=== PATIENT | female | born 1940 | race Caucasian/White ===

== ENCOUNTER → 2017-08-11 | Outpatient (REF) | payer MEDICARE ==
[2017-08-11 12:41] LABS: HEMATOCRIT 27.1 % (36.0-47.0); HEMOGLOBIN 9.1 g/dl (12.0-15.5); MEAN CORPUSCULAR HEMOGLOBIN 29.6 pg (27.0-33.0); MEAN CORPUSCULAR HGB CONC 33.6 g/dl (32.0-36.5); MEAN CORPUSCULAR VOLUME 88.3 fl (80.0-96.0); PLATELET COUNT, AUTOMATED 108 10^3/uL (150-450); RED BLOOD COUNT 3.07 10^6/uL (4.00-5.40); RED CELL DISTRIBUTION WIDTH 13.1 % (11.5-14.5); WHITE BLOOD COUNT 3.9 10^3/uL (4.0-10.0)
[2017-08-11 13:36] LABS: ANION GAP 9 MEQ/L (8-16); BLOOD UREA NITROGEN 22 MG/DL (7-18); CALCIUM LEVEL 8.8 MG/DL (8.8-10.2); CARBON DIOXIDE LEVEL 24 MEQ/L (21-32); CHLORIDE LEVEL 107 MEQ/L (98-107); CREATININE FOR GFR 1.87 MG/DL (0.55-1.30); FERRITIN 48 NG/ML (8-252); GLOMERULAR FILTRATION RATE 27.9 (>39); GLUCOSE, FASTING 232 MG/DL (70-100); IRON (FE) 45 UG/DL (50-170); SODIUM LEVEL 140 MEQ/L (136-145); TOTAL IRON BINDING CAPACITY 322 UG/DL (250-450)
[2017-08-11 13:41] LABS: ESTIMATED AVERAGE GLUCOSE 200 MG/DL (60-110); HEMOGLOBIN A1c 8.6 %
== END ==
LOC: M SFHCPLAZ 09:56
DX: D64.9 Anemia, unspecified (principal); R79.89 Other specified abnormal findings of blood chemistry; E11.9 Type 2 diabetes mellitus without complications
CPT/HCPCS: 83550

== ENCOUNTER → 2017-09-01 | Outpatient (REF) | payer MEDICARE ==
[2017-09-01 17:50] LABS: INR 1.22; PROTHROMBIN TIME 15.7 SECONDS (12.4-14.5)
[2017-09-01 18:57] LABS: EOS # 0.1 10^3/uL (0.0-0.50); EOS % 2.1 % (0.0-3.0); HEMATOCRIT 26.4 % (36.0-47.0); HEMOGLOBIN 8.8 g/dl (12.0-15.5); IMMATURE GRANULOCYTE % 0.3 % (0-3.0); LYMPH # 0.7 10^3/uL (1.5-4.5); LYMPH % 21.4 % (24.0-44.0); MEAN CORPUSCULAR HEMOGLOBIN 28.9 pg (27.0-33.0); MEAN CORPUSCULAR HGB CONC 33.3 g/dl (32.0-36.5); MEAN CORPUSCULAR VOLUME 86.8 fl (80.0-96.0); MONO # 0.3 10^3/uL (0.0-0.8); MONO % 8.4 % (0.0-5.0); NEUTROPHILS # 2.3 10^3/uL (1.8-7.7); NEUTROPHILS % 67.8 % (36.0-66.0); PLATELET COUNT, AUTOMATED 106 10^3/uL (150-450); RED BLOOD COUNT 3.04 10^6/uL (4.00-5.40); RED CELL DISTRIBUTION WIDTH 13.2 % (11.5-14.5); WHITE BLOOD COUNT 3.3 10^3/uL (4.0-10.0)
[2017-09-01 19:27] LABS: SLIDE REVIEW Report; SOURCE PERIPHERAL SMEAR
[2017-09-01 19:28] LABS: REASON FOR REVIEW ANEMIA / RBC MORPH
== END ==
LOC: M SFHCPLAZ 11:58
DX: D61.818 Other pancytopenia (principal); Z85.850 Personal history of malignant neoplasm of thyroid
CPT/HCPCS: 84443

== ENCOUNTER → 2017-09-15 | Outpatient (CLI) | payer MEDICARE | LOC: M RAD 06:40 | DX: R63.4 Abnormal weight loss (principal); Z85.850 Personal history of malignant neoplasm of thyroid | CPT/HCPCS: 76536 ==

== ENCOUNTER → 2017-09-18 | Outpatient (CLI) | payer MEDICARE | LOC: M RAD 10:15 | DX: R59.0 Localized enlarged lymph nodes (principal) | CPT/HCPCS: 70490 ==

== ENCOUNTER → 2017-09-22 | Outpatient (REF) | payer MEDICARE ==
[2017-09-22 17:57] LABS: ALBUMIN 3.9 GM/DL (3.2-5.2); ANION GAP 8 MEQ/L (8-16); BLOOD UREA NITROGEN 23 MG/DL (7-18); CARBON DIOXIDE LEVEL 25 MEQ/L (21-32); CHLORIDE LEVEL 105 MEQ/L (98-107); CREATININE FOR GFR 1.83 MG/DL (0.55-1.30); GLOMERULAR FILTRATION RATE 28.6 (>39); GLUCOSE, FASTING 186 MG/DL (70-100); PHOSPHORUS LEVEL 3.8 MG/DL (2.5-4.9); SODIUM LEVEL 138 MEQ/L (136-145)
[2017-09-22 19:00] LABS: EOS # 0.1 10^3/uL (0.0-0.50); EOS % 2.1 % (0.0-3.0); HEMATOCRIT 26.9 % (36.0-47.0); HEMOGLOBIN 8.9 g/dl (12.0-15.5); IMMATURE GRANULOCYTE % 0.3 % (0-3.0); LYMPH # 0.7 10^3/uL (1.5-4.5); LYMPH % 19.5 % (24.0-44.0); MEAN CORPUSCULAR HEMOGLOBIN 28.9 pg (27.0-33.0); MEAN CORPUSCULAR HGB CONC 33.1 g/dl (32.0-36.5); MEAN CORPUSCULAR VOLUME 87.3 fl (80.0-96.0); MONO # 0.3 10^3/uL (0.0-0.8); MONO % 7.8 % (0.0-5.0); NEUTROPHILS # 2.3 10^3/uL (1.8-7.7); NEUTROPHILS % 70.3 % (36.0-66.0); PLATELET COUNT, AUTOMATED 107 10^3/uL (150-450); RED BLOOD COUNT 3.08 10^6/uL (4.00-5.40); RED CELL DISTRIBUTION WIDTH 13.3 % (11.5-14.5); RETIC HEMOGLOBIN EQUIVALENT 34.2 pg (24-36); RETICULOCYTE # 44.4 10^9/L (17-77); RETICULOCYTE % 1.4 % (0.5-1.5); WHITE BLOOD COUNT 3.3 10^3/uL (4.0-10.0)
[2017-09-22 19:08] LABS: HEMATOCRIT 26.9 % (36.0-47.0)
[2017-09-22 22:08] LABS: FOLATE > 24.0 NG/ML (>5.4)
[2017-09-22 23:34] LABS: VITAMIN B12 LEVEL 585 PG/ML (247-911)
[2017-09-24 08:18] LABS: ERYTHROPOIETIN 15.4 mIU/mL (2.6-18.5); THRYOGLOBULIN ANTIBODIES (ATA) < 1.0 IU/mL (0.0-0.9); THYROGLOBULIN QUANTITATIVE 4.7 ng/mL (1.5-38.5)
[2017-09-25 12:46] LABS: PRETREATED FOLATE FOR RBCFOL 21.3 NG/ML; RBC FOLATE 1662.8 NG/ML (280-791)
[2017-10-08 11:54] LABS: FLOW CYTOMETRY FOR SEND OUT See Pathology Report
== END ==
LOC: M SFHCPLAZ 12:29
DX: D61.818 Other pancytopenia (principal); N18.3 Chronic kidney disease, stage 3 (moderate)
CPT/HCPCS: 82746

== ENCOUNTER → 2017-09-28 | Outpatient (REF) | payer MEDICARE ==
[2017-09-28 13:18] LABS: TOTAL PROTEIN,RANDOM URINE 13.6 MG/DL (0.0-12.0)
== END ==
LOC: M SFHCPLAZ 12:23
DX: D61.818 Other pancytopenia (principal); N18.3 Chronic kidney disease, stage 3 (moderate)
CPT/HCPCS: 86335

== ENCOUNTER → 2017-10-06 | Outpatient (CLI) | payer MEDICARE ==
[~2017-10-06] MED LIST: LIDOCAINE 1% MDV 20ML VIAL As Ordered
== END ==
LOC: M RADPRO 12:48
DX: R59.0 Localized enlarged lymph nodes (principal); I10 Essential (primary) hypertension; E78.00 Pure hypercholesterolemia, unspecified; E83.51 Hypocalcemia; I25.10 Atherosclerotic heart disease of native coronary artery without angina pectoris; D64.9 Anemia, unspecified; I25.2 Old myocardial infarction; I34.9 Nonrheumatic mitral valve disorder, unspecified; Z79.84 Long term (current) use of oral hypoglycemic drugs; Z79.899 Other long term (current) drug therapy; Z79.891 Long term (current) use of opiate analgesic; Z88.8 Allergy status to other drugs, medicaments and biological substances; Z91.030 Bee allergy status; Z95.1 Presence of aortocoronary bypass graft; Z85.850 Personal history of malignant neoplasm of thyroid; Z90.89 Acquired absence of other organs; Z85.41 Personal history of malignant neoplasm of cervix uteri
CPT/HCPCS: 10022

== ENCOUNTER → 2018-01-28 | Outpatient (REF) | payer MEDICARE ==
[2018-01-28 12:04] LABS: EOS % 0.8 % (0.0-3.0); HEMATOCRIT 27.9 % (36.0-47.0); HEMOGLOBIN 9.8 g/dl (12.0-15.5); LYMPH # 0.9 10^3/uL (1.5-4.5); LYMPH % 24.2 % (24.0-44.0); MEAN CORPUSCULAR HEMOGLOBIN 30.2 pg (27.0-33.0); MEAN CORPUSCULAR HGB CONC 35.1 g/dl (32.0-36.5); MEAN CORPUSCULAR VOLUME 86.1 fl (80.0-96.0); MONO # 0.3 10^3/uL (0.0-0.8); NEUTROPHILS # 2.4 10^3/uL (1.8-7.7); PLATELET COUNT, AUTOMATED 109 10^3/uL (150-450); RED BLOOD COUNT 3.24 10^6/uL (4.00-5.40); RED CELL DISTRIBUTION WIDTH 13.2 % (11.5-14.5); WHITE BLOOD COUNT 3.6 10^3/uL (4.0-10.0)
[2018-01-28 12:43] LABS: ANION GAP 8 MEQ/L (8-16); BLOOD UREA NITROGEN 26 MG/DL (7-18); CALCIUM LEVEL 8.3 MG/DL (8.8-10.2); CARBON DIOXIDE LEVEL 29 MEQ/L (21-32); CHLORIDE LEVEL 105 MEQ/L (98-107); CHOLESTEROL LEVEL 146 MG/DL (<200); CHOLESTEROL RISK RATIO 2.654 (<5); CREATININE FOR GFR 1.78 MG/DL (0.55-1.30); GLOMERULAR FILTRATION RATE 29.6 (>39); GLUCOSE, FASTING 188 MG/DL (70-100); HDL CHOLESTEROL 55 MG/DL (>40); LDL CHOLESTEROL 62 MG/DL (<100); NON-HDL-C 91 MG/DL; POTASSIUM SERUM 3.7 MEQ/L (3.5-5.1); SODIUM LEVEL 142 MEQ/L (136-145); TRIGLYCERIDES LEVEL 144 MG/DL (<150)
[2018-01-28 13:23] LABS: ESTIMATED AVERAGE GLUCOSE 212 MG/DL (60-110)
[2018-01-28 13:55] LABS: MAU/CREAT RATIO 350.8 MCG/MG (0.0-30.0)
== END ==
LOC: M SFHCPLAZ 09:43
DX: N18.3 Chronic kidney disease, stage 3 (moderate) (principal); E11.22 Type 2 diabetes mellitus with diabetic chronic kidney disease; D61.818 Other pancytopenia; E78.5 Hyperlipidemia, unspecified; E03.9 Hypothyroidism, unspecified
CPT/HCPCS: 84443

== ENCOUNTER 2018-05-24 11:43 | Emergency (ER) | payer MEDICARE ==
[~2018-05-24] VITALS: Ht 175.3 cm; Wt 79.5 kg
[~2018-05-24 11:43] MED LIST changes: +AMLO10TA5 PO; +ASCO25TA PO; +ASPI1TAB PO; +CALC1CAP31 PO; +CHEW500C2 PO; +CLOP75TA2 PO; +COLA100C5 PO; +CRAN500C2 PO; +FOLI1TAB11 PO; +FURO20TA2 PO; +IRON18TA PO; +LEVO125T4 PO; -LIDOCAINE 1% MDV 20ML VIAL As Ordered; +MAGN400T5 PO; +METO25TA4 PO; +MULT1TAB18 PO; +PANT40TA3 PO; +PRAV10TA4 PO; +TERA10CA3 PO; +TRAD5TAB PO; +TRAM50TA2 PO; +VITA400C7 PO
[2018-05-24 13:09] LABS: BASO % 0.2 % (0.0-1.0); EOS % 0.8 % (0.0-3.0); HEMOGLOBIN 10.4 g/dl (12.0-15.5); MEAN CORPUSCULAR HEMOGLOBIN 30.9 pg (27.0-33.0); MEAN CORPUSCULAR HGB CONC 35.9 g/dl (32.0-36.5); MEAN CORPUSCULAR VOLUME 86.1 fl (80.0-96.0); MONO # 0.4 10^3/uL (0.0-0.8); MONO % 7.8 % (0.0-5.0); NEUTROPHILS # 3.6 10^3/uL (1.8-7.7); NEUTROPHILS % 70.8 % (36.0-66.0); PLATELET COUNT, AUTOMATED 129 10^3/uL (150-450); RED BLOOD COUNT 3.37 10^6/uL (4.00-5.40); WHITE BLOOD COUNT 5.1 10^3/uL (4.0-10.0)
[2018-05-24 13:20] LABS: INR 1.1; PROTHROMBIN TIME 14.3 SECONDS (12.1-14.4)
[2018-05-24 13:21] LABS: PARTIAL THROMBOPLASTIN TIME 27.8 SECONDS (25.4-37.6)
[2018-05-24] MEDS ORDERED: LORazepam 2 MG/ML VIAL (J2060) IV STA (13:29)
[2018-05-24] MEDS ORDERED: ONDANSETRON 4MG/2ML VIAL (J2405) IV ONE (13:30)
[2018-05-24 13:35] LABS: CALCIUM LEVEL 9.5 MG/DL (8.8-10.2); CREATININE FOR GFR 1.43 MG/DL (0.55-1.30); GLOMERULAR FILTRATION RATE 38.1 (>39)
[2018-05-24] MEDS ORDERED: VITMTA PO (13:41)
[2018-05-24] MEDS ORDERED: ISOSORBIDE MON. (IMDUR) 60 MG XR TAB PO ONE (13:45)
[2018-05-24] MEDS ORDERED: TORSEMIDE 20 MG TAB PO ONE (13:45)
[2018-05-24] MEDS ORDERED: CARVedilol 12.5 MG TAB PO ONE (13:45)
[2018-05-24] MEDS ORDERED: amLODIPine 10 MG TAB PO ONE (13:45)
[2018-05-24] MEDS ORDERED: TORS20TA2 PO (13:46)
[2018-05-24] MEDS ORDERED: POLY1POW38 PO (13:46)
[2018-05-24] MEDS ORDERED: ACET-683 PO (13:46)
[2018-05-24] MEDS ORDERED: META0.52 PO (13:46)
[2018-05-24] MEDS ORDERED: SENO8.6T10 PO (13:46)
[2018-05-24] MEDS ORDERED: ISOS120T4 PO (13:46)
[2018-05-24] MEDS ORDERED: OCUVTAB4 PO (13:46)
[2018-05-24] MEDS ORDERED: HYDR25TA PO (13:47)
[2018-05-24] MEDS ORDERED: IRON65TA PO (13:48)
[2018-05-24] MEDS ORDERED: CALC500T36 PO (13:52)
[2018-05-24] MEDS ORDERED: PRAV40TA PO (13:55)
[2018-05-24 15:01] VITALS: BP 196/82
[2018-05-24] MEDS ORDERED: NORCOTAB PO (15:17)
[2018-05-24] MEDS ORDERED: ONDA4TAB6 PO (15:17)
== END 2018-05-24 15:27 | disposition home or self-care (01) ==
LOC: M ED 11:43
DX: I16.0 Hypertensive urgency (principal); Z88.8 Allergy status to other drugs, medicaments and biological substances; Z79.01 Long term (current) use of anticoagulants; Z79.82 Long term (current) use of aspirin; Z79.899 Other long term (current) drug therapy; Z87.09 Personal history of other diseases of the respiratory system
CPT/HCPCS: 80048; 85025; 85610; 85730; 93041; 94760; 96374; 96375; 99284; J2060; J2405

== ENCOUNTER → 2018-08-17 | Outpatient (REF) | payer MEDICARE ==
[~2018-08-17] MED LIST changes: +ACET-683 PO; -ASCO25TA PO; -ASPI1TAB PO; +ASPI81TA26 PO; +CALC12504 PO; +HYDR-3715 PO; +HYDR25TA PO; +IRON65TA PO; +ISOS120T7 PO; +META0.52 PO; +OCUVTAB4 PO; +ONDA4TAB6 PO; +POLY1POW38 PO; +PRAV40TA PO; +SENO8.6T10 PO; +TORS20TA2 PO; +VITA1TAB23 PO; +VITMTA PO
== END ==
LOC: M LAB REF 15:39
PROVIDERS: ATTEND Otolaryngology
DX: R04.0 Epistaxis (principal)

== ENCOUNTER → 2018-09-20 | Outpatient (CLI) | payer MEDICARE ==
--- NOTE | 2018-09-20 17:40 | REPVR ---
EXAM: US Duplex Right Lower Extremity Veins, Limited EXAM DATE/TIME: 09/20/2018 5:29 PM CLINICAL HISTORY: 78 years old, female; Edema, localized; Lower extremity, right; Additional info: Right leg swelling stat US 1, xr2 TECHNIQUE: Imaging protocol: Real-time Duplex ultrasound of the Right Lower Extremity with 2-D lomas scale, color Doppler flow and spectral waveform analysis. Limited exam was focused on the right lower extremity veins. COMPARISON: No relevant prior studies available. FINDINGS: Right deep veins: Unremarkable. The common femoral, femoral, proximal profunda femoral and popliteal veins are patent without thrombus. Normal Doppler waveforms. Normal compressibility and/or augmentation response. Right superficial veins: Unremarkable. Saphenofemoral junction is patent without thrombus. Soft tissues: Edema IMPRESSION: No acute findings. No evidence of deep vein thrombosis. Electronically signed by: Sandeep Sanchez On 09/20/2018 17:40:16 PM
--- NOTE | 2018-09-21 07:18 | REP ---
RIGHT ANKLE, FOUR VIEWS: Four views of the right ankle are performed. There is no acute fracture or dislocation. Ankle mortise is anatomic. There is a large inferior calcaneal spur and there is mild posterior calcaneal spurring. There are adjacent vascular calcifications of the soft tissues. There is moderate diffuse soft tissue swelling. Unreviewed
--- NOTE | 2018-09-21 07:18 | REP ---
RIGHT FOOT, FOUR VIEWS: Four views right foot performed. There appears to be an old healed fracture of the first proximal phalanx. I do not see evidence of an acute fracture or dislocation. There is a large inferior calcaneal spur. There are diffuse vascular calcifications. There is diffuse narrowing of the interphalangeal joints. Unreviewed
== END ==
LOC: M RAD 16:24
PROVIDERS: ATTEND Family Medicine
DX: M77.31 Calcaneal spur, right foot (principal); M25.471 Effusion, right ankle; M19.071 Primary osteoarthritis, right ankle and foot; M79.89 Other specified soft tissue disorders

== ENCOUNTER → 2018-10-04 | Outpatient (CLI) | payer MEDICARE ==
[~2018-10-04] MED LIST changes: -CALC12504 PO; +CALC500T61 PO
--- NOTE | 2018-10-04 19:49 | REP ---
REASON: Left sided pain. PRIORS: None. FINDINGS: Five views of the ribs show no acute fracture or destructive osseous lesion. IMPRESSION: Negative rib series. Electronically Signed by Rosalio Jimenez DO 10/04/2018 07:52 P
--- NOTE | 2018-10-05 07:53 | REP ---
REASON: Left-sided pain. COMPARISON: Multiple, the latest 03/01/2012. FINDINGS: The superior mediastinal structures are midline. The cardiac silhouette is unremarkable in size, shape, and position. The diaphragmatic surfaces of the lungs are regular, and the costophrenic angles are clear. The pulmonary torrez are clear. The imaged osseous structures are intact. Since the latest prior examination, the patient has undergone median sternotomy. IMPRESSION: There is no acute cardiopulmonary disease. Electronically Signed by Rosalio Jimenez DO 10/05/2018 10:02 A
== END ==
LOC: M RAD 15:58
PROVIDERS: ATTEND Family Medicine
DX: R07.81 Pleurodynia (principal)

== ENCOUNTER → 2018-11-22 | Outpatient (REF) | payer MEDICARE ==
[~2018-11-22] MED LIST changes: +CARV6.25; +FERR325T3 PO; +MAGN240P PO
[2018-11-22 16:07] LABS: ALBUMIN 3.3 GM/DL (3.2-5.2); CALCIUM LEVEL 9.3 MG/DL (8.8-10.2); CREATININE FOR GFR 1.98 MG/DL (0.55-1.30); GLOMERULAR FILTRATION RATE 26.1 (>39); MAGNESIUM LEVEL 1.5 MG/DL (1.8-2.4); PHOSPHORUS LEVEL 2.8 MG/DL (2.5-4.9); POTASSIUM SERUM 2.8 MEQ/L (3.5-5.1)
== END ==
LOC: M LABDRAW1 11:37
PROVIDERS: ATTEND Internal Medicine Cardiovascular Disease
DX: I50.32 Chronic diastolic (congestive) heart failure (principal)

== ENCOUNTER → 2018-11-22 | Outpatient (REF) | payer MEDICARE ==
[~2018-11-22] MED LIST changes: -CARV6.25; -FERR325T3 PO; -MAGN240P PO
[2018-11-22 13:05] LABS: HEMATOCRIT 27.4 % (36.0-47.0); HEMOGLOBIN 9.6 g/dl (12.0-15.5)
[2018-11-22 13:59] LABS: CHOLESTEROL RISK RATIO 2.755 (<5); CREATININE FOR GFR 2.06 MG/DL (0.55-1.30); GLOMERULAR FILTRATION RATE 24.9 (>39); POTASSIUM SERUM 2.7 MEQ/L (3.5-5.1); THYROID STIMULATING HORMONE 0.653 uIU/ML (0.358-3.740)
[2018-11-22 14:00] LABS: HEMOGLOBIN A1c 8.2 %
[2018-11-22 14:05] LABS: MAU/CREAT RATIO 281.9 MCG/MG (0.0-30.0)
== END ==
LOC: M LABDRAW1 11:39
PROVIDERS: ATTEND Family Medicine
DX: E11.9 Type 2 diabetes mellitus without complications (principal); E83.42 Hypomagnesemia; E03.9 Hypothyroidism, unspecified; I50.32 Chronic diastolic (congestive) heart failure

== ENCOUNTER → 2018-11-24 | Outpatient (REF) | payer MEDICARE ==
[2018-11-24 12:11] LABS: CALCIUM LEVEL 9.2 MG/DL (8.8-10.2); CREATININE FOR GFR 1.88 MG/DL (0.55-1.30); GLOMERULAR FILTRATION RATE 27.7 (>39); POTASSIUM SERUM 4.3 MEQ/L (3.5-5.1)
== END ==
LOC: M SFHCPLAZ 10:37
PROVIDERS: ATTEND Family Medicine
DX: E87.6 Hypokalemia (principal)

== ENCOUNTER → 2018-11-29 | Outpatient (REF) | payer MEDICARE | LOC: M SFHCPLAZ 11:23 | PROVIDERS: ATTEND Family Medicine | DX: E11.9 Type 2 diabetes mellitus without complications (principal); E83.42 Hypomagnesemia; E03.9 Hypothyroidism, unspecified ==

== ENCOUNTER → 2018-11-29 | Outpatient (REF) | payer MEDICARE | LOC: M LABDRAWP 11:46 | PROVIDERS: ATTEND Physician Assistant | DX: E87.6 Hypokalemia (principal) ==

== ENCOUNTER → 2018-12-03 | Outpatient (REF) | payer MEDICARE ==
[2018-12-03 11:32] LABS: HEMOGLOBIN 9.4 g/dl (12.0-15.5)
[2018-12-03 11:45] LABS: HEMOGLOBIN A1c 8.1 %
[2018-12-03 12:13] LABS: CALCIUM LEVEL 9.6 MG/DL (8.8-10.2); CHOLESTEROL RISK RATIO 2.34 (<5); CREATININE FOR GFR 2.09 MG/DL (0.55-1.30); GLOMERULAR FILTRATION RATE 24.5 (>39); MAGNESIUM LEVEL 1.5 MG/DL (1.8-2.4); POTASSIUM SERUM 3.5 MEQ/L (3.5-5.1); THYROID STIMULATING HORMONE 1.52 uIU/ML (0.358-3.740)
[2018-12-03 14:11] LABS: MAU/CREAT RATIO 614.1 MCG/MG (0.0-30.0)
== END ==
LOC: M SFHCPLAZ 09:47
PROVIDERS: ATTEND Family Medicine
DX: E11.9 Type 2 diabetes mellitus without complications (principal); E83.42 Hypomagnesemia; E03.9 Hypothyroidism, unspecified

== ENCOUNTER → 2019-01-17 | Outpatient (CLI) | payer MEDICARE ==
--- NOTE | 2019-01-17 14:07 | REP ---
BILATERAL SCREENING DIGITAL MAMMOGRAM WITH 3D TOMOSYNTHESIS: There are no palpable abnormalities or other breast complaints. The the patient states she has not had a clinical breast examination in over a year. The the patient states she performs self-breast examinations zero times per year. The Tyrer-Cuzick Score is: NA, history of beast cancer. Comparisons are 01/09/2011 03/01/2012, 03/11/2013 and 06/26/2014 . The patient has a history of breast cancer at age 31 and ovarian cancer at age 21 and has a history of other cancer. The there are three biopsy marking clips laterally in the right breast and a single biopsy marking clip slightly medial to midline in the right breast. On 06/01/2013 the the patient had a stereotactic needle biopsy of one of the lesions laterally in the right breast. The results of this biopsy were reportedly benign. I have no information concerning the results of the other biopsies. There is no dominant mass, micro calcific cluster or architectural distortion that would indicate malignancy. There are numerous benign calcifications bilaterally, unchanged. There are no additional findings on 3D tomosynthesiss. Other than the biopsy marking clips, there is no change from the prior studies. Impression: BIRADS/ACR category 2 mammogram. Benign findings. Recommendation: Routine annual screening mammography. This mammogram was interpreted with the aid of a FDA approved computer-aided detection system. A. Negative mammogram reports should not delay biopsy if a dominant or clinically suspicious mass is present. B. Not all breast cancers are identified by mammography or tomosynthesis. C. Adenosis and dense breasts may obscure an underlying neoplasm. Patient letter M1. Electronically Signed by Rey Alfonso MD 01/17/2019 01:58 P
== END ==
LOC: M WHC 11:54
PROVIDERS: ATTEND Family Medicine
DX: Z12.31 Encounter for screening mammogram for malignant neoplasm of breast (principal); Z85.3 Personal history of malignant neoplasm of breast; Z85.43 Personal history of malignant neoplasm of ovary; Z85.89 Personal history of malignant neoplasm of other organs and systems; R92.1 Mammographic calcification found on diagnostic imaging of breast

== ENCOUNTER → 2019-02-21 | Outpatient (CLI) | payer MEDICARE ==
[~2019-02-21] MED LIST changes: +FERR325T3 PO; +MAGN240P PO
--- NOTE | 2019-02-21 22:48 | ECHO ---
DATE OF PROCEDURE: 02/21/2019 REFERRING PHYSICIAN: Dr. Shorty Swanson INDICATION: Cardiac murmur, unspecified. HEIGHT: 177 cm WEIGHT: 74 kg 2D MEASUREMENTS: Ventricular septum: 1.10 cm Posterior wall: 1.16 cm Left ventricle diastole: 4.5 cm Aortic root: 2.7 cm Left atrium: 4.3 cm Left atrial volume index: 34.7 Inferior vena cava: 1.3 cm DOPPLER MEASUREMENTS: No aortic regurgitation. No aortic stenosis. Aortic valve velocity: 227 cm/s LVOT velocity: 96.0 cm/s LVOT VTI: 24.2 cm No aortic regurgitation. No mitral regurgitation. Mitral E velocity: 112 cm/s Mitral A velocity: 65.5 cm/s Very mild tricuspid regurgitation. No pulmonic regurgitation. MITRAL ANNULAR TISSUE DOPPLER: E prime lateral: 9.8 cm/s DESCRIPTION: Rhythm was sinus rhythm and sinus bradycardia observed. Image quality was good. No pericardial effusion. This was a 2D, M-mode, color flow Doppler and pulse wave Doppler examination and included mitral annular tissue Doppler. CONCLUSIONS: 1. Mild aortic valve sclerosis of a 3-cusp aortic valve. No aortic stenosis or regurgitation. 2. Mild mitral annular calcification. Mild mitral regurgitation. 3. Normal left ventricle internal dimensions and wall thickness. Normal regional left ventricular (LV) wall motion and wall thickening. Normal LV systolic function. Left ventricular ejection fraction (LVEF) 65% by visual estimate. Normal LV diastolic function for age. 4. Mild left atrial dilatation by left atrial volume index.
== END ==
LOC: M CARPUL 12:32
PROVIDERS: ATTEND Family Medicine
DX: R01.1 Cardiac murmur, unspecified (principal)

== ENCOUNTER → 2019-02-24 | Outpatient (REF) | payer MEDICARE ==
[2019-02-24 18:51] LABS: APPEARANCE, URINE CLOUDY (CLEAR); BACTERIA, URINE AUTO 1+ (NEGATIVE); BILIRUBIN, URINE AUTO NEGATIVE (NEGATIVE); BLOOD, URINE BLOOD 1+ (NEGATIVE); CALCIUM OXALATE CRYSTALS LARGE; COLOR, URINE YELLOW (YELLOW); GLUCOSE, URINE (UA) AUTO 3+ mg/dL (NEGATIVE); KETONE, URINE AUTO NEGATIVE (NEGATIVE); LEUKOCYTE ESTERASE, URINE AUTO 3+ (NEGATIVE); MUCUS, URINE SMALL (NEGATIVE); NITRITE, URINE AUTO NEGATIVE (NEGATIVE); PROTEIN, URINE AUTO 2+ mg/dL (NEGATIVE); RBC, URINE AUTO 25 /HPF (0-3); SPECIFIC GRAVITY URINE AUTO 1.012 (1.002-1.035); SQUAMOUS EPITHELIAL CELL UR AU 0 /HPF (0-6); UROBILINOGEN, URINE AUTO 0.2 mg/dL (0.0-2.0); WBC, URINE AUTO TNTC /HPF (0-3)
== END ==
LOC: M SFHCLERA 11:58
PROVIDERS: ATTEND Family Medicine
DX: R35.0 Frequency of micturition (principal)

== ENCOUNTER → 2019-03-04 | Outpatient (REF) | payer MEDICARE ==
[~2019-03-04] MED LIST changes: +CARV6.25
[2019-03-04 20:20] LABS: BASO % 0.2 % (0.0-1.0); EOS # 0.1 10^3/uL (0.0-0.5); HEMATOCRIT 29.4 % (36.0-47.0); LYMPH # 1.4 10^3/uL (1.5-5.0); MEAN CORPUSCULAR HEMOGLOBIN 30.5 pg (27.0-33.0); MEAN CORPUSCULAR VOLUME 89.6 fl (80.0-96.0); MONO # 0.4 10^3/uL (0.0-0.8); MONO % 8.4 % (0.0-5.0); NEUTROPHILS # 3.3 10^3/uL (1.5-8.5); PLATELET COUNT, AUTOMATED 150 10^3/uL (150-450); RED BLOOD COUNT 3.28 10^6/uL (4.00-5.40); WHITE BLOOD COUNT 5.3 10^3/uL (4.0-10.0)
[2019-03-04 20:25] LABS: CALCIUM LEVEL 10.6 MG/DL (8.8-10.2); CREATININE FOR GFR 2.35 MG/DL (0.55-1.30); GLOMERULAR FILTRATION RATE 21.4 (>39); POTASSIUM SERUM 3.9 MEQ/L (3.5-5.1)
[2019-03-04 21:09] LABS: APPEARANCE, URINE CLEAR (CLEAR); BACTERIA, URINE AUTO NEGATIVE (NEGATIVE); BILIRUBIN, URINE AUTO NEGATIVE (NEGATIVE); BLOOD, URINE BLOOD NEGATIVE (NEGATIVE); COLOR, URINE YELLOW (YELLOW); GLUCOSE, URINE (UA) AUTO 3+ mg/dL (NEGATIVE); KETONE, URINE AUTO NEGATIVE (NEGATIVE); LEUKOCYTE ESTERASE, URINE AUTO NEGATIVE (NEGATIVE); MUCUS, URINE SMALL (NEGATIVE); NITRITE, URINE AUTO NEGATIVE (NEGATIVE); PROTEIN, URINE AUTO 2+ mg/dL (NEGATIVE); RBC, URINE AUTO 1 /HPF (0-3); SPECIFIC GRAVITY URINE AUTO 1.011 (1.002-1.035); SQUAMOUS EPITHELIAL CELL UR AU 0 /HPF (0-6); UROBILINOGEN, URINE AUTO 0.2 mg/dL (0.0-2.0); WBC, URINE AUTO 2 /HPF (0-3)
== END ==
LOC: M SFHCLERA 15:47
PROVIDERS: ATTEND Family Medicine
DX: R35.0 Frequency of micturition (principal); D64.9 Anemia, unspecified; N18.3 Chronic kidney disease, stage 3 (moderate)
CPT/HCPCS: 80048; 81001; 81002; 85025; 87086; G0463

== ENCOUNTER 2019-03-28 10:34 | Emergency (ER) | payer MEDICARE ==
[~2019-03-28] VITALS: Ht 177.8 cm; Wt 71.8 kg
[~2019-03-28 10:34] MED LIST changes: -CARV6.25
[2019-03-28] MEDS ORDERED: ACETAMINOPHEN 325 MG TAB PO ONE (12:30)
--- NOTE | 2019-03-28 13:06 | REP ---
Duplex extremity venous ultrasound: Right lower extremity. History: Right upper leg pain. Question injury. Question DVT. Findings: The deep veins are anechoic and fully compressible from the groin to the popliteal fossa in the right lower extremity. Color flow imaging is homogeneous. Spectral Doppler interrogation demonstrates intact respiratory variation in flow and normal manual augmentation of flow. There is no evidence of deep vein thrombosis. Impression: Negative right lower extremity duplex venous ultrasound. No evidence of deep vein thrombosis. Electronically Signed by Shankar Zhong MD 03/28/2019 12:57 P
[2019-03-28] MEDS ORDERED: CARV6.25 (14:20)
[2019-03-28] MEDS ORDERED: amLODIPine 10 MG TAB PO ONE (14:45)
[2019-03-28] MEDS ORDERED: ISOSORBIDE MON. (IMDUR) 60 MG XR TAB PO ONE (14:45)
[2019-03-28] MEDS ORDERED: CARVedilol 6.25 MG TAB PO ONE (14:45)
--- NOTE | 2019-03-28 14:53 | REP ---
RIGHT HIP, TWO VIEWS: Two views of the right hip are performed. There is no acute fracture or dislocation. There is mild joint space narrowing, subchondral sclerosis, and spurring. Vascular calcifications are present. IMPRESSION: Mild degenerative changes without fracture or dislocation. Electronically Signed by Rey Mack MD 03/28/2019 06:07 P
--- NOTE | 2019-03-28 14:54 | REP ---
RIGHT KNEE, FOUR VIEWS: Four views right knee are performed. No acute fracture or dislocation is seen. Vascular calcifications are seen posteriorly. I do not see a significant joint effusion. IMPRESSION: No acute fracture or dislocation. Electronically Signed by Rey Mack MD 03/28/2019 06:07 P
[2019-03-28 15:05] VITALS: BP 218/90
[2019-03-28 16:27] VITALS: BP 203/77
== END 2019-03-28 16:38 | disposition home or self-care (01) ==
LOC: EDBD 10:34 → M ED 10:34
DX: M79.661 Pain in right lower leg (principal); I10 Essential (primary) hypertension; E11.9 Type 2 diabetes mellitus without complications; E03.9 Hypothyroidism, unspecified; Z88.8 Allergy status to other drugs, medicaments and biological substances; Z79.899 Other long term (current) drug therapy; F41.9 Anxiety disorder, unspecified

== ENCOUNTER 2019-04-07 15:35 | Inpatient (IN) | payer MEDICARE ==
[~2019-04-07] VITALS: Ht 177.8 cm; Wt 68.8 kg
[~2019-04-07 15:35] MED LIST changes: +CARV6.25 PO
[2019-04-07] MEDS ORDERED: MAGN400T2 PO (17:13)
[2019-04-07] MEDS ORDERED: POTA20TA6 PO (17:14)
[2019-04-07] MEDS ORDERED: PERI12LIQ SSP (17:14)
--- NOTE | 2019-04-07 18:07 | REPVR ---
PROCEDURE INFORMATION: Exam: CT Abdomen And Pelvis Without Contrast Exam date and time: 04/07/2019 5:16 PM Age: 78 years old Clinical indication: Other: Hypercalcemia; Additional info: Hypercalcemia, ? malignancy, request of Dr. Husain TECHNIQUE: Imaging protocol: Computed tomography of the abdomen and pelvis without contrast. Radiation optimization: All CT scans at this facility use at least one of these dose optimization techniques: automated exposure control; mA and/or kV adjustment per patient size (includes targeted exams where dose is matched to clinical indication); or iterative reconstruction. COMPARISON: CT ABD PELVIS W/O CONTRAST 09/15/2017 7:16 AM FINDINGS: Lungs: Atelectasis right lung base. Liver: Normal. No mass. Gallbladder and bile ducts: There has been a cholecystectomy. Pancreas: Normal. No ductal dilation. Spleen: There is mild splenomegaly with a maximum span of 13 centimeters. No focal abnormalities demonstrated. Adrenals: Normal. No mass. Kidneys and ureters: Subcentimeter nonobstructive calculus lower pole left kidney. Stomach and bowel: Mild diverticulosis is present in the left colon. No diverticulitis. Appendix: No evidence of appendicitis. Intraperitoneal space: Unremarkable. No free air. No significant fluid collection. Vasculature: Extensive calcifications in the abdominal arteries demonstrated. Lymph nodes: Unremarkable. No enlarged lymph nodes. Bladder: Unremarkable as visualized. Reproductive: There has been a hysterectomy. Bones/joints: Moderate central spinal stenosis L3-L4 and moderate to severe central spinal stenosis L4-L5. Soft tissues: There is a moderate fatty umbilical hernia. There is no evidence of incarceration. There is mild soft tissue edema demonstrated in the abdominal wall, flanks and buttock regions consistent with anasarca. IMPRESSION: 1. There has been a cholecystectomy. 2. There is mild splenomegaly with a maximum span of 13 centimeters. No focal abnormalities demonstrated. 3. Extensive calcifications in the abdominal arteries demonstrated. 4. Mild diverticulosis is present in the left colon. No diverticulitis. 5. There has been a hysterectomy. 6. Mild anasarca. Electronically signed by: Sandeep Sanchez On 04/07/2019 18:06:56 PM
[2019-04-07] MEDS: NS 1,000 ML IV SCH (19:30)
[2019-04-07] MEDS ORDERED: DEXTROSE 50% 50 ML SYRINGE IV PRN (20:00)
[2019-04-07] MEDS ORDERED: GLUCOSE 4 GM CHEW TABLET PO PRN (20:00)
[2019-04-07] MEDS ORDERED: GLUCAGON FOR INJ 1 MG VIAL (J1610) SC PRN (20:00)
--- NOTE | 2019-04-07 20:00 | HPEPDOC ---
General Date of Admission 04/07/19 Date of Service: Apr 07, 2019 Chief Complaint The patient is a 78-year-old female admitted with a reason for visit of Kidney Prob. Source: Patient, RN/, Old records History of Present Illness 78 year old female with PMH of CKD stage 4 with baseline creatinine of around 2 to 2.3 with multiple other medical problems went to see the public utilities sales representative for the first time today and lab work in the office showed creatinine worse than baseline wne hypercalcemia with low PTH, hypokalemia, hypomagnesemia so was sent to the ED for evaluation. Patient and patient's son in law Jose reports that there has been some confusion with her meds which he found out last week end when he started doing her meds. Before that her niece used to do her meds. Patient is legally blind and cannot read the bottles. As per Jose she also gets easily confused. Blood work with the public utilities sales representative noted that her creatinine is up to 3.6 from a 2.2 . Calcium was 11.73, k 3.14, PTH was 2.0, uric acid 7.06, magnesium 1.36 Hb 8.7 plat 163. The public utilities sales representative was concerned for a maliganancy causing the hypercalcemia so an CT scan of the abdomen and pelvis was done with out contrast. Hospitalist was consulted for admission for CARLTON on CKD and multiple elctrolyte abnormalities. Home Medications Scheduled Amlodipine Besylate (Amlodipine Besylate) 10 Mg Tab, 10 MG PO DAILY, (Reported) Aspirin (Aspirin EC) 81 Mg Tab, 81 MG PO DAILY, (Reported) Calcitriol (Calcitriol) 0.25 Mcg Cap, 0.25 MCG PO BID, (Reported) Calcium Carbonate (Calcium Carbonate) 500 Mg Tab, 500 MG PO BID, (Reported) Carvedilol (Carvedilol) 6.25 Mg Tablet, 6.25 MG PO BID, (Reported) Chlorhexidine Gluconate (Chlorhexidine Gluconate) 473 Ml Mouthwash, 15 ML SSP TID, (Reported) Ferrous Sulfate (Ferrous Sulfate) 325 Mg Tablet.dr, 325 MG PO DAILY, (Reported) Folic Acid (Folic Acid) 1 Mg Tab, 1 MG PO DAILY, (Reported) Hydralazine HCl (Hydralazine HCl) 25 Mg Tab, 25 MG PO BID, (Reported) Isosorbide Mononitrate (Isosorbide Mononitrate ER) 120 Mg Tab, 120 MG PO DAILY, (Reported) Levothyroxine Sodium (Levothyroxine Sodium) 125 Mcg Tab, 125 MCG PO DAILY, (Reported) Linagliptin (Tradjenta) 5 Mg Tab, 5 MG PO DAILY, (Reported) Magnesium Oxide (Magnesium Oxide) 400 Mg Tablet, 400 MG PO DAILY, (Reported) Pantoprazole Sodium (Pantoprazole Sodium) 40 Mg Tab, 40 MG PO DAILY, (Reported) Potassium Chloride (Potassium Chloride) 20 Meq Tab.er.prt, 40 MEQ PO DAILY, (Reported) Pravastatin Sodium (Pravachol) 40 Mg Tab, 40 MG PO DAILY, (Reported) Psyllium Husk (Metamucil) 0.52 Gm Cap, 1.04 GM PO TID, (Reported) TAKE WITH 8 OZ. OF LIQUID. Sennosides/Docusate Sodium (Senokot-S Tablet) 1 Tab Tab, 1 TAB PO QHS, (Reported) Torsemide (Torsemide) 20 Mg Tab, 20 MG PO DAILY, (Reported) Vit A/Vit C/Vit E/Zinc/Copper (Preservision Areds Tablet) 1 Tab Tab, 1 TAB PO DAILY, (Reported) Scheduled PRN Acetaminophen (Acetaminophen) 500 Mg Tab, 500 MG PO Q6H PRN for PAIN, (Reported) Docusate Sodium (Colace) 100 Mg Cap, 100 MG PO DAILY PRN for CONSTIPATION, (Reported) Polyethylene Glycol 3350 (Polyethylene Glycol 3350) 1 Pow Pow, 17 GM PO DAILY PRN for CONSTIPATION, (Reported) Allergies Coded Allergies: Estrogens (Verified Allergy, Unknown, 06/17/18) Past Medical History Medical History 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 GALL BLADDER Removal HERNIA REPAIR TRIPLE BYPASS BRITNEY FOOT SURGERIES BACK SURGERY HEAD SURGERY C SECTION RIGHT NEPHRECTOMY HYSTERECTOMY,TOTAL FINGER SURGERY () 10/07/18 Family History FATHER: 45 YRS, LEUKEMIA MOTHER: , HEART DISEASE, HEART FAILURE SIBLINGS: ALIVE, COLON CANCER Social History * Smoker: Denies Alcohol: rarely Drugs: denies A-FIB/CHADSVASC A-FIB History Current/History of A-Fib/PAF?: No Review of Systems Constitutional: Denies: Chills, Fever, Night Sweats Eyes: Denies: Pain, Vision change ENT: Denies: Head Aches, Ear Pain, Dysphagia Skin: Denies: Rash, Lesions, Breakdown Pulmonary: Denies: Dyspnea, Cough Cardiovascular: Denies: Chest Pain, Palpitations, Orthopnea, Paroxysmal Noc. Dyspnea, Lt Headedness Gastrointestinal: Denies: Nausea, Vomiting, Abdominal Pain, Diarrhea Genitourinary: Denies: Dysuria, Frequency, Incontinence, Retention Musculoskeletal: Denies: Neck Pain, Back Pain, Joint Pain, Muscle Pain, Spasms Neurological: Denies: Weakness, Numbness, Change in speech, Confusion Physical Examination General Exam: Positive: Alert, Cooperative, No Acute Distress Eye Exam: Positive: PERRLA, Conjunctiva & lids normal, EOMI; Negative: Sclera icteric ENT Exam: Positive: Atraumatic, Mucous membr. moist/pink, Pharynx Normal Neck Exam: Positive: Supple; Negative: JVD, thyromegaly Chest Exam: Positive: Clear to auscultation, Normal air movement Heart Exam: Positive: Rate Normal, Regular Rhythm, Normal S1, Normal S2; Negative: Murmurs, Rubs Telemetry: Positive: No significant arrhythmia Abdomen Exam: Positive: Normal bowel sounds, Soft; Negative: Tenderness, Hepatospenomegaly Extremity Exam: Positive: Normal pulses; Negative: Clubbing, Cyanosis, Edema Skin Exam: Positive: Nl turgor and temperature; Negative: Breakdown, Lesion Neuro Exam: Positive: Normal Speech, Strength at 5/5 X4 ext, Normal Tone Psych Exam: Positive: Memory Intact, Oriented x 3 Vital Signs Vital Signs Date Time Temp Pulse Resp B/P (MAP) Pulse Ox O2 Delivery O2 Flow Rate FiO2 04/07/19 17:00 177/75 (109) 04/07/19 16:50 68 100 Room Air 04/07/19 15:35 96.5 19 Assessment/Plan 78 year old female with PMH of CKD stage 4 with baseline creatinine of around 2 to 2.3 , legally blind with multiple other medical problems went to see the public utilities sales representative for the first time today and lab work in the office showed creatinine worse than baseline with hypercalcemia with low PTH, hypokalemia, hypomagnesemia so was sent to the ED for evaluation. Patient and patient's son in law Jose reports that there has been some confusion with her meds which he found out last week end when he started doing her meds. Before that her niece used to do her meds. Patient is legally blind and cannot read the bottles. As per Jose she also gets easily confused. Blood work with the public utilities sales representative noted that her creatinine is up to 3.6 from a 2.2 . Calcium was 11.73, k 3.14, PTH was 2.0, uric acid 7.06, magnesium 1.36 Hb 8.7 plat 163. The public utilities sales representative was concerned for a malignancy causing the hypercalcemia so an CT scan of the abdomen and pelvis was done with out contrast. Hospitalist was consulted for admission for CARLTON on CKD and multiple electrolyte abnormalities. CARLTON on CKD dehydration CT abd and pelvis no obstruction Hold diuretics will give IVF. Hypercalcemia will give IVF hold calcium, vit d and calcitriol send hypercalcemia workup CT abdomen and pelvis negative for any masses, lymph nodes. Hypokalemia will replace Magnesium will replace. CAD with CABG continue asa, betablocker, isosorbide mononitrate Hypertension continue coreg, amlodipine, hydralazine, statin Diabetes will hold trazenda place on lispro sliding scale. Hypothryroid cont synthroid. Iron def contiue supplements. Anemia of chronic disease. Plan / VTE VTE Prophylaxis Ordered?: Yes LONG ANDRE MD Apr 07, 2019 17:31
[2019-04-07 20:59] LABS: MAGNESIUM LEVEL 1.5 MG/DL (1.8-2.4); PHOSPHORUS LEVEL 2.4 MG/DL (2.5-4.9)
[2019-04-07] MEDS: HumaLOG INSULIN (NovoLOG) PER UNIT SC SCH (21:00)
[2019-04-07] MEDS ORDERED: **hydrALAZINE HCL** 25 MG TAB PO SCH (21:00)
[2019-04-07] MEDS: PRAVASTATIN 20 MG TAB PO SCH (21:03)
[2019-04-07] MEDS: CARVedilol 6.25 MG TAB PO SCH (21:04)
[2019-04-07] MEDS: **hydrALAZINE HCL** 25 MG TAB PO SCH (21:04)
[2019-04-07 21:09] LABS: ALBUMIN 3.5 GM/DL (3.2-5.2); ALT/SGPT 17 U/L (12-78); BILIRUBIN,TOTAL 0.5 MG/DL (0.2-1.0); BLOOD UREA NITROGEN 32 MG/DL (7-18); CARBON DIOXIDE LEVEL 25 MEQ/L (21-32); CHLORIDE LEVEL 111 MEQ/L (98-107); CREATININE FOR GFR 3.48 MG/DL (0.55-1.30); GLOMERULAR FILTRATION RATE 13.6 (>39); GLUCOSE, FASTING 127 MG/DL (70-100); POTASSIUM SERUM 3.1 MEQ/L (3.5-5.1); SODIUM LEVEL 142 MEQ/L (136-145); THYROID STIMULATING HORMONE 0.079 uIU/ML (0.358-3.740); TOTAL PROTEIN 6.6 GM/DL (6.4-8.2)
[2019-04-07 21:10] LABS: TOTAL 25(OH) VITAMIN D 51.2 NG/ML (30.0-100.0)
[2019-04-07 21:11] LABS: PTH INTACT < 6.3 PG/ML (18.5-88.0)
[2019-04-07] MEDS ORDERED: MAG SULF 1GM/100ML (MAG RUN) 1 GM in IV 1 EA IV ONE (21:30)
[2019-04-07] MEDS ORDERED: POTASSIUM CHLORIDE 10 MEQ SR TABLET PO ONE (21:30)
[2019-04-07 22:00] VITALS: BP 171/69
[2019-04-07 23:30] VITALS: BP 151/54
[2019-04-08] MEDS: LEVOTHYROXINE 100MCG TABLET (0.1MG) PO SCH (05:46)
[2019-04-08 06:00] VITALS: BP 146/70
[2019-04-08] MEDS ORDERED: LEVOTHYROXINE 125MCG TABLET (0.125MG) PO SCH (06:00)
[2019-04-08 06:06] LABS: BASO % 0.3 % (0.0-1.0); EOS # 0.1 10^3/uL (0.0-0.5); EOS % 1.9 % (0.0-3.0); HEMATOCRIT 23.2 % (36.0-47.0); LYMPH # 1.2 10^3/uL (1.5-5.0); LYMPH % 32.6 % (24.0-44.0); MEAN CORPUSCULAR HEMOGLOBIN 30.8 pg (27.0-33.0); MEAN CORPUSCULAR HGB CONC 34.5 g/dl (32.0-36.5); MEAN CORPUSCULAR VOLUME 89.2 fl (80.0-96.0); MONO # 0.4 10^3/uL (0.0-0.8); MONO % 10.5 % (0.0-5.0); NEUTROPHILS % 54.4 % (36.0-66.0); WHITE BLOOD COUNT 3.6 10^3/uL (4.0-10.0)
[2019-04-08 06:32] LABS: PLATELET COUNT, AUTOMATED 88 10^3/uL (150-450)
[2019-04-08 06:38] LABS: ALBUMIN 2.7 GM/DL (3.2-5.2); CALCIUM LEVEL 10.1 MG/DL (8.8-10.2); CREATININE FOR GFR 3.18 MG/DL (0.55-1.30); GLOMERULAR FILTRATION RATE 15.1 (>39); PERCENT SATURATION 14.3 % (13.2-45.0); PHOSPHORUS LEVEL 2.3 MG/DL (2.5-4.9); POTASSIUM SERUM 3.6 MEQ/L (3.5-5.1)
[2019-04-08] MEDS: NS 1,000 ML IV SCH ×3 (07:50→22:41)
[2019-04-08] MEDS: POTASSIUM CHLORIDE 10 MEQ SR TABLET PO SCH (08:49)
[2019-04-08] MEDS: HumaLOG INSULIN (NovoLOG) PER UNIT SC SCH ×4 (08:49→20:24)
[2019-04-08] MEDS: ASPIRIN 81 MG ENTERIC TAB PO SCH (08:50)
[2019-04-08] MEDS: FOLIC ACID 1 MG TAB PO SCH (08:50)
[2019-04-08] MEDS: CARVedilol 6.25 MG TAB PO SCH ×2 (08:50→20:26)
[2019-04-08] MEDS: ISOSORBIDE MON. (IMDUR) 60 MG XR TAB PO SCH (08:50)
[2019-04-08] MEDS: **hydrALAZINE HCL** 25 MG TAB PO SCH ×3 (08:51→20:26)
[2019-04-08] MEDS: FERROUS SULFATE 325MG TAB PO SCH (08:51)
[2019-04-08] MEDS: MAGNESIUM OXIDE 400 MG TAB (MAG-OX) PO SCH (08:51)
[2019-04-08] MEDS: amLODIPine 10 MG TAB PO SCH (08:51)
[2019-04-08] MEDS: HEPARIN SOD (PORCINE) 5000 UNITS/ML VIAL SC SCH ×2 (08:52→20:30)
[2019-04-08] MEDS: PANTOPRAZOLE 40MG TAB (PROTONIX) PO SCH (08:52)
[2019-04-08] MEDS: NYSTATIN 100,000 UNITS/GM TOPICAL PWD 15 GM TOP SCH ×2 (11:55→20:26)
--- NOTE | 2019-04-08 13:48 | IPNPDOC ---
Subjective Date Seen The patient was seen on 04/08/19. Subjective Chief Complaint/HPI Patient says she feels much better today. no issues overnight. No fever or chills, no chest pain or sob , no abdominal pain nausea or vomiting. Wants to go home but seems calm when i explained that she has to stay one more day to get all the tests done. Objective Physical Examination General Exam: Positive: Alert, Cooperative, No Acute Distress Eye Exam: Positive: PERRLA, Conjunctiva & lids normal, EOMI; Negative: Sclera icteric ENT Exam: Positive: Atraumatic, Mucous membr. moist/pink, Pharynx Normal Neck Exam: Positive: Supple; Negative: JVD, thyromegaly Chest Exam: Positive: Clear to auscultation, Normal air movement Heart Exam: Positive: Rate Normal, Regular Rhythm, Normal S1, Normal S2; Negative: Murmurs, Rubs Telemetry: Positive: No significant arrhythmia Abdomen Exam: Positive: Normal bowel sounds, Soft; Negative: Tenderness, Hepatospenomegaly Extremity Exam: Positive: Normal pulses; Negative: Clubbing, Cyanosis, Edema Skin Exam: Positive: Nl turgor and temperature; Negative: Breakdown, Lesion Neuro Exam: Positive: Normal Speech, Strength at 5/5 X4 ext, Normal Tone Psych Exam: Positive: Memory Intact, Oriented x 3 Assessment /Plan Assessment 78 year old female with PMH of CKD stage 4 with baseline creatinine of around 2 to 2.3 , legally blind with multiple other medical problems went to see the crimper assembler for the first time today and lab work in the office showed creatinine worse than baseline with hypercalcemia with low PTH, hypokalemia, hypomagnesemia so was sent to the ED for evaluation. Patient and patient's son in law Jose reports that there has been some confusion with her meds which he found out last week end when he started doing her meds. Before that her niece u sed to do her meds. Patient is legally blind and cannot read the bottles. As per Jose she also gets easily confused. Blood work with the crimper assembler noted that her creatinine is up to 3.6 from a 2.2 . Calcium was 11.73, k 3.14, PTH was 2.0, uric acid 7.06, magnesium 1.36 Hb 8.7 plat 163. The crimper assembler was concerned for a malignancy causing the hypercalcemia so an CT scan of the abdomen and pelvis was done with out contrast. Hospitalist was consulted for admission for CARLTON on CKD and multiple electrolyte abnormalities. CARLTON on CKD dehydration CT abd and pelvis no obstruction Hold diuretics continue IVF. Hypercalcemia improving. continue IVF hold calcium, vit d and calcitriol sent hypercalcemia workup CT abdomen and pelvis negative for any masses, lymph nodes. Hypokalemia will replaced Magnesium will replaced. CAD with CABG continue asa, betablocker, isosorbide mononitrate Hypertension continue coreg, amlodipine, hydralazine, statin Diabetes will hold trazenda place on lispro sliding scale. Hypothryroid cont synthroid. Iron def contiue supplements. Anemia of chronic disease. Plan/VTE VTE Prophylaxis Ordered?: Yes VS, I&O, 24H, Fishbone Vital Signs/I&O Vital Signs Date Time Temp Pulse Resp B/P (MAP) Pulse Ox O2 Delivery O2 Flow Rate FiO2 04/08/19 08:51 146/70 04/08/19 08:51 70 04/08/19 06:00 97.9 17 97 04/07/19 22:00 Room Air I&O- Last 24 Hours up to 6 AM 04/08/19 06:00 Intake Total 587.5 ml Balance 587.5 ml Laboratory Data 24H LABS Laboratory Tests 2 04/07/19 20:28: Anion Gap 6L, Glomerular Filtration Rate 13.6L, Calcium Level 11.0H, Phosphorus Level 2.4L, Magnesium Level 1.5L, Total Bilirubin 0.5, Aspartate Amino Transf (AST/SGOT) 16, Alanine Aminotransferase (ALT/SGPT) 17, Alkaline Phosphatase 41L, Total Protein 6.6, Albumin 3.5, Albumin/Globulin Ratio 1.13, 25-Hydroxy Vitamin D Total 51.2, Thyroid Stimulating Hormone (TSH) 0.079L, Parathyroid Hormone (Intact) < 6.3L 04/07/19 22:11: Bedside Glucose (Misc Panel) 230H 04/08/19 05:26: Anion Gap 5L, Glomerular Filtration Rate 15.1L, Calcium Level 10.1, Phosphorus Level 2.3L, Magnesium Level 2.0, Albumin 2.7#L, Immature Granulocyte % (Auto) 0.3, Neutrophils (%) (Auto) 54.4, Lymphocytes (%) (Auto) 32.6, Monocytes (%) (Auto) 10.5H, Eosinophils (%) (Auto) 1.9, Basophils (%) (Auto) 0.3, Neutrophils # (Auto) 2.0, Lymphocytes # (Auto) 1.2L, Monocytes # (Auto) 0.4, Eosinophils # (Auto) 0.1, Basophils # (Auto) 0.0, Nucleated Red Blood Cells % (auto) 0.0, Immature Platelet Fraction 2.0, Iron Level 29L, Total Iron Binding Capacity 20 3L, Transferrin % Saturation 14.3, Ferritin 155 04/08/19 11:43: Bedside Glucose (Misc Panel) 175H CBC/BMP Laboratory Tests 04/07/19 20:28 04/08/19 05:26 LONG ANDRE MD Apr 08, 2019 13:48
[2019-04-08 14:00] VITALS: BP 137/55
--- NOTE | 2019-04-08 14:18 | CR ---
DATE OF CONSULTATION: 04/08/2019 REQUESTING PHYSICIAN: Dr. Ana Upton CONSULTING PHYSICIAN: Dr. Husain REASON FOR CONSULTATION: Management of acute renal failure, multiple electrolyte abnormalities. CHIEF COMPLAINT: The patient was sent to the emergency room yesterday because of abnormal laboratories. HISTORY OF PRESENT ILLNESS: Belen Oh is a 78-year-old female with past medical history of chronic kidney disease stage IV with a baseline creatinine of around 2 to 2.3, history of hypertension, chronic diastolic congestive heart failure, iatrogenic hypothyroidism status post thyroidectomy, I am not sure if she had parathyroidectomy done as well. She has diabetes mellitus type 2. She presented to the nephrology office yesterday for the first time ever to the [facility] with the office for worsening renal function. She was unable to provide much history. She is legally blind, and she is not sure which medications she takes at home. She brought a big box of medications with her yesterday. She was found to have acute renal failure with a creatinine of 3.4 yesterday with hypokalemia, hypomagnesemia and anemia. She was sent from the nephrology office to emergency room for admission and further optimization of her acute renal failure. She was admitted under the hospitalist service. She was started on IV fluid hydration. She was given IV electrolytes along with some oral electrolytes and nephrology service was called for further help in the management of this patient. I saw and evaluated the patient today morning at the bedside. She reports that she is feeling better today as compared with yesterday. She denies any nausea, vomiting, dysuria or hematuria. PAST MEDICAL HISTORY: Past medical history, as per documentation, chronic kidney disease stage IV, history of coronary artery disease status post coronary artery bypass graft (CABG), myocardial infarction in the past, chronic diastolic congestive heart failure, diabetes mellitus type 2, history of right breast mass about 19 years ago, history of thyroidectomy and iatrogenic hypothyroidism, peptic ulcer disease, hypertension. PAST SURGICAL HISTORY: Status post surgery for perforated ulcer, status post thyroidectomy, history of hysterectomy, dilatation and curettage in the past, breast surgery in the right about 19 years ago, status post cholecystectomy, hernia repair, coronary artery bypass grafting, bilateral foot surgeries, back surgery, section. The patient reports that she had a right nephrectomy done in the past. ALLERGIES: She is allergic to ESTROGEN. FAMILY HISTORY: There is no significant family history of end-stage renal disease requiring hemodialysis. Her father had leukemia. Mother had heart disease. SOCIAL HISTORY: The patient lives at home. She is legally blind. She denies any illicit drug abuse. She rarely consumes alcohol. REVIEW OF SYSTEMS: Constitutional: The patient denies any fevers or chills. Eyes: Patient reports legal blindness. ENT: She denies any dysphagia, odynophagia, ear discharge. Cardiovascular: She denies any chest pain or palpitations. She does report history of coronary artery disease. Respiratory: She denies any shortness of breath. Gastrointestinal: She denies any nausea, vomiting. Genitourinary: She reports decreased urine output. Musculoskeletal: She denies any muscle aches and pains. Skin: She denies any rashes or ulcers. Hematology/Oncology: She denies any easy bleeding or bruising. She does report history of multiple cancers in the past. Endocrine: She reports history of diabetes mellitus type 2 and history of thyroidectomy and she takes medications for parathyroid as well. All other review of systems negative. PHYSICAL EXAMINATION: General: The patient is awake, alert, oriented times two laying in bed. No apparent distress. Vital signs: Temperature is 97.9 degrees Fahrenheit, blood pressure 146/70, pulse is 70, respiratory rate of 17, saturating 97% on room air. Head and neck: Extraocular muscles intact. She has myotic pupils, very poor vision. Mucous membranes are moist. Neck is supple. There is no jugular venous distention (JVD). Cardiovascular: S1, S2. Regular rate. No edema of the bilateral lower extremities. Respiratory: Chest is clear to auscultation bilaterally. Bilateral equal air entry. No rales or rhonchi. Abdomen: Soft, multiple old surgical scars are noted. No organomegaly is noted. Musculoskeletal: No clubbing or cyanosis. Pulses are 2+. Central nervous system (STOREPERSON): No focal deficit. Power is 5/5 in all extremities. Skin: The patient has a fungal rash in the suprapubic region and in the groin. LAB REVIEW: CBC showed WBC 3.6, hemoglobin is 8, platelets of 88. BMP on arrival showed sodium 142, potassium 3.1, chloride 111, bicarbonate 25, BUN 32, creatinine 3.4, glucose 127, calcium 11, AST 60, ALT 70, albumin 3.5, TSH 0.79, PTH less than 6.3. BMP done this morning showed sodium 143, potassium 3.6, chloride 114, bicarbonate 24, BUN 30, creatinine is 3.1, it was 3.4 yesterday, phosphorus 2.3, magnesium is 2, iron level is 29, TIBC is 203, transferrin saturation is 14.3, ferritin is 155. IMAGING STUDIES CT scan of the abdomen and pelvis was done yesterday, which showed status post cholecystectomy, mild splenomegaly, extensive calcification in the abdominal arteries, mild diverticulosis, status post hysterectomy and mild anasarca. CURRENT INPATIENT MEDICATIONS: - normal saline at 75 mL an hour - amlodipine 10 mg daily - aspirin 81 mg daily - Coreg 6.25 mg p.o. twice a day - iron tablet 325 mg p.o. daily - folic acid 1 mg p.o. daily - heparin 5000 units subcutaneous every 12 - hydralazine 25 mg p.o. three times a day - insulin lispro - isosorbide 120 mg p.o. daily - Levothyroxine 100 mcg p.o. daily - magnesium 400 mg p.o. daily - Protonix 40 mg p.o. daily' - potassium chloride 40 mEq p.o. times one dose followed by 40 mEq p.o. daily - pravastatin is 40 mg p.o. at night ASSESSMENT/PLAN: 1. Acute kidney injury superimposed on chronic kidney disease stage IV. The patient's diuretics were held yesterday. She was started on gentle IV fluid hydration. Renal function is gradually improving, creatinine is down to 3.1 today. No urgent need of hemodialysis. Acid base status is within the acceptable range. 2. Hypokalemia. It was most likely secondary to use of her diuretics. The patient was given oral potassium. Potassium level is improved in the acceptable range. 3. Hypercalcemia. The patient most likely had iatrogenic hypoparathyroidism because she has history of thyroidectomy in the past and that is why she was taking calcium, calcitriol and vitamin D. However, because of high calcium levels, all of these medications were held. She was given IV fluid hydration. Calcium is nicely improved to 10.1. CAT scan of the abdomen, pelvis was done to rule out malignancy and no malignancy was found. PTH level is low, which might be secondary to hypercalcemia or maybe because of history of parathyroidectomy in the past. 4. Hypomagnesemia. The patient was given oral and IV magnesium. Magnesium level is improved nicely to normal range. 5. Anemia secondary to iron deficiency and chronic kidney disease. I would give the patient IV Venofer to replete her stores. If hemoglobin level stays low then she will be given Aranesp. 6. Hypertension with hypertensive heart disease and chronic kidney disease. Continue current dose of Coreg, amlodipine, hydralazine and isosorbide. 7. Diabetes mellitus type 2. Tradjenta was held on admission. She is currently on insulin sliding scale. Thank you for involving me in the care of this patient. I shall be happy to follow the patient along with you tomorrow morning.
[2019-04-08] MEDS ORDERED: IRON SUCROSE 200 MG in NS 100 ML IV SCH (15:00)
[2019-04-08] MEDS: PRAVASTATIN 20 MG TAB PO SCH (20:25)
[2019-04-08 22:00] VITALS: BP 163/55
[2019-04-08] MEDS ORDERED: ACETAMINOPHEN TAB 650MG DOSE (2X325MG) PO PRN (22:30)
[2019-04-09 06:00] VITALS: BP 146/56
[2019-04-09 06:00] LABS: BASO % 0.3 % (0.0-1.0); EOS # 0.1 10^3/uL (0.0-0.5); EOS % 2.5 % (0.0-3.0); HEMATOCRIT 22.5 % (36.0-47.0); HEMOGLOBIN 7.7 g/dl (12.0-15.5); LYMPH # 1.1 10^3/uL (1.5-5.0); LYMPH % 30.9 % (24.0-44.0); MEAN CORPUSCULAR HEMOGLOBIN 30.8 pg (27.0-33.0); MEAN CORPUSCULAR HGB CONC 34.2 g/dl (32.0-36.5); MONO # 0.4 10^3/uL (0.0-0.8); MONO % 9.9 % (0.0-5.0); NEUTROPHILS % 56.1 % (36.0-66.0); WHITE BLOOD COUNT 3.6 10^3/uL (4.0-10.0)
[2019-04-09] MEDS: LEVOTHYROXINE 100MCG TABLET (0.1MG) PO SCH (06:02)
[2019-04-09 06:07] LABS: PLATELET COUNT, AUTOMATED 86 10^3/uL (150-450)
[2019-04-09 06:22] LABS: ALBUMIN 2.6 GM/DL (3.2-5.2); CALCIUM LEVEL 9.4 MG/DL (8.8-10.2); CREATININE FOR GFR 2.95 MG/DL (0.55-1.30); GLOMERULAR FILTRATION RATE 16.5 (>39); PHOSPHORUS LEVEL 1.8 MG/DL (2.5-4.9); POTASSIUM SERUM 3.9 MEQ/L (3.5-5.1)
[2019-04-09] MEDS: HumaLOG INSULIN (NovoLOG) PER UNIT SC SCH (08:21)
[2019-04-09] MEDS: HEPARIN SOD (PORCINE) 5000 UNITS/ML VIAL SC SCH (09:00)
[2019-04-09] MEDS: **hydrALAZINE HCL** 25 MG TAB PO SCH (09:19)
[2019-04-09] MEDS: FERROUS SULFATE 325MG TAB PO SCH (09:20)
[2019-04-09] MEDS: CARVedilol 6.25 MG TAB PO SCH (09:20)
[2019-04-09] MEDS: POTASSIUM CHLORIDE 10 MEQ SR TABLET PO SCH (09:20)
[2019-04-09 09:21] VITALS: BP 144/60
[2019-04-09] MEDS: FOLIC ACID 1 MG TAB PO SCH (09:21)
[2019-04-09] MEDS: MAGNESIUM OXIDE 400 MG TAB (MAG-OX) PO SCH (09:21)
[2019-04-09] MEDS: ISOSORBIDE MON. (IMDUR) 60 MG XR TAB PO SCH (09:21)
[2019-04-09] MEDS: amLODIPine 10 MG TAB PO SCH (09:21)
[2019-04-09] MEDS: ASPIRIN 81 MG ENTERIC TAB PO SCH (09:21)
[2019-04-09] MEDS: PANTOPRAZOLE 40MG TAB (PROTONIX) PO SCH (09:21)
[2019-04-09] MEDS: NYSTATIN 100,000 UNITS/GM TOPICAL PWD 15 GM TOP SCH (09:22)
[2019-04-09] MEDS ORDERED: DARBEPOETIN 100 MCG/0.5 ML *NON-DIALYSIS* SYRINGE (J0881) SQ SCH (12:00)
[2019-04-09] MEDS ORDERED: HYDR25TA PO (13:12)
== END 2019-04-09 11:35 | disposition left against medical advice (07) | DRG 683 ==
LOC: M ED 15:35 → M ED INP 18:11 → ENRESERVTM 20:43 → ENRESERVDT 20:43 → M MSPAV 21:56
PROVIDERS: ADMIT Internal Medicine Nephrology; ATTEND Internal Medicine Nephrology
DX: N17.9 Acute kidney failure, unspecified (principal); I50.32 Chronic diastolic (congestive) heart failure; I13.0 Hypertensive heart and chronic kidney disease with heart failure and stage 1 through stage 4 chronic kidney disease, or unspecified chronic kidney disease; N18.4 Chronic kidney disease, stage 4 (severe); E83.52 Hypercalcemia; E87.6 Hypokalemia; E83.42 Hypomagnesemia; H54.8 Legal blindness, as defined in USA; E89.0 Postprocedural hypothyroidism; I25.2 Old myocardial infarction; D63.1 Anemia in chronic kidney disease; I25.10 Atherosclerotic heart disease of native coronary artery without angina pectoris; T50.2X5A Adverse effect of carbonic-anhydrase inhibitors, benzothiadiazides and other diuretics, initial encounter; E86.0 Dehydration; E11.22 Type 2 diabetes mellitus with diabetic chronic kidney disease; D50.9 Iron deficiency anemia, unspecified; Z95.1 Presence of aortocoronary bypass graft; Z79.82 Long term (current) use of aspirin; Z79.899 Other long term (current) drug therapy; Z88.8 Allergy status to other drugs, medicaments and biological substances; Z90.5 Acquired absence of kidney; Z90.49 Acquired absence of other specified parts of digestive tract

== ENCOUNTER → 2019-04-14 | Outpatient (REF) | payer MEDICARE ==
[~2019-04-14] MED LIST changes: +LEVO100T5 PO; +MAGN400T2 PO; +PERI12LIQ SSP; +POTA20TA6 PO
[2019-04-14 20:20] LABS: BASO % 0.2 % (0.0-1.0); HEMATOCRIT 26.9 % (36.0-47.0); HEMOGLOBIN 8.7 g/dl (12.0-15.5); LYMPH # 1.2 10^3/uL (1.5-5.0); LYMPH % 28.6 % (24.0-44.0); MEAN CORPUSCULAR HEMOGLOBIN 30.1 pg (27.0-33.0); MEAN CORPUSCULAR HGB CONC 32.3 g/dl (32.0-36.5); MEAN CORPUSCULAR VOLUME 93.1 fl (80.0-96.0); MONO # 0.4 10^3/uL (0.0-0.8); MONO % 9.7 % (0.0-5.0); NEUTROPHILS # 2.5 10^3/uL (1.5-8.5); PLATELET COUNT, AUTOMATED 119 10^3/uL (150-450); RED BLOOD COUNT 2.89 10^6/uL (4.00-5.40); WHITE BLOOD COUNT 4.1 10^3/uL (4.0-10.0)
[2019-04-14 20:27] LABS: CALCIUM LEVEL 8.7 MG/DL (8.8-10.2); CREATININE FOR GFR 2.75 MG/DL (0.55-1.30); GLOMERULAR FILTRATION RATE 17.9 (>39); POTASSIUM SERUM 4.3 MEQ/L (3.5-5.1)
== END ==
LOC: M SFHCLERA 15:35
PROVIDERS: ATTEND Family Medicine
DX: N28.9 Disorder of kidney and ureter, unspecified (principal); D64.9 Anemia, unspecified
CPT/HCPCS: 80048; 85025; G0463

== ENCOUNTER → 2019-05-10 | Outpatient (CLI) | payer MEDICARE ==
[~2019-05-10] MED LIST changes: +LASI20TA3 PO
[2019-05-10 13:24] LABS: CALCIUM LEVEL 8.2 MG/DL (8.8-10.2); CREATININE FOR GFR 1.87 MG/DL (0.55-1.30); GLOMERULAR FILTRATION RATE 27.9 (>39); POTASSIUM SERUM 4.3 MEQ/L (3.5-5.1)
--- NOTE | 2019-05-10 13:58 | REP ---
DUPLEX EXTREMITY VENOUS ULTRASOUND: Right lower extremity. HISTORY: Right-sided leg swelling. FINDINGS: The deep veins are anechoic and fully compressible from the groin to the popliteal fossa in the right lower extremity. Color flow imaging is homogeneous. Spectral Doppler interrogation demonstrates intact respiratory variation in flow and normal manual augmentation of flow. There is no evidence of deep vein thrombosis. There are two hyperechoic areas in the right groin soft tissues which could be a lymph nodes. These have the typical hyperechoic texture. They measure 2.9 x 1.2 x 2.2 cm and 2.8 x 1.5 x 2.2 cm. Clinical and possibly sonographic followup is advised. IMPRESSION: Negative right lower extremity duplex venous ultrasound. No evidence of deep vein thrombosis. There are two hypertrophied appearing presumed lymph nodes in the right groin soft tissues as above. Recommend clinical and possibly sonographic followup. Electronically Signed by Shankar Zhong MD 05/10/2019 05:47 P
--- NOTE | 2019-05-10 14:38 | REP ---
CHEST X-RAY: TWO VIEWS. HISTORY: Orthopnea. Swelling of the right knee. Comparison chest x-ray: October 04, 2018 FINDINGS: Median sternotomy wires are noted. The heart is mildly enlarged. Cardiothoracic ratio today measures 53.3%. The thoracic aorta is slightly tortuous. There is blunting of the left lateral and both posterior pleural angles indicating a small bilateral pleural effusion. Pulmonary vasculature and interstitial markings are slightly prominent. There are increased markings in the left base behind the heart, and I cannot exclude superimposed left base infiltrate. IMPRESSION: Cardiomegaly with vascular interstitial prominence and small bilateral effusions consistent with CHF. Increased markings in the left base behind the heart, question superimposed infiltrate. Electronically Signed by Shankar Zhong MD 05/10/2019 05:48 P
--- NOTE | 2019-05-10 14:40 | REP ---
RIGHT KNEE SERIES: FIVE VIEWS. HISTORY: Orthopnea. Swelling of the right knee. Comparison right knee radiographs are from March 28, 2019. FINDINGS: There is some diffuse osteopenia. Diffuse vascular calcifications noted, and there are surgical clips in the medial soft tissues of the proximal calf. Joint spaces are preserved. There is mild articular spurring of the patella. Subtle fullness in the suprapatellar bursa region, question small effusion. IMPRESSION: Patellofemoral osteoarthritic spurring. Question small effusion. Extensive vascular calcification. Mild diffuse osteopenia. No radiographic change in the bones from March 28, 2019. Electronically Signed by Shankar Zhong MD 05/10/2019 05:48 P
== END ==
LOC: M RAD 11:56
PROVIDERS: ATTEND Family Medicine
DX: I51.7 Cardiomegaly (principal); M79.89 Other specified soft tissue disorders; N18.3 Chronic kidney disease, stage 3 (moderate); R06.01 Orthopnea; M25.461 Effusion, right knee
CPT/HCPCS: 36415; 71046; 73564; 80048; 93971; G0463

== ENCOUNTER 2019-05-31 14:45 | Emergency (ER) | payer MEDICARE ==
[~2019-05-31] VITALS: Ht 177.8 cm; Wt 74.5 kg
[~2019-05-31 14:45] MED LIST changes: -LASI20TA3 PO
[2019-05-31 15:27] LABS: BASO % 0.2 % (0.0-1.0); EOS # 0.1 10^3/uL (0.0-0.5); EOS % 1.8 % (0.0-3.0); HEMATOCRIT 28.8 % (36.0-47.0); HEMOGLOBIN 9.4 g/dl (12.0-15.5); LYMPH # 1.1 10^3/uL (1.5-5.0); LYMPH % 24.8 % (24.0-44.0); MEAN CORPUSCULAR HEMOGLOBIN 30.5 pg (27.0-33.0); MEAN CORPUSCULAR HGB CONC 32.6 g/dl (32.0-36.5); MEAN CORPUSCULAR VOLUME 93.5 fl (80.0-96.0); MONO # 0.5 10^3/uL (0.0-0.8); MONO % 11.8 % (0.0-5.0); NEUTROPHILS # 2.8 10^3/uL (1.5-8.5); NEUTROPHILS % 61.2 % (36.0-66.0); PLATELET COUNT, AUTOMATED 108 10^3/uL (150-450); RED BLOOD COUNT 3.08 10^6/uL (4.00-5.40); WHITE BLOOD COUNT 4.5 10^3/uL (4.0-10.0)
[2019-05-31 16:00] LABS: ALBUMIN 3.3 GM/DL (3.2-5.2); ALT/SGPT 15 U/L (12-78); BILIRUBIN,TOTAL 0.3 MG/DL (0.2-1.0); BLOOD UREA NITROGEN 28 MG/DL (7-18); CALCIUM LEVEL 7.6 MG/DL (8.8-10.2); CARBON DIOXIDE LEVEL 19 MEQ/L (21-32); CHLORIDE LEVEL 115 MEQ/L (98-107); CK-MB VALUE MASS 1.4 NG/ML (<3.6); CPK CREATINE PHOSPHOKINASE 49 U/L (26-192); CREATININE FOR GFR 1.88 MG/DL (0.55-1.30); GLOMERULAR FILTRATION RATE 27.7 (>39); GLUCOSE, FASTING 217 MG/DL (70-100); MAGNESIUM LEVEL 1.9 MG/DL (1.8-2.4); MB/CK RELATIVE INDEX 2.86 (< OR =4); NT-PRO BNP 8057 PG/ML (<450); POTASSIUM SERUM 3.8 MEQ/L (3.5-5.1); SODIUM LEVEL 140 MEQ/L (136-145); TOTAL PROTEIN 6.2 GM/DL (6.4-8.2); TROPONIN I < 0.02 NG/ML (< 0.10)
[2019-05-31] MEDS ORDERED: FUROSEMIDE 40 MG/4 ML VIAL (J1940) IV ONE (16:15)
--- NOTE | 2019-05-31 17:27 | REP ---
HISTORY: Bilateral thigh pain and swelling. TECHNIQUE: Multiple ultrasonographic images of the deep venous structures of the bilateral thighs were obtained from the common femoral vein to the popliteal vein along with Doppler interrogation and color flow Doppler images. FINDINGS: There is no abnormal echogenic material seen within any of the visualized deep venous structures that would suggest acute thrombosis. Coaptation is unremarkable throughout. Doppler interrogation shows an expected response to respiratory variability and augmentation. The color flow images show what appears to be a normal vascular pattern throughout. IMPRESSION: There is no ultrasonographic evidence of deep venous thrombosis involving any of the visualized deep venous structures of the bilateral thighs, as described above. Electronically Signed by Rosalio Jimenez DO 05/31/2019 05:53 P
--- NOTE | 2019-05-31 17:53 | REP ---
HISTORY: Dyspnea. COMPARISON: Multiple, the latest 05/10/2019. The technique utilized in obtaining the radiograph has magnified the cardiac silhouette and accentuated the interstitial markings. The opacity seen in the left lung base has cleared. There is baseline interstitial fibrosis with basilar predominance. There is cardiomegaly accentuated by technique. Note is again made of previous median sternotomy. The osseous structures are stable. IMPRESSION: Chronic changes. Correlate clinically to rule out the possibility of acute disease superimposed on chronic change. Electronically Signed by Rosalio Jimenez DO 05/31/2019 05:58 P
[2019-05-31] MEDS ORDERED: LASI20TA3 PO (18:24)
[2019-05-31 20:15] VITALS: BP 146/72
--- NOTE | 2019-05-31 20:17 | ECGEPIP ---
[facility] - ED Test Date: 2019-05-31 Pat Name: JAREN MARTINEZ Department: Room: - Gender: Female Business Systems Lead: : 1940 Requested By: BURKE CASTELLON Order Number: [id number] Reading MD: Kassidy Simons Measurements Intervals [place] Rate: 62 P: 21 SD: 196 QRS: 53 QRSD: 91 T: -5 QT: 442 QTc: 452 Interpretive Statements SINUS RHYTHM WITH OCCASIONAL SUPRAVENTRICULAR PREMATURE COMPLEXES ST DEVIATION AND MODERATE T-WAVE ABNORMALITY, CONSIDER ANTERIOR ISCHEMIA NO PRIOR Electronically Signed on 05-31-2019 20:17:27 EDT by Kassidy Simons
== END 2019-05-31 20:20 | disposition home or self-care (01) ==
LOC: M ED 14:45
DX: R60.0 Localized edema (principal); I12.9 Hypertensive chronic kidney disease with stage 1 through stage 4 chronic kidney disease, or unspecified chronic kidney disease; N18.4 Chronic kidney disease, stage 4 (severe); E03.9 Hypothyroidism, unspecified; I25.2 Old myocardial infarction; K21.9 Gastro-esophageal reflux disease without esophagitis; G43.909 Migraine, unspecified, not intractable, without status migrainosus; Z79.899 Other long term (current) drug therapy; Z79.890 Hormone replacement therapy; Z79.82 Long term (current) use of aspirin; Z88.8 Allergy status to other drugs, medicaments and biological substances

== ENCOUNTER → 2019-06-10 | Outpatient (REF) | payer MEDICARE ==
[~2019-06-10] MED LIST changes: +LASI20TA3 PO
[2019-06-10 17:55] LABS: FERRITIN 67 NG/ML (8-252); IRON (FE) 29 UG/DL (50-170); PERCENT SATURATION 10.9 % (13.2-45.0); TOTAL IRON BINDING CAPACITY 267 UG/DL (250-450)
[2019-06-10 18:03] LABS: FOLATE > 24.0 NG/ML; VITAMIN B12 LEVEL 448 PG/ML
== END ==
LOC: M LAB REF 16:38
PROVIDERS: ATTEND Internal Medicine Nephrology
DX: D64.9 Anemia, unspecified (principal)

== ENCOUNTER → 2019-07-12 | Outpatient (CLI) | payer MEDICARE ==
[2019-07-12 09:40] LABS: BASO % 0.2 % (0.0-1.0); EOS # 0.1 10^3/uL (0.0-0.5); EOS % 2.5 % (0.0-3.0); HEMATOCRIT 36.8 % (36.0-47.0); HEMOGLOBIN 11.5 g/dl (12.0-15.5); MEAN CORPUSCULAR HEMOGLOBIN 29.3 pg (27.0-33.0); MEAN CORPUSCULAR HGB CONC 31.3 g/dl (32.0-36.5); MEAN CORPUSCULAR VOLUME 93.6 fl (80.0-96.0); MONO # 0.5 10^3/uL (0.0-0.8); MONO % 9.6 % (0.0-5.0); NEUTROPHILS # 3.3 10^3/uL (1.5-8.5); NEUTROPHILS % 67.5 % (36.0-66.0); PLATELET COUNT, AUTOMATED 118 10^3/uL (150-450); RED BLOOD COUNT 3.93 10^6/uL (4.00-5.40); WHITE BLOOD COUNT 4.8 10^3/uL (4.0-10.0)
[2019-07-12 10:02] LABS: ALBUMIN 3.1 GM/DL (3.2-5.2); BILIRUBIN,TOTAL 0.4 MG/DL (0.2-1.0); CREATININE FOR GFR 1.92 MG/DL (0.55-1.30); POTASSIUM SERUM 5.3 MEQ/L (3.5-5.1); TOTAL PROTEIN 6.3 GM/DL (6.4-8.2)
== END ==
LOC: M LAB 08:57
PROVIDERS: ATTEND Internal Medicine Hematology
DX: D61.818 Other pancytopenia (principal)

== ENCOUNTER → 2019-07-26 | Outpatient (CLI) | payer MEDICARE ==
[2019-07-26 12:31] LABS: BASO % 0.2 % (0.0-1.0); EOS # 0.2 10^3/uL (0.0-0.5); EOS % 4.8 % (0.0-3.0); HEMATOCRIT 40.3 % (36.0-47.0); HEMOGLOBIN 12.8 g/dl (12.0-15.5); LYMPH % 24.2 % (24.0-44.0); MEAN CORPUSCULAR HEMOGLOBIN 29.7 pg (27.0-33.0); MEAN CORPUSCULAR HGB CONC 31.8 g/dl (32.0-36.5); MEAN CORPUSCULAR VOLUME 93.5 fl (80.0-96.0); MONO # 0.5 10^3/uL (0.0-0.8); MONO % 10.7 % (0.0-5.0); NEUTROPHILS # 2.5 10^3/uL (1.5-8.5); NEUTROPHILS % 59.9 % (36.0-66.0); RED BLOOD COUNT 4.31 10^6/uL (4.00-5.40); WHITE BLOOD COUNT 4.2 10^3/uL (4.0-10.0)
[2019-07-26 12:59] LABS: PLATELET COUNT, AUTOMATED 94 10^3/uL (150-450)
== END ==
LOC: M LAB 11:50
PROVIDERS: ATTEND Internal Medicine Hematology
DX: D46.9 Myelodysplastic syndrome, unspecified (principal); E11.9 Type 2 diabetes mellitus without complications

== ENCOUNTER → 2019-07-26 | Outpatient (CLI) | payer MEDICARE | LOC: M LAB 11:46 | PROVIDERS: ATTEND Family Medicine | DX: E11.9 Type 2 diabetes mellitus without complications (principal) ==

== ENCOUNTER → 2019-09-06 | Outpatient (CLI) | payer MEDICARE ==
[~2019-09-06] MED LIST changes: +CARV12.5 PO; +METO1TAB7 PO
[2019-09-06 13:43] LABS: BASO % 0.2 % (0.0-1.0); EOS # 0.1 10^3/uL (0.0-0.5); HEMATOCRIT 31.8 % (36.0-47.0); HEMOGLOBIN 10.4 g/dl (12.0-15.5); LYMPH # 0.9 10^3/uL (1.5-5.0); LYMPH % 15.3 % (24.0-44.0); MEAN CORPUSCULAR HEMOGLOBIN 29.1 pg (27.0-33.0); MEAN CORPUSCULAR HGB CONC 32.7 g/dl (32.0-36.5); MEAN CORPUSCULAR VOLUME 89.1 fl (80.0-96.0); MONO # 0.4 10^3/uL (0.0-0.8); MONO % 6.3 % (0.0-5.0); NEUTROPHILS # 4.2 10^3/uL (1.5-8.5); NEUTROPHILS % 75.8 % (36.0-66.0); RED BLOOD COUNT 3.57 10^6/uL (4.00-5.40); WHITE BLOOD COUNT 5.6 10^3/uL (4.0-10.0)
[2019-09-06 13:46] LABS: PLATELET COUNT, AUTOMATED 98 10^3/uL (150-450)
[2019-09-06 14:08] LABS: ALBUMIN 3.1 GM/DL (3.2-5.2); BILIRUBIN,TOTAL 0.5 MG/DL (0.2-1.0); CALCIUM LEVEL 7.9 MG/DL (8.8-10.2); CREATININE FOR GFR 2.26 MG/DL (0.55-1.30); GLOMERULAR FILTRATION RATE 22.3 (>39); POTASSIUM SERUM 5.4 MEQ/L (3.5-5.1); TOTAL PROTEIN 6.6 GM/DL (6.4-8.2)
== END ==
LOC: M LAB 13:06
PROVIDERS: ATTEND Internal Medicine Hematology
DX: D61.818 Other pancytopenia (principal)

== ENCOUNTER → 2019-09-13 | Outpatient (POV) | payer MEDICARE ==
--- NOTE | 2019-09-15 12:32 | IRCOV ---
[facility] IR Consult Office Visit IR Consult Office Visit DATE: Sep 13, 2019 Patient agreed to this telephone consultation. Duration of call 30 minutes. REASON FOR CONSULTATION/CHIEF COMPLAINT: Bilateral lower extremity swelling and pain. Nonhealing wounds. HISTORY OF PRESENT ILLNESS: 79-year-old female with history of coronary artery disease and triple bypass, diabetes, hypertension, hyperlipidemia and CKD presents with chronic bilateral lower extremity swelling, pain and legs "weeping". She describes pain in the legs at rest at night for which she has to get up and move around. She describes prior ulcer on the bottom of the left foot. No prior amputations. No prior cold leg. Nonsmoker. She denies chest pain, shortness of breath or paroxysmal nocturnal dyspnea. She sleeps on 3 pillows. No prior vein or arterial intervention in the lower extremities. ALLERGIES: Please see below. HOME MEDICATIONS: Please see below. PAST MEDICAL HISTORY: Perforated ulcer Thyroidectomy Thyroid cancer Triple bypass HI 2017 CKD Diabetes Hypertension Ovarian cancer Uterine tumor PAST SURGICAL HISTORY: Cardiac triple bypass Abdominal surgeries Thyroidectomy Breast surgery Hernia repair Surgeries Back surgery Head surgery Right nephrectomy Partial hysterectomy FAMILY HISTORY: Noncontributory SOCIAL HISTORY: Nonsmoker. Denies alcohol or drugs. REVIEW OF SYSTEMS: Otherwise negative No video on patient site. LABORATORY DATA: 09/06/2019 hemoglobin 10.4 hematocrit 31.8 WBC 5.6 platelets 98 sodium 134 potassium 5.4 BUN 52 creatinine 2.26 GFR 22.3 hemoglobin A1c 7 in 07/26/2019 LDL 40 08/22/2018 Imaging: I personally reviewed the deep venous ultrasound bilateral lower extremities from 05/31/2019. No DVT. I reviewed the CT abdomen and pelvis without contrast from March 2019. Heavily calcified arterial vasculature. ASSESSMENT/PLAN: 79-year-old female with history of coronary artery disease presents with bilateral lower extremity pain and swelling. I agree patient would benefit from arterial evaluation. We will schedule the patient for a CTA pelvis with bilateral lower extremity runoff. She should also have a bilateral lower extremity superficial venous reflux study to assess for any venous incompetency which may contribute to her symptoms and is easily treated with EVLT. We have ordered the studies and we will touch base with the patient after they are done. I spent 30 minutes in consultation with the patient. Thank you for this referral. CC Dr. Smith Allergies Coded Allergies: Estrogens (Verified Allergy, Unknown, 06/17/18) Home Medications Scheduled Amlodipine Besylate (Amlodipine Besylate), 10 MG PO DAILY, (Reported) Aspirin (Aspirin EC), 81 MG PO DAILY, (Reported) Calcium Carbonate (Calcium Carbonate), 500 MG PO BID, (Reported) Carvedilol (Carvedilol), 12.5 MG PO BID, (Reported) Chlorhexidine Gluconate (Chlorhexidine Gluconate), 15 ML SSP TID, (Reported) Ferrous Sulfate (Ferrous Sulfate), 325 MG PO Q2D, (Reported) Folic Acid (Folic Acid), 1 MG PO DAILY, (Reported) Hydralazine HCl (Hydralazine HCl), 25 MG PO TID Isosorbide Mononitrate (Isosorbide Mononitrate ER), 120 MG PO DAILY, (Reported) Levothyroxine Sodium (Levothyroxine Sodium), 125 MCG PO QAM, (Reported) Linagliptin (Tradjenta), 5 MG PO DAILY, (Reported) Magnesium Oxide (Magnesium Oxide), 400 MG PO DAILY, (Reported) Metoprolol Succinate (Metoprolol Succinate), 50 MG PO DAILY, (Reported) Pantoprazole Sodium (Pantoprazole Sodium), 40 MG PO DAILY, (Reported) Potassium Chloride (Potassium Chloride), 40 MEQ PO DAILY, (Reported) Pravastatin Sodium (Pravachol), 40 MG PO DAILY, (Reported) Sennosides/Docusate Sodium (Senokot-S Tablet), 1 TAB PO QHS, (Reported) Vit A/Vit C/Vit E/Zinc/Copper (Preservision Areds Tablet), 1 TAB PO DAILY, (Reported) Scheduled PRN Acetaminophen (Acetaminophen), 500 MG PO Q6H PRN for PAIN, (Reported) Docusate Sodium (Colace), 100 MG PO DAILY PRN for CONSTIPATION, (Reported) Polyethylene Glycol 3350 (Polyethylene Glycol 3350), 17 GM PO DAILY PRN for CONSTIPATION, (Reported) HARJEET BILLS MD Sep 15, 2019 12:32
== END ==
LOC: M TMIRPOV 09:19
PROVIDERS: ATTEND Radiology Diagnostic Radiology
DX: R60.0 Localized edema (principal); I25.10 Atherosclerotic heart disease of native coronary artery without angina pectoris; E11.22 Type 2 diabetes mellitus with diabetic chronic kidney disease; E78.5 Hyperlipidemia, unspecified; N18.9 Chronic kidney disease, unspecified; M79.605 Pain in left leg; M79.604 Pain in right leg; Z79.82 Long term (current) use of aspirin; Z79.899 Other long term (current) drug therapy; Z85.43 Personal history of malignant neoplasm of ovary; Z85.850 Personal history of malignant neoplasm of thyroid; Z88.8 Allergy status to other drugs, medicaments and biological substances; Z90.5 Acquired absence of kidney; Z90.710 Acquired absence of both cervix and uterus

== ENCOUNTER → 2019-09-28 | Outpatient (REF) | payer MEDICARE ==
[~2019-09-28] MED LIST changes: -AMLO10TA5 PO; +AMLO1TAB25 PO; +ASCO250T20 PO; +PANT40TA29 PO; -PANT40TA3 PO; -VITA1TAB23 PO
[2019-09-28 17:52] LABS: PERCENT SATURATION 20.4 % (13.2-45.0)
== END ==
LOC: M LAB REF 16:31
PROVIDERS: ATTEND Internal Medicine Nephrology
DX: D50.9 Iron deficiency anemia, unspecified (principal)

== ENCOUNTER → 2019-12-06 | Outpatient (REF) | payer MEDICARE ==
[2019-12-06 16:51] LABS: APPEARANCE, URINE CLEAR (CLEAR); BACTERIA, URINE AUTO NEGATIVE (NEGATIVE); BILIRUBIN, URINE AUTO NEGATIVE (NEGATIVE); BLOOD, URINE BLOOD NEGATIVE (NEGATIVE); COLOR, URINE STRAW (YELLOW); GLUCOSE, URINE (UA) AUTO NEGATIVE (NEGATIVE); KETONE, URINE AUTO NEGATIVE (NEGATIVE); LEUKOCYTE ESTERASE, URINE AUTO NEGATIVE (NEGATIVE); NITRITE, URINE AUTO NEGATIVE (NEGATIVE); PROTEIN, URINE AUTO 2+ mg/dL (NEGATIVE); RBC, URINE AUTO 3 /HPF (0-3); SPECIFIC GRAVITY URINE AUTO 1.009 (1.002-1.035); SQUAMOUS EPITHELIAL CELL UR AU 0 /HPF (0-6); UROBILINOGEN, URINE AUTO 0.2 mg/dL (0.0-2.0); WBC, URINE AUTO 0 /HPF (0-3)
== END ==
LOC: M SFHCLERA 16:22
PROVIDERS: ATTEND Family Medicine
DX: R35.0 Frequency of micturition (principal)

== ENCOUNTER → 2020-01-20 | Outpatient (CLI) | payer MEDICARE ==
--- NOTE | 2020-01-20 11:31 | REP ---
INDICATION: EVAL SUBDURAL HEMATOMA FILE ROOM. COMPARISON: CT 11/29/2019, 11/09/2019 from outside hospital. TECHNIQUE: Soft tissue bone no axial CT with coronal soft tissue reconstructions FINDINGS: Subdural hematoma seen on 11/09/2019 with surgically evacuated with the most of the fluid/blood are removed by the 11/29/2019 study and a single intracranial air bubble on that examination noted that air bubble is resorptive and there is less subdural fluid. I see no new superimposed acute subdural hematoma. Lateral ventricles are symmetric and not abnormally dilated there are no midline. There is evidence of an old lacunar infarct in the head of the caudate nucleus on the right. There are some heterogeneous low-attenuation white matter changes bilaterally. I see no intra parenchymal or ventricular hemorrhage. There is no acute extra-axial hemorrhage. Minimal residual subdural fluid on the right side is now symmetric with the normal left side allowing for resorption and reduction of edema. The brainstem was intact. Cerebellum shows atrophy without posterior fossa hemorrhage. Basal cisterns are intact. Heavy vascular calcification of the vertebrobasilar and carotid arteries at the skull base. Mastoids and visualized sinuses were clear. The skull base and calvarium show only right frontal parietal drainage site from the surgery between the 11/09/2019 examination and follow-up on 11/28. IMPRESSION: Resolution of the subdural hematoma, acute on chronic component, since the 11/09/2019 acute finding with postsurgical changes now resolved in that right frontoparietal region. Small amount of the fluid in this region is fairly symmetric to the normal left side with some cortical atrophy. The lateral ventricles are now midline with no shift. 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 Some chronic small vessel white matter ischemic changes noted. Diffuse mild to moderate atrophy in the cerebrum and cerebellum. Heavy vascular calcifications in the vertebrobasilar arteries and carotid siphons. Skull base and calvarium show only postsurgical changes in the right frontal parietal region from surgical drainage procedure. <Electronically signed by Natalio Haley > 01/20/20 [id number]
== END ==
LOC: M RAD 09:25
PROVIDERS: ATTEND Neurological Surgery
DX: R90.82 White matter disease, unspecified (principal); Z86.73 Personal history of transient ischemic attack (TIA), and cerebral infarction without residual deficits; G31.9 Degenerative disease of nervous system, unspecified; Z98.890 Other specified postprocedural states

== ENCOUNTER → 2020-03-30 | Outpatient (CLI) | payer MEDICARE ==
[~2020-03-30] MED LIST changes: +CALC-362 PO; -CHEW500C2 PO
[2020-03-30 13:53] LABS: CALCIUM LEVEL 7.5 MG/DL (8.8-10.2); CREATININE FOR GFR 3.34 MG/DL (0.55-1.30); GLOMERULAR FILTRATION RATE 14.2 (>39)
--- NOTE | 2020-03-30 15:37 | REP ---
INDICATION: VENEUS HTN. COMPARISON: N\A. TECHNIQUE: Multiple ultrasonographic images of the deep venous structures of the bilateral thigh were obtained from the common femoral vein to the popliteal vein along with Doppler interrogation and color flow Doppler images. In addition, bilateral deep vein reflux study was performed. FINDINGS: There is no abnormal echogenic material seen within any of the visualized deep venous structures that would suggest acute thrombosis. Coaptation is unremarkable throughout. Doppler interrogation shows an expected response to respiratory variability and augmentation. The color flow images show what appears to be a normal vascular pattern throughout. On the right: There is a trace of reflux seen in the common femoral vein. An anterior accessory greater saphenous vein is present, however, no reflux was seen in that vessel. No reflux was seen in the greater saphenous vein at the saphenofemoral junction. The AP dimension is 3 mm. No reflux was seen in the greater saphenous vein at the mid thigh. The AP dimension of which is 3 mm. No reflux was seen in the greater saphenous vein at the knee the AP dimension of which is 2.1 mm. Reflux was seen in all 3 components of the super Fischel femoral vein proximal, mid, and distal. No reflux was seen in the popliteal vein. No reflux was seen in the lesser saphenous vein the AP dimension of which measured 3.1 mm. Only minimal collateral vessels were identified. On the left foot: A trace amount of reflux was seen in the common femoral vein. An anterior accessory greater saphenous vein is present, however, no reflux was noted. Reflux was seen in the greater saphenous vein at the saphenofemoral junction of 2 seconds duration and the AP dimension of which measured 4.7 mm. No reflux was seen in the greater saphenous vein at the mid thigh the AP dimension of which measured 3.6 mm. No free FLOX was seen in the greater saphenous vein at the knee the AP dimension of which measured 4.4 mm. No reflux was seen in any portion of the superficial femoral vein, however, to and fro waveform was seen in the proximal, mid, and distal portions. No reflux was seen in the popliteal vein. No reflux was seen in the lesser saphenous vein the AP dimension of which measured 2.7 mm. Only minimal collaterals were identifiable. IMPRESSION: There is no ultrasonographic evidence of deep venous thrombosis involving any of the visualized deep venous structures of the bilateral thigh, as described above. 2. bilateral reflux study as described above <Electronically signed by Rosalio Jimenez > 03/30/20 [id number]
== END ==
LOC: M LAB 12:36
PROVIDERS: ATTEND Radiology Diagnostic Radiology
DX: I87.303 Chronic venous hypertension (idiopathic) without complications of bilateral lower extremity (principal); I73.9 Peripheral vascular disease, unspecified

== ENCOUNTER → 2020-04-03 | Outpatient (POV) | payer MEDICARE ==
--- NOTE | 2020-04-05 12:31 | IRPN ---
[facility] IR Progress Note IR Progress Note DATE: Apr 03, 2020 Patient agreed to this telephone consultation. I spent 20 minutes reviewing patient's records, imaging and talking to the patient. FOLLOW-UP: 79-year-old female initially referred to me for bilateral lower extremity swelling and weeping of the skin. She wears compression stockings but does not elevate the legs. The pain is relieved with elevation. She is very active and walks 1.5 miles from time to time. She denies intermittent claudication and rest pain with leg elevation. She does have a history of triple bypass and sleeps on 2 pillows. She denies chest pain, shortness of breath, orthopnea or paroxysmal nocturnal dyspnea. Imaging: I personally reviewed the lower extremity venous reflux study performed in March 2020. There is no saphenous vein reflux in either lower extremity. Patient could not undergo CT angiogram with runoff due to severe renal failure. IMPRESSION: 79-year-old female with bilateral lower extremity edema and skin weeping. Previously she described rest pain for which she was referred for CT angiogram with lower extremity runoff. However, she could not get this due to poor GFR. Her venous reflux study is negative for venous hypertension. She will be referred for ultrasound of arteries to complete workup. Thank you for this referral Cc Dr. Shorty Antoine Allergies Coded Allergies: Estrogens (Verified Allergy, Unknown, 06/17/18) HARJEET BILLS MD Apr 05, 2020 12:31
== END ==
LOC: M TMIRPOV 08:27
PROVIDERS: ATTEND Radiology Diagnostic Radiology
DX: M79.604 Pain in right leg (principal); M79.605 Pain in left leg; R60.0 Localized edema; Z88.8 Allergy status to other drugs, medicaments and biological substances; Z95.1 Presence of aortocoronary bypass graft

== ENCOUNTER → 2020-04-16 | Outpatient (REF) | payer MEDICARE ==
[~2020-04-16] MED LIST changes: +CALC600T86 PO; +TOPR25TA PO
[2020-04-16 14:28] LABS: CALCIUM LEVEL 7.7 MG/DL (8.8-10.2); CREATININE FOR GFR 3.22 MG/DL (0.55-1.30); GLOMERULAR FILTRATION RATE 14.8 (>39); POTASSIUM SERUM 4.5 MEQ/L (3.5-5.1)
== END ==
LOC: M SFHCLERA 11:17
PROVIDERS: ATTEND Family Medicine
DX: N18.4 Chronic kidney disease, stage 4 (severe) (principal)
CPT/HCPCS: 36415; 80048; 99487; G0463

== ENCOUNTER → 2020-04-17 | Outpatient (CLI) | payer MEDICARE ==
[~2020-04-17] MED LIST changes: -CALC600T86 PO; -TOPR25TA PO
--- NOTE | 2020-04-17 13:32 | REPMRS ---
Patient History The patient states she had a clinical breast exam in February 2020.Family history of breast cancer at age 50 or over in maternal aunt, breast cancer at age 50 or over in paternal aunt. Benign radio exam breast specimen of the right breast, June 01, 2013. Benign stereotatic loc for ea lesion of the right breast, June 01, 2013. No Hormone Replacement Therapy Digital Woman Screen Mammo: April 17, 2020 - Exam #: [id number] Bilateral CC and MLO view(s) were taken. Technologist: Gina Younger, Technologist Prior study comparison: January 17, 2019, bilateral digital woman screen mammo performed at [facility]. December 11, 2017, bilateral digital mammo screening bilat, performed at [facility]. June 26, 2014, bilateral digital mammo screening bilat, performed at [facility]. March 29, 2013, right breast digital mammo diagnostic unilateral, performed at [facility]. FINDINGS: The breast tissue is heterogeneously dense. This may lower the sensitivity of mammography. The Volpara volumetric breast density category is: C. There are 5 needle biopsy marker clips again noted in the right breast. There is stable subareolar fibrosis in the right breast unchanged from multiple prior studies and consistent with post treatment change. There is a moderate amount of heterogeneously dense fibroglandular tissue which is fairly symmetric. There is no interval development of dominant mass, architectural distortion, or grouped microcalcification typical of malignancy. There has been no change in the appearance of the mammogram from the prior studies. 3-D tomosynthesis shows no additional findings. Assessment: BI-RADS/ACR category 2 mammogram. Benign Findings. Recommendation Routine screening mammogram of both breasts in 1 year (for women over age 40). This mammogram was interpreted with the aid of an FDA-approved computer-aided dectection system. Electronically Signed By: Wilmer Zhong MD 04/17/20 [id number]
== END ==
LOC: M WHC 12:27
PROVIDERS: ATTEND Family Medicine
DX: Z12.31 Encounter for screening mammogram for malignant neoplasm of breast (principal)

== ENCOUNTER → 2020-04-24 | Outpatient (CLI) | payer MEDICARE ==
--- NOTE | 2020-04-24 16:34 | REP ---
INDICATION: PAD COMPARISON: None. TECHNIQUE: Real time mack scale and Duplex Doppler evaluation of the bilateral lower extremity arterial vasculature using linear high frequency transducer. FINDINGS: Mack scale and duplex doppler images demonstrate bilateral severe atherosclerotic calcification particularly below the knee. Moderate scattered plaquing is seen. The extensive wall calcification limits evaluation for underlying stenosis. There is reversal of flow in the right proximal anterior tibial artery. The distal posterior tibial artery cannot be visualized on the right. Biphasic waveforms are seen in the bilateral common femoral and proximal and mid superficial femoral arteries. Monophasic waveforms are seen in the bilateral distal superficial femoral arteries extending distally. Peak systolic velocities (cm/sec) Common femoral artery: Right 109; Left 105 Profunda femoris: Right 77; Left 123 SFA (proximal): Right 108; Left 79 SFA (mid): Right 108; Left 65 SFA (distal): Right 69; Left 73 Popliteal artery: Right 82; Left 92 PADDY (prox.): Right 14; Left 81 Tibioperoneal trunk: Right 72; Left 148 OBGYN HOSPITALIST PHYSICIAN (prox.): Right 98; Left 64 OBGYN HOSPITALIST PHYSICIAN (distal): Right not seen; Left 43 PADDY (distal): Right 150; Left 120 IMPRESSION: Moderate diffuse plaquing with severe calcification in the arterial rashid. This limits evaluation for underlying stenosis. No obvious stenosis or occlusion is visualized. There is reversal of flow in the proximal right anterior tibial artery. The distal posterior tibial artery on the right cannot be visualized. Consider angiogram. <Electronically signed by Rey Mack > 04/24/20 [id number]
== END ==
LOC: M RAD 11:45
PROVIDERS: ATTEND Radiology Diagnostic Radiology
DX: I70.203 Unspecified atherosclerosis of native arteries of extremities, bilateral legs (principal)

== ENCOUNTER → 2020-05-01 | Outpatient (POV) | payer MEDICARE ==
[~2020-05-01] MED LIST changes: +CALC600T86 PO; +TOPR25TA PO
--- NOTE | 2020-05-03 11:42 | IRPN ---
[facility] IR Progress Note IR Progress Note DATE: May 01, 2020 Patient agreed to this telephone follow-up. I spent 15 minutes reviewing patient's records, imaging and talking to the patient. FOLLOW-UP: 79-year-old, active female with bilateral lower extremity swelling and weeping of the skin. She underwent ultrasound bilateral lower extremity venous reflux study which showed left GSV reflux. She also underwent ultrasound bilateral lower extremity arterial evaluation. Imaging: I personally reviewed the bilateral lower extremity venous reflux study performed March 2020. There is left greater saphenous vein reflux. I personally reviewed the bilateral lower extremity arterial ultrasound performed April 2020. Patent SFA bilaterally. Biphasic above knee and monophasic below knee flow. IMPRESSION: 79-year-old female with bilateral lower extremity swelling and weeping. She does have left greater saphenous vein reflux, we can treat this with EVLT to see if this improves her pain and swelling. She will also need angiography to evaluate the inflow to her lower extremities and intervention for suspected rest pain. If patient is agreeable, we will go ahead and schedule that. Thank you for this referral Cc Dr. Antoine Allergies Coded Allergies: Estrogens (Verified Allergy, Unknown, 06/17/18) HARJEET BILLS MD May 03, 2020 11:42
== END ==
LOC: M TMIRPOV 09:46
PROVIDERS: ATTEND Radiology Diagnostic Radiology
DX: I87.2 Venous insufficiency (chronic) (peripheral) (principal); Z88.8 Allergy status to other drugs, medicaments and biological substances

== ENCOUNTER → 2020-05-24 | Outpatient (CLI) | payer MEDICARE ==
[~2020-05-24] MED LIST changes: +CVS500CA5 PO; +FAMO20TA PO; +LIDOCAINE 1% MDV 20ML VIAL As Ordered ONE; +LIDOCAINE 2% MDV 20ML VIAL As Ordered ONE; +LOSA50TA88 PO; +MELA5TAB7 PO; +MIDAZOLAM INJ 2MG/2ML VIAL (J2250 PER 1MG) As Ordered ONE; +OCEA0.654 NARES; +OYST500T8 PO; +PROMETHAZINE INJ 25 MG/ML VIAL (J2550) As Ordered ONE; +diphenhydrAMINE 50MG/ML VIAL (J1200) As Ordered ONE; +fentaNYL 100 MCG/2 ML INJECTION (J3010) As Ordered ONE
--- NOTE | 2020-05-24 12:57 | IRHP ---
[facility] IR Pre-Procedure H & P General Date of Service: May 24, 2020 Procedure: Same Day Surgery Interval History and Physical I have seen the patient and reviewed last H & P performed within 30 days. There is no significant interval change. History of Present Illness Chief Complaint The patient is a 79-year-old female admitted with a reason for visit of Varicose Veins, Pain, Swelling. PRE-PROCEDURE DIAGNOSIS: Left-sided varicose veins HEART: Normal rate. LUNGS: Normal breathing at rest. ASA Classification ASA Classification: III-Severe systemic dis. Mallampati Score: II NPO: Yes Problems with prior sedation: No Obstructive Sleep Apnea: No Plan moderate sedation Allergies Coded Allergies: Estrogens (Verified Allergy, Unknown, 06/17/18) Home Medications Scheduled Amlodipine Besylate (Amlodipine Besylate), 10 MG PO DAILY, (Reported) Aspirin (Aspirin EC), 81 MG PO DAILY, (Reported) Calcium Carbonate (Oyster Shell Calcium), 500 MG PO BID, (Reported) Cranberry Fruit Extract (Cranberry), 500 MG PO DAILY, (Reported) Folic Acid (Folic Acid), 1 MG PO DAILY, (Reported) Hydralazine HCl (Hydralazine HCl), 25 MG PO TID Isosorbide Mononitrate (Isosorbide Mononitrate ER), 120 MG PO DAILY, (Reported) Levothyroxine Sodium (Levothyroxine Sodium), 125 MCG PO QAM, (Reported) Losartan Potassium (Losartan Potassium), 50 MG PO DAILY, (Reported) Magnesium Oxide (Magnesium Oxide), 400 MG PO DAILY, (Reported) Melatonin (Melatonin), 5 MG PO QHS, (Reported) Metoprolol Succinate (Toprol Xl), 25 MG PO DAILY, (Reported) Pantoprazole Sodium (Pantoprazole Sodium), 40 MG PO DAILY, (Reported) Pravastatin Sodium (Pravachol), 40 MG PO DAILY, (Reported) Torsemide (Torsemide), 20 MG PO DAILY, (Reported) Scheduled PRN Acetaminophen (Acetaminophen), 500 MG PO Q6H PRN for PAIN, (Reported) Famotidine (Famotidine), 20 MG PO DAILYPRN PRN for INDIGESTION, (Reported) Sodium Chloride ([place]), 1 SPRAY NARES QIDP PRN for NASAL DRYNESS, (Reported) Discontinued Medications Calcium Carbonate (Calcium Carbonate), 600 MG PO, (Reported) Discontinued Reason: Pt states not taking Carvedilol (Carvedilol), 12.5 MG PO BID, (Reported) Discontinued Reason: Pt states not taking Chlorhexidine Gluconate (Chlorhexidine Gluconate), 15 ML SSP TID, (Reported) Discontinued Reason: Pt states not taking Docusate Sodium (Colace), 100 MG PO DAILY PRN for CONSTIPATION, (Reported) Discontinued Reason: Pt states not taking Ferrous Sulfate (Ferrous Sulfate), 325 MG PO Q2D, (Reported) Discontinued Reason: Pt states not taking Linagliptin (Tradjenta), 5 MG PO DAILY, (Reported) Discontinued Reason: Pt states not taking Polyethylene Glycol 3350 (Polyethylene Glycol 3350), 17 GM PO DAILY PRN for CONSTIPATION, (Reported) Discontinued Reason: Pt states not taking Potassium Chloride (Potassium Chloride), 40 MEQ PO DAILY, (Reported) Discontinued Reason: Pt states not taking Sennosides/Docusate Sodium (Senokot-S Tablet), 1 TAB PO QHS, (Reported) Discontinued Reason: Pt states not taking Vit A/Vit C/Vit E/Zinc/Copper (Preservision Areds Tablet), 1 TAB PO DAILY, (Reported) Discontinued Reason: Pt states not taking HARJEET BILLS MD May 24, 2020 12:57
[2020-05-24 17:53] VITALS: BP 181/76
--- NOTE | 2020-05-30 12:13 | IRPON ---
IR Postoperative Note Date Of Procedure: May 24, 2020 Time Of Procedure: 16:00 IR Postoperative Note IR Endovenous laser treatment for left leg varicose vein. IR Ultrasound of the left leg. IR Tumescent anesthesia under ultrasound guidance. IR Moderate sedation. Clinical information: Left leg pain and swelling. Varicose veins with greater saphenous vein competency and greater than 0.5 seconds of reflux. Physician: Dr. Sheikh. Procedure: The patient was advised of the benefits, risks and alternatives of the procedure and informed consent was obtained. The time-out was performed with verification of the patient's name, MRN, site of procedure and type of procedure to be performed. The patient was positioned in the supine position on the table. The site was prepped and draped in the usual sterile fashion. Moderate sedation was performed by the physician including the presence of an independent trained RN who assisted in monitoring the patient's level of consciousness and physiologic status. Following the administration of fentanyl and Versed , the physician spent 60 minutes of continuous face to face time with the patient. Ultrasound of the left lower extremity demonstrates dilated greater saphenous vein with greater than 0.5 seconds reflux. The access site was identified with ultrasound and anesthetized with lidocaine. The left greater saphenous vein was accessed under ultrasound guidance at the distal thigh, using a micro introducer needle. An 018 cope wire was advanced into the vein. Incision at the access site was made using a scalpel. The needle was removed and an access catheter was advanced over the wire under ultrasound guidance to > 2.5 centimeters from the saphenofemoral junction. The wire was removed and the laser fiber was advanced through the catheter under ultrasound guidance and positioned with the tip located 2.5 cm from the saphenous femoral junction. Tumescent anesthesia was then injected under ultrasound guidance along the entire length of the vein to be treated. Repeat ultrasound of the saphenofemoral junction was used to confirm positioning of the tip of the laser back 2.5 cm from junction. The patient was positioned in Trendelenburg. The laser was then activated and under ultrasound guidance used to laser the Left greater saphenous vein back to the access point. Simultaneous manual compression was applied to the treated vein. Treatment: Wattage: 7. Time: 124 seconds. Pullback rate 1 cm every 7 seconds. Total Energy deposited 867 joules. Treatment 50 joules per centimeter of vein. The fiber, catheter and sheath were removed, pressure held and hemostasis achieved. A sterile dressing was applied to the site. Compression dressing was then applied to the leg, from ankle to groin. The patient tolerated the procedure well and was returned to the PRU in stable condition. EBL: < 5 ml. Complications: None. Impression: 1. Ultrasound demonstrates dilated left greater saphenous vein with greater than 0.5 seconds reflux. 2. Successful left greater saphenous vein ablation with laser. 3. Compression dressing applied from ankle to groin. Patient to return in 1 week for follow up ultrasound at which time the compression dressing will be switched to stockings. Thank you this referral. HARJEET SHEIKH MD May 30, 2020 12:13
== END ==
LOC: M IRPRO 11:05
PROVIDERS: ATTEND Radiology Diagnostic Radiology
DX: I83.812 Varicose veins of left lower extremity with pain (principal); I83.892 Varicose veins of left lower extremity with other complications; Z79.82 Long term (current) use of aspirin; Z79.899 Other long term (current) drug therapy
CPT/HCPCS: 36478; 76940; 99152; 99153; J1200; J2250; J3010

== ENCOUNTER → 2020-05-31 | Outpatient (CLI) | payer MEDICARE ==
[~2020-05-31] MED LIST changes: -LIDOCAINE 1% MDV 20ML VIAL As Ordered ONE; -LIDOCAINE 2% MDV 20ML VIAL As Ordered ONE; -MIDAZOLAM INJ 2MG/2ML VIAL (J2250 PER 1MG) As Ordered ONE; -PROMETHAZINE INJ 25 MG/ML VIAL (J2550) As Ordered ONE; -diphenhydrAMINE 50MG/ML VIAL (J1200) As Ordered ONE; -fentaNYL 100 MCG/2 ML INJECTION (J3010) As Ordered ONE
--- NOTE | 2020-05-31 12:31 | REP ---
INDICATION: S/P EVLT, R/O DVT. COMPARISON: 05/10/2019. TECHNIQUE: Multiple ultrasound and Doppler images of the left lower extremity. FINDINGS: The patient underwent left lower extremity EVLT 1 week ago. The deep veins demonstrate normal compression, normal Doppler color flow and normal Doppler waveforms at multiple levels from the popliteal vein to the common femoral vein. There is thrombus within the greater saphenous vein at approximately 3.9 8 cm from its origin as a consequence of the EVLT. IMPRESSION: There is no left lower extremity deep vein thrombus. There is thrombus within the greater saphenous vein as a consequence of EVLT. <Electronically signed by Rey Alfonso > 05/31/20 [id number]
== END ==
LOC: M RAD 10:48
PROVIDERS: ATTEND Radiology Diagnostic Radiology
DX: I82.812 Embolism and thrombosis of superficial veins of left lower extremity (principal); Z98.890 Other specified postprocedural states

== ENCOUNTER → 2020-06-12 | Outpatient (POV) | payer MEDICARE ==
--- NOTE | 2020-06-15 11:06 | IRPN ---
[facility] IR Progress Note IR Progress Note DATE: Jun 12, 2020 Patient agreed to this telephone follow up. I spent 10 minutes talking to the patient. FOLLOW-UP: Status post EVLT, patient states the pain she was feeling along the treated vein is improving. She cannot take ibuprofen. She recently split off her toe nail and therefore cannot get the compression stockings on. No fevers or chills. ON EXAMINATION: No video. IMAGING: postprocedure follow up US negative for DVT. IMPRESSION: Status post EVLT, her discomfort from the procedure is improving. Ideally ibuprofen would work but she cannot take this. I advised ice pack to the thigh might help and compression. Follow up in 2 weeks. Allergies Coded Allergies: bee venom protein (honey bee) (Verified Allergy, Mild, 05/24/20) Estrogens (Verified Allergy, Unknown, 06/17/18) HARJEET BILLS MD Jun 15, 2020 11:06
== END ==
LOC: M TMIRPOV 09:01
PROVIDERS: ATTEND Radiology Diagnostic Radiology
DX: Z48.812 Encounter for surgical aftercare following surgery on the circulatory system (principal); Z88.8 Allergy status to other drugs, medicaments and biological substances; Z91.030 Bee allergy status

== ENCOUNTER 2020-06-28 14:43 | Emergency (ER) | payer MEDICARE ==
[~2020-06-28] VITALS: Ht 177.8 cm; Wt 83.6 kg
[2020-06-28] MEDS ORDERED: ALLO100T PO (15:13)
[2020-06-28] MEDS ORDERED: MORPHINE 10 MG/ML 1ML VIAL (J2270) IM ONE (16:00)
--- NOTE | 2020-06-28 16:17 | REP ---
INDICATION: pain, swelling. COMPARISON: None. TECHNIQUE: Multiple ultrasonographic images of the deep venous structures of the left thigh were obtained from the common femoral vein to the popliteal vein along with Doppler interrogation and color flow Doppler images. FINDINGS: There is no abnormal echogenic material seen within any of the visualized deep venous structures that would suggest acute thrombosis. Coaptation is unremarkable throughout. Doppler interrogation shows an expected response to respiratory variability and augmentation. The color flow images show what appears to be a normal vascular pattern throughout. Echogenic material is again seen in the greater saphenous vein which appears essentially unchanged. IMPRESSION: There is no ultrasonographic evidence of deep venous thrombosis involving any of the visualized deep venous structures of the left thigh, as described above. No significant change in appearance of the greater saphenous vein thrombus. <Electronically signed by Rosalio Jimenez > 06/28/20 [id number]
[2020-06-28] MEDS ORDERED: LIDO5DIS41 TOP (17:53)
[2020-06-28] MEDS ORDERED: LIDOCAINE 5% (LIDODERM) PATCH TD ONE (17:55)
[2020-06-28 19:10] VITALS: BP 136/62
[2020-06-28] MEDS ORDERED: **NOTE PATIENT COMMENT** MISC XX SCH (21:00)
== END 2020-06-28 19:13 | disposition home or self-care (01) ==
LOC: EDBD 14:43 → M ED 14:43
DX: R22.43 Localized swelling, mass and lump, lower limb, bilateral (principal); G89.29 Other chronic pain; M54.5 Low back pain; I25.2 Old myocardial infarction; I10 Essential (primary) hypertension; K21.9 Gastro-esophageal reflux disease without esophagitis; E03.9 Hypothyroidism, unspecified; Z79.82 Long term (current) use of aspirin; Z79.899 Other long term (current) drug therapy; Z88.8 Allergy status to other drugs, medicaments and biological substances; Z91.040 Latex allergy status; Z91.030 Bee allergy status
CPT/HCPCS: 93971; 96372; 99284; J2270

== ENCOUNTER 2020-07-12 10:20 | Inpatient (IN) | payer MEDICARE ==
[~2020-07-12] VITALS: Ht 177.8 cm; Wt 82.0 kg
[~2020-07-12 10:20] MED LIST changes: +ALLO100T PO; +LIDO5DIS41 TOP
--- NOTE | 2020-07-12 11:14 | REP ---
INDICATION: DYSPNEA/COUGH. COMPARISON: Comparison chest x-ray May 31, 2019. TECHNIQUE: Portable upright AP chest radiograph. FINDINGS: Patient is status post median sternotomy. Moderate cardiomegaly is observed unchanged. There is linear fibrosis or discoid atelectasis in the left perihilar region. Interstitial markings are prominent diffusely similar to prior studies. There is no evidence of pleural effusion. No focal infiltrate is seen.. IMPRESSION: Moderate cardiac enlargement. Diffusely prominent interstitial markings unchanged. Platelike atelectasis left perihilar region.. <Electronically signed by Wilmer Zhong > 07/12/20 1111
[2020-07-12 11:55] LABS: RSV AMPLIFICATION NEGATIVE (NEGATIVE)
[2020-07-12 11:57] LABS: BASO % 0.2 % (0.0-1.0); EOS # 0.1 10^3/uL (0.0-0.5); EOS % 1.8 % (0.0-3.0); HEMOGLOBIN 10.8 g/dl (12.0-15.5); LYMPH % 18.3 % (24.0-44.0); MEAN CORPUSCULAR HEMOGLOBIN 32.4 pg (27.0-33.0); MEAN CORPUSCULAR HGB CONC 31.8 g/dl (32.0-36.5); MEAN CORPUSCULAR VOLUME 102.1 fl (80.0-96.0); MONO # 0.3 10^3/uL (0.0-0.8); NEUTROPHILS # 4.2 10^3/uL (1.5-8.5); NEUTROPHILS % 73.3 % (36.0-66.0); PLATELET COUNT, AUTOMATED 135 10^3/uL (150-450); RED BLOOD COUNT 3.33 10^6/uL (4.00-5.40); WHITE BLOOD COUNT 5.7 10^3/uL (4.0-10.0)
[2020-07-12 12:10] LABS: INR 1.28; PROTHROMBIN TIME 16.3 SECONDS (12.5-14.3)
[2020-07-12 12:32] LABS: ALBUMIN 3.5 GM/DL (3.2-5.2); ALT/SGPT 29 U/L (12-78); BILIRUBIN,DIRECT 0.2 MG/DL (0.0-0.2); BILIRUBIN,TOTAL 0.4 MG/DL (0.2-1.0); BLOOD UREA NITROGEN 98 MG/DL (7-18); CALCIUM LEVEL 7.5 MG/DL (8.8-10.2); CARBON DIOXIDE LEVEL 17 MEQ/L (21-32); CHLORIDE LEVEL 111 MEQ/L (98-107); CK-MB VALUE MASS 2.3 NG/ML (<3.6); CPK CREATINE PHOSPHOKINASE 52 U/L (26-192); CREATININE FOR GFR 4.46 MG/DL (0.55-1.30); GLOMERULAR FILTRATION RATE 10.2 (>39); GLUCOSE, FASTING 206 MG/DL (70-100); MB/CK RELATIVE INDEX 4.42 (< OR =4); NT-PRO BNP 31201 PG/ML (<450); POTASSIUM SERUM 4.4 MEQ/L (3.5-5.1); SODIUM LEVEL 140 MEQ/L (136-145); THYROXINE (T4) 9.2 UG/DL (4.5-12.0); TOTAL PROTEIN 6.7 GM/DL (6.4-8.2); TROPONIN I < 0.02 NG/ML (< 0.10)
[2020-07-12] MEDS ORDERED: FUROSEMIDE 100MG/10ML VIAL (J1940) IV ONE (13:00)
[2020-07-12] MEDS ORDERED: DEXTROSE 50% 50 ML SYRINGE IV PRN (13:10)
[2020-07-12] MEDS ORDERED: GLUCOSE 4GM CHEW TABLET PO PRN (13:10)
[2020-07-12] MEDS ORDERED: GLUCAGON INJ 1MG VIAL SC PRN (13:10)
[2020-07-12] MEDS ORDERED: METO1TAB7 PO (15:04)
[2020-07-12] MEDS ORDERED: D31000TA2 PO (15:04)
[2020-07-12] MEDS ORDERED: CENT1TAB9 PO (15:04)
[2020-07-12] MEDS ORDERED: HYDR-3910 PO (15:04)
[2020-07-12] MEDS ORDERED: EUTH137T PO (15:04)
[2020-07-12] MEDS ORDERED: POLYOPD OU (15:04)
[2020-07-12] MEDS ORDERED: IRON65TA2 PO (15:04)
[2020-07-12] MEDS ORDERED: PRAV40TA2 PO (15:04)
[2020-07-12] MEDS ORDERED: AMMO12CR7 TOP (15:04)
[2020-07-12] MEDS ORDERED: META28.32 PO (15:04)
[2020-07-12] MEDS ORDERED: CALCCAP4 PO (15:04)
[2020-07-12] MEDS ORDERED: PRES10CA2 PO (15:04)
[2020-07-12 15:05] VITALS: BP 152/61
[2020-07-12] MEDS ORDERED: METAMUCIL (PSYLLIUM) PACKET PO PRN (15:20)
--- NOTE | 2020-07-12 15:25 | HPEPDOC ---
[facility] Medical History & Physical Date of Admission Jul 12, 2020 Date of Service: Jul 12, 2020 History and Physical CHIEF COMPLAINT: 20lb weight gain in past month , shortness of breath, dyspnea and exertion HISTORY OF PRESENT ILLNESS: 80y/o F w ckd4 mds anemia of chronic dz c/o increasing shortness of breath on walking about 15-20 feet, 20 pound weight gain in the past month, shortness of breath at rest, increased fatigue, lower extremity edema, paroxysmal nocturnal dyspnea, and 3-4 pillow orthopnea. She denied any chest pain, pressure, tightness, fever, chills, cough, nausea, vomiting, epigastric pain, dysuria, urgency, frequency, flank pain, polyuria, polyphagia. She does not adhere to a salt restricted and fluid restricted diet, and was seen by her jockey's agent yesterday encouraged to come to the ER for diuresis but could not leave because she didn't want to leave her 10 cats unsupervised at Home without Anyone to Take Care Of them. Today her daughter volunteered to take care of her cats, allowing her to come to the hospital for admission to diuresis for fluid overload. Patient has chronic anemia, hemoglobin of 10 is stable without any hematemesis, bright red blood per rectum, melena, black tarry stools or coffee-ground emesis at home. In the emergency room patient was found to have high blood pressure 194/77, EKG showed sinus rhythm, chest x-ray showed prominently diffuse interstitial otis ings, unchanged from prior. bnp was 31,000. Patient was clinically fluid overloaded with fluid wave abdominal distention. 2+ pitting edema on the lower extremities. Hospitalist will was asked to admit the patient for fluid overload secondary to GFR of 10 with stage V Renal failure/end-stage renal disease. PAST MEDICAL HISTORY: CAD, [place], CABG, chronic kidney disease stage IV, baseline creatinine of 2.3. Right wrist fracture, left wrist fracture secondary to fall, diabetes, right breast mass at the age of 21. 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 Newberry 2019 interventional radiology endovenous laser treatment of left leg varicose vein complicated by bleeding SOCIAL HISTORY: Denies smoking, recreational drug use. Rarely uses alcohol FAMILY HISTORY: Father age 45. Leukemia. Mother , heart disease, heart failure. Siblings alive colon cancer ALLERGIES: Please see below. REVIEW OF SYSTEMS: 10 point review of systems negative aside from positive findings on history and physical HOME MEDICATIONS: Please see below. PHYSICAL EXAMINATION: VITAL SIGNS: See below GENERAL APPEARANCE: No pallor, icterus., Awake, alert, oriented 3, answering questions appropriately Positive use of respiratory accessory muscles, but able to complete sentences. Sitting at 90 head of bed elevation HEENT: Positive JVD. Moist mucous membranes. Extraocular muscles intact. No cervical lymphadenopathy or thyromegaly CARDIOVASCULAR: S1, S2, regular rate and rhythm LUNGS: Diminished. Crackles bilaterally ABDOMEN: Distended, obese, positive fluid wave, positive bowel sounds 4 quadrants. No rebound, guarding EXTREMITIES: 2+ edema bilateral lower extremities. No cyanosis or clubbing LABORATORY DATA: See below. IMAGING: See below Portable upright AP chest radiograph. FINDINGS: Patient is status post median sternotomy. Moderate cardiomegaly is observed unchanged. There is linear fibrosis or discoid atelectasis in the left perihilar region. Interstitial markings are prominent diffusely similar to prior studies. There is no evidence of pleural effusion. No focal infiltrate is seen.. IMPRESSION: Moderate cardiac enlargement. Diffusely prominent interstitial markings unchanged. Platelike atelectasis left perihilar region. MICROBIOLOGY: Please see below. ASSESSMENT: 80y/o F w ckd4 mds anemia of chronic dz c/o increasing shortness of breath on walking about 15-20 feet, 20 pound weight gain in the past month, shortness of breath at rest, increased fatigue, lower extremity edema, paroxysmal nocturnal dyspnea, and 3-4 pillow orthopnea. She denied any chest pain, pressure, tightness, fever, chills, cough, nausea, vomiting, epigastric pain, dysuria, u rgency, frequency, flank pain, polyuria, polyphagia. She does not adhere to a salt restricted and fluid restricted diet, and was seen by her jockey's agent yesterday encouraged to come to the ER for diuresis but could not leave because she didn't want to leave her 10 cats unsupervised at Home without Anyone to Take Care Of them. Today her daughter volunteered to take care of her cats, allowing her to come to the hospital for admission to diuresis for fluid overload. Patient has chronic anemia, hemoglobin of 10 is stable without any hematemesis, bright red blood per rectum, melena, black tarry stools or coffee-ground emesis at home. In the emergency room patient was found to have high blood pressure 194/77, EKG showed sinus rhythm, chest x-ray showed prominently diffuse interstitial dominguez ngs, unchanged from prior. bnp was 31,000. Patient was clinically fluid overloaded with fluid wave abdominal distention. 2+ pitting edema on the lower extremities. Hospitalist will was asked to admit the patient for fluid overload secondary to GFR of 10 with stage V Renal failure/end-stage renal disease. 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 [employer] has been consulted for diuresis versus dialysis if no response to diuresis with IV Lasix. Strict I's and O's, daily weights, 2 L fluid restriction. Renal diet. Resumed on all home medications. Titrate blood pressure medications for better blood pressure control. Compression stockings and renally dosed Lovenox for DVT prophylaxis. Echocardiogram from 2019 has been reviewed. Supplemental oxygen to keep saturations above 90% if needed. Patient will most likely need 2-3 days inpatient diuresis depending on clinical response. Physical therapy, occupational therapy have been consulted. Patient is a full code. Vital Signs Vital Signs Date Time Temp Pulse Resp B/P (MAP) Pulse Ox O2 Delivery O2 Flow Rate FiO2 07/12/20 12:22 07/12/20 12:20 57 100 07/12/20 10:21 97.1 20 Room Air Laboratory Data Labs 24H Laboratory Tests 2 07/12/20 11:04: Immature Granulocyte % (Auto) 0.4, Neutrophils (%) (Auto) 73.3H, Lymphocytes (%) (Auto) 18.3L, Monocytes (%) (Auto) 6.0, Eosinophils (%) (Auto) 1.8, Basophils (%) (Auto) 0.2, Neutrophils # (Auto) 4.2, Lymphocytes # (Auto) 1.0L, Monocytes # (Auto) 0.3, Eosinophils # (Auto) 0.1, Basophils # (Auto) 0.0, Nucleated Red Blood Cells % (auto) 0.0, Prothrombin Time 16.3H, Prothromb Time International Ratio 1.28, Anion Gap 12, Glomerular Filtration Rate 10.2L, Calcium Level 7.5L, Total Bilirubin 0.4, Direct Bilirubin 0.2, Aspartate Amino Transf (AST/SGOT) 22, Alanine Aminotransferase (ALT/SGPT) 29, Alkaline Phosphatase 106, Total Creatine Kinase 52, Creatine Kinase MB 2.3, Creatine Kinase MB Relative Index 4.42H, Troponin I < 0.02, RF-[id number]-[id number]-Type Natriuretic Peptide 79996A, Total Protein 6.7, Albumin 3.5, Albumin/Globulin Ratio 1.1L, Thyroid Stimulating Hormone (TSH) 5.010H, Thyroxine (T4) 9.2, Coronavirus (COVID-19)(PCR) NEGATIVE, Influenza Type A (RT-PCR) NEGATIVE, Influenza Type B (RT-PCR) NEGATIVE, Respiratory Syncytial Virus (PCR) NEGATIVE CBC/BMP Laboratory Tests 07/12/20 11:04 Home Medications Scheduled Acetaminophen (Acetaminophen) 500 Mg Tab, 500 MG PO QHS Allopurinol (Allopurinol) 100 Mg Tablet, 100 MG PO DAILY Ammonium Lactate (Ammonium Lactate) 12% Cream..g., 1 DOSE TOP DAILY APPLY TO FEET Aspirin (Aspirin EC) 81 Mg Tab, 81 MG PO DAILY Calcium Carbonate/Vitamin D3 (Calcium 600 + Vit D 400 Softgl) 1 Each Capsule, 1 CAP PO QPM Cholecalciferol (Vitamin D3) (Vitamin D3) 1,000 Unit Tablet, 2,000 UNITS PO QPM Cranberry Fruit Extract (Cranberry) 500 Mg Capsule, 500 MG PO DAILY TAKES AT NOON Famotidine (Famotidine) 20 Mg Tablet, 20 MG PO QHS Ferrous Sulfate (Iron) 325 Mg Tablet, 325 MG PO Q2D AT BEDTIME Folic Acid (Folic Acid) 1 Mg Tab, 1 MG PO DAILY TAKES AT NOON Hydralazine HCl (Hydralazine HCl) 25 Mg Tablet, 25 MG PO TID BREAKFAST, LUNCH, DINNER Isosorbide Mononitrate (Isosorbide Mononitrate ER) 120 Mg Tab, 120 MG PO DAILY Levothyroxine Sodium (Euthyrox) 137 Mcg Tablet, 137 MCG PO QAM Magnesium Oxide (Magnesium Oxide) 400 Mg Tablet, 400 MG PO DAILY TAKES AT NOON Melatonin (Melatonin) 5 Mg Tablet, 10 MG PO QHS Metoprolol Succinate (Metoprolol Succinate) 50 Mg Tab.er.24h, 50 MG PO DAILY Multivit-Min/Iron/Folic/Lutein (Centrum Silver Women Tablet) 1 Each Tablet, 1 TAB PO QPM Pantoprazole Sodium (Pantoprazole Sodium) 40 Mg Tab, 40 MG PO QAM Polyvinyl Alcohol (Artificial Tears) 15 Ml Drops, 1 DROP OU Q1H Pravastatin Sodium (Pravastatin Sodium) 40 Mg Tablet, 40 MG PO DAILY Torsemide (Torsemide) 20 Mg Tablet, 40 MG PO BID Vit C/E/Zn/Coppr/Lutein/Zeaxan (Preservision Areds 2 Softgel) 1 Each Capsule, 1 CAP PO DAILY Scheduled PRN Psyllium Husk (with Sugar) (Metamucil Powder) 575 Gm Powder, 1 PKT PO QHS PRN for CONSTIPATION Allergies Coded Allergies: bee venom protein (honey bee) (Verified Allergy, Mild, 05/24/20) Estrogens (Verified Allergy, Unknown, 06/17/18) latex (Verified Allergy, Unknown, hives, 06/28/20) A-FIB/CHADSVASC A-FIB History Current/History of A-Fib/PAF?: No Current PO Anticoag Therapy: No Age/Risk Factor Scoring CHADSVASC: CHADSVASC Response (Comments) Value Age Risk Factor Age >/= 75 years old 2 Gender Risk Factor Female 1 Hx of CHF Yes 1 Hx of HTN Yes 1 Hx of Stroke/TIA/or VTE No 0 Hx of Diabetes No 0 Hx of Vascular Disease No 0 Total 5 Treatment Treatment ordered: NONE MICHAELLE CUMMINGS MD Jul 12, 2020 13:48
[2020-07-12] MEDS ORDERED: **hydrALAZINE HCL** 25 MG TAB PO ONE (15:30)
[2020-07-12] MEDS: POLYVINYL ALCOHOL OPHTH SOLN 15 ML(LIQUITEARS) OU SCH ×4 (16:00→20:00)
[2020-07-12] MEDS: HumaLOG INSULIN (NovoLOG) PER UNIT SC SCH ×2 (17:48→20:49)
[2020-07-12] MEDS: LIDOCAINE 5% (LIDODERM) PATCH TD SCH (17:49)
[2020-07-12] MEDS: **hydrALAZINE HCL** 25 MG TAB PO SCH (18:51)
[2020-07-12] MEDS: CEPHALEXIN 500 MG CAP PO SCH (18:52)
--- NOTE | 2020-07-12 19:25 | CR ---
NEPHROLOGY CONSULTATION DATE: 07/12/2020 REQUESTING PHYSICIAN: Cammie Pham M.D. REASON FOR CONSULTATION: Management of fluid overload in this patient who has progressed to chronic kidney disease (CKD) stage V. CHIEF COMPLAINT: Patient presented to the hospital with progressive lower extremity edema, weight gain and shortness of breath. HISTORY OF PRESENT ILLNESS: Belen Oh is a 80-year-old female with past medical history of chronic kidney disease stage IV, well-known to myself. She follows up at nephrology clinic. She was seen in the clinic yesterday and despite the oral diuretic regimen, she has gained significant amount of weight. Her renal function has deteriorated with a creatinine of 3.7 and a GFR of 12 as of yesterday. She has worsening edema starting from her legs all the way to her abdomen and she also complained of ulcer in her edema and tenderness in the left leg. Because of worsening renal failure and fluid overload, patient was advised to go to the emergency room, so patient presented to the hospital today. She reports she has gained at least 20 pounds of weight in the last month. Outpatient diuretic regimen was not working. She has about 3-4 pillow orthopnea now. She has been admitted under the hospitalist service now and nephrology service was called for further help in the management of this patient. Patient was found to be hypertensive in the emergency room with a blood pressure of 194/77. Patient was discussed with myself by the admitting emergency room (ER) physician, Dr. Marie, and nephrology service was called on consultation by Dr. Pham. I saw and evaluated the patient at the bedside today. She was getting her first dose of Lasix 60 mg intravenous (IV) when I saw her. PAST MEDICAL HISTORY: 1. Chronic kidney disease stage IV, which has deteriorated to stage V now. Her latest creatinine was 3.7 yesterday. 2. Coronary artery disease. 3. History of myocardial infarction ([place]). 4. History of coronary artery bypass graft (CABG) in the past. 5. Diabetes mellitus type 2. 6. Hypertension. 7. Pancytopenia due to myelodysplastic syndrome. 8. Diverticulosis. 9. Hypothyroidism. 10. Peptic ulcer disease. PAST SURGICAL HISTORY: 1. Status post thyroidectomy. 2. Perforated ulcer surgery. 3. Abdominal surgery for tumor in the uterus. 4. Dilatation and curettage (D and C) in the past. 5. Right breast surgery. 6. Status post cholecystectomy. 7. History of hernia repair. 8. Coronary artery bypass grafting. 9. Triple vessel disease. 10. Bilateral foot surgery. 11. Back surgery. 12. Status post right nephrectomy. 13. Recently had interventional radiology endovenous laser treatment of left leg varicose veins, which was complicated by bleeding. ALLERGIES: She is allergic to ESTROGENS, BEE VENOM, PROTEIN AND LATEX. FAMILY HISTORY: No significant family history of end-stage renal disease requiring hemodialysis. SOCIAL HISTORY: Patient lives at home with her cats. She is legally blind. She denies any smoking, illicit drug abuse or alcohol abuse. PHYSICAL EXAMINATION: GENERAL: Patient is awake, alert, oriented times three. VITAL SIGNS: Temperature 97.4 degrees Fahrenheit, blood pressure 152/61, pulse 64, respiratory rate 16, saturating 98% on room air. HEAD AND NECK EXAM: Extraocular muscles intact. Pupils equally round and reactive to light. Mucous membranes are moist. Neck is supple. Significantly elevated jugular venous distention (JVD) was noted. CARDIOVASCULAR: S1, S2. Regular rate. There is 3+ edema of the bilateral lower extremities all the way up to her thighs. RESPIRATORY: Mildly decreased breath sounds at the bases. Decreased vocal resonance at the bases. ABDOMEN: Distended. Abdominal wall edema was noted. MUSCULOSKELETAL: Edema of the bilateral lower extremities, as mentioned above. CENTRAL NERVOUS SYSTEM (FRAME STYLIST): No focal deficits apart from bilateral legal blindness. LABORATORY REVIEW: CBC showed WBC 5.7, hemoglobin 10.8, platelets 135. INR 1.2. BMP showed sodium 140, potassium 4.4, chloride 111, bicarbonate 17, BUN 98, creatinine 4.4. Pro-BNP 31,201. Albumin 3.5 TSH 5.01. IMAGING: A chest x-ray was done today which showed moderate cardiac enlargement, diffusely prominent interstitial markings, platelike atelectasis in the left perihilar region. CURRENT INPATIENT MEDICATIONS: Patient's medications were all reviewed by myself. She was given Lasix 60 mg IV times one dose. I have started the patient on Lasix drip at 0.1 mg/kg/hour. She is on: - Tylenol as needed - allopurinol 100 mg by mouth daily - aspirin 81 mg by mouth daily - Pepcid 20 mg by mouth every 48 hours - iron tablets 325 mg by mouth every other day - folic acid 1 mg by mouth daily - hydralazine 25 mg by mouth three times a day - isosorbide 120 mg daily, which I have decreased to 60 mg by mouth daily only - levothyroxine 137 mcg by mouth daily - magnesium oxide 400 mg by mouth daily - metoprolol XL 50 mg daily - Protonix 40 mg daily - pravastatin 40 mg daily - vitamin D ASSESSMENT AND PLAN: 1. Acute on chronic decompensated congestive heart failure and volume overload. Patient's latest echocardiogram from 2019 showed normal left ventricular function of around 65% with normal diastolic dysfunction. Latest echocardiogram is not available. Patient is significantly volume overloaded because of worsening renal failure. She was given Lasix 60 mg IV times one dose. Continue the Lasix drip. If the volume states does not improve her renal function, then patient will need to start hemodialysis. 2. Acute renal failure superimposed on chronic kidney disease. Patient has gradually worsening renal failure and significant volume overload. As mentioned above, I will try to diurese the patient first and if that does not help, then patient will need to start dialysis. 3. Normal anion gap metabolic acidosis. It is secondary to worsening renal failure. No need of oral bicarbonate administration at this time. Continue aggressive IV diuretics. 4. Anemia in chronic kidney disease and early myelodysplasia. Patient goes to hematology/oncology and gets erythropoiesis stimulating agents (FRANCOISE) administered over there. Currently, hemoglobin is stable. If needed, she will be started on her outpatient dose of FRANCOISE. Check iron levels as well. 5. Chronic gout secondary to chronic kidney disease. Continue current dose of allopurinol. 6. Hypertension. Continue current dose of metoprolol and hydralazine. Isosorbide dose is being decreased because of her worsening edema. 7. Left leg cellulitis. I am going to start the patient on Keflex 500 mg by mouth twice a day. Thank you for involving me in the care of this patient. I shall be happy to follow the patient along with you tomorrow morning. MTDD
[2020-07-12] MEDS: VITAMIN D 1,000 INTERNATIONAL UNITS TABLET PO SCH (20:50)
[2020-07-12] MEDS: ACETAMINOPHEN 500 MG TAB PO SCH (20:50)
[2020-07-12] MEDS: FUROSEMIDE injection 250 MG in D5W 225 ML IV SCH (20:51)
[2020-07-12] MEDS ORDERED: POLYVINYL ALCOHOL OPHTH SOLN 15 ML(LIQUITEARS) OU PRN (21:10)
[2020-07-12 22:00] VITALS: BP 153/65
[2020-07-13] MEDS: **NOTE PATIENT COMMENT** MISC XX SCH (04:34)
[2020-07-13 06:00] VITALS: BP 143/62
[2020-07-13] MEDS: LEVOTHYROXINE 137MCG TABLET (0.137MG) PO SCH (06:04)
[2020-07-13 07:36] LABS: HEMATOCRIT 29.7 % (36.0-47.0); HEMOGLOBIN 9.2 g/dl (12.0-15.5); MEAN CORPUSCULAR HEMOGLOBIN 31.4 pg (27.0-33.0); MEAN CORPUSCULAR VOLUME 101.4 fl (80.0-96.0); PLATELET COUNT, AUTOMATED 124 10^3/uL (150-450); RED BLOOD COUNT 2.93 10^6/uL (4.00-5.40); WHITE BLOOD COUNT 4.6 10^3/uL (4.0-10.0)
[2020-07-13 08:00] LABS: HEMOGLOBIN A1c 7.3 %
[2020-07-13 08:10] LABS: BLOOD UREA NITROGEN 93 MG/DL (7-18); CALCIUM LEVEL 7.6 MG/DL (8.8-10.2); CARBON DIOXIDE LEVEL 16 MEQ/L (21-32); CHLORIDE LEVEL 113 MEQ/L (98-107); CHOLESTEROL LEVEL 76 MG/DL (<200); CHOLESTEROL RISK RATIO 1.853 (<5); CREATININE FOR GFR 4.25 MG/DL (0.55-1.30); GLOMERULAR FILTRATION RATE 10.7 (>39); GLUCOSE, FASTING 168 MG/DL (70-100); HDL CHOLESTEROL 41 MG/DL (>40); LDL CHOLESTEROL 21 MG/DL (<100); NON-HDL-C 35 MG/DL; POTASSIUM SERUM 4.2 MEQ/L (3.5-5.1); SODIUM LEVEL 141 MEQ/L (136-145); TRIGLYCERIDES LEVEL 72 MG/DL (<150)
[2020-07-13 08:36] LABS: HEPATITIS B SURFACE ANTIBODY NEGATIVE (POSITIVE)
[2020-07-13 08:46] LABS: HEPATITIS B SURFACE ANTIGEN NEGATIVE (NEGATIVE)
[2020-07-13] MEDS ORDERED: ISOSORBIDE MON. (IMDUR) 60 MG XR TAB PO SCH ×2 (09:00)
[2020-07-13] MEDS ORDERED: ASPIRIN 81MG ENTERIC TABLET PO SCH (09:00)
--- NOTE | 2020-07-13 09:06 | IPNPDOC ---
Date Seen The patient was seen on 07/13/20. Progress Note S: c/o dizziness yesterday when lasix iv gtt started. 1l output. sob better. still w b/l leg pain. on keflex day 2 left leg chronic ulcer PHYSICAL EXAMINATION: VITAL SIGNS: See below GENERAL APPEARANCE: No pallor, icterus., Awake, alert, oriented 3, answering questions appropriately negative use of respiratory accessory muscles able to complete sentences.supine at 30 head of bed elevation HEENT: Positive JVD. Moist mucous membranes. Extraocular muscles intact. No cervical lymphadenopathy or thyromegaly CARDIOVASCULAR: S1, S2, regular rate and rhythm S3 LUNGS: Diminished. Crackles bilaterally ABDOMEN: Distended, obese, positive fluid wave, positive bowel sounds 4 quadrants. No rebound, guarding EXTREMITIES: 2+ edema bilateral lower extremities. No cyanosis or clubbing. left posterior leg ulcer 2cm w serosanguinous drainage. chronic venous stasis changes. LABORATORY DATA: See below. IMAGING: See below Portable upright AP chest radiograph. FINDINGS: Patient is status post median sternotomy. Moderate cardiomegaly is observed unchanged. There is linear fibrosis or discoid atelectasis in the left perihilar region. Interstitial markings are prominent diffusely similar to prior studies. There is no evidence of pleural effusion. No focal infiltrate is seen.. IMPRESSION: Moderate cardiac enlargement. Diffusely prominent interstitial markings unchanged. Platelike atelectasis left perihilar region. MICROBIOLOGY: Please see below. ASSESSMENT: 80y/o F w ckd4 mds anemia of chronic dz c/o increasing shortness of breath on walking about 15-20 feet, 20 pound weight gain in the past month, shortness of breath at rest, increased fatigue, lower extremity edema, paroxysmal nocturnal dyspnea, and 3-4 pillow orthopnea. She denied any chest pain, pressure, tightness, fever, chills, cough, nausea, vomiting, epigastric pain, dysuria, urgency, frequency, flank pain, polyuria, polyphagia. She does not adhere to a salt restricted and fluid restricted diet, and was seen by her leave specialist yesterday encouraged to come to the ER for diuresis but could not leave because she didn't want to leave her 10 cats unsupervised at Home without Anyone to Take Care Of them. Today her daughter volunteered to take care of her cats, allowing her to come to the hospital for admission to diuresis for fluid overload. Patient has chronic anemia, hemoglobin of 10 is stable without any hematemesis, bright red blood per rectum, melena, black tarry stools or coffee-ground emesis at home. In the emergency room patient was found to have high blood pressure 194/77, EKG showed sinus rhythm, chest x-ray showed prominently diffuse interstitial markings, unchanged from prior. bnp was 31,000. Patient was clinically fluid overloaded with fluid wave abdominal distention. 2+ pitting edema on the lower extremities. Hospitalist will was asked to admit the patient for fluid overload secondary to GFR of 10 with stage V Renal failure/end-stage renal disease. Fluid overload secondary to worsening stage V Renal failure/end-stage renal disease -nephrology managing diuresis. strict i/o weigh daily 1 liter urine output on iv lasix gtt. Acute Decompensated Congestive heart failure with preserved systolic function, ejection fraction of 75% -on lasix iv gtt. 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 -outpt heme fu Anemia of chronic disease secondary to end-stage renal disease -keep hgb 10 -transfuse if symptomatic or <10 diverticulosis -chronic hypothyroidism -on synthroid peptic ulcer disease -ppi umbilical hernia -stable Left leg chronic venous ulcer/early cellulitis -keflex day 2 VS, I&O, 24H, Fishbone Vital Signs/I&O Vital Signs Date Time Temp Pulse Resp B/P (MAP) Pulse Ox O2 Delivery O2 Flow Rate FiO2 07/13/20 06:00 97.8 66 18 143/62 (89) 98 Room Air I&O- Last 24 Hours up to 6 AM 07/13/20 06:00 Intake Total 696.5 ml Output Total 1550 ml Balance -853.5 ml Laboratory Data 24H LABS Laboratory Tests 2 07/12/20 11:04: Immature Granulocyte % (Auto) 0.4, Neutrophils (%) (Auto) 73.3H, Lymphocytes (%) (Auto) 18.3L, Monocytes (%) (Auto) 6.0, Eosinophils (%) (Auto) 1.8, Basophils (%) (Auto) 0.2, Neutrophils # (Auto) 4.2, Lymphocytes # (Auto) 1.0L, Monocytes # (Auto) 0.3, Eosinophils # (Auto) 0.1, Basophils # (Auto) 0.0, Nucleated Red Blood Cells % (auto) 0.0, Prothrombin Time 16.3H, Prothromb Time International Ratio 1.28, Anion Gap 12, Glomerular Filtration Rate 10.2L, Calcium Level 7.5L, Total Bilirubin 0.4, Direct Bilirubin 0.2, Aspartate Amino Transf (AST/SGOT) 22, Alanine Aminotransferase (ALT/SGPT) 29, Alkaline Phosphatase 106, Total Creatine Kinase 52, Creatine Kinase MB 2.3, Creatine Kinase MB Relative Index 4.42H, Troponin I < 0.02, VQ-Gys-U-Type Natriuretic Peptide 72270F, Total Protein 6.7, Albumin 3.5, Albumin/Globulin Ratio 1.1L, Thyroid Stimulating Hormone (TSH) 5.010H, Thyroxine (T4) 9.2, Coronavirus (COVID-19)(PCR) NEGATIVE, Influenza Type A (RT-PCR) NEGATIVE, Influenza Type B (RT-PCR) NEGATIVE, Respiratory Syncytial Virus (PCR) NEGATIVE 07/12/20 17:14: Bedside Glucose (Misc Panel) 176H 07/12/20 20:39: Bedside Glucose (Misc Panel) 179H 07/13/20 07:01: Nucleated Red Blood Cells % (auto) 0.0, Anion Gap 12, Glomerular Filtration Rate 10.7L, Calcium Level 7.6L, Estimated Mean Plasma Glucose 163H, Hemoglobin A1c 7.3, Triglycerides Level 72, Total Cholesterol 76, LDL Cholesterol 21, Non-HDL Cholesterol (LDL + VLDL) 35, Total HDL Cholesterol 41, Cholesterol/HDL Ratio 1.853, Hepatitis B Surface Antigen NEGATIVE, Hepatitis B Surface Antibody NEGATIVE CBC/BMP Laboratory Tests 07/12/20 11:04 07/13/20 07:01 MICHAELLE CUMMINGS MD Jul 13, 2020 09:06
[2020-07-13 09:14] LABS: HEPATITIS C VIRUS ABY INDEX < 0.0 INDEX (<0.8)
[2020-07-13 09:15] LABS: HEPATITIS B CORE ANTIBODY IGM NEGATIVE (NEGATIVE)
--- NOTE | 2020-07-13 09:31 | ECGEPIP ---
[facility] - ED Test Date: 2020-07-12 Pat Name: JAREN MARTINEZ Department: Room: Gender: Female [employer]: TK : [id number] Requested By: BURKE Luong Order Number: [id number] Reading MD: Kassidy Simons Measurements Intervals [place] Rate: 62 P: 86 KS: 200 QRS: 9 QRSD: 84 T: 152 QT: 474 QTc: 481 Interpretive Statements Normal sinus rhythm Nonspecific T wave abnormality prolonged qtc compared 05/31/19 Electronically Signed on 07-13-2020 9:31:13 EDT by Kassidy Simons
[2020-07-13] MEDS: HumaLOG INSULIN (NovoLOG) PER UNIT SC SCH ×4 (09:40→21:00)
[2020-07-13] MEDS: LIDOCAINE 5% (LIDODERM) PATCH TD SCH (09:40)
[2020-07-13] MEDS: PRAVASTATIN 20 MG TAB PO SCH (09:41)
[2020-07-13] MEDS: CEPHALEXIN 500 MG CAP PO SCH ×2 (09:41→21:16)
[2020-07-13] MEDS: PANTOPRAZOLE 40MG TAB (PROTONIX) PO SCH (09:41)
[2020-07-13] MEDS: LACTIC ACID 12% LOTION 225 GM BTL TOP SCH (09:41)
[2020-07-13] MEDS: allopurinoL 100 MG TAB PO SCH (09:41)
[2020-07-13] MEDS ORDERED: metOLazone 5 MG TAB PO ONE (09:45)
[2020-07-13] MEDS: METOPROLOL SUCC (TopROL XL) 50MG **XL** TAB PO SCH (09:46)
[2020-07-13] MEDS: **hydrALAZINE HCL** 25 MG TAB PO SCH ×3 (09:46→18:50)
[2020-07-13] MEDS: ISOSORBIDE MON. (IMDUR) 30 MG XR TAB PO SCH (09:53)
[2020-07-13] MEDS ORDERED: DARBEPOETIN 100 MCG/0.5 ML *NON-DIALYSIS* SYRINGE (J0881) SC SCH (11:35)
[2020-07-13 11:59] LABS: FERRITIN 167 NG/ML (8-252); IRON (FE) 27 UG/DL (50-170); PERCENT SATURATION 11.9 % (13.2-45.0); TOTAL IRON BINDING CAPACITY 227 UG/DL (250-450)
--- NOTE | 2020-07-13 13:02 | IPN ---
PROGRESS NOTE DATE: 07/13/2020 SUBJECTIVE: The patient was seen and examined at the bedside today morning. She was actually sitting on the sofa. She continues to be on IV Lasix drip. She reports that she is feeling slightly better today as compared with yesterday. Her blood pressures are better controlled. She still reports persistent lower extremity edema. There is no significant improvement in the renal function. The patient is agreeing for dialysis, but she does not want the tunneled dialysis catheter placed by IR. OBJECTIVE: VITAL SIGNS: Temperature 97.8 degrees Fahrenheit, blood pressure 143/62, pulse 66, respiratory rate 18, saturating 98% on room air. INTAKE AND OUTPUT: Urine output recorded as 1 liter yesterday and 650 mL so far today since overnight. Weight on the bed scale is 84 kg. GENERAL: The patient is awake, alert, and oriented x3. Sitting up on the sofa in no apparent distress. HEAD/NECK: Extraocular muscles intact. Pupils equally round and reactive to light. Mucous membranes are moist. Neck is supple. Moderately elevated JVD. CARDIOVASCULAR: S1, S2. Regular rate. 3+ edema of the bilateral lower extremities. RESPIRATORY: Mildly decreased breath sounds bilaterally at the bases. ABDOMEN: Soft. Abdominal wall edema was noted. MUSCULOSKELETAL: Chronic venous stasis changes of bilateral lower extremities and erythema of the left leg with an open ulcer. 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 LABORATORY DATA: CBC showed a WBC of 4.6, hemoglobin 9.2, platelets 124,000. BMP showed sodium 141, potassium 4.2, chloride 113, bicarb 16, BUN 93, creatinine 4.2. A1c 7.3. Iron level 27, transferrin saturation 11.9, ferritin 167. CURRENT INPATIENT MEDICATIONS: The patient's medications were all reviewed by myself. She is on Lasix 8.5 mg/hour. I have increased this to 12.5 mg/hour now. She continues to be on Keflex 500 mg p.o. twice a day. I have also started the patient on Bicitra 30 mL p.o. twice a day. She has been started on Aranesp 100 mcg subcutaneously once a week. Isosorbide dose has been further decreased to 30 mg p.o. daily. She was given a dose of metolazone 5 mg p.o. x1 dose. ASSESSMENT AND PLAN: 1. Acute renal failure superimposed on chronic kidney disease. The patient has progressed to end-stage renal disease. She is massively overloaded. She is being diuresed with IV Lasix. If she does not respond well to the diuretics, she will need to start hemodialysis. The patient does not want to have a catheter placed by IR because of her previous bad experience in IR. If we need to start dialysis, we will have to get the surgical service on board for placement of the tunneled dialysis catheter. 2. Acute on chronic decompensated diastolic congestive heart failure. As mentioned above, the patient is on IV Lasix drip. The dose has been increased to 12.5 mg IV/hr. For sequential nephron blockade, metolazone 5 mg was also given. Continue to monitor intake and output. Fluid restriction will be 1500 mL daily. 3. Anemia, chronic kidney disease, early myelodysplasia, and iron deficiency. The patient has been started on Aranesp once a week. I am going to start her on IV Venofer as well. 4. Normal anion gap metabolic acidosis. The patient has worsening renal failure. She has been started on oral Bicitra. 5. Chronic gout secondary to chronic kidney disease. Continue current dose of allopurinol. 6. Hypertension. Blood pressure is getting better with optimization of fluid status. Continue metoprolol and hydralazine. Isosorbide is being weaned off slowly because of significant lower extremity edema. 7. Left leg cellulitis. The patient is on Keflex 500 mg p.o. twice a day. She will be started on probiotic. Edema management is as mentioned above. DISPOSITION: The patient will most likely need to start hemodialysis; however, I will try to diurese her initially for a few days to see if she responds to the diuretic. MTDD
[2020-07-13 14:00] VITALS: BP 162/67
[2020-07-13] MEDS ORDERED: BICITRA 30ML SOLN UDC PO ONE (14:00)
[2020-07-13] MEDS: FOLIC ACID 1 MG TAB PO SCH (14:33)
[2020-07-13] MEDS: MAGNESIUM OXIDE 400MG TAB (MAG-OX) PO SCH (14:36)
[2020-07-13] MEDS: FUROSEMIDE injection 250 MG in D5W 225 ML IV SCH (16:23)
[2020-07-13] MEDS: IRON SUCROSE 200 MG in NS 100 ML IV SCH (16:28)
[2020-07-13] MEDS ORDERED: ISOSORBIDE MONONITRATE 10MG TABLET PO ONE (18:30)
[2020-07-13] MEDS: LACTOBACILLUS ACIDOPHILUS CAP (BACID) PO SCH (18:50)
[2020-07-13 20:00] VITALS: BP 144/67
[2020-07-13] MEDS: VITAMIN D 1,000 INTERNATIONAL UNITS TABLET PO SCH (21:14)
[2020-07-13] MEDS: FERROUS SULFATE 325MG TAB PO SCH (21:15)
[2020-07-13] MEDS: FAMOTIDINE 20 MG TAB PO SCH (21:16)
[2020-07-13] MEDS: ACETAMINOPHEN 500 MG TAB PO SCH (21:17)
--- NOTE | 2020-07-14 02:54 | REPVR ---
PROCEDURE INFORMATION: Exam: US Duplex Lower Extremity Veins, Bilateral Exam date and time: 07/14/2020 2:22 AM Age: 80 years old Clinical indication: Pain; Leg, upper; Bilateral; Additional info: Edema, pain TECHNIQUE: Imaging protocol: Real-time duplex ultrasound of the extremities with 2-D lomas scale, color Doppler flow and spectral waveform analysis with image documentation. Complete exam focused on the bilateral lower extremity veins. COMPARISON: No relevant prior studies available. FINDINGS: Right deep veins: Unremarkable. The common femoral, femoral, proximal profunda femoral and popliteal veins are patent without thrombus. Normal Doppler waveforms. Normal compressibility and/or augmentation response. Right superficial veins: Saphenofemoral junction is patent without thrombus. Left deep veins: Unremarkable. The common femoral, femoral, proximal profunda femoral and popliteal veins are patent without thrombus. Normal Doppler waveforms. Normal compressibility and/or augmentation response. Left superficial veins: Saphenofemoral junction is patent without thrombus. Soft tissues: Unremarkable. IMPRESSION: No evidence of deep vein thrombosis. Electronically signed by: Suresh Padilla On 07/14/2020 02:53:41 AM
[2020-07-14] MEDS: LEVOTHYROXINE 137MCG TABLET (0.137MG) PO SCH (05:34)
[2020-07-14 06:00] VITALS: BP 166/70
[2020-07-14 06:39] LABS: HEMATOCRIT 30.7 % (36.0-47.0); HEMOGLOBIN 9.8 g/dl (12.0-15.5); MEAN CORPUSCULAR HEMOGLOBIN 32.2 pg (27.0-33.0); MEAN CORPUSCULAR HGB CONC 31.9 g/dl (32.0-36.5); PLATELET COUNT, AUTOMATED 129 10^3/uL (150-450); RED BLOOD COUNT 3.04 10^6/uL (4.00-5.40); WHITE BLOOD COUNT 5.1 10^3/uL (4.0-10.0)
[2020-07-14 06:53] LABS: CALCIUM LEVEL 7.4 MG/DL (8.8-10.2); CREATININE FOR GFR 4.19 MG/DL (0.55-1.30); GLOMERULAR FILTRATION RATE 10.9 (>39); POTASSIUM SERUM 3.6 MEQ/L (3.5-5.1)
[2020-07-14] MEDS ORDERED: **hydrALAZINE HCL** 25 MG TAB PO ONE (07:20)
[2020-07-14] MEDS: **hydrALAZINE HCL** 25 MG TAB PO SCH ×3 (08:03→17:46)
[2020-07-14] MEDS: HumaLOG INSULIN (NovoLOG) PER UNIT SC SCH ×4 (08:04→21:00)
[2020-07-14] MEDS: LACTOBACILLUS ACIDOPHILUS CAP (BACID) PO SCH ×2 (08:44→17:45)
[2020-07-14] MEDS: allopurinoL 100 MG TAB PO SCH (08:45)
[2020-07-14] MEDS: PRAVASTATIN 20 MG TAB PO SCH (08:45)
[2020-07-14] MEDS: IRON SUCROSE 200 MG in NS 100 ML IV SCH ×2 (08:45→12:43)
[2020-07-14] MEDS: PANTOPRAZOLE 40MG TAB (PROTONIX) PO SCH (08:45)
[2020-07-14] MEDS: CEPHALEXIN 500 MG CAP PO SCH ×2 (08:45→21:00)
[2020-07-14] MEDS: METOPROLOL SUCC (TopROL XL) 50MG **XL** TAB PO SCH (08:45)
[2020-07-14] MEDS: LIDOCAINE 5% (LIDODERM) PATCH TD SCH (08:46)
[2020-07-14] MEDS: LACTIC ACID 12% LOTION 225 GM BTL TOP SCH (08:46)
[2020-07-14] MEDS ORDERED: ISOSORBIDE MONONITRATE 10MG TABLET PO ONE (09:00)
--- NOTE | 2020-07-14 10:51 | IPNPDOC ---
Date Seen The patient was seen on 07/14/20. Progress Note S: denies sob/cough/fever/chills. felt better after multiple bowel movements yesterday no dizziness O: PHYSICAL EXAMINATION: VITAL SIGNS: See below GENERAL APPEARANCE: no distress supine w/o use of respiratory accessory muscles able to complete sentences.supine at 30 head of bed elevation HEENT:neg JVD. Moist mucous membranes. Extraocular muscles intact. No cervical lymphadenopathy or thyromegaly CARDIOVASCULAR: S1, S2, regular rate and rhythm S3 LUNGS: Diminished. Crackles bilaterally ABDOMEN: Distended, obese, positive fluid wave, positive bowel sounds 4 quadrants. No rebound, guarding EXTREMITIES: 2+ edema bilateral lower extremities. No cyanosis or clubbing. left posterior leg ulcer 2cm w serosanguinous drainage. chronic venous stasis changes. LABORATORY DATA: See below. IMAGING: See below Portable upright AP chest radiograph. FINDINGS: Patient is status post median sternotomy. Moderate cardiomegaly is observed unchanged. There is linear fibrosis or discoid atelectasis in the left perihilar region. Interstitial markings are prominent diffusely similar to prior studies. There is no evidence of pleural effusion. No focal infiltrate is seen.. IMPRESSION: Moderate cardiac enlargement. Diffusely prominent interstitial markings unchanged. Platelike atelectasis left perihilar region. MICROBIOLOGY: Please see below. ASSESSMENT: 80y/o F w ckd4 mds anemia of chronic dz c/o increasing shortness of breath on walking about 15-20 feet, 20 pound weight gain in the past month, shortness of breath at rest, increased fatigue, lower extremity edema, paroxysmal nocturnal dyspnea, and 3-4 pillow orthopnea. She denied any chest pain, pressure, tightness, fever, chills, cough, nausea, vomiting, epigastric pain, dysuria, urgency, frequency, flank pain, polyuria, polyphagia. She does not adhere to a salt restricted and fluid restricted diet, and was seen by her zone maintenance technician yesterday encouraged to come to the ER for diuresis but could not leave because she didn't want to leave her 10 cats unsupervised at Home without Anyone to Take Care Of them. Today her daughter volunteered to take care of her cats, allowing her to come to the hospital for admission to diuresis for fluid overload. Patient has chronic anemia, hemoglobin of 10 is stable without any hematemesis, bright red blood per rectum, melena, black tarry stools or coffee-ground emesis at home. In the emergency room patient was found to have high blood pressure 194/77, EKG showed sinus rhythm, chest x-ray showed prominently diffuse interstitial markings, unchanged from prior. bnp was 31,000. Patient was clinically fluid overloaded with fluid wave abdominal distention. 2+ pitting edema on the lower extremities. Hospitalist will was asked to admit the patient for fluid overload secondary to GFR of 10 with stage V Renal failure/end-stage renal disease. Fluid overload secondary to worsening stage V Renal failure/end-stage renal disease -nephrology managing diuresis. strict i/o weigh daily monitoring urine output on iv lasix gtt. Acute Decompensated Congestive heart failure with preserved systolic function, ejection fraction of 75% -on lasix iv gtt with increased dose since yesterday with improved urineoutput. 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 -outpt heme fu Anemia of chronic disease secondary to end-stage renal disease -keep hgb 10 -transfuse if symptomatic or <10 diverticulosis -chronic hypothyroidism -on synthroid peptic ulcer disease -ppi umbilical hernia -stable Left leg chronic venous ulcer/early cellulitis day3 keflex constipation resolved dispo 2-3 more daysfor diuresis VS, I&O, 24H, Fishbone Vital Signs/I&O Vital Signs Date Time Temp Pulse Resp B/P (MAP) Pulse Ox O2 Delivery O2 Flow Rate FiO2 07/14/20 08:45 166/70 07/14/20 08:45 70 07/14/20 06:00 97.8 18 96 Room Air I&O- Last 24 Hours up to 6 AM 07/14/20 05:59 Intake Total 2195.5 ml Output Total 2190 ml Balance 5.5 ml Laboratory Data 24H LABS Laboratory Tests 2 07/13/20 11:56: Bedside Glucose (Misc Panel) 150H 07/13/20 17:10: Bedside Glucose (Misc Panel) 145H 07/13/20 21:07: Bedside Glucose (Misc Panel) 207H 07/14/20 06:08: Nucleated Red Blood Cells % (auto) 0.0, Anion Gap 11, Glomerular Filtration Rate 10.9L, Calcium Level 7.4L CBC/BMP Laboratory Tests 07/14/20 06:08 MICHAELLE CUMMINGS MD July 14, 2020 10:51
[2020-07-14] MEDS ORDERED: POTASSIUM CHLORIDE 10 MEQ SR TABLET PO ONE (11:00)
[2020-07-14] MEDS ORDERED: metOLazone 5 MG TAB PO ONE (11:00)
[2020-07-14 11:13] LABS: PHOSPHORUS LEVEL 4.2 MG/DL (2.5-4.9)
[2020-07-14] MEDS: BICITRA 30ML SOLN UDC PO SCH ×2 (11:43→21:00)
[2020-07-14] MEDS: MAGNESIUM OXIDE 400MG TAB (MAG-OX) PO SCH (11:44)
[2020-07-14] MEDS: FOLIC ACID 1 MG TAB PO SCH (11:44)
[2020-07-14] MEDS: FUROSEMIDE injection 250 MG in D5W 225 ML IV SCH (11:49)
[2020-07-14 14:00] VITALS: BP 153/63
--- NOTE | 2020-07-14 14:00 | IPN ---
NEPHROLOGY PROGRESS NOTE DATE: 07/14/2020 SUBJECTIVE: The patient was seen and examined at the bedside today morning. She continues to be on IV Lasix infusion. Dose was increased yesterday. She is diuresing without any reports. That lower extremity is getting better. She was supposed to get IV iron yesterday, but she refused to get it. There is no significant improvement in the renal function. Creatinine is still above 4 at this time. OBJECTIVE: VITAL SIGNS: Temperature is 97.8 degrees Fahrenheit, blood pressure is 140/72, pulse is 70, respiratory rate of 18, saturating 96% on room air. INTAKE AND OUTPUT: Urine output recorded as 2.3 liters yesterday, 500 mL so far today since overnight. Weight in the bed scale is not available. PHYSICAL EXAMINATION: GENERAL APPEARANCE: The patient is awake, alert, oriented x3, laying in bed in no apparent distress. HEAD AND NECK: Extraocular muscles intact. Pupils are equally round and reactive to light. Mucous membranes are moist. Neck is supple. Moderately elevated jugular venous distention is noted. CARDIOVASCULAR: S1, S2, regular rate. EXTREMITIES: 3+ edema of the bilateral lower extremities. RESPIRATORY: Decreased breath sounds at the bases with decreased vocal resonance in the bases. ABDOMEN: Soft, positive bowel sounds. Abdominal wall edema was noted. MUSCULOSKELETAL: Chronic venous stasis changes of the bilateral lower extremities. RN CVOR: No focal deficits. Power is 5/5 in all extremities. LAB REVIEW: CBC showed a WBC of 5.1, hemoglobin 9.8, platelet count 129. BMP showed sodium of 140, potassium 3.6, chloride 113, bicarbonate 16, BUN 91, creatinine is 4.1. Calcium 7.4, phosphorous is 4.2. PTS level is pending. IMAGING: A Doppler of the bilateral lower extremities was done which showed no evidence of DVT. CURRENT INPATIENT MEDICATIONS: The patient's medications were all reviewed by myself. She continues to be on IV Lasix 12.5 mL per hour. I also gave her one dose of IV calcium gluconate. She finally agreed to start Venofer and one dose of Venofer is being given today. I have started the patient on Bicitra 30 mL p.o. twice daily. The patient was also given a dose of Metolazone 5 mg p.o. times one dose and was given potassium 40 mEq with Metolazone. ASSESSMENT AND PLAN: 1. Acute renal failure superimposed on chronic kidney disease stage 4 - The patient has likely progressed to end-stage renal disease I talked about starting dialysis again. The patient is reluctant. She wants to continue Lasix for now. At this point I would continue the IV Lasix infusion. If her renal function does not improve by this Thursday, then she would need to get a catheter placement for initiation of hemodialysis. 2. [id number] decompensated diastolic congestive heart failure - The patient continues to be on a Lasix drip. She was given another dose of Metolazone. Potassium level is going down so she was given a dose of oral potassium as well. Continue fluid restriction to 1.5 mL daily. 3. Anemia secondary to myelodysplasia and iron deficiency - The patient was given Aranesp yesterday. I convinced her to get IV iron as well, and she finally agreed to get the iron infusions now. 4. Normal anion gap metabolic acidosis - The patient continues to be on Bicitra 30 mL p.o. twice daily. 5. Hypertension with hypertensive heart disease antihypertensive regimen is being adjusted because volume status is getting better with diuretics. Isosorbide is being weaned down because of significant lower extremity edema. 6. Left leg cellulitis - The patient continues to be on Keflex.
[2020-07-14] MEDS ORDERED: CALCIUM GLUCONATE 1,000 MG in D5W MINI-BAG PLUS 100 ML IV ONE (15:00)
[2020-07-14] MEDS ORDERED: FUROSEMIDE 20MG/2ML VIAL (J1940) IV ONE (16:00)
[2020-07-14] MEDS: VITAMIN D 1,000 INTERNATIONAL UNITS TABLET PO SCH (21:00)
[2020-07-14] MEDS: ACETAMINOPHEN 500 MG TAB PO SCH ×2 (21:00→22:16)
[2020-07-14] MEDS: **NOTE PATIENT COMMENT** MISC XX SCH (21:34)
[2020-07-14 22:00] VITALS: BP 176/72
[2020-07-15] MEDS: LEVOTHYROXINE 137MCG TABLET (0.137MG) PO SCH (05:36)
[2020-07-15] MEDS: FUROSEMIDE injection 250 MG in D5W 225 ML IV SCH ×2 (05:38→21:14)
[2020-07-15 06:00] VITALS: BP 132/68
[2020-07-15 06:59] LABS: HEMATOCRIT 29.8 % (36.0-47.0); HEMOGLOBIN 9.5 g/dl (12.0-15.5); MEAN CORPUSCULAR HEMOGLOBIN 32.2 pg (27.0-33.0); MEAN CORPUSCULAR HGB CONC 31.9 g/dl (32.0-36.5); PLATELET COUNT, AUTOMATED 130 10^3/uL (150-450); RED BLOOD COUNT 2.95 10^6/uL (4.00-5.40); WHITE BLOOD COUNT 4.9 10^3/uL (4.0-10.0)
[2020-07-15 07:01] LABS: CALCIUM LEVEL 7.6 MG/DL (8.8-10.2); CREATININE FOR GFR 4.08 MG/DL (0.55-1.30); GLOMERULAR FILTRATION RATE 11.3 (>39); POTASSIUM SERUM 3.8 MEQ/L (3.5-5.1)
[2020-07-15] MEDS: BICITRA 30ML SOLN UDC PO SCH ×2 (07:37→21:18)
[2020-07-15] MEDS: PRAVASTATIN 20 MG TAB PO SCH (07:37)
[2020-07-15] MEDS: LACTOBACILLUS ACIDOPHILUS CAP (BACID) PO SCH ×2 (07:37→17:46)
[2020-07-15] MEDS: HumaLOG INSULIN (NovoLOG) PER UNIT SC SCH ×4 (07:37→21:00)
[2020-07-15] MEDS: PANTOPRAZOLE 40MG TAB (PROTONIX) PO SCH (07:38)
[2020-07-15] MEDS: METOPROLOL SUCC (TopROL XL) 50MG **XL** TAB PO SCH (07:39)
[2020-07-15] MEDS: ISOSORBIDE MON. (IMDUR) 30 MG XR TAB PO SCH (07:39)
[2020-07-15] MEDS: allopurinoL 100 MG TAB PO SCH (07:39)
[2020-07-15] MEDS: CEPHALEXIN 500 MG CAP PO SCH ×2 (07:39→21:16)
[2020-07-15] MEDS: **hydrALAZINE HCL** 25 MG TAB PO SCH ×3 (07:39→17:46)
[2020-07-15] MEDS: LIDOCAINE 5% (LIDODERM) PATCH TD SCH (07:40)
[2020-07-15] MEDS: LACTIC ACID 12% LOTION 225 GM BTL TOP SCH (09:10)
[2020-07-15] MEDS: POTASSIUM CHLORIDE 10 MEQ SR TABLET PO SCH (10:55)
[2020-07-15] MEDS: IRON SUCROSE 200 MG in NS 100 ML IV SCH (10:55)
[2020-07-15] MEDS ORDERED: metOLazone 5 MG TAB PO ONE (11:00)
[2020-07-15] MEDS ORDERED: FUROSEMIDE 40MG/4ML VIAL (J1940) IV ONE (11:00)
[2020-07-15] MEDS: MAGNESIUM OXIDE 400MG TAB (MAG-OX) PO SCH (12:11)
[2020-07-15] MEDS: FOLIC ACID 1 MG TAB PO SCH (12:12)
[2020-07-15 14:00] VITALS: BP 158/60
[2020-07-15] MEDS ORDERED: CALCIUM GLUCONATE 1,000 MG in D5W MINI-BAG PLUS 100 ML IV ONE (14:00)
[2020-07-15] MEDS ORDERED: POTASSIUM CHLORIDE 10 MEQ SR TABLET PO ONE (14:00)
--- NOTE | 2020-07-15 14:23 | IPN ---
NEPHROLOGY PROGRESS NOTE DATE: 07/15/2020 SUBJECTIVE: Patient was seen and examined at the bedside today morning. She is afebrile, hemodynamically stable. She reports her edema is very slowly getting better. She continues to be on intravenous (IV) Lasix drip. She is making about 2.5 liters of urine every day. She is also getting IV iron infusions. There is no significant improvement in the renal function. Creatinine was 4.1 yesterday and 4 today morning. OBJECTIVE: VITAL SIGNS: Temperature 98 degrees Fahrenheit, blood pressure 132/68, pulse 66, respiratory rate 16, saturating 96% on room air. INTAKE AND OUTPUT: Urine output recorded as 2.5 liters yesterday, 425 mL so far today since overnight. Weight in the bed scale is 83 kg. PHYSICAL EXAMINATION: GENERAL: Patient is awake, alert, oriented times three, laying in bed, no apparent distress. HEAD AND NECK EXAM: Extraocular muscles intact. Pupils equally round and reactive to light. Mucous membranes are moist. Neck is supple. Mildly elevated jugular venous distention (JVD) was noted. CARDIOVASCULAR: S1, S2. Regular rate. Two plus edema of the bilateral lower extremities. RESPIRATORY: Mildly decreased breath sounds at the bases. No rales or rhonchi. ABDOMEN: Soft. Positive bowel sounds. Mild abdominal wall edema in the flanks was noted. MUSCULOSKELETAL: Chronic venous stasis changes in the bilateral lower extremities and 2+ edema in the bilateral lower extremities starting from the ankles all the way up to her thighs. CENTRAL NERVOUS SYSTEM (LANE ATTENDANT): No focal deficits apart from poor vision. She moves all extremities and follows commands. LABORATORY REVIEW: CBC showed WBC 4.9, hemoglobin 9.5, platelets 130. BMP showed sodium 141, potassium 3.8, chloride 112, bicarbonate 18, BUN 85, creatinine 4.08, it was 4.1 yesterday, calcium 7.6. CURRENT INPATIENT MEDICATIONS: Patient's medications were all reviewed by myself. She was given one dose of calcium gluconate IV yesterday. Another dose of calcium gluconate IV is being given today. Her IV Lasix drip has been increased to 20 mg/hour now. She continues to be on Bicitra. No other significant change in the medications. ASSESSMENT AND PLAN: 1. Acute renal failure superimposed on chronic renal disease stage IV. Patient is currently being diuresed with IV Lasix infusion. There is very slight improvement in the creatinine. GFR still stays around 11. I discussed with the patient again that she might need to start hemodialysis. She is very reluctant to start it. I will give her 24 more hours with a higher dose of Lasix. If renal function does not improve, patient will need to get catheter placement for initiation of hemodialysis. 2. Anasarca and fluid overload. As mentioned above, patient's IV Lasix infusion has been increased to 20 mg/hour. She was also given another dose of metolazone along with higher dose of potassium. 3. Anemia secondary to myelodysplasia and iron deficiency. Patient is given Aranesp. She is also getting IV iron infusions. No need of blood transfusion at this time. 4. Normal anion gap metabolic acidosis. Patient was started on Bicitra 30 mL by mouth twice a day. Bicarbonate level is improving. 5. Hypertension with hypertensive heart disease and chronic diastolic congestive heart failure. Continue current dose of diuretics. Continue hydralazine 25 mg by mouth three a day, isosorbide 30 mg by mouth daily, metoprolol XL 50 mg by mouth daily. 6. Chronic gout secondary to chronic kidney disease. Continue Allopurinol 100 mg by mouth daily. 7. Left leg cellulitis. Patient has a dressing on the left leg now and she is getting Keflex twice a day.
--- NOTE | 2020-07-15 16:26 | IPN ---
PROGRESS NOTE DATE: 07/15/2020 SUBJECTIVE: Patient complains of dizziness when walking from bed to the bedside chair. She is currently sitting comfortably. No complaints of shortness of breath, cough, fever or chills. No nausea or vomiting. Tolerating her diet. Decreasing edema in the lower extremity. Urine output overnight has been reviewed as 2.5 liters. It was negative 1140 yesterday. Current weight has not been recorded. Admission weight was 84.8 kilos. Yesterday's weight was 84 kg. She otherwise denies any chest pain, palpitations, lightheadedness, near syncope or fall. OBJECTIVE: PHYSICAL EXAMINATION: VITAL SIGNS: Temperature 98, pulse 66, respiratory rate 16, blood pressure 132/68, 96% on room air. GENERAL: Awake, alert, oriented to person, place and time. No conversational dyspnea. HEENT: Able to complete full sentences. Speech is fluent. No use of respiratory accessory muscles. No jugular venous distention (JVD). No thyromegaly. No cervical lymphadenopathy. Dry mucous membranes. HEART: S1, S2. Sinus rhythm. No S3. LUNGS: Diminished with fine crackles at the bases but clear in the upper lobes. No wheezing or rales noted. ABDOMEN: Soft, nontender, nondistended. Decreasing edema. EXTREMITIES: Chronic venous stasis with 2+ pitting edema, improved from admission. INTAKE AND OUPTUT: Daily weights have been reviewed. LABORATORY DATA: White count 4.9, hemoglobin 9.5, hematocrit 29.8, it was 30 on admission, platelet count of 135. Sodium 141, potassium 3.8, chloride 112, bicarbonate 18, BUN 85, creatinine 4.08, glucose 142. ASSESSMENT AND PLAN: This is a 80-year-old female with history of chronic kidney disease stage IV, early myelodysplastic syndrome, anemia of chronic disease secondary to myelodysplastic syndrome (MDS) with chronic thrombocytopenia, presented to the emergency room with increasing shortness of breath, dyspnea on exertion with walking 15 to 20 feet and a 20 pound weight gain in the past month. On arrival, she was found to be hypertensive, blood pressure 194/77, EKG with sinus rhythm. BNP was elevated at 31,000 with chest x-ray showing diffuse interstitial markings unchanged from prior. Patient was admitted for decompensated congestive heart failure with preserved systolic function, diastolic dysfunction, ejection fraction 75%, with worsening renal failure and fluid overload. Currently has stage V renal failure being managed by nephrology with intravenous Lasix drip. IMPRESSION: 1. Acute decompensated congestive heart failure with preserved systolic function, diastolic dysfunction with ejection fraction 75%. 2. Fluid overload secondary to worsening stage V renal failure/end-stage renal disease. 3. Uncontrolled hypertension, improved. 4. Medical noncompliance with salt and fluid restriction. 5. History of coronary artery disease (CAD), myocardial infarction ([place]) and coronary artery bypass graft (CABG). 6. History of pancytopenia due to early myelodysplastic syndrome. 7. Anemia of chronic disease secondary to end-stage renal disease and early myelodysplastic syndrome. 8. Chronic thrombocytopenia without signs of bleeding. 9. Diverticulosis. 10. Hypothyroidism. 11. Peptic ulcer disease. 12. Umbilical hernia. 13. Chronic venous insufficiency with chronic venous stasis dermatitis with left lower extremity venous ulcer and early cellulitis on day #4 of Keflex. 14. Chronic constipation. 15. Metabolic acidosis due to worsening renal failure. PLAN: Patient is currently managed by nephrology for diuresis with strict intake and output (I and O), daily weights and increased dose of Lasix. Patient complains of dizziness, but orthostasis has not been done. Patient is currently off Lasix drip and has received one dose of Zaroxolyn and one dose of Lasix 40 mg IV and potassium supplementation. She is continued on Bicitra, ferrous sulfate, famotidine, iron infusions, magnesium oxide, folic acid, Aranesp, isosorbide for blood pressure and metoprolol for blood pressure control, allopurinol, levothyroxine, vitamin D and cephalexin. At this time, dialysis has been discussed with the patient. She did not want Permacath to be placed by interventional radiology and Dr. Rey Coates, surgical consultation veterinary surgeon this weekend, can assist with the dialysis catheter, but is unable to put a Permacath. Will defer to nephrology whether the patient requires urgent hemodialysis during this admission. I am not sure if vascular surgery is available tomorrow, but patient can receive a temporary hemodialysis catheter if needed emergently. Will refer to nephrology regarding the metabolic acidosis, if she should be supplemented or if she requires emergent dialysis. MANDI
[2020-07-15] MEDS: **NOTE PATIENT COMMENT** MISC XX SCH (21:14)
[2020-07-15] MEDS: FAMOTIDINE 20 MG TAB PO SCH (21:15)
[2020-07-15] MEDS: VITAMIN D 1,000 INTERNATIONAL UNITS TABLET PO SCH (21:16)
[2020-07-15] MEDS: FERROUS SULFATE 325MG TAB PO SCH (21:16)
[2020-07-15] MEDS: ACETAMINOPHEN 500 MG TAB PO SCH (21:17)
[2020-07-15 22:00] VITALS: BP 166/67
[2020-07-16] MEDS: LEVOTHYROXINE 137MCG TABLET (0.137MG) PO SCH (05:52)
[2020-07-16 05:53] LABS: HEMATOCRIT 28.1 % (36.0-47.0); MEAN CORPUSCULAR HEMOGLOBIN 32.5 pg (27.0-33.0); MEAN CORPUSCULAR VOLUME 101.4 fl (80.0-96.0); PLATELET COUNT, AUTOMATED 128 10^3/uL (150-450); RED BLOOD COUNT 2.77 10^6/uL (4.00-5.40); WHITE BLOOD COUNT 5.1 10^3/uL (4.0-10.0)
[2020-07-16 06:00] VITALS: BP 141/61
[2020-07-16 06:12] LABS: CALCIUM LEVEL 7.9 MG/DL (8.8-10.2); CREATININE FOR GFR 4.27 MG/DL (0.55-1.30); GLOMERULAR FILTRATION RATE 10.7 (>39); POTASSIUM SERUM 4.2 MEQ/L (3.5-5.1)
[2020-07-16] MEDS: FUROSEMIDE injection 250 MG in D5W 225 ML IV SCH ×2 (09:48→22:07)
[2020-07-16] MEDS: BICITRA 30ML SOLN UDC PO SCH ×2 (09:49→22:04)
[2020-07-16] MEDS: PANTOPRAZOLE 40MG TAB (PROTONIX) PO SCH (09:49)
[2020-07-16] MEDS: LACTOBACILLUS ACIDOPHILUS CAP (BACID) PO SCH ×2 (09:49→18:21)
[2020-07-16] MEDS: CEPHALEXIN 500 MG CAP PO SCH ×2 (09:49→22:04)
[2020-07-16] MEDS: PRAVASTATIN 20 MG TAB PO SCH (09:49)
[2020-07-16] MEDS: allopurinoL 100 MG TAB PO SCH (09:49)
[2020-07-16] MEDS: POTASSIUM CHLORIDE 10 MEQ SR TABLET PO SCH (09:49)
[2020-07-16] MEDS: LIDOCAINE 5% (LIDODERM) PATCH TD SCH (09:50)
[2020-07-16] MEDS: HumaLOG INSULIN (NovoLOG) PER UNIT SC SCH ×4 (09:50→21:00)
[2020-07-16] MEDS: **hydrALAZINE HCL** 25 MG TAB PO SCH ×3 (09:54→18:21)
[2020-07-16] MEDS: ISOSORBIDE MON. (IMDUR) 30 MG XR TAB PO SCH (09:54)
[2020-07-16] MEDS: METOPROLOL SUCC (TopROL XL) 50MG **XL** TAB PO SCH (09:55)
[2020-07-16] MEDS: LACTIC ACID 12% LOTION 225 GM BTL TOP SCH (09:55)
[2020-07-16 11:14] LABS: PTH INTACT 50.4 PG/ML (18.5-88.0)
[2020-07-16] MEDS: IRON SUCROSE 200 MG in NS 100 ML IV SCH (11:46)
[2020-07-16 11:56] VITALS: BP 149/61
[2020-07-16] MEDS ORDERED: metOLazone 5 MG TAB PO ONE (12:00)
--- NOTE | 2020-07-16 12:04 | IPNPDOC ---
Date Seen The patient was seen on 07/16/20. Progress Note SUBJECTIVE: Patient denies any chest pain, pressure, tightness, no shortness of breath. She did have some dizziness, lightheadedness when she stands up. Still on Lasix drip OBJECTIVE: VITAL SIGNS: SEE BELOW GENERAL: No distress HEENT: Laying flat on the bed Able to complete full sentences. Speech is fluent. No use of respiratory accessory muscles. No jugular venous distention (JVD). No thyromegaly. No cervical lymphadenopathy. Dry mucous membranes. HEART: S1, S2. Sinus rhythm. No S3. LUNGS: Clear to auscultation bilaterally No wheezing or rales noted. ABDOMEN: Soft, nontender, nondistended. Decreasing edema. EXTREMITIES: Decreased edema INTAKE AND OUPTUT: Daily weights have been reviewed. LABORATORY DATA: See below Weights, strict I's and O's reviewed. See below ASSESSMENT AND PLAN: This is a 80-year-old female with history of chronic kidney disease stage IV, early myelodysplastic syndrome, anemia of chronic disease secondary to myelodysplastic syndrome (MDS) with chronic thrombocytopenia, presented to the emergency room with increasing shortness of breath, dyspnea on exertion with walking 15 to 20 feet and a 20 pound weight gain in the past month. On arrival, she was found to be hypertensive, blood pressure 194/77, EKG with sinus rhythm. BNP was elevated at 31,000 with chest x-ray showing diffuse interstitial markings unchanged from prior. Patient was admitted for decompensated congestive heart failure with preserved systolic function, diastolic dysfunction, ejection fraction 75%, with worsening renal failure and fluid overload. Currently has stage V renal failure being managed by nephrology with intravenous Lasix drip. IMPRESSION: 1. Acute decompensated congestive heart failure with preserved systolic function, diastolic dysfunction with ejection fraction 75%. 2. Fluid overload secondary to worsening stage V renal failure/end-stage renal disease. 3. Uncontrolled hypertension, improved. 4. Medical noncompliance with salt and fluid restriction. 5. History of coronary artery disease (CAD), myocardial infarction (OK) and coronary artery bypass graft (CABG). 6. History of pancytopenia due to early myelodysplastic syndrome. 7. Anemia of chronic disease secondary to end-stage renal disease and early myelodysplastic syndrome. 8. Chronic thrombocytopenia without signs of bleeding. 9. Diverticulosis. 10. Hypothyroidism. 11. Peptic ulcer disease. 12. Umbilical hernia. 13. Chronic venous insufficiency with chronic venous stasis dermatitis with left lower extremity venous ulcer and early cellulitis on day #5. of Keflex. 14. Chronic constipation. 15. Metabolic acidosis due to worsening renal failure. PLAN: Deferred to nephrology for fluid balance and diuresis. Patient is clinically improving and has no new complaints Will defer to the nephrology regarding timing of dialysis. Patient refuses permacath to be placed by interventional radiology , We do not have asked the surgical services at this time If dialysis is needed a temporary catheter can be placed by general surgery, Dr. Joy and has been made aware of the weekend, but we've not needed to do dialysis yet VS, I&O, 24H, Fishbone Vital Signs/I&O Vital Signs Date Time Temp Pulse Resp B/P (MAP) Pulse Ox O2 Delivery O2 Flow Rate FiO2 07/16/20 11:56 98.4 66 20 149/61 (90) 98 Room Air I&O- Last 24 Hours up to 6 AM 07/16/20 06:00 Intake Total 1625 ml Output Total 1300 ml Balance 325 ml Laboratory Data 24H LABS Laboratory Tests 2 07/15/20 12:23: Bedside Glucose (Misc Panel) 248H 07/15/20 16:20: Bedside Glucose (Misc Panel) 194H 07/15/20 19:58: Bedside Glucose (Misc Panel) 194H 07/16/20 05:35: Nucleated Red Blood Cells % (auto) 1.0H, Anion Gap 13, Glomerular Filtration Rate 10.7L, Calcium Level 7.9L 07/16/20 11:57: Bedside Glucose (Misc Panel) 216H CBC/BMP Laboratory Tests 07/16/20 05:35 MICHAELLE CUMMINGS MD July 16, 2020 12:04
[2020-07-16] MEDS ORDERED: FUROSEMIDE 20MG/2ML VIAL (J1940) IV ONE (12:30)
[2020-07-16 13:05] VITALS: BP 151/60
[2020-07-16] MEDS: FOLIC ACID 1 MG TAB PO SCH (13:29)
[2020-07-16] MEDS: MAGNESIUM OXIDE 400MG TAB (MAG-OX) PO SCH (13:29)
[2020-07-16 14:00] VITALS: BP 173/72
[2020-07-16] MEDS: **NOTE PATIENT COMMENT** MISC XX SCH (21:00)
[2020-07-16 22:00] VITALS: BP 159/58
[2020-07-16] MEDS: GABAPENTIN 100 MG CAP PO SCH (22:04)
[2020-07-16] MEDS: VITAMIN D 1,000 INTERNATIONAL UNITS TABLET PO SCH (22:04)
[2020-07-16] MEDS: ACETAMINOPHEN 500 MG TAB PO SCH (22:05)
[2020-07-17 06:00] VITALS: BP 155/57
[2020-07-17 06:07] LABS: HEMATOCRIT 29.1 % (36.0-47.0); HEMOGLOBIN 9.2 g/dl (12.0-15.5); MEAN CORPUSCULAR HEMOGLOBIN 32.3 pg (27.0-33.0); MEAN CORPUSCULAR HGB CONC 31.6 g/dl (32.0-36.5); MEAN CORPUSCULAR VOLUME 102.1 fl (80.0-96.0); PLATELET COUNT, AUTOMATED 124 10^3/uL (150-450); RED BLOOD COUNT 2.85 10^6/uL (4.00-5.40); WHITE BLOOD COUNT 4.6 10^3/uL (4.0-10.0)
[2020-07-17] MEDS: LEVOTHYROXINE 137MCG TABLET (0.137MG) PO SCH (06:11)
[2020-07-17 06:26] LABS: CALCIUM LEVEL 7.4 MG/DL (8.8-10.2); CREATININE FOR GFR 4.35 MG/DL (0.55-1.30); GLOMERULAR FILTRATION RATE 10.5 (>39); MAGNESIUM LEVEL 1.7 MG/DL (1.8-2.4)
[2020-07-17] MEDS: BICITRA 30ML SOLN UDC PO SCH (09:10)
[2020-07-17] MEDS: METOPROLOL SUCC (TopROL XL) 50MG **XL** TAB PO SCH (09:10)
[2020-07-17] MEDS: allopurinoL 100 MG TAB PO SCH (09:11)
[2020-07-17] MEDS: CEPHALEXIN 500 MG CAP PO SCH ×2 (09:11→21:47)
[2020-07-17] MEDS: ISOSORBIDE MON. (IMDUR) 30 MG XR TAB PO SCH (09:11)
[2020-07-17] MEDS: **hydrALAZINE HCL** 25 MG TAB PO SCH ×3 (09:11→18:16)
[2020-07-17] MEDS: PRAVASTATIN 20 MG TAB PO SCH (09:11)
[2020-07-17] MEDS: LACTIC ACID 12% LOTION 225 GM BTL TOP SCH (09:12)
[2020-07-17] MEDS: POTASSIUM CHLORIDE 10 MEQ SR TABLET PO SCH (09:12)
[2020-07-17] MEDS: PANTOPRAZOLE 40MG TAB (PROTONIX) PO SCH (09:12)
[2020-07-17] MEDS: LIDOCAINE 5% (LIDODERM) PATCH TD SCH (09:12)
[2020-07-17] MEDS: LACTOBACILLUS ACIDOPHILUS CAP (BACID) PO SCH ×2 (09:12→18:15)
[2020-07-17] MEDS: HumaLOG INSULIN (NovoLOG) PER UNIT SC SCH ×4 (09:13→21:00)
[2020-07-17] MEDS: FUROSEMIDE injection 250 MG in D5W 225 ML IV SCH (09:15)
[2020-07-17 11:41] LABS: INR 1.45
--- NOTE | 2020-07-17 11:41 | CR.PDOC ---
General Date of Consultation: July 17, 2020 Consultation REASON FOR CONSULTATION/CHIEF COMPLAINT: Fluid overload, renal failure HISTORY OF PRESENT ILLNESS: This is a very pleasant 80-year-old female with acute on chronic renal failure, increasing shortness of breath, 20 pound weight gain, fatigue, lower extremity edema, hypertension, BNP > 30,000 and 3-4 pillow orthopnea who has been admitted for volume overload and management, and now requ ires IV access for hemodialysis. Risks benefits and alternatives were explained and the patient is agreeable to proceed. Informed consent was obtained. PAST MEDICAL HISTORY: End-stage renal disease, coronary artery disease, history of OK and CABG, hypertension, hyperlipidemia, GERD, thyroid disease, myelodysplastic syndrome, diverticulitis, peptic ulcer disease, umbilical hernia. PAST SURGICAL HISTORY: Repair gastric ulcer, thyroidectomy, D&C 5, surgery right breast, lymph node resection, cholecystectomy, uterine surgery, hernia repair, three-vessel CABG, back surgery, surgery to both feet, , nephrectomy on the right, total hysterectomy, EVLT left lower extremity SOCIAL HISTORY: Denies tobacco or illicit drug use. Occasional alcohol. FAMILY HISTORY: Leukemia, heart disease, colon cancer ALLERGIES: Please see below. HOME MEDICATIONS: Please see below. REVIEW OF SYSTEMS: CONSTITUTIONAL: Denies fevers chills HEENT: Denies vision changes or hearing loss CARDIOVASCULAR: Denies chest pain RESPIRATORY: Positive shortness of breath GENITOURINARY: Denies dysuria MUSCULOSKELETAL: Positive back pain positive leg swelling GASTROINTESTINAL: Positive GERD SKIN: Denies rashes NEUROLOGICAL: Denies TIA or stroke, denies headache or seizure PSYCHIATRIC: Denies anxiety positive depression ENDOCRINE: Positive thyroid disease HEMATOLOGIC/LYMPHATIC: Positive myelodysplastic syndrome with pancytopenia ALLERGIC/IMMUNOLOGIC: Denies PHYSICAL EXAMINATION: VITAL SIGNS: Please see below. GENERAL APPEARANCE: Medically stable no acute distress HEENT: Normocephalic TMI RESPIRATORY: Diminished breath sounds bibasilar, slightly coarse breath sounds bilateral CARDIOVASCULAR: Regular rate and rhythm ABDOMEN: Nontender, + distended, + bowel sounds EXTREMITIES: Distal perfusion intact, positive edema bilateral lower extremities NEUROLOGICAL: Alert and oriented 3, moves all extremity is equally PSYCHIATRIC: Pleasant and cooperative LABORATORY DATA: Please see below. ASSESSMENT/PLAN: Very pleasant 80-year-old patient with acute on chronic renal failure requiring access for dialysis 1. Plan for PermCath placement this afternoon 2. Keep the patient NPO please We appreciate the opportunity to participate in the care of this patient. Vital Signs/I&O Vital Signs Date Time Temp Pulse Resp B/P (MAP) Pulse Ox O2 Delivery O2 Flow Rate FiO2 07/17/20 09:11 153/57 07/17/20 09:10 69 07/17/20 06:00 98.6 18 95 Room Air I&O- Last 24 Hours up to 6 AM 07/17/20 06:00 Intake Total 2180 ml Output Total 1250 ml Balance 930 ml Laboratory Data Labs 24H Laboratory Tests 2 07/16/20 11:57: Bedside Glucose (Misc Panel) 216H 07/16/20 16:53: Bedside Glucose (Misc Panel) 200H 07/16/20 20:55: Bedside Glucose (Misc Panel) 207H 07/17/20 05:34: Nucleated Red Blood Cells % (auto) 0.9H, Anion Gap 11, Glomerular Filtration Rate 10.5L, Calcium Level 7.4L, Magnesium Level 1.7L 07/17/20 11:01: CBC/BMP Laboratory Tests 07/17/20 05:34 Allergies Coded Allergies: bee venom protein (honey bee) (Verified Allergy, Mild, 05/24/20) Estrogens (Verified Allergy, Unknown, 06/17/18) latex (Verified Allergy, Unknown, hives, 06/28/20) Home Medications Scheduled Acetaminophen (Acetaminophen) 500 Mg Tab, 500 MG PO QHS, (Reported) Allopurinol (Allopurinol) 100 Mg Tablet, 100 MG PO DAILY, (Reported) Ammonium Lactate (Ammonium Lactate) 12% Cream..g., 1 DOSE TOP DAILY, (Reported) APPLY TO FEET Aspirin (Aspirin EC) 81 Mg Tab, 81 MG PO DAILY, (Reported) Calcium Carbonate/Vitamin D3 (Calcium 600 + Vit D 400 Softgl) 1 Each Capsule, 1 CAP PO QPM, (Reported) Cholecalciferol (Vitamin D3) (Vitamin D3) 1,000 Unit Tablet, 2,000 UNITS PO QPM, (Reported) Cranberry Fruit Extract (Cranberry) 500 Mg Capsule, 500 MG PO DAILY, (Reported) TAKES AT NOON Famotidine (Famotidine) 20 Mg Tablet, 20 MG PO QHS, (Reported) Ferrous Sulfate (Iron) 325 Mg Tablet, 325 MG PO Q2D, (Reported) AT BEDTIME Folic Acid (Folic Acid) 1 Mg Tab, 1 MG PO DAILY, (Reported) TAKES AT NOON Hydralazine HCl (Hydralazine HCl) 25 Mg Tablet, 25 MG PO TID, (Reported) BREAKFAST, LUNCH, DINNER Isosorbide Mononitrate (Isosorbide Mononitrate ER) 120 Mg Tab, 120 MG PO DAILY, (Reported) Levothyroxine Sodium (Euthyrox) 137 Mcg Tablet, 137 MCG PO QAM, (Reported) Magnesium Oxide (Magnesium Oxide) 400 Mg Tablet, 400 MG PO DAILY, (Reported) TAKES AT NOON Melatonin (Melatonin) 5 Mg Tablet, 10 MG PO QHS, (Reported) Metoprolol Succinate (Metoprolol Succinate) 50 Mg Tab.er.24h, 50 MG PO DAILY, (Reported) Multivit-Min/Iron/Folic/Lutein (Centrum Silver Women Tablet) 1 Each Tablet, 1 TAB PO QPM, (Reported) Pantoprazole Sodium (Pantoprazole Sodium) 40 Mg Tab, 40 MG PO QAM, (Reported) Polyvinyl Alcohol (Artificial Tears) 15 Ml Drops, 1 DROP OU Q1H, (Reported) Pravastatin Sodium (Pravastatin Sodium) 40 Mg Tablet, 40 MG PO DAILY, (Reported) Torsemide (Torsemide) 20 Mg Tablet, 40 MG PO BID, (Reported) Vit C/E/Zn/Coppr/Lutein/Zeaxan (Preservision Areds 2 Softgel) 1 Each Capsule, 1 CAP PO DAILY, (Reported) Scheduled PRN Psyllium Husk (with Sugar) (Metamucil Powder) 575 Gm Powder, 1 PKT PO QHS PRN for CONSTIPATION, (Reported) ALINA JUAN MD July 17, 2020 11:41
[2020-07-17 11:42] LABS: PARTIAL THROMBOPLASTIN TIME 30.9 SECONDS (24.2-38.5)
[2020-07-17] MEDS: FOLIC ACID 1 MG TAB PO SCH (12:00)
[2020-07-17] MEDS: MAGNESIUM OXIDE 400MG TAB (MAG-OX) PO SCH (12:00)
[2020-07-17] MEDS ORDERED: ceFAZolin 2 GM/D5W 50 ML IV BAG (J0690 PER 500MG) As Ordered ONE (13:40)
[2020-07-17] MEDS ORDERED: fentaNYL 100 MCG/2 ML INJECTION (J3010) As Ordered ONE (13:45)
[2020-07-17] MEDS ORDERED: MIDAZOLAM INJ 2MG/2ML VIAL (J2250 PER 1MG) As Ordered ONE (13:45)
[2020-07-17] MEDS ORDERED: LIDOCAINE W/EPINEPHRINE 1% 20ML VIAL As Ordered ONE (13:45)
--- NOTE | 2020-07-17 14:48 | ROOPDOC ---
[facility] Report Of Operation Report of Operation DATE OF PROCEDURE: 07/17/20 PREPROCEDURE DIAGNOSES: Acute on chronic renal failure requiring access for dialysis POSTPROCEDURE DIAGNOSES: Same PROCEDURE: 1. Ultrasound-guided access right internal jugular vein 2. 23 cm tunneled PermCath placement right IJ SURGEON: Alina Mahoney MD ANESTHESIA: Local anesthesia 16 mL lidocaine. Full sedation was not used for this patient because she was slightly confused before the procedure. We only used analgesia, 50 g of fentanyl. Start time of the procedure was 14:12, start time was 14:30. Ancef 2 g IV was given prior to start of the procedure. INDICATION FOR PROCEDURE: This is a very pleasant 80-year-old patient with acute on chronic renal insufficiency and volume overload and requires IV access for dialysis. Risks benefits and alternatives to PermCath placement were explained to the patient she is agreeable to proceed. I also spoke with her son-in-law at the patient's request, who was also agreeable for the procedure. Informed consent was obtained. INTERPRETATION: The catheter is in good position with no kinks in the catheter the tip freely mobile at the right atrial SVC junction. There is no pneumothorax. REPORT OF OPERATION: Patient was brought to the angiographic suite in stable condition. Her right neck and chest were prepped and draped in a sterile fashi on. A timeout was performed. Local anesthesia was administered to the skin and subcutaneous taste tissue over the right neck. Ultrasound was used to guide access to the jugular vein with a microneedle. A wire was passed through this access under fluoroscopic guidance into the central system. The needle was removed and a micro-sheath was placed and flushed with saline. A small incision was made at the jugular access site with the skin knife. A Glidewire was advanced through this access into the central system, first the SVC then the IVC under fluoroscopic guidance. Next, the patient's right chest and neck were anesthetized with local anesthesia. A small incision was made with skin knife 1 cm distal to the clavicle laterally. A 23 cm PermCath was tunneled from the right chest to the jugular access site until a cough was within the subcutaneous tissue. We then perform serial dilations over the wire using the Seldinger technique, and the peel-away sheath was placed over the wire. The inner cannula and wire were removed and the tips of the catheter were advanced through the peel-away sheath and the peel-away sheath was removed. Both ports ralph back and flushed easily. We heparin locked both ports. Appropriate caps were placed. Deep and superficial dermal Monocryl sutures were used to approximate the jugular access site and Dermabond was used at the skin. A Prolene sutures were used to close the exit site on the right chest and to secure the catheter to the chest wall. Sterile dressings were applied. The patient was then taken to recovery in stable condition. She tolerated the procedure and the analgesia well. ESTIMATED BLOOD LOSS: Approximately 5 mL. COMPLICATIONS: None. PLAN: It is okay to use the PermCath for dialysis. It is okay to resume preprocedure diet, medications, orders per primary team. Keep head of bed elevated greater than 45 to diminish venous pressure in the jugular vein and diminish risk of bleeding/bruising after PermCath placement. We appreciate the opportunity to participate in the care of this patient. ALINA MAHONEY MD July 17, 2020 14:48
[2020-07-17] MEDS ORDERED: SODIUM CHLORIDE 0.9% 1000ML IV PRN (15:25)
[2020-07-17] MEDS: TORSEMIDE 20 MG TAB PO SCH (18:15)
--- NOTE | 2020-07-17 20:11 | IPNPDOC ---
Date Seen The patient was seen on 07/17/20. Progress Note SUBJECTIVE: Permacath placed today, 1500 mL taken off on first HD session. Will need to c/w HD after discharge, and need chair prior to d/c. Denies chest pain, n/v/d, incr shortness of breath. OBJECTIVE: PHYSICAL EXAM: VITAL SIGNS: Please see below GENERAL: NAD, resting in bed. AAOx 3 HEENT: AT/NC, HEART: S1, S2. Sinus rhythm. No S3. LUNGS: Posterior lower lung crackles , No wheezing or rales noted. ABDOMEN: Soft, nontender, nondistended. Decreasing edema. EXTREMITIES: +2 pitting edema in lower ext , no cyanosis or clubbing noted NEURO: No focal deficits, CN 2-12 intact LABORATORY DATA: See below IMAGING: Echocardiogrm 2019: 1. Mild aortic valve sclerosis of a 3-cusp aortic valve. No aortic stenosis or regurgitation. 2. Mild mitral annular calcification. Mild mitral regurgitation. 3. Normal left ventricle internal dimensions and wall thickness. Normal regional left ventricular (LV) wall motion and wall thickening. Normal LV systolic function. Left ventricular ejection fraction (LVEF) 65% by visual estimate. Normal LV diastolic function for age. 4. Mild left atrial dilatation by left atrial volume index. ASSESSMENT: 80-year-old female with history of chronic kidney disease stage IV, early myelodysplastic syndrome, anemia of chronic disease secondary to my elodysplastic syndrome (MDS) with chronic thrombocytopenia admitted for acute decompensated CHF, fluid overload 2/2 to worsening Stage V renal failure, ESRD, uncontrolled HTN. PLAN: HFpEF with exacerbation -100% on 2 L NC, crackles in posterior lower lungs -Medical noncompliance with salt and fluid restriction. -Attempts to diurese, including with lasix gtt, unsuccessful -Dialysis today removed 1500 mL fluid -Last echocardiogram above -C/w torsemide BID, BB, weaning of o2 -O/p f/u will be needed with cardiology Fluid overload secondary to worsening stage V renal failure/end-stage renal disease with CHF exacerbation -ESRD currently on HD, improving slowly -Cr worsened at 4.35 -C/w dialysis, torsemide BID -Nephrology following closely Chronic venous insufficiency with chronic venous stasis dermatitis, left lower extremity venous ulcer and early cellulitis -Improving -c/w keflex HTN -Improved -C/w current meds History of coronary artery disease (CAD)/ myocardial infarction ([place])/ coronary artery bypass graft (CABG) -F/u with cardiology as o/p -C/w cardiac meds Pancytopenia / thrombocytopenia/ due to early myelodysplastic syndrome and ESRD -f/u as o/p -No s/s of bleeding -CBC daily Anemia of chronic disease secondary to end-stage renal disease and early myelo dysplastic syndrome -No s/s of bleeding -Monitor closely with CBC daily Metabolic acidosis due to worsening renal failure -Managed by nephrology -Now on HD Hypothyroidism -synthroid Peptic ulcer disease. -PPI DISPOSITION: PT: demonstrates improvement in mobility and is safe for D/C home when medically cleared. Pt ambulated 250ft with RW. Awaiting HD chair and then can likely be discharged, possibly even 07/18/20 to continue to f/u with nephrology as o/p. VS, I&O, 24H, Fishbone Vital Signs/I&O Vital Signs Date Time Temp Pulse Resp B/P (MAP) Pulse Ox O2 Delivery O2 Flow Rate FiO2 07/17/20 18:16 161/62 07/17/20 14:30 70 20 100 Nasal Cannula 2.0 07/17/20 13:30 97.8 I&O- Last 24 Hours up to 6 AM 07/17/20 06:00 Intake Total 2180 ml Output Total 1250 ml Balance 930 ml Laboratory Data 24H LABS Laboratory Tests 2 07/16/20 20:55: Bedside Glucose (Misc Panel) 207H 07/17/20 05:34: Nucleated Red Blood Cells % (auto) 0.9H, Anion Gap 11, Glomerular Filtration Rate 10.5L, Calcium Level 7.4L, Magnesium Level 1.7L 07/17/20 11:01: Prothrombin Time 18.0H, Prothromb Time International Ratio 1.45, Activated Partial Thromboplast Time 30.9 07/17/20 11:31: Bedside Glucose (Misc Panel) 221H 07/17/20 13:42: Bedside Glucose (Misc Panel) 210H 07/17/20 18:04: Bedside Glucose (Misc Panel) 141H CBC/BMP Laboratory Tests 07/17/20 05:34 Brigid Reyes MD July 17, 2020 20:11
--- NOTE | 2020-07-17 20:57 | IPN ---
NEPHROLOGY PROGRESS NOTE DATE: 07/17/2020 SUBJECTIVE: Miss Glover is seen and examined this morning at the bedside. She continues to fail aggressive Lasix drip. She is not diuresing satisfactorily. Her daily intake exceeds her urine output. Her daily weights have not downtrended. She remains in fluid overload. This was explained to her again today. She agrees for dialysis initiation. I have consulted Dr. Mahoney for a permacath placement and the plan is for the first hemodialysis treatment this afternoon. The patient complains of four bowel movements which were watery to pasty and ongoing leg swelling but otherwise denies any new complaints. OBJECTIVE: PHYSICAL EXAMINATION: VITAL SIGNS: Temperature 97.8, pulse 64, respiratory rate 20, blood pressure 153/57, saturating 95-100% on room air. INTAKE AND OUTPUT: Intake yesterday was 1,980. Urine output was only 1,250. Weight in the bed scale is 84.8 kg which is increased from prior. GENERAL APPEARANCE: The patient is sitting out of bed to the chair, elderly female, bright, articulate, in no apparent distress. HEENT: The extraocular muscles are intact. Pupils are round and reactive to light. Mucous membranes are moist. NECK: Supple. Jugular veins are mildly elevated. There is an old healed anterior scar at the base of the neck. HEART: Regular, S1, S2. There is 2+ edema of the bilateral lower extremities. There are dressings on the legs as well. RESPIRATORY: Diminished at the bases but no rales or rhonchi. The patient is saturating well on room air. No accessory muscle use. No tachypnea. ABDOMEN: Significantly obese and there is some abdominal wall edema noted. The belly is nontender to palpation. EXTREMITIES: There are dressings over the bilateral lower extremities. She has chronic venous stasis changes. She has 2+ leg edema that is coming up to the mid thigh. NEUROLOGICAL: she is interactive and oriented x3 and conversational and appropriate. PSYCHIATRIC: Appropriate mood and affect. LABORATORY STUDIES: White count 4.6, hemoglobin 9.2, platelet count 124, sodium 140, potassium 4.0, bicarbonate 18, BUN 88, creatinine 4.3, GFR 10, magnesium 1.7. CURRENT INPATIENT MEDICATIONS: I discontinued her Lasix drip which was running at 20 mg an hour and has been on for the past 5 days. I also discontinued Bicitra and I started the patient on Torsemide 40 mg p.o. twice daily. I discontinued potassium chloride. The remainder medications are unchanged as compared to yesterday. PROBLEMS: 1. Acute kidney injury superimposed on chronic kidney disease stage 4 - The patient has progressed to chronic kidney disease 5 on this admission. She is in fluid overload which is refractory to aggressive Lasix drip. She is presently on Lasix at 20 mg an hour and she has been on IV Lasix since about a week now but she has not diuresed appropriately and she remains in fluid overload. I explained to her that she will need to start dialysis for chronic control of her volume status. She is in agreement. Permacath is being placed today by Dr. Mahoney and we will plan for first hemodialysis treatment this afternoon and the patient will need to be set up with chronic outpatient dialysis. I am also going to get vein mapping done in view of AVF creation down the road. 2. Anasarca and fluid overload - The patient continues to be in fluid overload. She has failed aggressive diuresis with IV Lasix infusion along with other diuretics. Her daily weights have not downtrended. She is going to need dialysis for control of volume status and first treatment is being done today with 1.5 liters of fluid to be removed. She continues on an oral fluid restriction. I am going to put her on Torsemide instead now, so that we can take advantage of her residual renal function. 3. Anemia secondary to myelodysplasia and iron deficiency she has received IV iron infusions and she is also receiving Aranesp. We will switch it now for Aranesp to be given with dialysis. 4. Normal anion gap metabolic acidosis she has been on Bicitra 30 mL twice daily. Her acidemia is secondary to chronic renal failure. I stopped the Bicitra and her acidosis will now be controlled with hemodialysis. 5. Hypertension with hypertensive heart disease and diastolic congestive heart failure she continues on Hydralazine, Isosorbide and Metoprolol, and I am putting her on Torsemide now. 6. Disposition Permacath was placed today. The patient was seen later this afternoon receiving her first hemodialysis treatment. She will now need outpatient arrangements of hemodialysis.
[2020-07-17] MEDS: FAMOTIDINE 20 MG TAB PO SCH (21:47)
[2020-07-17] MEDS: ACETAMINOPHEN 500 MG TAB PO SCH (21:47)
[2020-07-17] MEDS: VITAMIN D 1,000 INTERNATIONAL UNITS TABLET PO SCH (21:47)
[2020-07-17] MEDS: GABAPENTIN 100 MG CAP PO SCH (21:47)
[2020-07-17] MEDS: FERROUS SULFATE 325MG TAB PO SCH (21:47)
[2020-07-17] MEDS: **NOTE PATIENT COMMENT** MISC XX SCH (21:48)
[2020-07-17 22:00] VITALS: BP 155/64
[2020-07-18 06:00] VITALS: BP 150/61
[2020-07-18 06:06] LABS: HEMATOCRIT 30.5 % (36.0-47.0); HEMOGLOBIN 9.7 g/dl (12.0-15.5); MEAN CORPUSCULAR HEMOGLOBIN 32.8 pg (27.0-33.0); MEAN CORPUSCULAR HGB CONC 31.8 g/dl (32.0-36.5); PLATELET COUNT, AUTOMATED 120 10^3/uL (150-450); RED BLOOD COUNT 2.96 10^6/uL (4.00-5.40); WHITE BLOOD COUNT 4.3 10^3/uL (4.0-10.0)
[2020-07-18] MEDS: LEVOTHYROXINE 137MCG TABLET (0.137MG) PO SCH (06:26)
[2020-07-18 06:38] LABS: CALCIUM LEVEL 8.3 MG/DL (8.8-10.2); CREATININE FOR GFR 3.66 MG/DL (0.55-1.30); GLOMERULAR FILTRATION RATE 12.8 (>39)
[2020-07-18] MEDS: LIDOCAINE 5% (LIDODERM) PATCH TD SCH (08:23)
[2020-07-18] MEDS: LACTOBACILLUS ACIDOPHILUS CAP (BACID) PO SCH ×2 (08:24→17:13)
[2020-07-18] MEDS: CEPHALEXIN 500 MG CAP PO SCH ×2 (08:24→20:33)
[2020-07-18] MEDS: HumaLOG INSULIN (NovoLOG) PER UNIT SC SCH ×4 (08:24→20:32)
[2020-07-18] MEDS: PRAVASTATIN 20 MG TAB PO SCH (08:25)
[2020-07-18] MEDS: allopurinoL 100 MG TAB PO SCH (08:25)
[2020-07-18] MEDS: METOPROLOL SUCC (TopROL XL) 50MG **XL** TAB PO SCH (08:25)
[2020-07-18] MEDS: TORSEMIDE 20 MG TAB PO SCH ×2 (08:25→17:13)
[2020-07-18] MEDS: PANTOPRAZOLE 40MG TAB (PROTONIX) PO SCH (08:25)
[2020-07-18] MEDS: ISOSORBIDE MON. (IMDUR) 30 MG XR TAB PO SCH (08:26)
[2020-07-18] MEDS: **hydrALAZINE HCL** 25 MG TAB PO SCH ×3 (08:26→20:33)
[2020-07-18] MEDS: LACTIC ACID 12% LOTION 225 GM BTL TOP SCH (08:27)
--- NOTE | 2020-07-18 08:56 | IPN ---
INPATIENT PROGRESS NOTE DATE: 07/16/2020 SUBJECTIVE: Ms. Glover is seen and examined this morning sitting out of bed in a chair. I had a lengthy discussion with her that she is not responding as well to the high rate Lasix infusion (presently running at 20 mg an hour). Despite continuous Lasix drip her 24 hour intake and output shows she is only make 1400 of urine whereas her intake was 1600. She continues to have ongoing leg edema. Her GFR remains [address] Husain had spoken to her last week about initiating hemodialysis, but the patient had been very hesitant and had been declining and I discussed the issue with her again today and advised her that she is not diuresing well and that she will likely require hemodialysis for control of her volume status. The patient asked to continue with medical management and to hold off on dialysis initiation. PHYSICAL EXAMINATION: Vital signs: Temperature 98.4, pulse 66, respiratory rate 20, blood pressure 149/61, saturating 98% on room air. Intake yesterday was 1660, urine output was 1420, net positive 240 mL. Weight on the bed scale today is 83.1 kg. General: Patient is seen sitting out of bed to the chair awake, alert, oriented times 3 in no distress. HEENT: Extraocular muscles are intact; pupils are round and reactive to light. Mucous membranes are moist. Neck: Supple, jugular veins are mildly elevated even when she is sitting upright. A healed anterior scar is noted at the base of the neck. Heart: Sounds are regular S1 and S2. There is 2+ edema of the bilateral lower extremities. There is a dressing on the left calf. Lungs: Diminished breath sounds at the bases. She is comfortable on room air. There is no accessory muscle use or tachypnea. Abdomen: Soft. I did not appreciate much induration in the abdominal wall. Musculoskeletal: She has dressings over the left lower extremity and she has 2+ pitting leg edema that comes up to the mid thigh. Neurologic: She is oriented times 3, interactive and conversational and cooperative with physical exam. No focal deficits appreciated. LABORATORY DATA: Today's laboratory studies show: White count 5.1, hemoglobin 9, platelets 128. Sodium 141, potassium 4.2, bicarbonate 18, BUN 92, creatinine 4.2, GFR 10. PTH resulted at 50. INPATIENT MEDICATIONS: I added metolazone 5 mg by mouth times 1. She continues on Lasix drip at 20 mg an hour. She has received 3 doses of Venofer infusion. I ordered for gabapentin 100 mg by mouth at bedtime. Remainder of medications are unchanged over the past day. PROBLEMS/PLAN: 1. Acute renal failure superimposed on CKD stage 4: Patient is admit with fluid overload and with a GFR down to 10 mL per minute on the labs. She has been aggressively diuresed with continuous I.V. Lasix infusion, but unfortunately she has not responded well and has not diuresed satisfactorily. Her weight is only down 1 kg since admission. She still has considerable leg edema. Dr. Husain spoke to her last week about dialysis initiation and I spoke to her again today about it, but the patient continues to decline dialysis and wants to continue with medical management. I am giving another dose of metolazone today and continuing her on the I.V. Lasix infusion. I will try talking to her about dialysis again tomorrow. 2. Fluid overload: It is in the setting of advanced renal failure. Her most recent echocardiogram from 2019 was reviewed. She is presently receiving Lasix at 20 mg an hour through continuous infusion. I am giving also a dose of metolazone today. Her weight is only down 1 kg since admission. She will likely need to start hemodialysis for adequate control of her volume status given her advanced renal failure, but the patient continues to want to hold off. I am going to get an updated echo as well. 3. 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 There is no need for blood transfusion at this time. 4. Metabolic acidosis in the setting of advanced chronic renal failure: Bicarbonate has come up from 16 to 18 and she continues on Bicitra 30 mL twice daily. 5. Hypertension: Blood pressures are well controlled. Continue current regimen of hydralazine, Imdur, metoprolol along with the diuretic. She is not suitable for MAICOL or ARB. 6. Hypomagnesemia: She is receiving magnesium supplementation. No recent magnesium level is seen. It is ordered for tomorrow. 7. Chronic thrombocytopenia: Platelet counts remain stable at her known baseline. There is underlying known myelodysplastic syndrome as well. 8. Disposition: Patient is not diuresing satisfactorily despite aggressive Lasix infusion. Weight is only down about 1 kg since admission. She will require dialysis for control of volume status, but she continues to decline dialysis at this time. Continue I.V. Lasix. Dose of metolazone is ordered for today. I will discuss with her again tomorrow.
[2020-07-18] MEDS ORDERED: DARBEPOETIN 100 MCG/0.5 ML *DIALYSIS* SYRINGE (J0882) IV SCH (10:10)
[2020-07-18] MEDS: MAGNESIUM OXIDE 400MG TAB (MAG-OX) PO SCH (12:21)
[2020-07-18] MEDS: FOLIC ACID 1 MG TAB PO SCH (12:21)
--- NOTE | 2020-07-18 12:43 | ECHO ---
DATE OF PROCEDURE: 07/17/2020 Age: 80 Gender: Female Height: 178 cm Weight: 83 kg REFERRING PHYSICIAN: Cammie Pham M.D. and Ari Lopez D.O. INDICATION: Fluid overload and congestive heart failure. MEASUREMENTS: IVS 1.0 cm LV 5.0 cm LVPW 1.1 cm LA 4.3 cm Aorta 3.1 cm Left atrial volume index 36 IVC 2.0 cm Mitral E wave velocity 136 cm/s Mitral A wave 40 cm/s E prime septal 5.0 cm/s E prime lateral 4.2 cm/s FINDINGS: This study is of limited technical quality with difficult visualization. The patient is in sinus rhythm with wide QRS complex. Left ventricle is of normal size. Overall, there is probably low normal LV systolic function and I estimate EF around 50% to 55%. There is septal wall motion abnormality, I suspect related to right ventricle pressure and volume overload. The right ventricle was poorly seen, but it does appear dilated and hypokinetic. Both atria are enlarged. Aortic valve was very poorly visualized. It is heavily calcified and there is restriction of cusp mobility. By 2D imaging, I assume at least mild or moderate aortic stenosis. There are also very prominent degenerative abnormalities of the mitral valve with thickening of the mitral leaflets and prominent calcifications in subvalvular apparatus. I cannot comment much on the leaflet mobility due to limited visualization. Tricuspid valve appears grossly normal. Pulmonic valve was not well seem. No pericardial effusion is noted. Inferior vena cava is dilated and there is no appreciable collapse with inspiration indicative of very high central venous pressure. Aortic root is normal. Aortic arch and abdominal aorta appear grossly normal as well. Doppler interrogation of the aortic valve reveals trace insufficiency and probably moderate stenosis. The mean gradient was only 14 mmHg, but calculated valve area was 1.0 cm2, which is certainly inaccurate. There is [id number] mitral insufficiency. I also suspect there is a component of mitral stenosis, but the mitral valve was not properly interrogated for this purpose. If there is a component of MS, it is certainly not severe. There is mild tricuspid insufficiency. Calculated pulmonary artery pressure is in the minimum in the mid 50s or higher corresponding to at least moderately severe pulmonary hypertension. Mitral inflow pattern and tissue Doppler imaging of the mitral annulus revealed grade 2 diastolic dysfunction, but is it effected by a component of mitral stenosis and may not be completely accurate, but with very low tissue Doppler velocities, there is at least grade 2 diastolic dysfunction very likely. CONCLUSIONS: 1. Study is of fair technical quality, underlying sinus rhythm with wide QRS complex. 2. Normal LV size with grossly preserved LV systolic function. 3. Dilated hypokinetic right ventricle. 4. Prominent aortic sclerosis with at least [id number] stenosis (mean gradient 14 mmHg) and trace insufficiency. 5. Tsuw-ce-thseeeta mitral insufficiency, cannot rule out at least mild mitral stenosis (poorly evaluated for this purpose). 6. Very high central venous pressure and likely moderately severe pulmonary hypertension. MTDD
[2020-07-18 14:00] VITALS: BP 157/69
--- NOTE | 2020-07-18 15:39 | IPNPDOC ---
Date Seen The patient was seen on 07/18/20. Progress Note SUBJECTIVE: No acute complaints overnight. No HD chair secured yet. Denies chest pain, n/v/d, incr shortness of breath. OBJECTIVE: PHYSICAL EXAM: VITAL SIGNS: Please see below GENERAL: NAD, resting in bed. AAOx 3 HEENT: AT/NC, HEART: S1, S2. Sinus rhythm. No S3. LUNGS: improving posterior lower lung crackles b/l , No wheezing or rales noted. ABDOMEN: Soft, nontender, nondistended. Decreasing edema. EXTREMITIES: +2 pitting edema in lower ext , no cyanosis or clubbing noted NEURO: No focal deficits, CN 2-12 intact LABORATORY DATA: See below IMAGING: Echocardiogram 2019: 1. Mild aortic valve sclerosis of a 3-cusp aortic valve. No aortic stenosis or regurgitation. 2. Mild mitral annular calcification. Mild mitral regurgitation. 3. Normal left ventricle internal dimensions and wall thickness. Normal regional left ventricular (LV) wall motion and wall thickening. Normal LV systolic function. Left ventricular ejection fraction (LVEF) 65% by visual estimate. Normal LV diastolic function for age. 4. Mild left atrial dilatation by left atrial volume index. ASSESSMENT: 80-year-old female with history of chronic kidney disease stage IV, early myelodysplastic syndrome, anemia of chronic disease secondary to myelodysplastic syndrome (MDS) with chronic thrombocytopenia admitted for acute decompensated CHF, fluid overload 2/2 to worsening Stage V renal failure, ESRD, uncontrolled HTN. PLAN: HFpEF with exacerbation -97% on RA, improved crackles on exam -Medical noncompliance with salt and fluid restriction at home -Attempts to diurese, including with lasix gtt, unsuccessful -Dialysis today removed 1500 mL fluid on 07/17/20 -Last echocardiogram above -C/w torsemide BID, BB -O/p f/u will be needed with cardiology Fluid overload secondary to worsening stage V renal failure/end-stage renal disease with CHF exacerbation -ESRD currently on HD, improving slowly -Cr 3.66 -300 mL u/o over 24 H -C/w dialysis, torsemide BID -Nephrology following closely Chronic venous insufficiency with chronic venous stasis dermatitis, left lower extremity venous ulcer and early cellulitis -Much improved -Afebrile, WBC wnl -c/w keflex until 07/19/20 (to complete 7 days total) HTN -C/w current meds History of coronary artery disease (CAD)/ myocardial infarction (CO)/ coronary artery bypass graft (CABG) -F/u with cardiology as o/p -C/w cardiac meds Pancytopenia / thrombocytopenia/ due to early myelodysplastic syndrome and ESRD -f/u as o/p -No s/s of bleeding -CBC daily Anemia of chronic disease secondary to end-stage renal disease and early myelodysplastic syndrome -No s/s of bleeding -CBC daily Metabolic acidosis due to renal failure- improving slowly -Managed by nephrology -Now on HD Hypothyroidism -synthroid Peptic ulcer disease. -PPI DVT px -SCD, teds. With worsening PLTs, holding off on heparin DISPOSITION: PT: demonstrates improvement in mobility and is safe for D/C home when medically cleared. Awaiting HD chair and then can likely be discharged to f/u with nephrology as o/p. VS, I&O, 24H, Fishbone Vital Signs/I&O Vital Signs Date Time Temp Pulse Resp B/P (MAP) Pulse Ox O2 Delivery O2 Flow Rate FiO2 07/18/20 14:00 98.0 67 17 157/69 (98) 97 Room Air 07/17/20 14:30 2.0 I&O- Last 24 Hours up to 6 AM 07/18/20 06:00 Intake Total 940 ml Output Total 2100 ml Balance -1160 ml Laboratory Data 24H LABS Laboratory Tests 2 07/17/20 18:04: Bedside Glucose (Misc Panel) 141H 07/17/20 21:09: Bedside Glucose (Misc Panel) 171H 07/18/20 05:45: Nucleated Red Blood Cells % (auto) 0.7H, Anion Gap 11, Glomerular Filtration Rate 12.8L, Calcium Level 8.3L 07/18/20 11:30: Bedside Glucose (Misc Panel) 181H CBC/BMP Laboratory Tests 07/18/20 05:45 Brigid Reyes MD July 18, 2020 15:39
--- NOTE | 2020-07-18 18:26 | IPN ---
PROGRESS NOTE DATE: 07/18/2020 SUBJECTIVE: Belen is seen and examined this morning at the bedside. Yesterday she had a Perm-A-Cath placed, and she underwent her first hemodialysis treatment. Her treatment was uneventful. There was 1500 mL of fluid removed. Patient states that her leg edema is improved, and she offers no complaints. VITAL SIGNS: Temperature 98.0, pulse 67, respiratory rate 17, blood pressure 151/69, saturating 97% on room air. Intake yesterday was 1360. Urine output was 300. Dialysis removed 1500 mL. Stool output was 400. Net negative 840. Weight in the bed scale today is not recorded. GENERAL: Patient is seen sitting out of bed to the chair playing cards by herself. Extraocular muscles are intact. Tongue is moist. Neck is supple. Jugular veins are mildly elevated. Heart sounds are regular, S1, S2. LUNGS: Diminished breath sounds at the base but no crackles or rales. ABDOMEN: Soft, obese, and nontender. There is abdominal wall edema. EXTREMITIES: Dressing on the right calf, and there is improvement in edema noted as compared to yesterday. Left leg is 1+, and right leg is 2+. NEUROLOGIC: She is oriented times three, interactive and conversational. Echocardiogram done yesterday shows right heart failure with moderate to severe pulmonary hypertension along with grade 2 diastolic congestive heart failure and very high central venous pressure. LABORATORY STUDIES: White count 4.3, hemoglobin 9.7, platelets 120. Sodium 139, potassium 4.0, bicarbonate 20, BUN 60, creatinine 3.6. INPATIENT MEDICATIONS: Reviewed by myself. She is now on torsemide 40 mg by mouth twice daily. She was started on hydralazine 25 mg three times a day. Her remainder of medications is unchanged as compared to yesterday. PROBLEMS: 1. End-stage renal disease. Patient has a history of chronic kidney disease (CKD), stage IV, and she has progressed to end-stage kidney disease with severe fluid overload on this admission and was started on dialysis yesterday for chronic control of her volume status as she was not diuresing despite high dose of intravenous (IV) diuretics. Perm-A-Cath was placed yesterday, and 1.5 liters of fluid was removed. Patient tolerated her treatment well. She is being set up for outpatient hemodialysis chair, and she will have another dialysis treatment tomorrow while in the hospital, and I will try to remove 2-3 liters with her next treatment. 2. Decompensated right heart failure along with diastolic congestive heart failure. I got an updated echocardiogram. She has grade 2 diastolic dysfunction and dilated hypokinetic right ventricle with moderate to severe pulmonary hypertension. She has fluid overload refractory to aggressive intravenous (IV) diuretics; hence, she was started on hemodialysis in the setting of chronic kidney disease (CKD) stage V and fluid overload, and volume status is now going to be regulated principally by dialysis. She is on a moderate fluid restriction and continues on torsemide as well in view of residual renal function. 3. Anemia secondary to myelodysplasia and iron deficiency and end-stage renal disease. Patient has received IV iron infusions and now she is receiving Aranesp with dialysis. 4. Normal anion gap metabolic acidosis. It was secondary to chronic renal failure. I stopped the Bicitra now that she is on dialysis. Her bicarbonate level has already come up with just one treatment. 5. Hypertension with hypertensive heart disease. She continues on hydralazine, isosorbide, metoprolol along with torsemide. 6. Thrombocytopenia. It is chronic and stable issue. There is no sign of any active bleed. Yesterday she received hemodialysis without any heparin, but on her next dialysis treatment I plan to give low dose of heparin, and we will see how she fares.
[2020-07-18] MEDS: **NOTE PATIENT COMMENT** MISC XX SCH (20:32)
[2020-07-18] MEDS: VITAMIN D 1,000 INTERNATIONAL UNITS TABLET PO SCH (20:33)
[2020-07-18] MEDS: GABAPENTIN 100 MG CAP PO SCH (20:33)
[2020-07-18] MEDS: ACETAMINOPHEN 500 MG TAB PO SCH (20:34)
[2020-07-18 22:00] VITALS: BP 159/70
[2020-07-19] MEDS ORDERED: ACETAMINOPHEN 500 MG TAB PO PRN (01:05)
[2020-07-19 06:00] VITALS: BP 160/66
[2020-07-19 06:08] LABS: HEMATOCRIT 29.5 % (36.0-47.0); HEMOGLOBIN 9.4 g/dl (12.0-15.5); MEAN CORPUSCULAR HGB CONC 31.9 g/dl (32.0-36.5); MEAN CORPUSCULAR VOLUME 103.5 fl (80.0-96.0); PLATELET COUNT, AUTOMATED 109 10^3/uL (150-450); RED BLOOD COUNT 2.85 10^6/uL (4.00-5.40); WHITE BLOOD COUNT 4.3 10^3/uL (4.0-10.0)
[2020-07-19 06:25] VITALS: BP 160/66
[2020-07-19] MEDS: PRAVASTATIN 20 MG TAB PO SCH (06:25)
[2020-07-19] MEDS: ISOSORBIDE MON. (IMDUR) 30 MG XR TAB PO SCH (06:25)
[2020-07-19] MEDS: LACTOBACILLUS ACIDOPHILUS CAP (BACID) PO SCH (06:25)
[2020-07-19] MEDS: METOPROLOL SUCC (TopROL XL) 50MG **XL** TAB PO SCH (06:25)
[2020-07-19] MEDS: TORSEMIDE 20 MG TAB PO SCH ×2 (06:26→17:00)
[2020-07-19] MEDS: LEVOTHYROXINE 137MCG TABLET (0.137MG) PO SCH (06:26)
[2020-07-19] MEDS: **hydrALAZINE HCL** 25 MG TAB PO SCH ×2 (06:26→17:20)
[2020-07-19] MEDS: LIDOCAINE 5% (LIDODERM) PATCH TD SCH (06:26)
[2020-07-19] MEDS: CEPHALEXIN 500 MG CAP PO SCH (06:26)
[2020-07-19] MEDS: PANTOPRAZOLE 40MG TAB (PROTONIX) PO SCH (06:26)
[2020-07-19] MEDS: LACTIC ACID 12% LOTION 225 GM BTL TOP SCH (06:27)
[2020-07-19 06:38] LABS: CALCIUM LEVEL 7.6 MG/DL (8.8-10.2); CREATININE FOR GFR 4.3 MG/DL (0.55-1.30); GLOMERULAR FILTRATION RATE 10.6 (>39); POTASSIUM SERUM 4.2 MEQ/L (3.5-5.1)
[2020-07-19] MEDS: HumaLOG INSULIN (NovoLOG) PER UNIT SC SCH ×2 (06:53→12:00)
[2020-07-19] MEDS ORDERED: SODIUM CHLORIDE 0.9% 1000ML IV PRN (08:05)
[2020-07-19] MEDS ORDERED: ISOS1TAB35 PO (09:24)
[2020-07-19] MEDS ORDERED: MAGN400T2 PO (09:24)
[2020-07-19] MEDS ORDERED: GABA-1171 PO (09:24)
[2020-07-19] MEDS: FOLIC ACID 1 MG TAB PO SCH (12:00)
[2020-07-19] MEDS: MAGNESIUM OXIDE 400MG TAB (MAG-OX) PO SCH (12:00)
--- NOTE | 2020-07-19 13:13 | IPN ---
PROGRESS NOTE DATE: 07/19/2020 SUBJECTIVE: Belen is seen and examined this morning sitting out of bed to the chair. She is due for dialysis this afternoon. She is also seen in the dialysis unit receiving her treatment. She has been set up for outpatient hemodialysis on a Thursday, Thursday, Thursday schedule. She is likely to be discharged from the hospital either this evening or tomorrow. Patient has no complaints and she is looking forward to going home. Her leg edema persists but it is improving, today is going to be her second dialysis treatment. OBJECTIVE: VITAL SIGNS: Temperature 97.6, pulse 66, respiratory rate 17, blood pressure 160/66, saturating 95 to 99% on room air. INTAKE AND OUTPUT: Intake yesterday was 1270, goal dialysis fluid removal today is going to be 2 to 2.5 liters. Weight on the bed scale today is 82 kg. GENERAL: Patient is seen sitting up in the chair, elderly female, awake, alert and oriented x3, comfortable and in no distress. HEENT: Tongue is moist. Extraocular muscles are intact. NECK: Supple. Jugular veins are mildly elevated. HEART: Heart sounds are regular, S1 and S2. There is an old healed scar at the base of the neck. There is a tunneled hemodialysis catheter in the right chest wall with dressing. LUNGS: Diminished breath sounds at the bases but no wheezing. ABDOMEN: Soft, obese and nontender. There is still some abdominal wall edema. EXTREMITIES: Dressings on the right calf and there is ongoing leg edema, 1 to 2+ in the left leg and 2+ in the right leg. NEUROLOGIC: She is oriented x3, interactive and conversational. LABORATORY DATA: White count is 4.3, hemoglobin 9.4, platelets 109,000, sodium 140, potassium 4.2, bicarbonate 20, BUN 67, creatinine 4.3. INPATIENT MEDICATIONS: Reviewed by myself. No changes as compared to yesterday. PROBLEMS: 1. Endstage renal disease. Patient has a history of CKD Stage IV and has progressed to endstage renal disease with fluid overload on this admission that was refractory to aggressive IV diuretics. Perm-A-Cath was placed and she had first hemodialysis treatment on Thursday with 1.5 liters of fluid removed. She is being dialyzed again this afternoon with goal fluid removal of 2 to 2.5 liters. She is set up for outpatient hemodialysis on a Thursday, Thursday and Thursday schedule. The patient has been tolerating her treatment without any issue. 2. Decompensated right heart failure along with diastolic congestive heart failure. Updated echocardiogram on this admission shows Grade II diastolic dysfunction along with dilated hypokinetic right ventricle with moderate to severe pulmonary hypertension. She had fluid overload refractory to aggressive IV diuretics, hence she was started on hemodialysis, today is her second treatment. We are removing 2 to 2.5 liters. Her volume status is now principally going to be regulated by hemodialysis. She should be on an 1800 ml fluid restriction and she continues also on torsemide in view of residual renal function. 3. Anemia secondary to myelodysplasia and iron deficiency, and endstage renal disease. She received IV iron earlier on this admission and she is now receiving Aranesp with dialysis. She also follows up with hematology. 4. Thrombocytopenia, it is a chronic and stable issue. There is no sign of active bleed. Her first hemodialysis treatment was without any Heparin but orders for today's hemodialysis treatment are written with low dose of Heparin and we will keep an eye on her hemoglobin. 5. Normal anion gap metabolic acidosis. It was secondary to chronic renal failure, it will now be managed with hemodialysis. Her bicarbonate is already up to 20 and she is off of Bicitra. 6. Disposition: The patient was seen and examined during her second hemodialysis treatment this afternoon, she is tolerating dialysis well. She has been set up for hemodialysis outpatient on Thursday, Thursday and Thursday schedule. She is cleared for discharge from a nephrology point of view.
--- NOTE | 2020-07-19 18:46 | DS.PDOC ---
Discharge Summary General Date of Admission Jul 12, 2020 at 13:08 Date of Discharge 07/19/20 Attending Physician: Brigid Reyes MD Discharge Summary HISTORY OF PRESENT ILLNESS: 80y/o F w ckd4 mds anemia of chronic dz c/o increasing shortness of breath on walking about 15-20 feet, 20 pound weight gain in the past month, shortness of breath at rest, increased fatigue, lower extremity edema, paroxysmal nocturnal dyspnea, and 3-4 pillow orthopnea. She denied any chest pain, pressure, tightness, fever, chills, cough, nausea, vomiting, epigastric pain, dysuria, urgency, frequency, flank pain, polyuria, polyphagia. She does not adhere to a salt restricted and fluid restricted diet, and was seen by her brisket puller yesterday encouraged to come to the ER for diuresis but could not leave because she didn't want to leave her 10 cats unsupervised at Home without Anyone to Take Care Of them. Today her daughter volunteered to take care of her cats, allowing her to come to the hospital for admission to diuresis for fluid overload. Patient has chronic anemia, hemoglobin of 10 is stable without any hematemesis, bright red blood per rectum, melena, black tarry stools or coffee-ground emesis at home. In the emergency room patient was found to have high blood pressure 194/77, EKG showed sinus rhythm, chest x-ray showed prominently diffuse interstitial markings, unchanged from prior. bnp was 31,000. Patient was clinically fluid overloaded with fluid wave abdominal distention. 2+ pitting edema on the lower extremities. Hospitalist will was asked to admit the patient for fluid overload secondary to GFR of 10 with stage V Renal failure/end-stage renal disease. HOSPITAL COURSE: Patient was treated for HFpEF with exacerbation, fluid overload secondary to worsening stage V renal failure/end-stage renal disease with CHF exacerbation. This was likely 2/2 to medical noncompliance with salt and fluid restriction at home, advancement of underlying kidney failure. Attempts to diurese were unsuccessful, including with lasix gtt. permacath was placed and HD was started this admission. She continued to make urine as well and she was continued on torsemide BID. Nephrology followed closely. She did well on RA and PT recommended home with services. She was also treated for LLE cellulitis with 7 days PO keflex. On 07/19/20 patient was discharged after dialysis to follow up [facility] nephrology, PCP. She has scheduled HD chair after this coming weekend. Other chronic medical issues remained stable. No acute complaints on d/c PAST MEDICAL HISTORY: CAD, [place], CABG, chronic kidney disease stage IV, baseline creatinine of 2.3. Right wrist fracture, left wrist fracture secondary to fall, diabetes, right breast mass at the age of 21. 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 Newberry 2019 interventional radiology endovenous laser treatment of left leg varicose vein complicated by bleeding SOCIAL HISTORY: Denies smoking, recreational drug use. Rarely uses alcohol FAMILY HISTORY: Father age 45. Leukemia. Mother , heart disease, heart failure. Siblings alive colon cancer ALLERGIES: Please see below. DISCHARGE MEDS; Please see below PHYSICAL EXAM: VITAL SIGNS: Please see below GENERAL: NAD, resting in bed. AAOx 3 HEENT: AT/NC, HEART: S1, S2. Sinus rhythm. No S3. LUNGS: improving posterior lower lung crackles b/l , No wheezing or rales noted. ABDOMEN: Soft, nontender, nondistended. Decreasing edema. EXTREMITIES: +2 pitting edema in lower ext , no cyanosis or clubbing noted NEURO: No focal deficits, CN 2-12 intact LABORATORY DATA: See below IMAGING: Echocardiogram 2019: 1. Mild aortic valve sclerosis of a 3-cusp aortic valve. No aortic stenosis or regurgitation. 2. Mild mitral annular calcification. Mild mitral regurgitation. 3. Normal left ventricle internal dimensions and wall thickness. Normal regional left ventricular (LV) wall motion and wall thickening. Normal LV systolic function. Left ventricular ejection fraction (LVEF) 65% by visual estimate. Normal LV diastolic function for age. 4. Mild left atrial dilatation by left atrial volume index. ASSESSMENT: 80-year-old female with history of chronic kidney disease stage IV, early myelodysplastic syndrome, anemia of chronic disease secondary to myelodysplastic syndrome (MDS) with chronic thrombocytopenia admitted for acute decompensated CHF, fluid overload 2/2 to worsening Stage V renal failure, ESRD, uncontrolled HTN. PLAN: HFpEF with exacerbation -97% on RA, improved crackles on exam -Medical noncompliance with salt and fluid restriction at home-counselled at d/c -Attempts to diurese, including with lasix gtt, unsuccessful -Dialysis today removed 1500 mL fluid on 07/17/20 and another 2 L on 07/19/20 -Last echocardiogram above -C/w torsemide BID, BB at d/c -O/p f/u will be needed with cardiology Fluid overload secondary to worsening stage V renal failure/end-stage renal disease with CHF exacerbation -ESRD currently on HD, improving slowly -C/w dialysis, torsemide BID -Nephrology following closely Chronic venous insufficiency with chronic venous stasis dermatitis, left lower extremity venous ulcer and early cellulitis -Much improved -Afebrile, WBC wnl -completed 7 days of keflex HTN -C/w current meds History of coronary artery disease (CAD)/ myocardial infarction (IN)/ coronary artery bypass graft (CABG) -F/u with cardiology as o/p -C/w cardiac meds Pancytopenia / thrombocytopenia/ due to early myelodysplastic syndrome and ESRD -f/u as o/p -No s/s of bleeding Anemia of chronic disease secondary to end-stage renal disease and early myelodysplastic syndrome -No s/s of bleeding Metabolic acidosis due to renal failure- improving slowly -Managed by nephrology -Now on HD Hypothyroidism -synthroid Peptic ulcer disease. -PPI DISPOSITION: D/c home today after dialysis. next session is scheduled for this coming thursday. F/u with nephrology and PCP. TIME SPENT ON DISCHARGE: 35 minutes. Vital Signs/I&Os Vital Signs Date Time Temp Pulse Resp B/P (MAP) Pulse Ox O2 Delivery O2 Flow Rate FiO2 07/19/20 06:25 66 160/66 07/19/20 06:00 97.6 17 95 Room Air 07/17/20 14:30 2.0 I&O- Last 24 Hours up to 6 AM 07/19/20 06:00 Intake Total 1270 ml Output Total 100 ml Balance 1170 ml Laboratory Data Labs 24H Laboratory Tests 2 07/18/20 20:30: Bedside Glucose (Misc Panel) 184H 07/19/20 05:33: Nucleated Red Blood Cells % (auto) 0.0, Anion Gap 10, Glomerular Filtration Rate 10.6L, Calcium Level 7.6L 07/19/20 16:20: Bedside Glucose (Misc Panel) 120H CBC/BMP Laboratory Tests 07/19/20 05:33 FSBS Laboratory Tests Test 07/18/20 20:30 07/19/20 16:20 Range/Units Bedside Glucose (Misc Panel) 184 120 83-110 MG/DL Discharge Medications Scheduled Acetaminophen (Acetaminophen) 500 Mg Tab, 500 MG PO QHS, (Reported) Allopurinol (Allopurinol) 100 Mg Tablet, 100 MG PO DAILY, (Reported) Ammonium Lactate (Ammonium Lactate) 12% Cream..g., 1 DOSE TOP DAILY, (Reported) APPLY TO FEET Aspirin (Aspirin EC) 81 Mg Tab, 81 MG PO DAILY, (Reported) Calcium Carbonate/Vitamin D3 (Calcium 600 + Vit D 400 Softgl) 1 Each Capsule, 1 CAP PO QPM, (Reported) Cholecalciferol (Vitamin D3) (Vitamin D3) 1,000 Unit Tablet, 2,000 UNITS PO QPM, (Reported) Cranberry Fruit Extract (Cranberry) 500 Mg Capsule, 500 MG PO DAILY, (Reported) TAKES AT NOON Famotidine (Famotidine) 20 Mg Tablet, 20 MG PO QHS, (Reported) Ferrous Sulfate (Iron) 325 Mg Tablet, 325 MG PO Q2D, (Reported) AT BEDTIME Folic Acid (Folic Acid) 1 Mg Tab, 1 MG PO DAILY, (Reported) TAKES AT NOON Gabapentin (Gabapentin) 100 Mg Capsule, 100 MG PO QHS Hydralazine HCl (Hydralazine HCl) 25 Mg Tablet, 25 MG PO TID, (Reported) BREAKFAST, LUNCH, DINNER Isosorbide Mononitrate (Isosorbide Mononitrate ER) 30 Mg Tab.er.24h, 30 MG PO DA HALLIE Levothyroxine Sodium (Euthyrox) 137 Mcg Tablet, 137 MCG PO QAM, (Reported) Magnesium Oxide (Magnesium Oxide) 400 Mg Tablet, 800 MG PO DAILY@1200 Melatonin (Melatonin) 5 Mg Tablet, 10 MG PO QHS, (Reported) Metoprolol Succinate (Metoprolol Succinate) 50 Mg Tab.er.24h, 50 MG PO DAILY, (Reported) Multivit-Min/Iron/Folic/Lutein (Centrum Silver Women Tablet) 1 Each Tablet, 1 TAB PO QPM, (Reported) Pantoprazole Sodium (Pantoprazole Sodium) 40 Mg Tab, 40 MG PO QAM, (Reported) Polyvinyl Alcohol (Artificial Tears) 15 Ml Drops, 1 DROP OU Q1H, (Reported) Pravastatin Sodium (Pravastatin Sodium) 40 Mg Tablet, 40 MG PO DAILY, (Reported) Torsemide (Torsemide) 20 Mg Tablet, 40 MG PO BID, (Reported) Vit C/E/Zn/Coppr/Lutein/Zeaxan (Preservision Areds 2 Softgel) 1 Each Capsule, 1 CAP PO DAILY, (Reported) Scheduled PRN Psyllium Husk (with Sugar) (Metamucil Powder) 575 Gm Powder, 1 PKT PO QHS PRN for CONSTIPATION, (Reported) Allergies Coded Allergies: bee venom protein (honey bee) (Verified Allergy, Mild, 05/24/20) Estrogens (Verified Allergy, Unknown, 06/17/18) latex (Verified Allergy, Unknown, hives, 06/28/20) Brigid Reyes MD July 19, 2020 18:46
== END 2020-07-19 17:30 | disposition home health service (06) | DRG 291 ==
LOC: M ED 10:20 → M ED INP 13:08 → ENRESERV 13:47 → M MSPAV 15:07
PROVIDERS: ADMIT General Practice; ATTEND Internal Medicine
PROC: 02HV33Z Insertion of Infusion Device into Superior Vena Cava, Percutaneous Approach (ICD-10-PCS; 2020-07-17)
PROC: 5A1D70Z Performance of Urinary Filtration, Intermittent, Less than 6 Hours Per Day (ICD-10-PCS; 2020-07-17)
PROC: 0JH63XZ Insertion of Tunneled Vascular Access Device into Chest Subcutaneous Tissue and Fascia, Percutaneous Approach (ICD-10-PCS; principal; 2020-07-17 15:00)
DX: I13.2 Hypertensive heart and chronic kidney disease with heart failure and with stage 5 chronic kidney disease, or end stage renal disease (principal); N18.6 End stage renal disease; I50.33 Acute on chronic diastolic (congestive) heart failure; L03.116 Cellulitis of left lower limb; E87.2 Acidosis; D63.1 Anemia in chronic kidney disease; I25.10 Atherosclerotic heart disease of native coronary artery without angina pectoris; I25.2 Old myocardial infarction; E11.22 Type 2 diabetes mellitus with diabetic chronic kidney disease; D69.6 Thrombocytopenia, unspecified; I16.0 Hypertensive urgency; I87.2 Venous insufficiency (chronic) (peripheral); D46.9 Myelodysplastic syndrome, unspecified; H54.8 Legal blindness, as defined in USA; E03.9 Hypothyroidism, unspecified; M10.30 Gout due to renal impairment, unspecified site; Z90.49 Acquired absence of other specified parts of digestive tract; Z95.5 Presence of coronary angioplasty implant and graft; Z91.11 Patient's noncompliance with dietary regimen; Z20.822 Contact with and (suspected) exposure to COVID-19; Z79.82 Long term (current) use of aspirin; Z79.899 Other long term (current) drug therapy; Z88.8 Allergy status to other drugs, medicaments and biological substances; Z91.030 Bee allergy status; Z91.040 Latex allergy status; Z99.2 Dependence on renal dialysis

== ENCOUNTER 2020-08-16 21:51 | Emergency (ER) | payer MEDICARE ==
[~2020-08-16] VITALS: Ht 177.8 cm; Wt 71.4 kg
[~2020-08-16 21:51] MED LIST changes: +AMMO12CR7 TOP; +CALCCAP4 PO; +CENT1TAB9 PO; +COVI30VI IM; +D31000TA2 PO; +EUTH137T PO; +GABA-1171 PO; +HYDR-3910 PO; +IRON65TA2 PO; +ISOS1TAB35 PO; +META28.32 PO; +POLYOPD OU; +PRAV40TA2 PO; +PRES10CA2 PO
--- NOTE | 2020-08-17 02:31 | REPVR ---
PROCEDURE INFORMATION: Exam: US Duplex Left Lower Extremity Veins, Limited Exam date and time: 08/17/2020 1:28 AM Age: 80 years old Clinical indication: Pain; Leg, upper; Left; Additional info: Leg swelling, pain TECHNIQUE: Imaging protocol: Real-time Duplex ultrasound of the Left Lower Extremity with 2-D lomas scale, color Doppler flow and spectral waveform analysis with image documentation. Limited exam focused on the left lower extremity veins. COMPARISON: 1. US PV-Ismael 2020-07-14 02:08 2. US Duplex, Ext,LOWER veins,unilat LEFT 2020-06-28 15:52 FINDINGS: Left deep veins: Unremarkable. The common femoral, femoral, proximal profunda femoral and popliteal veins are patent without thrombus. Normal Doppler waveforms. Normal compressibility and/or augmentation response. Left superficial veins: Unremarkable. Saphenofemoral junction is patent without thrombus. Soft tissues: Soft tissue edema. IMPRESSION: No evidence of deep vein thrombosis. Electronically signed by: Samy Ballard On 08/17/2020 02:30:23 AM
[2020-08-17 02:40] VITALS: BP 183/75
== END 2020-08-17 04:46 | disposition home or self-care (01) ==
LOC: M ED 21:51
DX: L97.929 Non-pressure chronic ulcer of unspecified part of left lower leg with unspecified severity (principal); I25.10 Atherosclerotic heart disease of native coronary artery without angina pectoris; I25.2 Old myocardial infarction; E11.9 Type 2 diabetes mellitus without complications; Z79.82 Long term (current) use of aspirin; Z79.899 Other long term (current) drug therapy; Z79.890 Hormone replacement therapy; Z88.8 Allergy status to other drugs, medicaments and biological substances; Z91.030 Bee allergy status; Z91.040 Latex allergy status; Z85.43 Personal history of malignant neoplasm of ovary

== ENCOUNTER 2020-08-28 15:46 | Emergency (ER) | payer MEDICARE ==
[~2020-08-28] VITALS: Ht 177.8 cm; Wt 73.6 kg
[2020-08-28 18:11] LABS: BASO % 0.2 % (0.0-1.0); EOS # 0.2 10^3/uL (0.0-0.5); EOS % 3.4 % (0.0-3.0); HEMATOCRIT 32.7 % (36.0-47.0); HEMOGLOBIN 10.3 g/dl (12.0-15.5); LYMPH # 1.1 10^3/uL (1.5-5.0); LYMPH % 19.1 % (24.0-44.0); MEAN CORPUSCULAR HEMOGLOBIN 32.4 pg (27.0-33.0); MEAN CORPUSCULAR HGB CONC 31.5 g/dl (32.0-36.5); MEAN CORPUSCULAR VOLUME 102.8 fl (80.0-96.0); MONO # 0.6 10^3/uL (0.0-0.8); NEUTROPHILS # 3.7 10^3/uL (1.5-8.5); NEUTROPHILS % 66.9 % (36.0-66.0); RED BLOOD COUNT 3.18 10^6/uL (4.00-5.40); WHITE BLOOD COUNT 5.5 10^3/uL (4.0-10.0)
--- NOTE | 2020-08-28 18:28 | REPVR ---
PROCEDURE INFORMATION: Exam: CT Head Without Contrast Exam date and time: 08/28/2020 5:48 PM Age: 80 years old Clinical indication: Altered mental status/memory loss TECHNIQUE: Imaging protocol: Computed tomography of the head without contrast. Radiation optimization: All CT scans at this facility use at least one of these dose optimization techniques: automated exposure control; mA and/or kV adjustment per patient size (includes targeted exams where dose is matched to clinical indication); or iterative reconstruction. COMPARISON: CT Head without contrast 01/20/2020 9:47 AM FINDINGS: Brain: The brain demonstrates diffuse volume loss. There is white matter hypodensity most consistent with chronic small vessel ischemic change. No visible evolving territorial infarct. No hemorrhage. A chronic lacunar infarct in the right caudate/anterior limb right internal capsule, as before. Cerebral ventricles: The ventricles are mildly enlarged in keeping with volume loss. Paranasal sinuses: Visualized sinuses are unremarkable. No fluid levels. Mastoid air cells: The right mastoids are chronically underpneumatized. Orbital cavity: Thinning of the lenses of the globes consistent with prior lens surgery. Vasculature: Heavy calcified atherosclerosis of the left vertebral artery and carotid siphons. Bones/joints: There is an old right parietal calvarial joey hole. No acute fracture. Soft tissues: Unremarkable. IMPRESSION: No acute intracranial abnormality seen. Electronically signed by: Mame Sheikh On 08/28/2020 18:28:48 PM
--- NOTE | 2020-08-28 18:31 | REP ---
INDICATION: altered mental status COMPARISON: 07/12/2020 as well as other prior exams. TECHNIQUE: PA/Lateral FINDINGS: There is mild cardiomegaly. There is mild chronic interstitial prominence diffusely bilaterally with no evidence of acute focal infiltrate.. There is mild calcification of the thoracic aorta. The mediastinal silhouette is unchanged. Multiple sternal wires are present. There is a right central venous catheter with the tip in the right atrium. IMPRESSION: Cardiomegaly and chronic stable interstitial prominence bilaterally. No acute infiltrate. <Electronically signed by Rey Mack > 08/28/20 [id number]
[2020-08-28 18:40] LABS: PLATELET COUNT, AUTOMATED 81 10^3/uL (150-450)
[2020-08-28 18:44] LABS: AMPHETAMINES LEVEL URINE NEGATIVE (NEGATIVE); BARBITURATES URINE NEGATIVE (NEGATIVE); BENZODIAZEPINES URINE NEGATIVE (NEGATIVE); CANNABINOIDS URINE NEGATIVE (NEGATIVE); COCAINE METABOLITE URINE NEGATIVE (NEGATIVE); METHADONE URINE NEGATIVE (NEGATIVE); OPIATES URINE POSITIVE (NEGATIVE); PHENCYCLIDINE URINE NEGATIVE (NEGATIVE)
[2020-08-28 18:53] LABS: ACETAMINOPHEN LEVEL < 2.0 UG/ML (10.0-30.0); ALBUMIN 3.7 GM/DL (3.2-5.2); ALT/SGPT 31 U/L (12-78); BILIRUBIN,DIRECT 0.2 MG/DL (0.0-0.2); BILIRUBIN,TOTAL 0.5 MG/DL (0.2-1.0); BLOOD UREA NITROGEN 27 MG/DL (7-18); CALCIUM LEVEL 9.3 MG/DL (8.8-10.2); CARBON DIOXIDE LEVEL 25 MEQ/L (21-32); CHLORIDE LEVEL 107 MEQ/L (98-107); CK-MB VALUE MASS < 1.0 NG/ML (<3.6); CPK CREATINE PHOSPHOKINASE 40 U/L (26-192); CREATININE FOR GFR 2.31 MG/DL (0.55-1.30); ETHYL ALCOHOL (ETHANOL) < 0.003 % (0.000-0.010); GLOMERULAR FILTRATION RATE 21.7 (>39); GLUCOSE, FASTING 127 MG/DL (70-100); POTASSIUM SERUM 5.2 MEQ/L (3.5-5.1); SALICYLATE LEVEL < 1.7 MG/DL (5.0-30.0); SODIUM LEVEL 138 MEQ/L (136-145); TOTAL PROTEIN 6.9 GM/DL (6.4-8.2); TROPONIN I < 0.02 NG/ML (< 0.10)
[2020-08-28 19:45] VITALS: BP 160/68
--- NOTE | 2020-08-28 21:15 | ECGEPIP ---
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
== END 2020-08-28 20:12 | disposition home or self-care (01) ==
LOC: M ED 15:46
DX: R41.82 Altered mental status, unspecified (principal); I51.7 Cardiomegaly; I25.2 Old myocardial infarction; E11.9 Type 2 diabetes mellitus without complications; I10 Essential (primary) hypertension; K25.1 Acute gastric ulcer with perforation; Z85.850 Personal history of malignant neoplasm of thyroid; Z85.43 Personal history of malignant neoplasm of ovary; Z85.3 Personal history of malignant neoplasm of breast; Z95.1 Presence of aortocoronary bypass graft; Z79.82 Long term (current) use of aspirin; Z79.899 Other long term (current) drug therapy; Z88.8 Allergy status to other drugs, medicaments and biological substances; Z91.040 Latex allergy status; Z91.030 Bee allergy status
CPT/HCPCS: 70450; 71046; 80048; 80076; 80143; 80307; 81001; 82077; 82140; 82550; 82553; 84443; 84484; 85025; 85049; 85055; 93005; 93041; 94760; 99285; G0463

== ENCOUNTER → 2020-08-30 | Outpatient (REF) | payer MEDICARE | LOC: M SFHCLERA 15:47 | PROVIDERS: ATTEND Family Medicine | DX: R05 Cough (principal) ==

== ENCOUNTER 2020-09-04 12:56 | Observation (INO) | payer MEDICARE ==
[~2020-09-04] VITALS: Ht 177.8 cm; Wt 72.0 kg
--- NOTE | 2020-09-04 13:57 | REP ---
INDICATION: DYSPNEA/COUGH. COMPARISON: 08/28/2020. TECHNIQUE: Single portable AP view of the chest was performed. FINDINGS: No acute infiltrate is seen. There is mild interstitial prominence which is stable diffusely bilaterally. Heart is upper limits of normal in size. There is some calcification of the thoracic aorta. The mediastinal silhouette is unchanged. Right central venous catheter is seen with the tip in the right atrium. Multiple sternal wires are present. IMPRESSION: No acute pulmonary disease. <Electronically signed by Rey Mack > 09/04/20 [id number]
[2020-09-04 14:30] LABS: BASO % 0.2 % (0.0-1.0); EOS # 0.2 10^3/uL (0.0-0.5); EOS % 3.5 % (0.0-3.0); HEMATOCRIT 30.9 % (36.0-47.0); HEMOGLOBIN 9.9 g/dl (12.0-15.5); LYMPH # 1.3 10^3/uL (1.5-5.0); LYMPH % 23.5 % (24.0-44.0); MEAN CORPUSCULAR HEMOGLOBIN 32.6 pg (27.0-33.0); MEAN CORPUSCULAR VOLUME 101.6 fl (80.0-96.0); MONO # 0.4 10^3/uL (0.0-0.8); MONO % 6.8 % (2.0-8.0); NEUTROPHILS # 3.6 10^3/uL (1.5-8.5); NEUTROPHILS % 65.6 % (36.0-66.0); RED BLOOD COUNT 3.04 10^6/uL (4.00-5.40); WHITE BLOOD COUNT 5.4 10^3/uL (4.0-10.0)
[2020-09-04 14:40] LABS: PLATELET COUNT, AUTOMATED 96 10^3/uL (150-450)
[2020-09-04 14:47] LABS: BLOOD UREA NITROGEN 17 MG/DL (7-18); CALCIUM LEVEL 8.7 MG/DL (8.8-10.2); CARBON DIOXIDE LEVEL 26 MEQ/L (21-32); CHLORIDE LEVEL 109 MEQ/L (98-107); CK-MB VALUE MASS < 1.0 NG/ML (<3.6); CPK CREATINE PHOSPHOKINASE 27 U/L (26-192); CREATININE FOR GFR 2.15 MG/DL (0.55-1.30); GLOMERULAR FILTRATION RATE 23.6 (>39); GLUCOSE, FASTING 213 MG/DL (70-100); POTASSIUM SERUM 4.1 MEQ/L (3.5-5.1); SODIUM LEVEL 141 MEQ/L (136-145); TROPONIN I < 0.02 NG/ML (< 0.10)
[2020-09-04] MEDS: IPRATROPIUM 0.5MG/ALBUTEROL 2.5MG INH SOL UD 3ML (DUONEB) NEB SCH ×3 (15:35→15:55)
[2020-09-04] MEDS ORDERED: dexameTHASONE 20MG/5ML VIAL (J1100 PER 1MG) IV ONE (17:55)
[2020-09-04 18:00] VITALS: BP 152/67
--- NOTE | 2020-09-04 19:25 | HPEPDOC ---
General Date of Admission 09/04/20 Date of Service: Sep 04, 2020 Chief Complaint The patient is a 80-year-old female admitted with a reason for visit of Shortness Of Breath. Source: Patient History of Present Illness 80-year-old female with ESRD, CHF with preserved EF, Coronary artery disease status post CABG, myelodysplastic syndrome with pancytopenia, chronic anemia, iron deficiency, hypertension, diabetes, hypothyroid after thyroidectomy, peptic ulcer disease presents to the emergency room with them ongoing shortness of breath, cough and wheezing for 2 weeks. 2 weeks ago she initially started with a cold with runny nose, nasal congestion, then started having a hacking cough and shortness of breath with wheezing. She went to see her primary care and was given a one week course of antibiotics. but continued to have symptoms and last night she had to be placed on oxygen during dialysis. So this morning she was called by her primary care and instructed to come to the emergency room for evaluation. She has been started on dialysis for 1 month. She reports that she is compliant with her dialysis treatments. On arrival to the emergency room she was hypoxic to 76% in room air, unable to talk in full sentences and having severe bronchospasm with wheezing and rhonchi. In the ED respiratory panel showed she is positive for human rhinovirus infection. . She is admitted for acute viral bronchitis and postinfectious bronchospasm Home Medications Scheduled Acetaminophen (Acetaminophen) 500 Mg Tab, 500 MG PO QHS, (Reported) Allopurinol (Allopurinol) 100 Mg Tablet, 100 MG PO DAILY, (Reported) Ammonium Lactate (Ammonium Lactate) 12% Cream..g., 1 DOSE TOP DAILY, (Reported) APPLY TO FEET Aspirin (Aspirin EC) 81 Mg Tab, 81 MG PO DAILY, (Reported) Calcium Carbonate/Vitamin D3 (Calcium 600 + Vit D 400 Softgl) 1 Each Capsule, 1 CAP PO QPM, (Reported) Cholecalciferol (Vitamin D3) (Vitamin D3) 1,000 Unit Tablet, 2,000 UNITS PO QPM, (Reported) Cranberry Fruit Extract (Cranberry) 500 Mg Capsule, 500 MG PO DAILY, (Reported) TAKES AT NOON Famotidine (Famotidine) 20 Mg Tablet, 20 MG PO QHS, (Reported) Ferrous Sulfate (Iron) 325 Mg Tablet, 325 MG PO Q2D, (Reported) AT BEDTIME Folic Acid (Folic Acid) 1 Mg Tab, 1 MG PO DAILY, (Reported) TAKES AT NOON Hydralazine HCl (Hydralazine HCl) 25 Mg Tablet, 25 MG PO TID, (Reported) BREAKFAST, LUNCH, DINNER Isosorbide Mononitrate (Isosorbide Mononitrate ER) 30 Mg Tab.er.24h, 30 MG PO DAILY Levothyroxine Sodium (Euthyrox) 137 Mcg Tablet, 137 MCG PO QAM, (Reported) Magnesium Oxide (Magnesium Oxide) 400 Mg Tablet, 800 MG PO DAILY@1200 Melatonin (Melatonin) 5 Mg Tablet, 10 MG PO QHS, (Reported) Metoprolol Succinate (Metoprolol Succinate) 50 Mg Tab.er.24h, 50 MG PO DAILY, (Reported) Multivit-Min/Iron/Folic/Lutein (Centrum Silver Women Tablet) 1 Each Tablet, 1 TAB PO QPM, (Reported) Pantoprazole Sodium (Pantoprazole Sodium) 40 Mg Tab, 40 MG PO QAM, (Reported) Polyvinyl Alcohol (Artificial Tears) 15 Ml Drops, 1 DROP OU Q1H, (Reported) Pravastatin Sodium (Pravastatin Sodium) 40 Mg Tablet, 40 MG PO DAILY, (Reported) Torsemide (Torsemide) 20 Mg Tablet, 40 MG PO BID, (Reported) Vit C/E/Zn/Coppr/Lutein/Zeaxan (Preservision Areds 2 Softgel) 1 Each Capsule, 1 CAP PO DAILY, (Reported) Scheduled PRN Psyllium Husk (with Sugar) (Metamucil Powder) 575 Gm Powder, 1 PKT PO QHS PRN for CONSTIPATION, (Reported) Miscellaneous Medications Covid-19 Vacc, Mrna(Paystik)/Pf (Paystik Covid19 Vacc (Unapprov)) 30 Mcg/0.3 Ml Vial, 30 MCG IM, (Reported) Allergies Coded Allergies: bee venom protein (honey bee) (Verified Allergy, Mild, 05/24/20) Estrogens (Verified Allergy, Unknown, 06/17/18) latex (Verified Allergy, Unknown, hives, 06/28/20) Past Medical History Medical History ESRD CHF with preserved EF. Chronic anemia Myelodysplastic syndrome wit Cytopenias Peptic ulcer disease with perforation CAD status post CABG Diabetes Hypertension Uterine cancer status post hysterectomy History of thyroid cancer status post thyroidectomy Right breast mass biopsy, benign HX FELL BROKE RIGHT WRIST, BROKE LEFT WRIST Varicose veins , status post endovenous laser treatment of left leg varicose veins, which was complicated by bleeding Umbilical hernia Legally blind. Brain cancer s/p laser surgery. 3 tumors in the abdominal wall, which were also cancerous removed Surgical History Partial hysterectomy for uterine cancer at age 21 yers D&C X5 C/S and successful delivery of daughter at 7 months at age 25 years Total hysterectomy and right nephrectomy for relapsed uterine cancer also removal of one ovary. Brain cancer surgery by laser THYROIDECTOMY BREAST SURGERY-RIGHT 2013 beingn LYMPH NODE RESECTION-MULT. Cholecystectomy HERNIA REPAIR TRIPLE BYPASS BRITNEY FOOT SURGERIES BACK SURGERY HEAD SURGERY C SECTION RIGHT NEPHRECTOMY HYSTERECTOMY,TOTAL FINGER SURGERY () 10/07/18 Varicose vein surgery Perm cath placement Family History FATHER: 45 YRS, LEUKEMIA MOTHER: , HEART DISEASE, HEART FAILURE SIBLINGS: ALIVE, COLON CANCER PATERNAL GRAND MOTHER: DIAGNOSED WITH DIABETES 1-SISTER PASSED THYROID CANCER- Social History * Smoker: Denies Alcohol: Denies Drugs: denies A-FIB/CHADSVASC A-FIB History Current/History of A-Fib/PAF?: No Review of Systems Constitutional: Denies: Chills, Fever, Night Sweats Eyes: Reports: Other (blind) ENT: Denies: Head Aches, Ear Pain, Dysphagia Skin: Denies: Rash, Lesions, Breakdown Pulmonary: Reports: Dyspnea, Cough Cardiovascular: Denies: Chest Pain, Palpitations Gastrointestinal: Denies: Nausea, Vomiting, Abdominal Pain, Diarrhea Genitourinary: Denies: Dysuria, Frequency, Incontinence, Retention Hematologic: Denies: Bruising, Bleeding Excessively Physical Examination General Exam: Positive: Alert, Cooperative, No Acute Distress Eye Exam: Positive: Conjunctiva & lids normal, EOMI ENT Exam: Positive: Atraumatic, Mucous membr. moist/pink, Pharynx Normal Neck Exam: Positive: Supple; Negative: JVD, thyromegaly Chest Exam: Positive: Rales, Rhonchi, Wheezing Heart Exam: Positive: Rate Normal, Regular Rhythm, Normal S1, Normal S2; Negative: Murmurs, Rubs Abdomen Exam: Positive: Normal bowel sounds, Soft; Negative: Tenderness, Hepatospenomegaly Extremity Exam: Positive: Edema; Negative: Clubbing, Cyanosis Vital Signs Vital Signs Date Time Temp Pulse Resp B/P (MAP) Pulse Ox O2 Delivery O2 Flow Rate FiO2 09/04/20 15:30 149/63 (91) 09/04/20 15:26 57 95 09/04/20 12:57 97.2 26 Room Air Laboratory Data Labs 24H Laboratory Tests 2 09/04/20 14:06: Immature Granulocyte % (Auto) 0.4, Neutrophils (%) (Auto) 65.6, Lymphocytes (%) (Auto) 23.5L, Monocytes (%) (Auto) 6.8, Eosinophils (%) (Auto) 3.5H, Basophils (%) (Auto) 0.2, Neutrophils # (Auto) 3.6, Lymphocytes # (Auto) 1.3L, Monocytes # (Auto) 0.4, Eosinophils # (Auto) 0.2, Basophils # (Auto) 0.0, Nucleated Red Blood Cells % (auto) 0.0, Immature Platelet Fraction 2.7, Anion Gap 6L, Glomerular Filtration Rate 23.6L, Lactic Acid Level 1.8, Calcium Level 8.7L, Total Creatine Kinase 27, Creatine Kinase MB < 1.0, Creatine Kinase MB Relative Index 3.70, Troponin I < 0.02 09/04/20 14:07: POC pH (Misc Panel) 7.478H, POC Base Excess (Misc Panel) -1.0, POC Saturated Percent O2 (Misc) 96, POC pO2 (Misc Panel) 75.0L, POC pCO2 (Misc Panel) 30.8L, POC HCO3 (Misc Panel) 22.9, POC Total CO2 (Misc Panel) 24.0 CBC/BMP Laboratory Tests 09/04/20 14:06 Microbiology Microbiology 09/04/20 Respiratory Virus Panel (PCR) ([facility]) - Final, Complete Human Rhinovirus/Enterovirus Assessment/Plan 80-year-old female with ESRD, CHF with preserved EF, Coronary artery disease status post CABG, myelodysplastic syndrome with pancytopenia, chronic anemia, iron deficiency, hypertension, diabetes, hypothyroid after thyroidectomy, peptic ulcer disease presents to the emergency room with them ongoing shortness of breath, cough and wheezing for 2 weeks. 2 weeks ago she initially started with a cold with runny nose, nasal congestion, then started having a hacking cough and shortness of breath with wheezing. She went to see her primary care and was given a one week course of antibiotics. but continued to have symptoms and last night she had to be placed on oxygen during dialysis. So this morning she was called by her primary care and instructed to come to the emergency room for e valuation. She has been started on dialysis for 1 month. She reports that she is compliant with her dialysis treatments. On arrival to the emergency room she was hypoxic to 76% in room air, unable to talk in full sentences and having severe bronchospasm with wheezing and rhonchi. In the ED respiratory panel showed she is positive for human rhinovirus infection. . She is admitted for acute viral br onchitis and postinfectious bronchospasm Acute viral bronchitis with postinfectious bronchospasm Rhinovirus infection We'll start the patient on albuterol and budesonide and prednisone Seems to have improved with dexamethasone and albuterol in the emergency room ESRD Nephrologic consulted for her routine hemodialysis Continue torsemide Hypertension Continue home medications hydralazine, metoprolol and torsemide Hypothyroid after total thyroidectomy Continue home medications CAD status post CABG Aspirin, statin and beta tiffany, Imdur Chronic anemia Multifactorial from MDS and of chronic disease and iron deficiency Continue iron supplements History of multiple cancers in her lifetime with multiple surgeries Chronic ulcer at the back of the left leg Keep dry and open Has been referred to wound care Hyperuricemia/gout Allopurinol Peptic ulcer disease with history of from peptic perforation Continue pantoprazole and famotidine Plan / VTE VTE Prophylaxis Ordered?: Yes LONG ANDRE MD Sep 04, 2020 18:27
[2020-09-04] MEDS ORDERED: ALBUTEROL 90 MCG/ACT 8GM HFA INHALER INH SCH (20:00)
[2020-09-04] MEDS ORDERED: BUDESONIDE 0.5 MG/2 ML INHALATION SUSPENSION INH SCH (20:00)
[2020-09-05] MEDS ORDERED: PANTOPRAZOLE 40MG TAB (PROTONIX) PO SCH (09:00)
[2020-09-05] MEDS ORDERED: METOPROLOL SUCC (TopROL XL) 50MG **XL** TAB PO SCH (09:00)
[2020-09-05] MEDS ORDERED: ASPIRIN 81MG ENTERIC TABLET PO SCH (09:00)
[2020-09-05] MEDS ORDERED: PRAVASTATIN 20 MG TAB PO SCH (09:00)
[2020-09-05] MEDS ORDERED: ISOSORBIDE MON. (IMDUR) 30 MG XR TAB PO SCH (09:00)
[2020-09-05] MEDS ORDERED: predniSONE 20 MG TAB PO SCH (09:00)
--- NOTE | 2020-09-06 05:51 | ECGEPIP ---
[facility] - ED Test Date: 2020-09-04 Pat Name: JAREN MARTINEZ Department: Room: - Gender: Female Rabbler: DARREN : 1940 Requested By: River Duran Order Number: [id number] Reading MD: River Lee Measurements Intervals [place] Rate: 59 P: 69 LA: 192 QRS: 0 QRSD: 86 T: 188 QT: 452 QTc: 447 Interpretive Statements Sinus bradycardia Minimal voltage criteria for LVH, may be normal variant ( [place] product ) ST & T wave abnormality, consider anterolateral ischemia Electronically Signed on 09-06-2020 5:51:14 EDT by River Lee
[2020-09-06] MEDS ORDERED: LEVOTHYROXINE 137MCG TABLET (0.137MG) PO SCH (06:00)
== END 2020-09-04 20:30 | disposition left against medical advice (07) ==
LOC: M ED 12:56 → M ED INP 12:57
PROVIDERS: ADMIT Internal Medicine Nephrology; ATTEND Internal Medicine Nephrology
DX: J20.6 Acute bronchitis due to rhinovirus (principal); N18.6 End stage renal disease; Z99.2 Dependence on renal dialysis; R06.02 Shortness of breath; I13.2 Hypertensive heart and chronic kidney disease with heart failure and with stage 5 chronic kidney disease, or end stage renal disease; E03.9 Hypothyroidism, unspecified; I25.10 Atherosclerotic heart disease of native coronary artery without angina pectoris; Z95.1 Presence of aortocoronary bypass graft; D46.9 Myelodysplastic syndrome, unspecified; D50.9 Iron deficiency anemia, unspecified; E11.22 Type 2 diabetes mellitus with diabetic chronic kidney disease; M10.9 Gout, unspecified; L97.929 Non-pressure chronic ulcer of unspecified part of left lower leg with unspecified severity; K27.1 Acute peptic ulcer, site unspecified, with perforation; Z79.899 Other long term (current) drug therapy; Z79.82 Long term (current) use of aspirin; Z91.040 Latex allergy status; Z91.030 Bee allergy status; Z88.8 Allergy status to other drugs, medicaments and biological substances; Z85.42 Personal history of malignant neoplasm of other parts of uterus; Z85.850 Personal history of malignant neoplasm of thyroid; Z85.841 Personal history of malignant neoplasm of brain; Z85.89 Personal history of malignant neoplasm of other organs and systems
CPT/HCPCS: 36600; 71045; 80048; 82550; 82553; 82803; 83605; 84484; 85025; 85049; 85055; 87798; 93005; 93041; 94640; 96374; 99285; G0378; J1100

== ENCOUNTER → 2020-09-28 | Outpatient (CLI) | payer MEDICARE ==
--- NOTE | 2020-09-28 11:14 | REP ---
INDICATION: ANURIA. COMPARISON: None. TECHNIQUE: Transabdominal sonography of the urinary bladder with pre and post imaging. FINDINGS: Bladder rashid are smooth. No bladder mass or extravesical lesion is seen. Prevoid bladder volume is calculated at 157 mL. Postvoid there is 14 mL of calculated volume, 9% postvoid residual. Emptying ureteral jets were not observed. IMPRESSION: No abnormality noted. 9 % postvoid residual. <Electronically signed by Wilmer Zhong > 09/28/20 [id number]
== END ==
LOC: M RAD 10:32
PROVIDERS: ATTEND Family Medicine
DX: R34 Anuria and oliguria (principal)

== ENCOUNTER → 2020-11-08 | Outpatient (CLI) | payer MEDICARE | LOC: M LAB 14:44 | PROVIDERS: ATTEND Internal Medicine Nephrology | DX: D64.9 Anemia, unspecified (principal) ==

== ENCOUNTER → 2020-11-08 | Outpatient (CLI) | payer MEDICARE ==
[2020-11-08 16:50] LABS: BASO % 0.3 % (0.0-1.0); EOS # 0.2 10^3/uL (0.0-0.5); EOS % 4.1 % (0.0-3.0); HEMATOCRIT 27.4 % (36.0-47.0); HEMOGLOBIN 8.9 g/dl (12.0-15.5); LYMPH # 1.4 10^3/uL (1.5-5.0); LYMPH % 23.2 % (24.0-44.0); MEAN CORPUSCULAR HEMOGLOBIN 34.6 pg (27.0-33.0); MEAN CORPUSCULAR HGB CONC 32.5 g/dl (32.0-36.5); MEAN CORPUSCULAR VOLUME 106.6 fl (80.0-96.0); MONO # 0.5 10^3/uL (0.0-0.8); MONO % 7.8 % (2.0-8.0); NEUTROPHILS # 3.8 10^3/uL (1.5-8.5); NEUTROPHILS % 63.9 % (36.0-66.0); PLATELET COUNT, AUTOMATED 119 10^3/uL (150-450); RED BLOOD COUNT 2.57 10^6/uL (4.00-5.40); WHITE BLOOD COUNT 5.9 10^3/uL (4.0-10.0)
== END ==
LOC: M LAB 14:47
PROVIDERS: ATTEND Family Medicine
DX: D64.9 Anemia, unspecified (principal)

== ENCOUNTER 2020-11-09 12:02 | Outpatient (CLI) | payer MEDICARE ==
[~2020-11-09] VITALS: Ht 177.8 cm; Wt 69.9 kg
[2020-11-09] VITALS (9 sets, daily range): BP systolic 132–180; BP diastolic 57–88
== END 2020-11-09 16:39 | disposition home or self-care (01) ==
LOC: M INFU 12:02
PROVIDERS: ATTEND Internal Medicine Nephrology
DX: D64.9 Anemia, unspecified (principal); Z91.040 Latex allergy status; Z91.030 Bee allergy status
CPT/HCPCS: 36430; P9016

== ENCOUNTER 2020-11-15 14:20 | Emergency (ER) | payer MEDICARE ==
[~2020-11-15] VITALS: Ht 177.8 cm; Wt 70.1 kg
[~2020-11-15 14:20] MED LIST changes: -ANEC4CRE3 TOP; -METH-1164 PO
[2020-11-15] MEDS ORDERED: methocarbamoL 500 MG TAB PO ONE (18:25)
[2020-11-15] MEDS ORDERED: LIDOCAINE 4% CREAM 5GM (LMX4) TOP ONE (18:25)
[2020-11-15] MEDS ORDERED: ACETAMINOPHEN 325 MG TAB PO ONE (18:25)
--- NOTE | 2020-11-15 18:46 | REP ---
INDICATION: CHECK PLACEMENT OF PORT. COMPARISON: Comparison chest x-ray September 04, 2020. TECHNIQUE: Portable upright AP chest radiograph. FINDINGS: A right-sided tunneled central venous catheter is seen in place with its tip in the expected location of the SVC right atrial junction unchanged from the comparison study. Mild cardiomegaly is observed. Median sternotomy wires are seen. No infiltrate is seen in the lung torrez. The pleural angles are sharp. IMPRESSION: Central venous tunnel catheter noted in place on the right unchanged in position. Cardiomegaly. Otherwise no acute disease. <Electronically signed by Wilmer Zhong > 11/15/20 [id number]
[2020-11-15 19:08] VITALS: BP 176/78
[2020-11-15] MEDS ORDERED: ANEC4CRE3 TOP (19:49)
[2020-11-15] MEDS ORDERED: METH-1164 PO (19:49)
== END 2020-11-15 20:04 | disposition home or self-care (01) ==
LOC: M ED 14:20
DX: S46.911A Strain of unspecified muscle, fascia and tendon at shoulder and upper arm level, right arm, initial encounter (principal); X58.XXXA Exposure to other specified factors, initial encounter; Y92.9 Unspecified place or not applicable; Y93.9 Activity, unspecified; Y99.9 Unspecified external cause status; C73 Malignant neoplasm of thyroid gland; I50.9 Heart failure, unspecified; I25.2 Old myocardial infarction; E11.9 Type 2 diabetes mellitus without complications; I10 Essential (primary) hypertension; K21.9 Gastro-esophageal reflux disease without esophagitis; N18.6 End stage renal disease; Z99.2 Dependence on renal dialysis; Z95.1 Presence of aortocoronary bypass graft; Z95.828 Presence of other vascular implants and grafts; I51.7 Cardiomegaly; Z79.82 Long term (current) use of aspirin; Z79.899 Other long term (current) drug therapy; Z88.8 Allergy status to other drugs, medicaments and biological substances; Z91.040 Latex allergy status; Z91.030 Bee allergy status

== ENCOUNTER → 2020-11-15 | Outpatient (CLI) | payer MEDICARE ==
[~2020-11-15] MED LIST changes: +ANEC4CRE3 TOP; +METH-1164 PO
--- NOTE | 2020-11-15 13:48 | REP ---
INDICATION: NECK PAIN ON MOVEMENT. COMPARISON: 11/18/2012. TECHNIQUE: AP and lateral cervical spine. FINDINGS: There is no compression fracture or malalignment. There is no prevertebral soft tissue swelling. The disc spaces are well preserved. There is diffuse narrowing, sclerosis and spurring at the posterior facet joints. Mild vascular calcifications are seen in the region of the right carotid artery. Metallic clips are seen in the right neck soft tissues. Sternal wires are present. There is a right central venous catheter partially visualized. IMPRESSION: Diffuse degenerative changes posterior facet joints with no fracture or dislocation. <Electronically signed by Rey Mack > 11/15/20 [id number]
== END ==
LOC: M RAD 13:16
PROVIDERS: ATTEND Specialist
DX: M54.2 Cervicalgia (principal)

== ENCOUNTER → 2020-11-29 | Outpatient (CLI) | payer MEDICARE ==
[~2020-11-29] MED LIST changes: +ANEC4CRE3 TOP; +METH-1164 PO
--- NOTE | 2020-11-29 15:41 | REP ---
INDICATION: RT SHOULDER PAIN. COMPARISON: None. TECHNIQUE: Two views FINDINGS: The acromioclavicular and glenohumeral relationships are within normal limits. There is no evidence of an acute fracture, dislocation, or subluxation. There is an old healed proximal humeral diaphyseal fracture IMPRESSION: No acute abnormality <Electronically signed by Rosalio Jimenez > 11/29/20 [id number]
== END ==
LOC: M SOG 15:03
PROVIDERS: ATTEND Orthopaedic Surgery
DX: M25.511 Pain in right shoulder (principal)

== ENCOUNTER → 2020-12-18 | Outpatient (POV) | payer MEDICARE ==
[~2020-12-18] VITALS: Ht 177.8 cm; Wt 72.9 kg
[2020-12-18 13:10] VITALS: BP 141/63
--- NOTE | 2020-12-20 14:21 | IRPN ---
[facility] IR Progress Note IR Progress Note DATE: Dec 18, 2020 FOLLOW-UP: Patient presented to me earlier in the year, with bilateral lower extremity swelling and nonhealing left lower extremity ulcer. Her left lower extremity ulcer is shallow and located on the posterior mid calf. She did undergo left lower extremity EVLT, which is resulted in remarkable decrease swelling of the left lower extremity. However, ulcer persists. Patient denies intermittent claudication or rest pain. ON EXAMINATION: Left lower extremity: No edema. Corinne. Warm to touch. Dorsalis pedis negative. posterior tibialis negative. Popliteal 1+. Patchy sensory loss. Motor 4 out of 5. Nontender ulcer posterior mid calf. Right lower extremity: Mild edema. Corinne in color. Warm to touch. Dorsalis pedis 1+ popliteal 1+. Patchy sensory loss. Motor 4 out of 5. IMPRESSION: 80-year-old female with nonhealing left lower extremity ulcer. She is status post left lower extremity EVLT, which resulted in remarkable decrease edema of the left lower extremity. The ulcer is still refractory to healing. I agree patient would benefit from angiography. We discussed the risks and benefits of angiography and patient is willing to proceed. We will schedule the patient for left lower extremity angiography. Thank you for this referral. CC Dr. Smith Allergies Coded Allergies: bee venom protein (honey bee) (Verified Allergy, Mild, 05/24/20) Estrogens (Verified Allergy, Unknown, 06/17/18) latex (Verified Allergy, Unknown, hives, 06/28/20) VS,Fishbone, I+O VS, Fishbone, I+O Vital Signs Date Time Temp Pulse Resp B/P (MAP) Pulse Ox O2 Delivery O2 Flow Rate FiO2 12/18/20 13:10 97.7 65 20 141/63 (89) 99 Room Air HARJEET BILLS MD Dec 20, 2020 14:21
== END ==
LOC: M IRPOV 12:56
PROVIDERS: ATTEND Radiology Diagnostic Radiology
DX: L97.229 Non-pressure chronic ulcer of left calf with unspecified severity (principal); Z48.812 Encounter for surgical aftercare following surgery on the circulatory system; Z88.8 Allergy status to other drugs, medicaments and biological substances; Z91.030 Bee allergy status; Z91.040 Latex allergy status

== ENCOUNTER → 2021-01-17 | Outpatient (CLI) | payer MEDICARE ==
[~2021-01-17] MED LIST changes: +CALC1TAB63 PO; +ISOVUE-300 61% 50ML VIAL As Ordered ONE; +LIDOCAINE 1% MDV 20ML VIAL As Ordered ONE; +MIDAZOLAM INJ 2MG/2ML VIAL (J2250 PER 1MG) As Ordered ONE; +NS 1,000 ML IV SCH; +diphenhydrAMINE 50MG/ML VIAL (J1200) As Ordered ONE; +fentaNYL 100 MCG/2 ML INJECTION (J3010) As Ordered ONE
[2021-01-17 13:45] VITALS: BP 150/62
--- NOTE | 2021-01-17 13:57 | IRPON ---
IR Postoperative Note Date Of Procedure: Jan 15, 2021 Time Of Procedure: 13:48 IR Postoperative Note IR Left leg angiogram IR Left below-knee runoff arteriogram. IR Ultrasound-guided right common femoral artery access. IR Moderate sedation. Clinical Information:Left lower extremity nonhealing wound. Left lower extremity pain. Physician: Dr. Sheikh. Procedure: The patient was advised of the benefits, risks, and alternatives of the procedure and informed consent was obtained. A time out was performed with verification of the patient's name, MRN, site of procedure, and type of procedure to be performed. The patient was positioned in the supine position on the angiographic table. The site was prepped and draped in the usual sterile fashion. Moderate sedation was performed by the physician including the presence of an independent trained RN, who assisted in monitoring the patient's level of consciousness and physiological status. Following the administration of fentanyl and Versed, the physician spent 60 minutes of continuous [id number] t bennett with the patient. Ultrasound of the right groin demonstrates patent right common femoral artery. Lidocaine was used for local anesthesia. The right common femoral artery was accessed, under ultrasound guidance with a microintroducer set. A short 0.018" [place] wire was inserted under fluoroscopy guidance and the needle was exchanged for a 4 Fr microintroducer sheath. The guidewire and dilator were removed and a 0.035" Bentson wire, was advanced under fluoroscopy guidance and placed into the abdominal aorta. A 6 Fr sheath was placed over the wire. An Omni Flush catheter was advanced over the wire, under fluoroscopy guidance and used to catheterize the infrarenal abdominal aorta. A pelvic arteriogram was performed and this demonstrates unremarkable infrarenal abdominal aorta. Patent bilateral common iliac, internal iliac and external iliac arteries. Patent bilateral common femoral arteries. A Glidewire was advanced through the flush catheter and used under fluoroscopy guidance, to gain up and over access into the left external iliac artery. The catheter was removed over the wire. A glide cath was advanced over the wire under fluoroscopy guidance and used to catheterize the left common femoral artery. A left leg angiogram was performed. This demonstrates patent left superficial femoral, profunda femoris and popliteal artery. Diffuse atherosclerotic calcification with vascular irregularity, without significant focal stenosis. Further angiography down the left leg was performed. This demonstrates patent anterior tibial, posterior tibial and peroneal artery. Runoff arteriogram to the left foot was performed. This demonstrates patent three-vessel runoff to the left foot. Incomplete pedal loop. 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 Catheter, wire and sheath were removed, a Mynx device was used to close the groin arteriotomy. Pressure held and hemostasis achieved. A sterile dressing was applied to the site. The patient tolerated the procedure well and was returned to the PRU in stable condition. EBL: < 5 mL. Complications:None. Impression: 1. Left leg angiogram demonstrates patent inflow and outflow with three-vessel runoff to the left foot. Diffuse atherosclerotic calcification without focal occlusion. 2. 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 Thank you for this referral. CC HARJEET Smith MD Jan 17, 2021 13:57
== END ==
LOC: M IRPRO 07:05
PROVIDERS: ATTEND Radiology Diagnostic Radiology
DX: I70.249 Atherosclerosis of native arteries of left leg with ulceration of unspecified site (principal); I70.222 Atherosclerosis of native arteries of extremities with rest pain, left leg; L97.929 Non-pressure chronic ulcer of unspecified part of left lower leg with unspecified severity; M79.605 Pain in left leg
CPT/HCPCS: 36246; 75630; 75774; 99152; 99153; C1760; C1769; C1887; C1894; G0269; J1200; J1644; J2250; J3010; Q9967

== ENCOUNTER → 2021-01-22 | Outpatient (CLI) | payer MEDICARE ==
[~2021-01-22] MED LIST changes: -ISOVUE-300 61% 50ML VIAL As Ordered ONE; -LIDOCAINE 1% MDV 20ML VIAL As Ordered ONE; -MIDAZOLAM INJ 2MG/2ML VIAL (J2250 PER 1MG) As Ordered ONE; -NS 1,000 ML IV SCH; -diphenhydrAMINE 50MG/ML VIAL (J1200) As Ordered ONE; -fentaNYL 100 MCG/2 ML INJECTION (J3010) As Ordered ONE
== END ==
LOC: M CARPUL 08:37
PROVIDERS: ATTEND Physician Assistant
DX: I34.0 Nonrheumatic mitral (valve) insufficiency (principal)

== ENCOUNTER → 2021-01-29 | Outpatient (POV) | payer MEDICARE ==
[~2021-01-29] VITALS: Ht 177.8 cm; Wt 42.0 kg
[2021-01-29 13:00] VITALS: BP 146/66
--- NOTE | 2021-01-31 13:58 | IRPN ---
[facility] IR Progress Note IR Progress Note DATE: Jan 29, 2021 FOLLOW-UP: Patient status post left lower extremity angiography. Patient denies any pain, swelling or bruising at the access site. ON EXAMINATION: Right groin access site healed. No bruising, hematoma, pulsatile mass. IMPRESSION: Doing well status post left lower extremity angiography. Patient is now status post left lower extremity EVLT and left lower extremity angiography with no further intervention required. Patient's wound is healing. No further follow-up scheduled unless initiated by patient and/or referring provider. Thank you for this referral. Allergies Coded Allergies: bee venom protein (honey bee) (Verified Allergy, Mild, 05/24/20) Estrogens (Verified Allergy, Unknown, 06/17/18) latex (Verified Allergy, Unknown, hives, 06/28/20) VS,Fishbone, I+O VS, Fishbone, I+O Vital Signs Date Time Temp Pulse Resp B/P (MAP) Pulse Ox O2 Delivery O2 Flow Rate FiO2 01/29/21 13:00 98.1 64 20 146/66 (92) 97 Room Air HARJEET BILLS MD Jan 31, 2021 13:58
== END ==
LOC: M IRPOV 12:26
PROVIDERS: ATTEND Radiology Diagnostic Radiology
DX: Z48.812 Encounter for surgical aftercare following surgery on the circulatory system (principal); Z88.8 Allergy status to other drugs, medicaments and biological substances; Z91.013 Allergy to seafood; Z91.040 Latex allergy status

== ENCOUNTER → 2021-02-26 | Outpatient (REF) | payer MEDICARE ==
[~2021-02-26] MED LIST changes: +LOSA50TA28 PO; -LOSA50TA88 PO; +POTA-151 PO; -POTA20TA6 PO
== END ==
LOC: M SFHCLERA 15:42
PROVIDERS: ATTEND Family Medicine
DX: R30.0 Dysuria (principal)
CPT/HCPCS: 81002; 87088; 87186; G0463

== ENCOUNTER → 2021-04-26 | Outpatient (CLI) | payer MEDICARE | LOC: M WHC 13:50 | PROVIDERS: ATTEND Family Medicine | DX: Z12.31 Encounter for screening mammogram for malignant neoplasm of breast (principal) ==

== ENCOUNTER → 2021-05-30 | Outpatient (REF) | payer MEDICARE ==
[~2021-05-30] MED LIST changes: -D31000TA2 PO; +VITA100093 PO
[2021-05-30 11:41] LABS: AMORPHOUS SEDIMENT SMALL (NEGATIVE); APPEARANCE, URINE TURBID (CLEAR); BACTERIA, URINE AUTO 3+ (NEGATIVE); BILIRUBIN, URINE AUTO NEGATIVE (NEGATIVE); BLOOD, URINE BLOOD NEGATIVE (NEGATIVE); COLOR, URINE YELLOW (YELLOW); GLUCOSE, URINE (UA) AUTO NEGATIVE (NEGATIVE); KETONE, URINE AUTO NEGATIVE (NEGATIVE); LEUKOCYTE ESTERASE, URINE AUTO 3+ (NEGATIVE); MUCUS, URINE SMALL (NEGATIVE); NITRITE, URINE AUTO NEGATIVE (NEGATIVE); PROTEIN, URINE AUTO 2+ mg/dL (NEGATIVE); RBC, URINE AUTO 16 /HPF (0-3); SPECIFIC GRAVITY URINE AUTO 1.013 (1.002-1.035); SQUAMOUS EPITHELIAL CELL UR AU 0 /HPF (0-6); UROBILINOGEN, URINE AUTO 0.2 mg/dL (0.0-2.0); WBC, URINE AUTO TNTC /HPF (0-3)
== END ==
LOC: M SFHCLERA 11:18
PROVIDERS: ATTEND Family Medicine
DX: R30.0 Dysuria (principal)

== ENCOUNTER → 2021-08-16 | Outpatient (CLI) | payer MEDICARE ==
[~2021-08-16] MED LIST changes: +TUMS750C22
== END ==
LOC: M RAD 08:06
PROVIDERS: ATTEND Family Medicine
DX: R93.5 Abnormal findings on diagnostic imaging of other abdominal regions, including retroperitoneum (principal); K86.89 Other specified diseases of pancreas; N28.1 Cyst of kidney, acquired

== ENCOUNTER → 2021-08-29 | Outpatient (CLI) | payer MEDICARE ==
[~2021-08-29] MED LIST changes: -TUMS750C22; +TUMS750C22 PO
== END ==
LOC: M LABSMTC 10:14
PROVIDERS: ATTEND Anesthesiology
DX: Z01.818 Encounter for other preprocedural examination (principal); Z11.52 Encounter for screening for COVID-19

== ENCOUNTER → 2021-09-30 | Outpatient (CLI) | payer MEDICARE | LOC: M LABSMTC 10:11 | PROVIDERS: ATTEND Anesthesiology | DX: Z01.812 Encounter for preprocedural laboratory examination (principal) ==

== ENCOUNTER 2021-10-04 06:00 | Day surgery (SDC) | payer MEDICARE ==
[~2021-10-04] VITALS: Ht 177.8 cm; Wt 78.5 kg
[~2021-10-04 06:00] MED LIST changes: +NS 1,000 ML IV ONE
[2021-10-04] MEDS ORDERED: BUPIVACAINE HCL 0.25% 10ML VIAL As Ordered ONE (06:27)
[2021-10-04] MEDS ORDERED: BUPIVACAINE/EPIN 0.25% 30 ML VIAL As Ordered ONE (06:27)
[2021-10-04] MEDS ORDERED: BUPIVACAINE LIPOSOME/PF 1.3% 20ML VIAL (13.3MG/ML)(EXPAREL) As Ordered ONE (06:27)
[2021-10-04] MEDS ORDERED: D5W/0.2% SODIUM CHLORIDE 1,000 ML IV SCH (06:45)
[2021-10-04] MEDS ORDERED: ceFAZolin SOD 2 GM in IV 1 EA IV ONE (07:00)
[2021-10-04] MEDS ORDERED: fentaNYL 100 MCG/2 ML INJECTION As Ordered ONE (08:18)
[2021-10-04] MEDS ORDERED: MIDAZOLAM INJ 2MG/2ML VIAL (J2250 PER 1MG) As Ordered ONE (08:18)
[2021-10-04] MEDS ORDERED: ONDANSETRON 4MG 2ML VIAL As Ordered ONE (08:18)
[2021-10-04] MEDS ORDERED: dexameTHASONE 4 MG/ML 1ML VIAL (J1100 PER 1MG) As Ordered ONE (08:18)
[2021-10-04] MEDS ORDERED: ROCURONIUM BROMIDE 50 MG/5 ML VIAL As Ordered ONE ×2 (08:18→08:26)
[2021-10-04] MEDS ORDERED: LIDOCAINE 2% 100MG/5ML SDV (FOR ANES.) As Ordered ONE (08:18)
[2021-10-04] MEDS ORDERED: ePHEDrine SULFATE 25 MG/5 ML(5MG/ML) SYRINGE As Ordered ONE (08:26)
[2021-10-04] MEDS ORDERED: ACETAMINOPHEN 1000MG 100ML IV BTL (OFIRMEV) (J0131 PER 10MG) As Ordered ONE (08:26)
[2021-10-04] MEDS ORDERED: NEOSTIGMINE 10MG/10ML VIAL (J2710 PER 0.5MG) As Ordered ONE (08:29)
[2021-10-04] MEDS ORDERED: GLYCOPYRROLATE INJ 0.2 MG/ML 2 ML VIAL As Ordered ONE ×2 (08:29→08:30)
[2021-10-04] MEDS ORDERED: hydrALAZINE 20MG/ML 1ML VIAL (J0360 PER 20MG) As Ordered ONE (08:37)
[2021-10-04] MEDS ORDERED: PERCOCET 5MG/325MG TAB PO PRN (10:30)
[2021-10-04] MEDS ORDERED: traMADol 50 MG TAB PO PRN (10:30)
[2021-10-04] MEDS ORDERED: NS 1,000 ML IV SCH (10:30)
[2021-10-04] MEDS ORDERED: oxyCODONE 5MG TAB PO PRN (11:10)
[2021-10-04] MEDS ORDERED: ONDANSETRON 4MG 2ML VIAL IV PRN (11:10)
[2021-10-04] MEDS ORDERED: LR 1,000 ML IV SCH (11:10)
[2021-10-04] MEDS: fentaNYL 100 MCG/2 ML INJECTION IV PRN ×4 (11:16→11:43)
[2021-10-04] MEDS ORDERED: METOCLOPRAMIDE INJ 10MG/2ML VIAL (J2765 PER 1) IV PRN (11:30)
[2021-10-04 13:01] VITALS: BP 128/59
[2021-11-11] MEDS ORDERED: OFLO3OPSO (09:12)
== END 2021-10-04 13:18 | disposition home or self-care (01) ==
LOC: M SDC 06:00
PROVIDERS: ATTEND Surgery
DX: K43.2 Incisional hernia without obstruction or gangrene (principal); K66.0 Peritoneal adhesions (postprocedural) (postinfection); I10 Essential (primary) hypertension; E11.9 Type 2 diabetes mellitus without complications; N28.9 Disorder of kidney and ureter, unspecified; E03.9 Hypothyroidism, unspecified; Z85.41 Personal history of malignant neoplasm of cervix uteri

== ENCOUNTER 2021-10-06 09:46 | Observation (INO) | payer MEDICARE ==
[~2021-10-06] VITALS: Ht 177.8 cm; Wt 78.3 kg
[2021-10-06] MEDS: METAMUCIL (PSYLLIUM) PACKET PO SCH (09:00)
[~2021-10-06 09:46] MED LIST changes: -NS 1,000 ML IV ONE; +SENNA 8.6 MG TAB (SENOKOT) PO SCH
[2021-10-06 10:31] LABS: BASO % 0.2 % (0.0-1.0); EOS # 0.1 10^3/uL (0.0-0.5); HEMATOCRIT 28.5 % (36.0-47.0); HEMOGLOBIN 9.4 g/dl (12.0-15.5); LYMPH % 17.6 % (24.0-44.0); MEAN CORPUSCULAR HEMOGLOBIN 34.7 pg (27.0-33.0); MEAN CORPUSCULAR VOLUME 105.2 fl (80.0-96.0); MONO # 0.5 10^3/uL (0.0-0.8); MONO % 8.5 % (2.0-8.0); NEUTROPHILS % 71.2 % (36.0-66.0); RED BLOOD COUNT 2.71 10^6/uL (4.00-5.40); WHITE BLOOD COUNT 5.6 10^3/uL (4.0-10.0)
[2021-10-06] MEDS ORDERED: ISOVUE-370 76% 100ML VIAL As Ordered ONE (10:46)
[2021-10-06 10:53] LABS: ALBUMIN 3.3 GM/DL (3.2-5.2); BILIRUBIN,DIRECT 0.2 MG/DL (0.0-0.2); BILIRUBIN,TOTAL 0.4 MG/DL (0.2-1.0); CALCIUM LEVEL 7.3 MG/DL (8.8-10.2); CREATININE FOR GFR 5.7 MG/DL (0.55-1.30); GLOMERULAR FILTRATION RATE 7.6 (>39); POTASSIUM SERUM 4.4 MEQ/L (3.5-5.1); TOTAL PROTEIN 6.4 GM/DL (6.4-8.2)
[2021-10-06 10:54] LABS: CK-MB VALUE MASS 3.7 NG/ML (<3.6); MB/CK RELATIVE INDEX 3.01 (< OR =4)
[2021-10-06 10:58] LABS: PLATELET COUNT, AUTOMATED 92 10^3/uL (150-450)
[2021-10-06 11:14] LABS: RSV AMPLIFICATION NEGATIVE (NEGATIVE)
[2021-10-06] MEDS ORDERED: MORPHINE 2 MG/ML 1ML VIAL IV PRN (12:25)
[2021-10-06] MEDS ORDERED: ISOS1TAB35 PO (14:26)
[2021-10-06] MEDS ORDERED: OXYC1TAB23 PO (14:26)
[2021-10-06] MEDS ORDERED: VITMTA PO (14:26)
[2021-10-06] MEDS ORDERED: HOME MED LIST COMPLETE! XX SCH (14:30)
[2021-10-06 15:50] VITALS: BP 169/68
[2021-10-06 16:02] LABS: ACETAMINOPHEN LEVEL 4.2 UG/ML (10.0-30.0)
[2021-10-06] MEDS ORDERED: ISOSORBIDE MON. (IMDUR) 30MG XR TAB PO ONE (17:00)
[2021-10-06] MEDS: MIRALAX *UNIT DOSE* 17GM PACKET PO SCH (17:06)
[2021-10-06] MEDS: VITAMIN D 1,000 INTERNATIONAL UNITS TABLET PO SCH (17:06)
[2021-10-06] MEDS: CALCIUM CARBONATE 500 MG CHEW U/D PO SCH (17:07)
[2021-10-06] MEDS: **hydrALAZINE HCL** 25 MG TAB PO SCH (17:11)
[2021-10-06] MEDS: TORSEMIDE 20 MG TAB PO SCH (17:29)
[2021-10-06] MEDS: INSULIN LISPRO (NovoLOG) PER UNIT SC SCH ×2 (17:30→21:00)
[2021-10-06] MEDS: METOPROLOL SUCC (TopROL XL) 50MG **XL** TAB PO SCH (17:59)
[2021-10-06] MEDS ORDERED: GLUCAGON INJ 1MG VIAL SC PRN (18:10)
[2021-10-06] MEDS ORDERED: DEXTROSE 50% 50 ML SYRINGE IV PRN (18:10)
[2021-10-06] MEDS ORDERED: GLUCOSE 4GM CHEW TABLET PO PRN (18:10)
[2021-10-06 18:25] VITALS: BP 136/51
[2021-10-06] MEDS ORDERED: GABAPENTIN 300 MG CAP PO SCH (21:00)
[2021-10-06] MEDS ORDERED: FAMOTIDINE 20 MG TAB PO SCH (21:00)
[2021-10-06] MEDS: MAGNESIUM OXIDE 400MG TAB (MAG-OX) PO SCH (22:40)
[2021-10-06] MEDS: CALCIUM/VITAMIN D 500 MG TAB PO SCH (22:40)
[2021-10-06] MEDS: HEPARIN SOD (PORCINE) 5000UNITS/ML 1ML VIAL/SYRINGE SQ SCH (22:41)
[2021-10-06] MEDS: RAMELTEON 8 MG TAB (ROZEREM) PO SCH (22:41)
[2021-10-06] MEDS: SENNA 8.6 MG TAB (SENOKOT) PO SCH (22:46)
[2021-10-07 05:50] VITALS: BP 130/81
[2021-10-07] MEDS: HEPARIN SOD (PORCINE) 5000UNITS/ML 1ML VIAL/SYRINGE SQ SCH ×3 (06:00→23:05)
[2021-10-07] MEDS: LEVOTHYROXINE 125MCG TABLET (0.125MG) PO SCH (06:04)
[2021-10-07] MEDS: **hydrALAZINE HCL** 25 MG TAB PO SCH ×3 (06:06→18:00)
[2021-10-07] MEDS: METAMUCIL (PSYLLIUM) PACKET PO SCH ×2 (06:06→19:54)
[2021-10-07] MEDS: CALCIUM CARBONATE 500 MG CHEW U/D PO SCH ×3 (06:06→18:11)
[2021-10-07] MEDS: MIRALAX *UNIT DOSE* 17GM PACKET PO SCH ×2 (06:07→20:06)
[2021-10-07] MEDS: TORSEMIDE 20 MG TAB PO SCH ×2 (06:07→18:06)
[2021-10-07] MEDS: SENNA 8.6 MG TAB (SENOKOT) PO SCH ×2 (06:07→20:06)
[2021-10-07 06:13] LABS: HEMATOCRIT 27.2 % (36.0-47.0); HEMOGLOBIN 9.3 g/dl (12.0-15.5); MEAN CORPUSCULAR HEMOGLOBIN 36.3 pg (27.0-33.0); MEAN CORPUSCULAR HGB CONC 34.2 g/dl (32.0-36.5); MEAN CORPUSCULAR VOLUME 106.3 fl (80.0-96.0); RED BLOOD COUNT 2.56 10^6/uL (4.00-5.40); WHITE BLOOD COUNT 4.6 10^3/uL (4.0-10.0)
[2021-10-07 06:22] LABS: PLATELET COUNT, AUTOMATED 98 10^3/uL (150-450)
[2021-10-07 06:40] LABS: ALBUMIN 2.9 GM/DL (3.2-5.2); CALCIUM LEVEL 7.1 MG/DL (8.8-10.2); CREATININE FOR GFR 5.88 MG/DL (0.55-1.30); GLOMERULAR FILTRATION RATE 7.4 (>39); PHOSPHORUS LEVEL 7.4 MG/DL (2.5-4.9); POTASSIUM SERUM 4.7 MEQ/L (3.5-5.1)
[2021-10-07] MEDS: INSULIN LISPRO (NovoLOG) PER UNIT SC SCH ×4 (08:32→19:56)
[2021-10-07] MEDS: PRAVASTATIN 20 MG TAB PO SCH (08:33)
[2021-10-07] MEDS: PANTOPRAZOLE 40MG TAB (PROTONIX) PO SCH (08:33)
[2021-10-07] MEDS: CLOPIDOGREL 75 MG TAB PO SCH (08:33)
[2021-10-07] MEDS: ASPIRIN 81MG ENTERIC TABLET PO SCH (08:33)
[2021-10-07] MEDS: MULTIVITAMINS/MINERALS THERAP 1 TAB PO SCH (08:33)
[2021-10-07] MEDS: DOCUSATE SODIUM 100MG CAPSULE PO SCH ×2 (08:33→19:54)
[2021-10-07] MEDS: allopurinoL 100 MG TAB PO SCH (08:34)
[2021-10-07] MEDS ORDERED: LACTULOSE 20 GM/30 ML SYRUP UD PO PRN (08:35)
[2021-10-07] MEDS: BISACODYL 10 MG SUPP PR SCH ×2 (08:44→13:13)
[2021-10-07] MEDS: METOPROLOL SUCC (TopROL XL) 50MG **XL** TAB PO SCH (08:59)
[2021-10-07] MEDS ORDERED: SODIUM CHLORIDE 0.9% 1000ML IV PRN (10:15)
[2021-10-07] MEDS: ISOSORBIDE MON. (IMDUR) 30MG XR TAB PO SCH (13:15)
[2021-10-07] MEDS: GABAPENTIN 100 MG CAP PO SCH (13:23)
[2021-10-07] MEDS: FOLIC ACID 1MG TAB PO SCH (13:23)
[2021-10-07 17:54] VITALS: BP 92/40
[2021-10-07] MEDS: VITAMIN D 1,000 INTERNATIONAL UNITS TABLET PO SCH (18:11)
[2021-10-07] MEDS: CALCIUM/VITAMIN D 500 MG TAB PO SCH (19:54)
[2021-10-07] MEDS: RAMELTEON 8 MG TAB (ROZEREM) PO SCH (19:55)
[2021-10-07] MEDS: MAGNESIUM OXIDE 400MG TAB (MAG-OX) PO SCH (19:55)
[2021-10-07] MEDS ORDERED: GABAPENTIN 100 MG CAP PO SCH (21:00)
[2021-10-07 22:00] VITALS: BP 139/82
[2021-10-08 05:31] VITALS: BP 111/41
[2021-10-08] MEDS: HEPARIN SOD (PORCINE) 5000UNITS/ML 1ML VIAL/SYRINGE SQ SCH (06:04)
[2021-10-08] MEDS: LEVOTHYROXINE 125MCG TABLET (0.125MG) PO SCH (06:04)
[2021-10-08 06:13] LABS: HEMATOCRIT 26.2 % (36.0-47.0); MEAN CORPUSCULAR HEMOGLOBIN 35.6 pg (27.0-33.0); MEAN CORPUSCULAR HGB CONC 34.4 g/dl (32.0-36.5); MEAN CORPUSCULAR VOLUME 103.6 fl (80.0-96.0); RED BLOOD COUNT 2.53 10^6/uL (4.00-5.40); WHITE BLOOD COUNT 3.9 10^3/uL (4.0-10.0)
[2021-10-08 06:18] LABS: PLATELET COUNT, AUTOMATED 95 10^3/uL (150-450)
[2021-10-08 06:57] LABS: ALBUMIN 2.6 GM/DL (3.2-5.2); CALCIUM LEVEL 7.2 MG/DL (8.8-10.2); CREATININE FOR GFR 4.1 MG/DL (0.55-1.30); GLOMERULAR FILTRATION RATE 11.2 (>39); PHOSPHORUS LEVEL 4.9 MG/DL (2.5-4.9); POTASSIUM SERUM 4.3 MEQ/L (3.5-5.1)
[2021-10-08] MEDS: CLOPIDOGREL 75 MG TAB PO SCH (08:48)
[2021-10-08] MEDS: GABAPENTIN 100 MG CAP PO SCH (08:48)
[2021-10-08] MEDS: PANTOPRAZOLE 40MG TAB (PROTONIX) PO SCH (08:48)
[2021-10-08] MEDS: TORSEMIDE 20 MG TAB PO SCH (08:48)
[2021-10-08] MEDS: CALCIUM CARBONATE 500 MG CHEW U/D PO SCH ×2 (08:48→12:44)
[2021-10-08] MEDS: METAMUCIL (PSYLLIUM) PACKET PO SCH ×2 (08:48→09:22)
[2021-10-08] MEDS: PRAVASTATIN 20 MG TAB PO SCH (08:48)
[2021-10-08] MEDS: allopurinoL 100 MG TAB PO SCH (08:48)
[2021-10-08] MEDS: ASPIRIN 81MG ENTERIC TABLET PO SCH (08:48)
[2021-10-08] MEDS: INSULIN LISPRO (NovoLOG) PER UNIT SC SCH ×2 (08:50→12:44)
[2021-10-08] MEDS: MULTIVITAMINS/MINERALS THERAP 1 TAB PO SCH (08:52)
[2021-10-08] MEDS: SENNA 8.6 MG TAB (SENOKOT) PO SCH (09:00)
[2021-10-08] MEDS: BISACODYL 10 MG SUPP PR SCH (09:00)
[2021-10-08] MEDS: DOCUSATE SODIUM 100MG CAPSULE PO SCH (09:00)
[2021-10-08] MEDS: **hydrALAZINE HCL** 25 MG TAB PO SCH ×2 (09:22→12:47)
[2021-10-08] MEDS: METOPROLOL SUCC (TopROL XL) 50MG **XL** TAB PO SCH (09:22)
[2021-10-08] MEDS: ISOSORBIDE MON. (IMDUR) 30MG XR TAB PO SCH (09:22)
[2021-10-08] MEDS: MIRALAX *UNIT DOSE* 17GM PACKET PO SCH (09:29)
[2021-10-08] MEDS ORDERED: MIRA1POW3 PO (11:15)
[2021-10-08] MEDS: FOLIC ACID 1MG TAB PO SCH (12:44)
[2021-10-08 12:47] VITALS: BP 133/57
[2021-10-09] MEDS ORDERED: SODIUM CHLORIDE 0.9% 1000ML IV PRN (06:00)
[2021-11-11] MEDS ORDERED: OFLO3OPSO (09:12)
== END 2021-10-08 14:35 | disposition home health service (06) ==
LOC: EDBD 09:46 → M ED 09:46 → M ED INP 09:47 → INTOOBSV 13:59 → UNDOADMOB 13:59 → M MSPAV 15:50 → M ED INP 15:50 → M MSPAV 15:50 → UNDODISOB 10-08 14:35
PROVIDERS: ADMIT Student in an Organized Health Care Education/Training Program; ATTEND Internal Medicine
DX: K43.2 Incisional hernia without obstruction or gangrene (principal); K66.0 Peritoneal adhesions (postprocedural) (postinfection); K59.00 Constipation, unspecified; N18.6 End stage renal disease; I50.32 Chronic diastolic (congestive) heart failure; I13.2 Hypertensive heart and chronic kidney disease with heart failure and with stage 5 chronic kidney disease, or end stage renal disease; D46.9 Myelodysplastic syndrome, unspecified; K27.9 Peptic ulcer, site unspecified, unspecified as acute or chronic, without hemorrhage or perforation; I25.10 Atherosclerotic heart disease of native coronary artery without angina pectoris; E11.22 Type 2 diabetes mellitus with diabetic chronic kidney disease; I83.90 Asymptomatic varicose veins of unspecified lower extremity; H54.8 Legal blindness, as defined in USA; R20.0 Anesthesia of skin; Z79.82 Long term (current) use of aspirin; Z79.890 Hormone replacement therapy; Z79.02 Long term (current) use of antithrombotics/antiplatelets; Z79.899 Other long term (current) drug therapy; Z88.8 Allergy status to other drugs, medicaments and biological substances; Z91.040 Latex allergy status; Z91.030 Bee allergy status; Z91.038 Other insect allergy status; E89.0 Postprocedural hypothyroidism; Z85.850 Personal history of malignant neoplasm of thyroid; Z85.42 Personal history of malignant neoplasm of other parts of uterus; Z99.2 Dependence on renal dialysis; Z85.841 Personal history of malignant neoplasm of brain; Z95.1 Presence of aortocoronary bypass graft; Z98.890 Other specified postprocedural states
CPT/HCPCS: 36415; 49654; 71045; 73718; 74177; 80047; 80048; 80069; 80076; 80143; 82550; 82553; 83605; 83690; 84132; 84484; 85025; 85027; 85049; 85055; 87631; 93005; 93041; 96372; 97161; 97165; 97530; 99285; C9290; G0257; G0378; J0131; J0360; J0690; J1100; J1644; J1815; J2250; J2405; J2710; J2765; J3010; Q9967; S2900

== ENCOUNTER 2021-11-05 10:16 | Emergency (ER) | payer MEDICARE ==
[~2021-11-05] VITALS: Ht 177.8 cm; Wt 73.6 kg
[~2021-11-05 10:16] MED LIST changes: +MIRA1POW3 PO; +OXYC1TAB23 PO; -SENNA 8.6 MG TAB (SENOKOT) PO SCH
[2021-11-05 12:58] LABS: BASO % 0.2 % (0.0-1.0); EOS # 0.2 10^3/uL (0.0-0.5); EOS % 4.5 % (0.0-3.0); HEMATOCRIT 31.2 % (36.0-47.0); HEMOGLOBIN 10.2 g/dl (12.0-15.5); LYMPH # 1.4 10^3/uL (1.5-5.0); LYMPH % 30.1 % (24.0-44.0); MEAN CORPUSCULAR HEMOGLOBIN 35.2 pg (27.0-33.0); MEAN CORPUSCULAR HGB CONC 32.7 g/dl (32.0-36.5); MEAN CORPUSCULAR VOLUME 107.6 fl (80.0-96.0); MONO # 0.4 10^3/uL (0.0-0.8); MONO % 8.5 % (2.0-8.0); NEUTROPHILS # 2.6 10^3/uL (1.5-8.5); NEUTROPHILS % 56.1 % (36.0-66.0); PLATELET COUNT, AUTOMATED 105 10^3/uL (150-450); WHITE BLOOD COUNT 4.7 10^3/uL (4.0-10.0)
[2021-11-05] MEDS ORDERED: ISOVUE-370 76% 100ML VIAL As Ordered ONE (13:02)
[2021-11-05 13:12] LABS: INR 1.06; PROTHROMBIN TIME 14.2 SECONDS (12.7-14.5)
[2021-11-05 13:13] LABS: PARTIAL THROMBOPLASTIN TIME 29.8 SECONDS (25.9-37.0)
[2021-11-05 13:32] LABS: BILIRUBIN,DIRECT 0.1 MG/DL (0.0-0.2); BILIRUBIN,TOTAL 0.4 MG/DL (0.2-1.0)
[2021-11-05 15:53] VITALS: BP 188/94
== END 2021-11-05 16:03 | disposition home or self-care (01) ==
LOC: M ED 10:16
DX: K62.5 Hemorrhage of anus and rectum (principal); K66.8 Other specified disorders of peritoneum; I13.0 Hypertensive heart and chronic kidney disease with heart failure and stage 1 through stage 4 chronic kidney disease, or unspecified chronic kidney disease; I50.9 Heart failure, unspecified; I25.2 Old myocardial infarction; H54.8 Legal blindness, as defined in USA; E83.52 Hypercalcemia; Z85.841 Personal history of malignant neoplasm of brain; Z85.028 Personal history of other malignant neoplasm of stomach; Z85.6 Personal history of leukemia; Z85.42 Personal history of malignant neoplasm of other parts of uterus; Z85.850 Personal history of malignant neoplasm of thyroid; Z92.21 Personal history of antineoplastic chemotherapy; Z95.1 Presence of aortocoronary bypass graft; Z90.49 Acquired absence of other specified parts of digestive tract; Z90.710 Acquired absence of both cervix and uterus; Z98.890 Other specified postprocedural states; Z99.2 Dependence on renal dialysis; Z91.040 Latex allergy status; Z88.8 Allergy status to other drugs, medicaments and biological substances; Z91.030 Bee allergy status; Z79.82 Long term (current) use of aspirin; Z79.899 Other long term (current) drug therapy
CPT/HCPCS: 36415; 74177; 80047; 80076; 83690; 85025; 85610; 85730; 99284; Q9967

== ENCOUNTER → 2021-11-11 | Outpatient (CLI) | payer MEDICARE ==
[~2021-11-11] MED LIST changes: +OFLO3OPSO
== END ==
LOC: M RAD 09:51
PROVIDERS: ATTEND Family Medicine
DX: M25.511 Pain in right shoulder (principal); M67.813 Other specified disorders of tendon, right shoulder

== ENCOUNTER → 2021-12-26 | Outpatient (CLI) | payer MEDICARE | LOC: M RAD 12:49 | PROVIDERS: ATTEND Surgery Vascular Surgery | DX: N18.6 End stage renal disease (principal); Z99.2 Dependence on renal dialysis ==

== ENCOUNTER → 2022-01-27 | Outpatient (CLI) | payer MEDICARE ==
[~2022-01-27] MED LIST changes: +GABA-1171; +OPTI0.5D5 OS
== END ==
LOC: M LABSMTC 10:42
PROVIDERS: ATTEND Anesthesiology
DX: Z01.812 Encounter for preprocedural laboratory examination (principal); Z11.52 Encounter for screening for COVID-19

== ENCOUNTER 2022-01-31 06:10 | Day surgery (SDC) | payer MEDICARE ==
[~2022-01-31] VITALS: Ht 177.8 cm; Wt 74.4 kg
[2022-01-31] MEDS ORDERED: ceFAZolin SOD 2 GM in IV 1 EA IV ONE (06:25)
[2022-01-31] MEDS ORDERED: D5W/0.2% SODIUM CHLORIDE 1,000 ML IV SCH (06:30)
[2022-01-31 06:59] LABS: HEMATOCRIT 30.2 % (36.0-47.0); HEMOGLOBIN 9.7 g/dl (12.0-15.5); MEAN CORPUSCULAR HGB CONC 32.1 g/dl (32.0-36.5); PLATELET COUNT, AUTOMATED 129 10^3/uL (150-450); RED BLOOD COUNT 2.85 10^6/uL (4.00-5.40); WHITE BLOOD COUNT 5.8 10^3/uL (4.0-10.0)
[2022-01-31 07:11] LABS: INR 1.08; PROTHROMBIN TIME 14.3 SECONDS (12.5-14.5)
[2022-01-31 07:12] LABS: PARTIAL THROMBOPLASTIN TIME 26.3 SECONDS (24.8-34.2)
[2022-01-31] MEDS ORDERED: fentaNYL 100 MCG/2 ML INJECTION As Ordered ONE (07:13)
[2022-01-31] MEDS ORDERED: propofoL 200 MG/20 ML VIAL As Ordered ONE ×3 (07:17→08:59)
[2022-01-31] MEDS ORDERED: dexameTHASONE 4 MG/ML 1ML VIAL (J1100 PER 1MG) As Ordered ONE (07:17)
[2022-01-31] MEDS ORDERED: ONDANSETRON 4MG 2ML VIAL As Ordered ONE (07:17)
[2022-01-31] MEDS ORDERED: LIDOCAINE 1% SDV 30ML VIAL As Ordered ONE (07:19)
[2022-01-31] MEDS ORDERED: HEPARIN SOD (PORCINE) 5000UNITS/ML 1ML VIAL/SYRINGE As Ordered ONE (07:20)
[2022-01-31] MEDS ORDERED: BUPIVACAINE/EPIN 0.5% 30 ML VIAL As Ordered ONE (07:20)
[2022-01-31 07:40] LABS: CALCIUM LEVEL 9.4 MG/DL (8.3-10.6); CREATININE FOR GFR 4.23 MG/DL (0.55-1.30); GLOMERULAR FILTRATION RATE 10.8 (>39); POTASSIUM SERUM 4.7 MMOL/L (3.5-5.1)
[2022-01-31] MEDS ORDERED: PAPAVERINE HCL 60MG 2ML VIAL (30MG/ML) As Ordered ONE (08:06)
[2022-01-31] MEDS ORDERED: LIDOCAINE 2% 100MG/5ML SDV (FOR ANES.) As Ordered ONE (08:26)
[2022-01-31] MEDS ORDERED: KETAMINE HCL 200 MG/20 ML VIAL As Ordered ONE (08:26)
[2022-01-31] MEDS ORDERED: TETRACAINE 0.5% OPHTH SOLN 4ML OD ONE (09:55)
[2022-01-31] MEDS ORDERED: PROPARACAINE 0.5% OPHTH SOL 15ML OU ONE (10:00)
[2022-01-31 10:05] VITALS: BP 138/65
== END 2022-01-31 10:45 | disposition home or self-care (01) ==
LOC: M SDC 06:10
PROVIDERS: ATTEND Surgery Vascular Surgery
DX: N18.6 End stage renal disease (principal); Z99.2 Dependence on renal dialysis; I12.0 Hypertensive chronic kidney disease with stage 5 chronic kidney disease or end stage renal disease; E11.22 Type 2 diabetes mellitus with diabetic chronic kidney disease; I25.10 Atherosclerotic heart disease of native coronary artery without angina pectoris; I25.2 Old myocardial infarction; K59.00 Constipation, unspecified; B35.9 Dermatophytosis, unspecified; Z85.850 Personal history of malignant neoplasm of thyroid; Z85.43 Personal history of malignant neoplasm of ovary; Z79.899 Other long term (current) drug therapy; Z79.82 Long term (current) use of aspirin; Z79.890 Hormone replacement therapy; Z79.02 Long term (current) use of antithrombotics/antiplatelets; Z79.2 Long term (current) use of antibiotics; Z95.1 Presence of aortocoronary bypass graft; Z95.5 Presence of coronary angioplasty implant and graft; Z88.8 Allergy status to other drugs, medicaments and biological substances; Z91.030 Bee allergy status
CPT/HCPCS: 36821; 80048; 85027; 85610; 85730; 86850; 86900; 86901; 93005; J0690; J1100; J1644; J2405; J2440

== ENCOUNTER → 2022-05-15 | Outpatient (CLI) | payer MEDICARE | LOC: M RAD 10:47 | PROVIDERS: ATTEND Family Medicine | DX: S40.022D Contusion of left upper arm, subsequent encounter (principal); T82.838D Hemorrhage due to vascular prosthetic devices, implants and grafts, subsequent encounter; W18.30XD Fall on same level, unspecified, subsequent encounter; Y92.009 Unspecified place in unspecified non-institutional (private) residence as the place of occurrence of the external cause ==

== ENCOUNTER 2022-06-24 20:27 | Emergency (ER) | payer MEDICARE ==
[~2022-06-24] VITALS: Ht 177.8 cm; Wt 69.1 kg
[~2022-06-24 20:27] MED LIST changes: +ARTIDRO4 OU; -OFLO3OPSO; +OFLO5DRO; -POLYOPD OU
[2022-06-24 20:45] VITALS: BP 148/65
== END 2022-06-24 22:52 | disposition home or self-care (01) ==
LOC: M ED 20:27 → EDBD 20:27 → M ED 22:52
DX: S09.90XA Unspecified injury of head, initial encounter (principal); W05.0XXA Fall from non-moving wheelchair, initial encounter; Y92.019 Unspecified place in single-family (private) house as the place of occurrence of the external cause; Y93.89 Activity, other specified; Y99.8 Other external cause status; I11.9 Hypertensive heart disease without heart failure; N18.6 End stage renal disease; Z88.8 Allergy status to other drugs, medicaments and biological substances; Z91.030 Bee allergy status; Z91.040 Latex allergy status; Z79.82 Long term (current) use of aspirin; Z79.899 Other long term (current) drug therapy

== ENCOUNTER 2022-07-09 23:47 | Emergency (ER) | payer MEDICARE ==
[~2022-07-09] VITALS: Ht 177.8 cm; Wt 70.1 kg
[2022-07-10] MEDS ORDERED: PERCOCET 5MG/325MG TAB PO ONE (00:40)
[2022-07-10 03:10] VITALS: BP 167/70
== END 2022-07-10 03:59 | disposition home or self-care (01) ==
LOC: EDBD 23:47 → M ED 23:47
DX: S39.92XA Unspecified injury of lower back, initial encounter (principal); W19.XXXA Unspecified fall, initial encounter; E03.9 Hypothyroidism, unspecified; N18.6 End stage renal disease; I10 Essential (primary) hypertension; I25.10 Atherosclerotic heart disease of native coronary artery without angina pectoris; Z88.8 Allergy status to other drugs, medicaments and biological substances; Z91.040 Latex allergy status; Z91.030 Bee allergy status

== ENCOUNTER 2022-07-22 08:46 | Day surgery (SDC) | payer MEDICARE ==
[~2022-07-22] VITALS: Ht 177.8 cm; Wt 67.1 kg
[~2022-07-22 08:46] MED LIST changes: +LIDOCAINE 2% 100MG/5ML SDV (FOR ANES.) As Ordered ONE; +NS 1,000 ML IV ONE; +propofoL 200 MG/20 ML VIAL As Ordered ONE
[2022-07-22 12:12] LABS: CALCIUM LEVEL 8.3 MG/DL (8.3-10.6); CREATININE FOR GFR 5.5 MG/DL (0.55-1.30); GLOMERULAR FILTRATION RATE 7.9 (>32); POTASSIUM SERUM 4.1 MMOL/L (3.5-5.1)
[2022-07-22] MEDS ORDERED: propofoL 200 MG/20 ML VIAL As Ordered ONE ×2 (14:24→14:46)
[2022-07-22] MEDS ORDERED: GLUCAGON INJ 1MG VIAL As Ordered ONE (14:50)
[2022-07-22 15:25] VITALS: BP 96/44
== END 2022-07-22 19:11 | disposition home or self-care (01) ==
LOC: M OPP 08:46
PROVIDERS: ATTEND Internal Medicine Gastroenterology
DX: D12.2 Benign neoplasm of ascending colon (principal); D12.4 Benign neoplasm of descending colon; K57.30 Diverticulosis of large intestine without perforation or abscess without bleeding; K64.8 Other hemorrhoids; D50.9 Iron deficiency anemia, unspecified; K31.7 Polyp of stomach and duodenum; Z88.8 Allergy status to other drugs, medicaments and biological substances; Z91.030 Bee allergy status; Z91.038 Other insect allergy status; Z91.040 Latex allergy status
CPT/HCPCS: 36415; 43251; 45385; 80048; 88305; J1610

== ENCOUNTER 2022-08-08 14:53 | Emergency (ER) | payer MEDICARE ==
[~2022-08-08] VITALS: Ht 177.8 cm; Wt 71.9 kg
[~2022-08-08 14:53] MED LIST changes: -GABA-1171; -LIDOCAINE 2% 100MG/5ML SDV (FOR ANES.) As Ordered ONE; -NS 1,000 ML IV ONE; -propofoL 200 MG/20 ML VIAL As Ordered ONE
[2022-08-08 16:24] LABS: HEMATOCRIT 26.3 % (36.0-47.0); HEMOGLOBIN 8.7 g/dl (12.0-15.5); MEAN CORPUSCULAR HEMOGLOBIN 34.4 pg (27.0-33.0); MEAN CORPUSCULAR HGB CONC 33.1 g/dl (32.0-36.5); PLATELET COUNT, AUTOMATED 133 10^3/uL (150-450); RED BLOOD COUNT 2.53 10^6/uL (4.00-5.40); WHITE BLOOD COUNT 4.3 10^3/uL (4.0-10.0)
[2022-08-08 17:00] LABS: ALBUMIN 2.4 G/DL (3.2-5.2); BILIRUBIN,DIRECT 0.1 MG/DL (<0.4); BILIRUBIN,TOTAL 0.3 MG/DL (0.3-1.2); CALCIUM LEVEL 7.5 MG/DL (8.3-10.6); CREATININE FOR GFR 1.49 MG/DL (0.55-1.30); GLOMERULAR FILTRATION RATE 35.8 (>32); POTASSIUM SERUM 2.9 MMOL/L (3.5-5.1); TOTAL PROTEIN 5.4 G/DL (5.7-8.2)
[2022-08-08] MEDS ORDERED: POTASSIUM CHLORIDE 10MEQ SR TABLET PO ONE (17:20)
[2022-08-08 18:25] VITALS: BP 151/56
== END 2022-08-08 18:50 | disposition home or self-care (01) ==
LOC: M ED 14:53
DX: E87.6 Hypokalemia (principal); K64.8 Other hemorrhoids; I25.10 Atherosclerotic heart disease of native coronary artery without angina pectoris; I10 Essential (primary) hypertension; N18.6 End stage renal disease; Z88.8 Allergy status to other drugs, medicaments and biological substances; Z91.030 Bee allergy status; Z91.040 Latex allergy status; Z79.899 Other long term (current) drug therapy

== ENCOUNTER 2022-08-13 15:40 | Inpatient (IN) | payer MEDICARE ==
[~2022-08-13] VITALS: Ht 167.6 cm; Wt 102.4 kg
[2022-08-13 16:31] LABS: BASO % 0.2 % (0.0-1.0); EOS % 0.4 % (0.0-3.0); HEMATOCRIT 27.5 % (36.0-47.0); LYMPH # 0.7 10^3/uL (1.5-5.0); MEAN CORPUSCULAR HEMOGLOBIN 34.2 pg (27.0-33.0); MEAN CORPUSCULAR HGB CONC 32.7 g/dl (32.0-36.5); MEAN CORPUSCULAR VOLUME 104.6 fl (80.0-96.0); MONO # 0.6 10^3/uL (0.0-0.8); MONO % 6.3 % (2.0-8.0); NEUTROPHILS # 8.4 10^3/uL (1.5-8.5); NEUTROPHILS % 85.6 % (36.0-66.0); PLATELET COUNT, AUTOMATED 170 10^3/uL (150-450); RED BLOOD COUNT 2.63 10^6/uL (4.00-5.40); WHITE BLOOD COUNT 9.8 10^3/uL (4.0-10.0)
[2022-08-13 16:44] LABS: INR 1.03; PARTIAL THROMBOPLASTIN TIME 28.1 SECONDS (24.8-34.2); PROTHROMBIN TIME 13.7 SECONDS (12.5-14.5)
[2022-08-13 16:56] LABS: CK-MB VALUE MASS < 1.0 NG/ML (<3.6)
[2022-08-13 16:57] LABS: ETHYL ALCOHOL (ETHANOL) < 0.003 % (0.000-0.010)
[2022-08-13 16:59] LABS: BLOOD UREA NITROGEN 10 MG/DL (9-23); CALCIUM LEVEL 7.7 MG/DL (8.3-10.6); CARBON DIOXIDE LEVEL 31 MMOL/L (20-31); CHLORIDE LEVEL 100 MMOL/L (98-107); CREATININE FOR GFR 1.53 MG/DL (0.55-1.30); GLOMERULAR FILTRATION RATE 34.8 (>32); GLUCOSE, FASTING 146 MG/DL (74-106); MAGNESIUM LEVEL 1.7 MG/DL (1.8-2.4); POTASSIUM SERUM 4.2 MMOL/L (3.5-5.1); SODIUM LEVEL 139 MMOL/L (136-145)
[2022-08-13 17:01] LABS: FREE T4 1.07 NG/DL (0.89-1.76)
[2022-08-13 17:02] LABS: THYROID STIMULATING HORMONE 2.223 uIU/ML (0.55-4.78)
[2022-08-13 17:08] LABS: CPK CREATINE PHOSPHOKINASE 22 U/L (34-145); MB/CK RELATIVE INDEX 4.54 (< OR =4)
[2022-08-13] MEDS ORDERED: MAG SULF 1GM/100ML (MAG RUN) 1 GM in IV 1 EA IV ONE (19:45)
[2022-08-13] MEDS ORDERED: GLUCAGON INJ 1MG VIAL SC PRN (20:10)
[2022-08-13] MEDS ORDERED: GLUCOSE 4GM CHEW TABLET PO PRN (20:10)
[2022-08-13] MEDS ORDERED: DEXTROSE 50% 50ML SYRINGE IV PRN (20:10)
[2022-08-13 20:24] LABS: ABG BASE EXCESS 8.5 (-2.0-2.0); ABG HCO3 31.1 MMOL/L (22.0-26.0); ABG O2 SATURATION 97.1 % (95.0-99.0); ABG PARTIAL PRESSURE CO2 35.1 mmHg (35.0-45.0); ABG PARTIAL PRESSURE O2 79.4 mmHg (75.0-100.0); ABG STANDARD HCO3 32.3 MMOL/L. (22.0-26.0); ABG TOTAL CO2 32.2 MMOL/L (23.0-31.0); ABG pH (ARTERIAL) 7.566 UNITS (7.350-7.450)
[2022-08-13] MEDS ORDERED: HOME MED LIST COMPLETE! XX SCH (20:30)
[2022-08-13] MEDS ORDERED: NS 500 ML IV ONE (20:45)
[2022-08-13] MEDS ORDERED: PIPERACILLIN/TAZOBACTAM SOD 2.25 GM in D5W MINI-BAG PLUS 50 ML IV ONE (20:45)
[2022-08-13] MEDS ORDERED: SODIUM CHLORIDE 0.9% 1000ML IV ONE ×2 (20:50→22:20)
[2022-08-13] MEDS ORDERED: ACETAMINOPHEN 1000MG 100ML IV BAG IV ONE (20:50)
[2022-08-13] MEDS ORDERED: FAMOTIDINE 20 MG TAB PO SCH (21:00)
[2022-08-13 21:06] LABS: LIPASE 26 U/L (12-53)
[2022-08-13 22:00] LABS: CK-MB VALUE MASS < 1.0 NG/ML (<3.6)
[2022-08-13] MEDS ORDERED: VANCOMYCIN HCL 1,000 MG, VIAL MATE ADAPTER 1 EACH in D5W 250 ML IV ONE (22:00)
[2022-08-13 22:01] LABS: CPK CREATINE PHOSPHOKINASE 17 U/L (34-145); MB/CK RELATIVE INDEX 5.88 (< OR =4)
[2022-08-13] MEDS ORDERED: METAMUCIL (PSYLLIUM) PACKET PO PRN (22:25)
[2022-08-13] MEDS ORDERED: VANCOMYCIN HCL 500 MG in D5W MINI-BAG PLUS 100 ML IV ONE (23:00)
[2022-08-13 23:21] VITALS: BP 101/49
[2022-08-14] VITALS (8 sets, daily range): BP systolic 102–134; BP diastolic 47–60; O2SAT 98–100
[2022-08-14] MEDS: ACETAMINOPHEN TAB 650MG DOSE (2X325MG) PO PRN ×3 (00:29→20:48)
[2022-08-14 02:37] LABS: CK-MB VALUE MASS 2.4 NG/ML (<3.6)
[2022-08-14 02:42] LABS: MB/CK RELATIVE INDEX 7.05 (< OR =4)
[2022-08-14] MEDS ORDERED: PIPERACILLIN/TAZOBACTAM SOD 2.25 GM in D5W MINI-BAG PLUS 50 ML IV SCH (03:00)
[2022-08-14] MEDS ORDERED: PIPERACILLIN/TAZOBACTAM SOD 3.375 GM in D5W MINI-BAG PLUS 50 ML IV SCH (03:00)
[2022-08-14 04:49] LABS: HEMOGLOBIN 8.2 g/dl (12.0-15.5); MEAN CORPUSCULAR HEMOGLOBIN 33.9 pg (27.0-33.0); MEAN CORPUSCULAR HGB CONC 31.5 g/dl (32.0-36.5); MEAN CORPUSCULAR VOLUME 107.4 fl (80.0-96.0); PLATELET COUNT, AUTOMATED 156 10^3/uL (150-450); RED BLOOD COUNT 2.42 10^6/uL (4.00-5.40); WHITE BLOOD COUNT 8.6 10^3/uL (4.0-10.0)
[2022-08-14 05:20] LABS: ERYTHROCYTE SEDIMENTATION RATE 50 mm/hr (0-30)
[2022-08-14 05:25] LABS: C REACTIVE PROTEIN QUANTITATIV 12.9 MG/DL (<1.0)
[2022-08-14 05:33] LABS: ALBUMIN 2.3 G/DL (3.2-5.2); BILIRUBIN,TOTAL 0.5 MG/DL (0.3-1.2); CALCIUM LEVEL 7.5 MG/DL (8.3-10.6); CREATININE FOR GFR 2.2 MG/DL (0.55-1.30); GLOMERULAR FILTRATION RATE 22.9 (>32); MAGNESIUM LEVEL 1.7 MG/DL (1.8-2.4); TOTAL PROTEIN 5.5 G/DL (5.7-8.2)
[2022-08-14] MEDS: MAG SULF 1GM/100ML (MAG RUN) 1 GM in IV 1 EA IV SCH ×2 (06:06→07:07)
[2022-08-14] MEDS: LEVOTHYROXINE 125MCG TABLET (0.125MG) PO SCH (06:06)
[2022-08-14] MEDS: MULTIVITAMINS/MINERALS THERAP 1 TAB PO SCH (09:00)
[2022-08-14] MEDS: allopurinoL 100 MG TAB PO SCH (09:00)
[2022-08-14] MEDS: HEPARIN SOD (PORCINE) 5000UNITS/ML 1ML VIAL/SYRINGE SQ SCH ×2 (09:01→20:46)
[2022-08-14] MEDS: PANTOPRAZOLE 40MG TAB (PROTONIX) PO SCH (09:01)
[2022-08-14] MEDS: ISOSORBIDE MON. (IMDUR) 30MG XR TAB PO SCH (09:01)
[2022-08-14] MEDS: TORSEMIDE 20 MG TAB PO SCH ×2 (09:01→17:00)
[2022-08-14] MEDS: CLOPIDOGREL 75 MG TAB PO SCH (09:01)
[2022-08-14] MEDS: ASPIRIN 81MG ENTERIC TABLET PO SCH (09:02)
[2022-08-14] MEDS: METOPROLOL SUCC (TopROL XL) 50MG **XL** TAB PO SCH (09:03)
[2022-08-14] MEDS: PIPERACILLIN/TAZOBACTAM SOD 4.5 GM in D5W MINI-BAG PLUS 50 ML IV SCH ×2 (11:19→23:22)
[2022-08-14] MEDS ORDERED: SODIUM CHLORIDE 0.9% 1000ML IV PRN (16:30)
[2022-08-14] MEDS: CALCIUM/VITAMIN D 500 MG TAB PO SCH (17:06)
[2022-08-14] MEDS: FOLIC ACID 1MG TAB PO SCH (17:06)
[2022-08-14] MEDS: VITAMIN D 1,000 INTERNATIONAL UNITS TABLET PO SCH (17:06)
[2022-08-14] MEDS ORDERED: VANCOMYCIN HCL 1,000 MG, VIAL MATE ADAPTER 1 EACH in D5W 250 ML IV SCH (21:00)
[2022-08-15 00:19] VITALS: BP 110/51
[2022-08-15 04:27] LABS: BASO % 0.3 % (0.0-1.0); EOS # 0.2 10^3/uL (0.0-0.5); EOS % 3.3 % (0.0-3.0); HEMATOCRIT 23.5 % (36.0-47.0); HEMOGLOBIN 7.7 g/dl (12.0-15.5); LYMPH # 1.1 10^3/uL (1.5-5.0); LYMPH % 16.7 % (24.0-44.0); MEAN CORPUSCULAR HEMOGLOBIN 34.2 pg (27.0-33.0); MEAN CORPUSCULAR HGB CONC 32.8 g/dl (32.0-36.5); MEAN CORPUSCULAR VOLUME 104.4 fl (80.0-96.0); MONO # 0.5 10^3/uL (0.0-0.8); MONO % 7.9 % (2.0-8.0); NEUTROPHILS # 4.5 10^3/uL (1.5-8.5); NEUTROPHILS % 71.2 % (36.0-66.0); PLATELET COUNT, AUTOMATED 147 10^3/uL (150-450); RED BLOOD COUNT 2.25 10^6/uL (4.00-5.40); WHITE BLOOD COUNT 6.3 10^3/uL (4.0-10.0)
[2022-08-15 04:39] VITALS: BP 112/54
[2022-08-15 05:00] LABS: VANCOMYCIN RANDOM 20.4 UG/ML
[2022-08-15 05:05] LABS: CALCIUM LEVEL 7.1 MG/DL (8.3-10.6); CREATININE FOR GFR 3.1 MG/DL (0.55-1.30); GLOMERULAR FILTRATION RATE 15.4 (>32); MAGNESIUM LEVEL 2.3 MG/DL (1.8-2.4); PHOSPHORUS LEVEL 1.4 MG/DL (2.4-5.1); POTASSIUM SERUM 4.2 MMOL/L (3.5-5.1)
[2022-08-15] MEDS: ASPIRIN 81MG ENTERIC TABLET PO SCH (05:39)
[2022-08-15] MEDS: ISOSORBIDE MON. (IMDUR) 30MG XR TAB PO SCH (05:39)
[2022-08-15] MEDS: MULTIVITAMINS/MINERALS THERAP 1 TAB PO SCH (05:39)
[2022-08-15] MEDS: LEVOTHYROXINE 125MCG TABLET (0.125MG) PO SCH (05:39)
[2022-08-15] MEDS: PANTOPRAZOLE 40MG TAB (PROTONIX) PO SCH (05:39)
[2022-08-15] MEDS: CLOPIDOGREL 75 MG TAB PO SCH (05:39)
[2022-08-15] MEDS: TORSEMIDE 20 MG TAB PO SCH ×2 (05:39→17:19)
[2022-08-15] MEDS: allopurinoL 100 MG TAB PO SCH (05:39)
[2022-08-15] MEDS: METOPROLOL SUCC (TopROL XL) 50MG **XL** TAB PO SCH (05:40)
[2022-08-15] MEDS: HEPARIN SOD (PORCINE) 5000UNITS/ML 1ML VIAL/SYRINGE SQ SCH (05:40)
[2022-08-15] MEDS ORDERED: HEPARIN 1,000UNITS/ML 10ML VIAL (FOR RADIOLOGY & DIALYSIS ONLY) IV PRN (06:00)
[2022-08-15] MEDS ORDERED: HEPARIN 1,000UNITS/ML 10ML VIAL (FOR RADIOLOGY & DIALYSIS ONLY) XX SCH (06:00)
[2022-08-15 07:51] VITALS: BP 132/60
[2022-08-15] MEDS ORDERED: SODIUM PHOSPHATE INJ 20 MMOL in D5W 250 ML IV ONE (13:00)
[2022-08-15] MEDS: PIPERACILLIN/TAZOBACTAM SOD 4.5 GM in D5W MINI-BAG PLUS 50 ML IV SCH (13:02)
[2022-08-15] MEDS ORDERED: HEPARIN SOD (PORCINE) 5000UNITS/ML 1ML VIAL/SYRINGE SQ SCH (14:00)
[2022-08-15 15:43] VITALS: BP 141/87
[2022-08-15] MEDS ORDERED: VANCOMYCIN HCL 1,000 MG, VIAL MATE ADAPTER 1 EACH in D5W 250 ML IV SCH (16:00)
[2022-08-15] MEDS: CALCIUM/VITAMIN D 500 MG TAB PO SCH (17:19)
[2022-08-15] MEDS: VITAMIN D 1,000 INTERNATIONAL UNITS TABLET PO SCH (17:19)
[2022-08-15] MEDS: FOLIC ACID 1MG TAB PO SCH (17:19)
== END 2022-08-15 19:03 | disposition left against medical advice (07) | DRG 871 ==
LOC: EDBD 15:40 → M ED 15:40 → M ED INP 19:58 → M PCU 23:09
PROVIDERS: ADMIT Internal Medicine; ATTEND Internal Medicine
PROC: 0JBQ3ZZ Excision of Right Foot Subcutaneous Tissue and Fascia, Percutaneous Approach (ICD-10-PCS; principal; 2022-08-15)
DX: A41.9 Sepsis, unspecified organism (principal); N18.6 End stage renal disease; G93.41 Metabolic encephalopathy; M72.6 Necrotizing fasciitis; I13.2 Hypertensive heart and chronic kidney disease with heart failure and with stage 5 chronic kidney disease, or end stage renal disease; L03.115 Cellulitis of right lower limb; I50.32 Chronic diastolic (congestive) heart failure; J81.1 Chronic pulmonary edema; E78.5 Hyperlipidemia, unspecified; K21.9 Gastro-esophageal reflux disease without esophagitis; E11.22 Type 2 diabetes mellitus with diabetic chronic kidney disease; D64.9 Anemia, unspecified; R29.6 Repeated falls; E89.0 Postprocedural hypothyroidism; E87.70 Fluid overload, unspecified; M10.9 Gout, unspecified; L97.519 Non-pressure chronic ulcer of other part of right foot with unspecified severity; H54.8 Legal blindness, as defined in USA; I25.10 Atherosclerotic heart disease of native coronary artery without angina pectoris; I83.92 Asymptomatic varicose veins of left lower extremity; I27.20 Pulmonary hypertension, unspecified; E55.9 Vitamin D deficiency, unspecified; D46.9 Myelodysplastic syndrome, unspecified; D69.6 Thrombocytopenia, unspecified; Z95.5 Presence of coronary angioplasty implant and graft; Z85.3 Personal history of malignant neoplasm of breast; Z90.49 Acquired absence of other specified parts of digestive tract; Z91.030 Bee allergy status; Z91.040 Latex allergy status; Z91.038 Other insect allergy status; Z88.8 Allergy status to other drugs, medicaments and biological substances; Z99.2 Dependence on renal dialysis; Z79.82 Long term (current) use of aspirin

== ENCOUNTER 2022-09-15 15:47 | Inpatient (IN) | payer MEDICARE ==
[~2022-09-15] VITALS: Ht 167.6 cm; Wt 71.5 kg
[2022-09-15 16:50] LABS: BASO % 0.1 % (0.0-1.0); EOS % 0.1 % (0.0-3.0); HEMATOCRIT 25.6 % (36.0-47.0); HEMOGLOBIN 8.4 g/dl (12.0-15.5); LYMPH # 0.4 10^3/uL (1.5-5.0); LYMPH % 5.2 % (24.0-44.0); MEAN CORPUSCULAR HEMOGLOBIN 34.3 pg (27.0-33.0); MEAN CORPUSCULAR HGB CONC 32.8 g/dl (32.0-36.5); MEAN CORPUSCULAR VOLUME 104.5 fl (80.0-96.0); MONO # 0.4 10^3/uL (0.0-0.8); NEUTROPHILS # 6.1 10^3/uL (1.5-8.5); PLATELET COUNT, AUTOMATED 115 10^3/uL (150-450); RED BLOOD COUNT 2.45 10^6/uL (4.00-5.40)
[2022-09-15] MEDS ORDERED: ACETAMINOPHEN 650MG SUPP PR ONE (17:05)
[2022-09-15 17:25] LABS: GLUCOSE, FASTING 122 MG/DL (74-106)
[2022-09-15 17:26] LABS: ALBUMIN 2.8 G/DL (3.2-5.2); ALKALINE PHOSPHATASE 68 U/L (46-116); ALT/SGPT 17 U/L (7.0-40); AST/SGOT 27 U/L (<34); BILIRUBIN,DIRECT 0.3 MG/DL (<0.4); BILIRUBIN,TOTAL 0.6 MG/DL (0.3-1.2); BLOOD UREA NITROGEN 12 MG/DL (9-23); CALCIUM LEVEL 9.1 MG/DL (8.3-10.6); CARBON DIOXIDE LEVEL 25 MMOL/L (20-31); CHLORIDE LEVEL 102 MMOL/L (98-107); CK-MB VALUE MASS < 1.0 NG/ML (<3.6); CREATININE FOR GFR 1.86 MG/DL (0.55-1.30); GLOMERULAR FILTRATION RATE 27.8 (>32); POTASSIUM SERUM 4.3 MMOL/L (3.5-5.1); SODIUM LEVEL 137 MMOL/L (136-145)
[2022-09-15 17:27] LABS: THYROID STIMULATING HORMONE 3.931 uIU/ML (0.55-4.78)
[2022-09-15 17:28] LABS: CPK CREATINE PHOSPHOKINASE 28 U/L (34-145); MB/CK RELATIVE INDEX 3.57 (< OR =4); RSV AMPLIFICATION NEGATIVE (NEGATIVE)
[2022-09-15] MEDS ORDERED: VANCOMYCIN HCL 1,500 MG in NS 250 ML IV ONE (17:35)
[2022-09-15] MEDS ORDERED: VANCOMYCIN HCL 750 MG, VIAL MATE ADAPTER 1 EACH in D5W 250 ML IV ONE ×2 (18:00→19:00)
[2022-09-15] MEDS ORDERED: GLUCAGON INJ 1MG VIAL SC PRN (19:45)
[2022-09-15] MEDS ORDERED: GLUCOSE 4GM CHEW TABLET PO PRN (19:45)
[2022-09-15] MEDS ORDERED: DEXTROSE 50% 50ML SYRINGE IV PRN (19:45)
[2022-09-15] MEDS ORDERED: ASPIRIN 300 MG SUPP PR ONE (20:30)
[2022-09-15 20:46] LABS: ERYTHROCYTE SEDIMENTATION RATE 32 mm/hr (0-30)
[2022-09-15] MEDS ORDERED: MED REC IN PROGRESS XX SCH (21:25)
[2022-09-15 22:20] LABS: VENOUS BASE EXCESS 1.5 (-2.0-2.0); VENOUS HCO3 25.6 MMOL/L (23.0-27.0); VENOUS O2 SATURATION 67.2 % (60.0-80.0); VENOUS PARTIAL PRESSURE CO2 38.3 mmHg (38.0-50.0); VENOUS PH 7.443 UNITS (7.330-7.430); VENOUS STANDARD HCO3 25.3 MMOL/L; VENOUS TOTAL CO2 26.8 MMOL/L (24.0-28.0)
[2022-09-15 22:30] VITALS: BP 117/45; TEMP 98.1; O2SAT 98
[2022-09-15] MEDS ORDERED: HYDR-3910 PO (22:38)
[2022-09-15] MEDS ORDERED: CRANCAP4 PO (22:38)
[2022-09-15] MEDS ORDERED: ISOS1TAB35 PO (22:38)
[2022-09-15] MEDS ORDERED: CLOP75TA2 PO (22:38)
[2022-09-15] MEDS ORDERED: GABA-1171 PO (22:38)
[2022-09-15] MEDS ORDERED: VITMTA PO (22:38)
[2022-09-15] MEDS ORDERED: MAGN400T2 PO (22:38)
[2022-09-15] MEDS ORDERED: FOLI1TAB11 PO (22:38)
[2022-09-15] MEDS ORDERED: TUMS500C PO (22:38)
[2022-09-15] MEDS ORDERED: SYNT125T PO (22:38)
[2022-09-15] MEDS ORDERED: FAMO20TA PO (22:38)
[2022-09-15] MEDS ORDERED: ACET-897 PO (22:38)
[2022-09-15] MEDS ORDERED: VITA100093 PO (22:38)
[2022-09-15] MEDS ORDERED: RA M10TA PO (22:38)
[2022-09-15] MEDS ORDERED: ALLO100T PO (22:38)
[2022-09-15] MEDS ORDERED: METO1TAB7 PO (22:38)
[2022-09-15] MEDS ORDERED: ASPI-161 PO (22:38)
[2022-09-15] MEDS ORDERED: CALC600T27 PO (22:38)
[2022-09-15] MEDS ORDERED: TORS20TA2 PO (22:39)
[2022-09-15] MEDS ORDERED: META0.52 PO (22:39)
[2022-09-15] MEDS ORDERED: PANT40TA29 PO (22:39)
[2022-09-15] MEDS ORDERED: OCUVTAB4 PO (22:39)
[2022-09-15] MEDS ORDERED: HOME MED LIST COMPLETE! XX SCH (22:40)
[2022-09-15 22:59] LABS: C REACTIVE PROTEIN QUANTITATIV 9.9 MG/DL (<1.0); CK-MB VALUE MASS 2.2 NG/ML (<3.6)
[2022-09-15 23:08] LABS: MB/CK RELATIVE INDEX 3.14 (< OR =4)
[2022-09-15] MEDS ORDERED: SODIUM CHLORIDE 0.9% 1000ML IV ONE (23:20)
[2022-09-15] MEDS ORDERED: METAMUCIL (PSYLLIUM) PACKET PO PRN (23:40)
[2022-09-15] MEDS: HEPARIN SOD (PORCINE) 5000UNITS/ML 1ML VIAL/SYRINGE SC SCH (23:42)
[2022-09-16] VITALS (7 sets, daily range): BP systolic 104–154; BP diastolic 44–68; TEMP 96.7–100.4; O2SAT 92–100
[2022-09-16 02:23] LABS: CK-MB VALUE MASS 3.6 NG/ML (<3.6)
[2022-09-16 02:24] LABS: MB/CK RELATIVE INDEX 3.71 (< OR =4)
[2022-09-16] MEDS: ATORVASTATIN 20 MG TAB PO SCH ×2 (03:47→20:06)
[2022-09-16] MEDS ORDERED: ACETAMINOPHEN TAB 650MG DOSE (2X325MG) PO PRN (04:50)
[2022-09-16] MEDS: LEVOTHYROXINE 125MCG TABLET (0.125MG) PO SCH (05:00)
[2022-09-16 05:20] LABS: CK-MB VALUE MASS 3.2 NG/ML (<3.6)
[2022-09-16 05:32] LABS: VANCOMYCIN RANDOM 20.3 UG/ML
[2022-09-16 05:35] LABS: MB/CK RELATIVE INDEX 3.2 (< OR =4)
[2022-09-16 05:36] LABS: ALBUMIN 2.3 G/DL (3.2-5.2); BILIRUBIN,TOTAL 0.4 MG/DL (0.3-1.2); CALCIUM LEVEL 8.4 MG/DL (8.3-10.6); CHOLESTEROL RISK RATIO 2.06 (<5); CREATININE FOR GFR 2.51 MG/DL (0.55-1.30); GLOMERULAR FILTRATION RATE 19.6 (>32); HDL CHOLESTEROL 45.6 MG/DL (>40); LDL CHOLESTEROL 29.6 MG/DL (<100); NON-HDL-C 48.4 MG/DL; POTASSIUM SERUM 4.2 MMOL/L (3.5-5.1); TOTAL PROTEIN 5.3 G/DL (5.7-8.2)
[2022-09-16 06:49] LABS: HEMATOCRIT 22.5 % (36.0-47.0); HEMOGLOBIN 7.4 g/dl (12.0-15.5); MEAN CORPUSCULAR HEMOGLOBIN 34.3 pg (27.0-33.0); MEAN CORPUSCULAR HGB CONC 32.9 g/dl (32.0-36.5); MEAN CORPUSCULAR VOLUME 104.2 fl (80.0-96.0); PLATELET COUNT, AUTOMATED 100 10^3/uL (150-450); RED BLOOD COUNT 2.16 10^6/uL (4.00-5.40); WHITE BLOOD COUNT 8.3 10^3/uL (4.0-10.0)
[2022-09-16 07:19] LABS: CK-MB VALUE MASS 3.4 NG/ML (<3.6); MB/CK RELATIVE INDEX 3.86 (< OR =4)
[2022-09-16] MEDS ORDERED: TORSEMIDE 20 MG TAB PO SCH (09:00)
[2022-09-16] MEDS: HEPARIN SOD (PORCINE) 5000UNITS/ML 1ML VIAL/SYRINGE SC SCH ×2 (09:00→20:08)
[2022-09-16] MEDS: **hydrALAZINE HCL** 25 MG TAB PO SCH ×3 (09:00→20:10)
[2022-09-16] MEDS: CLOPIDOGREL 75 MG TAB PO SCH (09:20)
[2022-09-16] MEDS: ASPIRIN 81MG ENTERIC TABLET PO SCH (09:20)
[2022-09-16] MEDS: ISOSORBIDE MON. (IMDUR) 30MG XR TAB PO SCH (09:20)
[2022-09-16] MEDS: METOPROLOL SUCC (TopROL XL) 50MG **XL** TAB PO SCH (09:20)
[2022-09-16] MEDS: allopurinoL 100 MG TAB PO SCH (09:20)
[2022-09-16] MEDS: PANTOPRAZOLE 40MG TAB (PROTONIX) PO SCH (09:20)
[2022-09-16] MEDS: CALCIUM CARBONATE 500 MG CHEW U/D PO SCH ×3 (09:21→20:06)
[2022-09-16 10:11] LABS: CK-MB VALUE MASS 3.3 NG/ML (<3.6)
[2022-09-16 10:24] LABS: MB/CK RELATIVE INDEX 2.89 (< OR =4)
[2022-09-16] MEDS ORDERED: PIPERACILLIN/TAZOBACTAM SOD 3.375 GM in D5W MINI-BAG PLUS 50 ML IV SCH (10:45)
[2022-09-16] MEDS: PIPERACILLIN/TAZOBACTAM SOD 4.5 GM in D5W MINI-BAG PLUS 50 ML IV SCH ×2 (11:30→23:22)
[2022-09-16] MEDS ORDERED: CALCIUM/VITAMIN D 500 MG TAB PO SCH (18:00)
[2022-09-16] MEDS ORDERED: MULTIVITAMINS/MINERALS THERAP 1 TAB PO SCH (18:00)
[2022-09-16] MEDS ORDERED: FOLIC ACID 1MG TAB PO SCH (18:00)
[2022-09-16] MEDS ORDERED: MAGNESIUM OXIDE 400MG TAB (MAG-OX) PO SCH (18:00)
[2022-09-16] MEDS ORDERED: VITAMIN D 1,000 INTERNATIONAL UNITS TABLET PO SCH (18:00)
[2022-09-16] MEDS ORDERED: VANCOMYCIN HCL 1,000 MG, VIAL MATE ADAPTER 1 EACH in D5W 250 ML IV SCH (20:25)
[2022-09-16] MEDS ORDERED: FAMOTIDINE 20 MG TAB PO SCH (21:00)
[2022-09-16] MEDS ORDERED: ACETAMINOPHEN 500 MG TAB PO SCH (21:00)
[2022-09-17 00:45] VITALS: BP 118/57; TEMP 98.6; O2SAT 93
[2022-09-17 04:10] VITALS: BP 102/49; TEMP 97.9; O2SAT 90
[2022-09-17] MEDS: LEVOTHYROXINE 125MCG TABLET (0.125MG) PO SCH (05:52)
[2022-09-17] MEDS: ASPIRIN 81MG ENTERIC TABLET PO SCH (05:52)
[2022-09-17] MEDS: CALCIUM CARBONATE 500 MG CHEW U/D PO SCH (05:52)
[2022-09-17] MEDS: allopurinoL 100 MG TAB PO SCH (05:52)
[2022-09-17 06:02] VITALS: BP 102/49; TEMP 97.9; O2SAT 90
[2022-09-17 06:03] LABS: BASO % 0.1 % (0.0-1.0); EOS # 0.1 10^3/uL (0.0-0.5); EOS % 0.9 % (0.0-3.0); HEMATOCRIT 22.3 % (36.0-47.0); HEMOGLOBIN 7.3 g/dl (12.0-15.5); LYMPH % 13.1 % (24.0-44.0); MEAN CORPUSCULAR HEMOGLOBIN 34.1 pg (27.0-33.0); MEAN CORPUSCULAR HGB CONC 32.7 g/dl (32.0-36.5); MEAN CORPUSCULAR VOLUME 104.2 fl (80.0-96.0); MONO # 0.5 10^3/uL (0.0-0.8); MONO % 6.8 % (2.0-8.0); NEUTROPHILS % 78.2 % (36.0-66.0); PLATELET COUNT, AUTOMATED 105 10^3/uL (150-450); RED BLOOD COUNT 2.14 10^6/uL (4.00-5.40); WHITE BLOOD COUNT 7.7 10^3/uL (4.0-10.0)
[2022-09-17 06:18] LABS: VANCOMYCIN RANDOM 15.7 UG/ML
[2022-09-17 06:22] LABS: BILIRUBIN,TOTAL 0.4 MG/DL (0.3-1.2); CALCIUM LEVEL 8.2 MG/DL (8.3-10.6); CREATININE FOR GFR 3.5 MG/DL (0.55-1.30); GLOMERULAR FILTRATION RATE 13.4 (>32); POTASSIUM SERUM 3.9 MMOL/L (3.5-5.1); TOTAL PROTEIN 4.8 G/DL (5.7-8.2)
[2022-09-17 07:36] VITALS: BP 127/58; TEMP 97.8; O2SAT 94
[2022-09-17] MEDS: HEPARIN SOD (PORCINE) 5000UNITS/ML 1ML VIAL/SYRINGE SC SCH ×2 (09:00→09:36)
[2022-09-17 09:36] VITALS: BP 134/61
[2022-09-17] MEDS: METOPROLOL SUCC (TopROL XL) 50MG **XL** TAB PO SCH (09:36)
[2022-09-17] MEDS: **hydrALAZINE HCL** 25 MG TAB PO SCH (09:37)
[2022-09-17] MEDS: PANTOPRAZOLE 40MG TAB (PROTONIX) PO SCH (09:37)
[2022-09-17] MEDS: ISOSORBIDE MON. (IMDUR) 30MG XR TAB PO SCH (09:37)
[2022-09-17] MEDS: CLOPIDOGREL 75 MG TAB PO SCH (09:37)
[2022-09-17] MEDS: PIPERACILLIN/TAZOBACTAM SOD 4.5 GM in D5W MINI-BAG PLUS 50 ML IV SCH (11:25)
[2022-09-17] MEDS ORDERED: SODIUM CHLORIDE 0.9% 1000ML IV PRN (11:50)
[2022-09-17] MEDS ORDERED: HEPARIN 1,000UNITS/ML 10ML VIAL (FOR RADIOLOGY & DIALYSIS ONLY) IV PRN (11:50)
[2022-09-17] MEDS ORDERED: HEPARIN 1,000UNITS/ML 10ML VIAL (FOR RADIOLOGY & DIALYSIS ONLY) XX SCH (11:50)
[2022-09-17] MEDS ORDERED: LIDOCAINE 1% SDV 5ML VIAL SC PRN (11:50)
[2022-09-17] MEDS ORDERED: EMLA CREAM 5GM TUBE (LIDOCAINE/PRILOCAINE) TOP ONE (12:00)
[2022-09-17 12:39] VITALS: BP 124/59; TEMP 98.1; O2SAT 95
[2022-09-17] MEDS ORDERED: ZOSY1SOL5 IV (15:00)
[2022-09-17] MEDS ORDERED: ATOR1TAB21 PO (15:00)
[2022-09-19] MEDS ORDERED: INSU100V2 SQ (23:11)
== END 2022-09-17 16:13 | disposition short-term general hospital (02) | DRG 871 ==
LOC: M ED 15:47 → M ED INP 20:19 → M MSPAV 22:20 → M PCU 09-16 04:18
PROVIDERS: ADMIT Internal Medicine; ATTEND Internal Medicine
PROC: B246ZZZ Ultrasonography of Right and Left Heart (ICD-10-PCS; principal; 2022-09-16)
DX: A41.50 Gram-negative sepsis, unspecified (principal); N18.6 End stage renal disease; G93.41 Metabolic encephalopathy; I21.A1 Myocardial infarction type 2; E87.20 Acidosis, unspecified; I50.32 Chronic diastolic (congestive) heart failure; I13.2 Hypertensive heart and chronic kidney disease with heart failure and with stage 5 chronic kidney disease, or end stage renal disease; L03.115 Cellulitis of right lower limb; E78.5 Hyperlipidemia, unspecified; K21.9 Gastro-esophageal reflux disease without esophagitis; Z85.3 Personal history of malignant neoplasm of breast; E03.9 Hypothyroidism, unspecified; E11.22 Type 2 diabetes mellitus with diabetic chronic kidney disease; D63.1 Anemia in chronic kidney disease; I25.10 Atherosclerotic heart disease of native coronary artery without angina pectoris; E11.621 Type 2 diabetes mellitus with foot ulcer; D46.9 Myelodysplastic syndrome, unspecified; F03.90 Unspecified dementia, unspecified severity, without behavioral disturbance, psychotic disturbance, mood disturbance, and anxiety; I27.20 Pulmonary hypertension, unspecified; D69.6 Thrombocytopenia, unspecified; M10.9 Gout, unspecified; H54.8 Legal blindness, as defined in USA; R29.6 Repeated falls; Z79.82 Long term (current) use of aspirin; Z79.890 Hormone replacement therapy; Z79.899 Other long term (current) drug therapy; Z88.8 Allergy status to other drugs, medicaments and biological substances; Z91.030 Bee allergy status; Z91.040 Latex allergy status; Z91.038 Other insect allergy status; Z95.5 Presence of coronary angioplasty implant and graft; Z90.49 Acquired absence of other specified parts of digestive tract; Z90.79 Acquired absence of other genital organ(s)

== ENCOUNTER 2022-09-19 08:30 | Inpatient (IN) | payer MEDICARE ==
[~2022-09-19] VITALS: Ht 177.8 cm; Wt 72.9 kg
[~2022-09-19 08:30] MED LIST changes: +ACET-897 PO; +ASPI-161 PO; +ATOR1TAB21 PO; +CALC600T27 PO; +CRANCAP4 PO; +RA M10TA PO; +SYNT125T PO; +TUMS500C PO; +ZOSY1SOL5 IV
[2022-09-19] MEDS ORDERED: MOM 30ML SUSPENSION UDC PO PRN (15:55)
[2022-09-19] MEDS ORDERED: ACETAMINOPHEN TAB 650MG DOSE (2X325MG) PO PRN (15:55)
[2022-09-19 16:00] VITALS: BP 135/66; TEMP 97.9; O2SAT 100
[2022-09-19] MEDS ORDERED: MED REC IN PROGRESS XX SCH (16:40)
[2022-09-19 16:58] LABS: BASO % 0.2 % (0.0-1.0); EOS # 0.1 10^3/uL (0.0-0.5); EOS % 2.4 % (0.0-3.0); HEMATOCRIT 24.8 % (36.0-47.0); LYMPH % 19.8 % (24.0-44.0); MEAN CORPUSCULAR HEMOGLOBIN 33.1 pg (27.0-33.0); MEAN CORPUSCULAR HGB CONC 32.3 g/dl (32.0-36.5); MEAN CORPUSCULAR VOLUME 102.5 fl (80.0-96.0); MONO # 0.5 10^3/uL (0.0-0.8); MONO % 10.1 % (2.0-8.0); NEUTROPHILS # 3.4 10^3/uL (1.5-8.5); NEUTROPHILS % 66.5 % (36.0-66.0); PLATELET COUNT, AUTOMATED 142 10^3/uL (150-450); RED BLOOD COUNT 2.42 10^6/uL (4.00-5.40)
[2022-09-19 17:18] LABS: ALBUMIN 2.3 G/DL (3.2-5.2); CALCIUM LEVEL 8.2 MG/DL (8.3-10.6); CREATININE FOR GFR 2.08 MG/DL (0.55-1.30); GLOMERULAR FILTRATION RATE 24.4 (>32); PHOSPHORUS LEVEL 1.5 MG/DL (2.4-5.1); POTASSIUM SERUM 3.1 MMOL/L (3.5-5.1)
[2022-09-19] MEDS ORDERED: NEUTRA-PHOS 1.5 GM PACKET PO SCH (17:30)
[2022-09-19] MEDS ORDERED: LevoFLOXacin 750 MG TABLET PO ONE (18:00)
[2022-09-19] MEDS: NEUTRA-PHOS 1.5 GM PACKET PO SCH ×2 (18:20→20:51)
[2022-09-19] MEDS ORDERED: HYDROMORPHONE HCL 0.5 MG/ 0.5 ML SYRINGE IV PRN (19:55)
[2022-09-19] MEDS: DICLOFENAC EPOLAMINE 1.3% PATCH TOP SCH (20:51)
[2022-09-19] MEDS: DOCUSATE SODIUM 100MG CAPSULE PO SCH (21:00)
[2022-09-19 21:30] VITALS: BP 149/70; TEMP 97.5; O2SAT 98
[2022-09-19] MEDS ORDERED: ATOR80TA59 PO (22:07)
[2022-09-19] MEDS: HYDROMORPHONE HCL 0.5 MG/ 0.5 ML SYRINGE IV PRN (22:37)
[2022-09-19] MEDS ORDERED: HEPA1INJ SUBQ (23:11)
[2022-09-19] MEDS ORDERED: BISA10SU PR (23:11)
[2022-09-19] MEDS ORDERED: ALBU2.5V10 INH (23:11)
[2022-09-19] MEDS ORDERED: ACET1TAB55 PO (23:11)
[2022-09-19] MEDS ORDERED: FAMO10TA52 PO (23:11)
[2022-09-19] MEDS ORDERED: GLUC1KIT IM (23:11)
[2022-09-19] MEDS ORDERED: POLY17PO18 PO (23:11)
[2022-09-19] MEDS ORDERED: INSU100V6 SQ (23:11)
[2022-09-19] MEDS ORDERED: [UNRECOGNIZED DRUG - CODE] IV (23:11)
[2022-09-19] MEDS ORDERED: HOME MED LIST COMPLETE! XX SCH (23:20)
[2022-09-19] MEDS: ACETAMINOPHEN 500 MG TAB PO SCH (23:58)
[2022-09-20] MEDS ORDERED: diazePAM 10MG/2ML SYRINGE IV ONE (00:15)
[2022-09-20] MEDS: HYDROMORPHONE HCL 0.5 MG/ 0.5 ML SYRINGE IV PRN (01:53)
[2022-09-20 06:00] VITALS: BP 139/63; TEMP 97.5; O2SAT 98
[2022-09-20] MEDS: HEPARIN SOD (PORCINE) 5000UNITS/ML 1ML VIAL/SYRINGE SC SCH ×3 (06:36→21:10)
[2022-09-20] MEDS: ACETAMINOPHEN 500 MG TAB PO SCH ×4 (06:37→18:37)
[2022-09-20 07:35] LABS: HEMATOCRIT 25.9 % (36.0-47.0); HEMOGLOBIN 8.5 g/dl (12.0-15.5); MEAN CORPUSCULAR HEMOGLOBIN 33.5 pg (27.0-33.0); MEAN CORPUSCULAR HGB CONC 32.8 g/dl (32.0-36.5); PLATELET COUNT, AUTOMATED 153 10^3/uL (150-450); RED BLOOD COUNT 2.54 10^6/uL (4.00-5.40); WHITE BLOOD COUNT 5.3 10^3/uL (4.0-10.0)
[2022-09-20 08:08] LABS: CALCIUM LEVEL 7.3 MG/DL (8.3-10.6); CREATININE FOR GFR 2.62 MG/DL (0.55-1.30); GLOMERULAR FILTRATION RATE 18.7 (>32)
[2022-09-20 08:32] LABS: ALBUMIN 2.5 G/DL (3.2-5.2); CALCIUM LEVEL 8.1 MG/DL (8.3-10.6); CREATININE FOR GFR 2.59 MG/DL (0.55-1.30); GLOMERULAR FILTRATION RATE 18.9 (>32); PHOSPHORUS LEVEL 2.7 MG/DL (2.4-5.1); POTASSIUM SERUM 3.1 MMOL/L (3.5-5.1)
[2022-09-20] MEDS: NEUTRA-PHOS 1.5 GM PACKET PO SCH (09:07)
[2022-09-20] MEDS: DICLOFENAC EPOLAMINE 1.3% PATCH TOP SCH ×2 (09:08→21:11)
[2022-09-20] MEDS: DOCUSATE SODIUM 100MG CAPSULE PO SCH ×2 (09:08→21:10)
[2022-09-20] MEDS: POTASSIUM CHLORIDE 10MEQ SR TABLET PO SCH ×2 (10:41→12:29)
[2022-09-20 14:00] VITALS: BP 140/63; TEMP 97.7; O2SAT 98
[2022-09-20] MEDS ORDERED: BISACODYL 10MG SUPP PR PRN (17:15)
[2022-09-20] MEDS ORDERED: MIRALAX *UNIT DOSE* 17GM PACKET PO PRN (17:15)
[2022-09-20] MEDS ORDERED: ALBUTEROL SULFATE 2.5MG/0.5ML INH NEB SOLN INH PRN (17:15)
[2022-09-20] MEDS: PANTOPRAZOLE 40MG TAB (PROTONIX) PO SCH (18:36)
[2022-09-20] MEDS: ISOSORBIDE MON. (IMDUR) 30MG XR TAB PO SCH (18:36)
[2022-09-20] MEDS: ASPIRIN 81MG ENTERIC TABLET PO SCH (18:36)
[2022-09-20] MEDS: METOPROLOL SUCC (TopROL XL) 50MG **XL** TAB PO SCH (18:36)
[2022-09-20] MEDS: CLOPIDOGREL 75 MG TAB PO SCH (18:36)
[2022-09-20] MEDS: allopurinoL 100 MG TAB PO SCH (18:37)
[2022-09-20 21:05] VITALS: BP 128/49; TEMP 97.9; O2SAT 99
[2022-09-20] MEDS: ATORVASTATIN 20 MG TAB PO SCH (21:10)
[2022-09-20] MEDS: **hydrALAZINE HCL** 25 MG TAB PO SCH (21:10)
[2022-09-20] MEDS ORDERED: ONDANSETRON 4MG ORAL DISINTEGRATING TAB PO PRN (23:05)
[2022-09-21] MEDS: HEPARIN SOD (PORCINE) 5000UNITS/ML 1ML VIAL/SYRINGE SC SCH ×3 (05:06→22:12)
[2022-09-21] MEDS: LEVOTHYROXINE 125MCG TABLET (0.125MG) PO SCH (05:06)
[2022-09-21] MEDS: ACETAMINOPHEN 500 MG TAB PO SCH ×2 (05:07)
[2022-09-21 05:43] VITALS: BP 155/69; TEMP 97.9; O2SAT 97
[2022-09-21 05:55] LABS: HEMATOCRIT 23.5 % (36.0-47.0); HEMOGLOBIN 7.6 g/dl (12.0-15.5); MEAN CORPUSCULAR HEMOGLOBIN 33.3 pg (27.0-33.0); MEAN CORPUSCULAR HGB CONC 32.3 g/dl (32.0-36.5); MEAN CORPUSCULAR VOLUME 103.1 fl (80.0-96.0); PLATELET COUNT, AUTOMATED 147 10^3/uL (150-450); RED BLOOD COUNT 2.28 10^6/uL (4.00-5.40); WHITE BLOOD COUNT 5.1 10^3/uL (4.0-10.0)
[2022-09-21] MEDS ORDERED: LevoFLOXacin 500 MG TABLET PO SCH (06:00)
[2022-09-21 06:21] LABS: ALBUMIN 2.4 G/DL (3.2-5.2); CREATININE FOR GFR 3.22 MG/DL (0.55-1.30); GLOMERULAR FILTRATION RATE 14.7 (>32); PHOSPHORUS LEVEL 2.8 MG/DL (2.4-5.1); POTASSIUM SERUM 4.2 MMOL/L (3.5-5.1)
[2022-09-21 07:46] LABS: ACETAMINOPHEN LEVEL 3.7 UG/ML (10.0-20.0); BILIRUBIN,DIRECT 0.1 MG/DL (<0.4); BILIRUBIN,TOTAL 0.3 MG/DL (0.3-1.2); TOTAL PROTEIN 5.7 G/DL (5.7-8.2)
[2022-09-21] MEDS: DOCUSATE SODIUM 100MG CAPSULE PO SCH ×2 (09:00→20:25)
[2022-09-21 09:36] VITALS: BP 153/67
[2022-09-21] MEDS: DICLOFENAC EPOLAMINE 1.3% PATCH TOP SCH ×2 (09:38→20:25)
[2022-09-21] MEDS: ISOSORBIDE MON. (IMDUR) 30MG XR TAB PO SCH (09:39)
[2022-09-21] MEDS: **hydrALAZINE HCL** 25 MG TAB PO SCH ×3 (09:39→20:27)
[2022-09-21] MEDS: PANTOPRAZOLE 40MG TAB (PROTONIX) PO SCH (09:39)
[2022-09-21] MEDS: CLOPIDOGREL 75 MG TAB PO SCH (09:39)
[2022-09-21] MEDS: ASPIRIN 81MG ENTERIC TABLET PO SCH (09:39)
[2022-09-21] MEDS: METOPROLOL SUCC (TopROL XL) 50MG **XL** TAB PO SCH (09:39)
[2022-09-21] MEDS: allopurinoL 100 MG TAB PO SCH (09:39)
[2022-09-21 14:00] VITALS: BP 151/67; TEMP 97.5; O2SAT 100
[2022-09-21] MEDS ORDERED: GLUCOSE 4GM CHEW TABLET PO PRN (15:00)
[2022-09-21] MEDS ORDERED: GLUCAGON INJ 1MG VIAL SC PRN (15:00)
[2022-09-21] MEDS ORDERED: DEXTROSE 50% 50ML SYRINGE IV PRN (15:00)
[2022-09-21] MEDS: INSULIN LISPRO (NovoLOG) PER UNIT SC SCH ×2 (17:30→20:54)
[2022-09-21 19:49] VITALS: BP 115/60; TEMP 97.7; O2SAT 95
[2022-09-21] MEDS: ATORVASTATIN 20 MG TAB PO SCH (20:25)
[2022-09-22] MEDS: HYDROMORPHONE HCL 0.5 MG/ 0.5 ML SYRINGE IV PRN ×2 (00:36→16:52)
[2022-09-22] MEDS ORDERED: HEPARIN 1,000UNITS/ML 10ML VIAL (FOR RADIOLOGY & DIALYSIS ONLY) IV PRN (06:00)
[2022-09-22] MEDS ORDERED: HEPARIN 1,000UNITS/ML 10ML VIAL (FOR RADIOLOGY & DIALYSIS ONLY) XX SCH (06:00)
[2022-09-22] MEDS ORDERED: SODIUM CHLORIDE 0.9% 1000ML IV PRN (06:00)
[2022-09-22] MEDS: HEPARIN SOD (PORCINE) 5000UNITS/ML 1ML VIAL/SYRINGE SC SCH ×3 (06:22→21:58)
[2022-09-22] MEDS: **hydrALAZINE HCL** 25 MG TAB PO SCH ×3 (06:23→21:00)
[2022-09-22] MEDS: ASPIRIN 81MG ENTERIC TABLET PO SCH (06:23)
[2022-09-22] MEDS: DOCUSATE SODIUM 100MG CAPSULE PO SCH ×2 (06:23→21:00)
[2022-09-22] MEDS: ATORVASTATIN 20 MG TAB PO SCH (06:23)
[2022-09-22] MEDS: CLOPIDOGREL 75 MG TAB PO SCH (06:24)
[2022-09-22] MEDS: LEVOTHYROXINE 125MCG TABLET (0.125MG) PO SCH (06:24)
[2022-09-22] MEDS: ISOSORBIDE MON. (IMDUR) 30MG XR TAB PO SCH (06:24)
[2022-09-22] MEDS: PANTOPRAZOLE 40MG TAB (PROTONIX) PO SCH (06:24)
[2022-09-22] MEDS: allopurinoL 100 MG TAB PO SCH (06:24)
[2022-09-22 06:32] LABS: MEAN CORPUSCULAR HEMOGLOBIN 33.3 pg (27.0-33.0); MEAN CORPUSCULAR HGB CONC 31.8 g/dl (32.0-36.5); MEAN CORPUSCULAR VOLUME 104.8 fl (80.0-96.0); PLATELET COUNT, AUTOMATED 148 10^3/uL (150-450); WHITE BLOOD COUNT 4.2 10^3/uL (4.0-10.0)
[2022-09-22 07:03] LABS: CALCIUM LEVEL 6.7 MG/DL (8.3-10.6); CREATININE FOR GFR 3.83 MG/DL (0.55-1.30); GLOMERULAR FILTRATION RATE 12.1 (>32); PHOSPHORUS LEVEL 3.5 MG/DL (2.4-5.1); POTASSIUM SERUM 4.6 MMOL/L (3.5-5.1)
[2022-09-22] MEDS: INSULIN LISPRO (NovoLOG) PER UNIT SC SCH ×4 (07:30→21:00)
[2022-09-22] MEDS ORDERED: SODIUM THIOSULFATE 25 GM in NS 100 ML IV SCH (09:00)
[2022-09-22] MEDS ORDERED: SODIUM THIOSULFATE (25%) 12.5 GM/50 ML VIAL IV SCH (10:00)
[2022-09-22] MEDS: DICLOFENAC EPOLAMINE 1.3% PATCH TOP SCH ×2 (12:45→21:00)
[2022-09-22] MEDS: METOPROLOL SUCC (TopROL XL) 50MG **XL** TAB PO SCH (12:48)
[2022-09-22 14:00] VITALS: BP 129/55; TEMP 97.2; O2SAT 99
[2022-09-22 16:52] VITALS: BP 125/56
[2022-09-22 20:00] VITALS: BP 125/55; TEMP 97.7; O2SAT 99
== END 2022-09-22 21:58 | disposition left against medical advice (07) | DRG 602 ==
LOC: M MSPAV 15:51
PROVIDERS: ADMIT Student in an Organized Health Care Education/Training Program; ATTEND Student in an Organized Health Care Education/Training Program
DX: L03.115 Cellulitis of right lower limb (principal); N18.6 End stage renal disease; I21.A1 Myocardial infarction type 2; I13.2 Hypertensive heart and chronic kidney disease with heart failure and with stage 5 chronic kidney disease, or end stage renal disease; I50.32 Chronic diastolic (congestive) heart failure; E87.20 Acidosis, unspecified; I38 Endocarditis, valve unspecified; R78.81 Bacteremia; E83.59 Other disorders of calcium metabolism; I25.10 Atherosclerotic heart disease of native coronary artery without angina pectoris; E03.9 Hypothyroidism, unspecified; K21.9 Gastro-esophageal reflux disease without esophagitis; E11.22 Type 2 diabetes mellitus with diabetic chronic kidney disease; D63.1 Anemia in chronic kidney disease; E11.621 Type 2 diabetes mellitus with foot ulcer; E87.6 Hypokalemia; E83.39 Other disorders of phosphorus metabolism; I27.20 Pulmonary hypertension, unspecified; E78.5 Hyperlipidemia, unspecified; D69.6 Thrombocytopenia, unspecified; M10.9 Gout, unspecified; R29.6 Repeated falls; H54.8 Legal blindness, as defined in USA; K27.9 Peptic ulcer, site unspecified, unspecified as acute or chronic, without hemorrhage or perforation; I73.9 Peripheral vascular disease, unspecified; E11.51 Type 2 diabetes mellitus with diabetic peripheral angiopathy without gangrene; D46.9 Myelodysplastic syndrome, unspecified; Z95.5 Presence of coronary angioplasty implant and graft; Z85.3 Personal history of malignant neoplasm of breast; Z99.2 Dependence on renal dialysis; Z86.003 Personal history of in-situ neoplasm of oral cavity, esophagus and stomach; Z90.79 Acquired absence of other genital organ(s); Z90.49 Acquired absence of other specified parts of digestive tract; Z20.822 Contact with and (suspected) exposure to COVID-19; Z79.82 Long term (current) use of aspirin; Z79.890 Hormone replacement therapy; Z79.2 Long term (current) use of antibiotics; Z79.899 Other long term (current) drug therapy; Z91.040 Latex allergy status; Z91.030 Bee allergy status; Z91.038 Other insect allergy status; Z88.8 Allergy status to other drugs, medicaments and biological substances; Z85.850 Personal history of malignant neoplasm of thyroid; Z90.5 Acquired absence of kidney

== ENCOUNTER 2022-11-05 11:26 | Emergency (ER) | payer MEDICARE ==
[~2022-11-05] VITALS: Ht 177.8 cm; Wt 64.9 kg
[~2022-11-05 11:26] MED LIST changes: +ACET1TAB55 PO; +ALBU2.5V10 INH; +ATOR80TA59 PO; +BISA10SU PR; +FAMO10TA52 PO; +GLUC1KIT IM; +HEPA1INJ SUBQ; +INSU100V6 SQ; +POLY17PO18 PO; +[UNRECOGNIZED DRUG - CODE] IV
[2022-11-05 13:28] LABS: BASO % 0.4 % (0.0-1.0); EOS # 0.1 10^3/uL (0.0-0.5); EOS % 1.1 % (0.0-3.0); HEMATOCRIT 28.9 % (36.0-47.0); HEMOGLOBIN 9.8 g/dl (12.0-15.5); LYMPH # 1.5 10^3/uL (1.5-5.0); LYMPH % 19.6 % (24.0-44.0); MEAN CORPUSCULAR HGB CONC 33.9 g/dl (32.0-36.5); MEAN CORPUSCULAR VOLUME 97.3 fl (80.0-96.0); MONO # 0.6 10^3/uL (0.0-0.8); MONO % 8.2 % (2.0-8.0); NEUTROPHILS # 5.3 10^3/uL (1.5-8.5); NEUTROPHILS % 70.3 % (36.0-66.0); PLATELET COUNT, AUTOMATED 152 10^3/uL (150-450); RED BLOOD COUNT 2.97 10^6/uL (4.00-5.40); WHITE BLOOD COUNT 7.5 10^3/uL (4.0-10.0)
[2022-11-05 13:39] LABS: INR 1.28; PROTHROMBIN TIME 15.7 SECONDS (12.5-14.5)
[2022-11-05 13:52] LABS: LIPASE 18 U/L (12-53)
[2022-11-05 13:56] LABS: ALBUMIN 2.3 G/DL (3.2-5.2); ALKALINE PHOSPHATASE 110 U/L (46-116); ALT/SGPT 15 U/L (7.0-40); AST/SGOT 20 U/L (<34); BILIRUBIN,DIRECT 0.2 MG/DL (<0.4); BILIRUBIN,TOTAL 0.4 MG/DL (0.3-1.2); BLOOD UREA NITROGEN 14 MG/DL (9-23); CALCIUM LEVEL 7.8 MG/DL (8.3-10.6); CARBON DIOXIDE LEVEL 26 MMOL/L (20-31); CHLORIDE LEVEL 104 MMOL/L (98-107); CREATININE FOR GFR 3.56 MG/DL (0.55-1.30); GLOMERULAR FILTRATION RATE 13.1 (>32); GLUCOSE, FASTING 121 MG/DL (74-106); POTASSIUM SERUM 2.8 MMOL/L (3.5-5.1); SODIUM LEVEL 140 MMOL/L (136-145); TOTAL PROTEIN 6.1 G/DL (5.7-8.2)
[2022-11-05] MEDS ORDERED: POTASSIUM CHLORIDE 10MEQ SR TABLET PO ONE (15:15)
[2022-11-05 15:41] LABS: CK-MB VALUE MASS < 1.0 NG/ML (<3.6)
[2022-11-05 15:43] LABS: CPK CREATINE PHOSPHOKINASE 38 U/L (34-145); MB/CK RELATIVE INDEX 2.63 (< OR =4)
[2022-11-05 15:45] VITALS: BP 157/73; TEMP 98.7; O2SAT 100
== END 2022-11-05 16:09 | disposition home or self-care (01) ==
LOC: M ED 11:26
DX: E87.6 Hypokalemia (principal); E11.9 Type 2 diabetes mellitus without complications; I12.9 Hypertensive chronic kidney disease with stage 1 through stage 4 chronic kidney disease, or unspecified chronic kidney disease; N18.6 End stage renal disease; Z85.850 Personal history of malignant neoplasm of thyroid; Z85.43 Personal history of malignant neoplasm of ovary; Z79.899 Other long term (current) drug therapy; Z79.82 Long term (current) use of aspirin; Z79.51 Long term (current) use of inhaled steroids; Z79.4 Long term (current) use of insulin

== ENCOUNTER 2022-11-12 10:37 | Inpatient (IN) | payer MEDICARE ==
[~2022-11-12] VITALS: Ht 177.8 cm; Wt 67.5 kg
[2022-11-12 11:25] LABS: VENOUS HCO3 28.7 MMOL/L (23.0-27.0); VENOUS O2 SATURATION 42.9 % (60.0-80.0); VENOUS PARTIAL PRESSURE CO2 43.6 mmHg (38.0-50.0); VENOUS PARTIAL PRESSURE O2 23.4 mmHg (30.0-50.0); VENOUS PH 7.436 UNITS (7.330-7.430)
[2022-11-12 11:35] LABS: BASO % 0.2 % (0.0-1.0); EOS % 0.1 % (0.0-3.0); HEMATOCRIT 29.6 % (36.0-47.0); HEMOGLOBIN 9.7 g/dl (12.0-15.5); LYMPH # 0.7 10^3/uL (1.5-5.0); LYMPH % 5.6 % (24.0-44.0); MEAN CORPUSCULAR HEMOGLOBIN 31.8 pg (27.0-33.0); MEAN CORPUSCULAR HGB CONC 32.8 g/dl (32.0-36.5); MONO # 0.7 10^3/uL (0.0-0.8); MONO % 5.5 % (2.0-8.0); NEUTROPHILS # 11.2 10^3/uL (1.5-8.5); PLATELET COUNT, AUTOMATED 152 10^3/uL (150-450); RED BLOOD COUNT 3.05 10^6/uL (4.00-5.40); WHITE BLOOD COUNT 12.7 10^3/uL (4.0-10.0)
[2022-11-12 12:02] LABS: ALBUMIN 2.1 G/DL (3.2-5.2); BILIRUBIN,DIRECT 0.2 MG/DL (<0.4); BILIRUBIN,TOTAL 0.4 MG/DL (0.3-1.2); CALCIUM LEVEL 7.2 MG/DL (8.3-10.6); CREATININE FOR GFR 3.68 MG/DL (0.55-1.30); GLOMERULAR FILTRATION RATE 12.6 (>32); MAGNESIUM LEVEL 1.3 MG/DL (1.8-2.4); POTASSIUM SERUM 4.1 MMOL/L (3.5-5.1); THYROID STIMULATING HORMONE 17.867 uIU/ML (0.55-4.78); TOTAL PROTEIN 5.6 G/DL (5.7-8.2)
[2022-11-12] MEDS ORDERED: MED REC IN PROGRESS XX SCH (13:35)
[2022-11-12] MEDS ORDERED: PIPERACILLIN/TAZOBACTAM SOD 3.375 GM in D5W MINI-BAG PLUS 50 ML IV SCH (14:35)
[2022-11-12] MEDS ORDERED: REMDESIVIR 100 MG in NS 250 ML IV SCH (14:45)
[2022-11-12 15:02] LABS: C REACTIVE PROTEIN QUANTITATIV 4.5 MG/DL (<1.0)
[2022-11-12 15:26] LABS: INR 1.41; PROTHROMBIN TIME 16.9 SECONDS (12.5-14.5)
[2022-11-12 15:27] LABS: ERYTHROCYTE SEDIMENTATION RATE 11 mm/hr (0-30)
[2022-11-12 15:32] LABS: THYROXINE (T4) 4.4 UG/DL (4.5-10.9)
[2022-11-12 15:43] LABS: PROCALCITONIN 2.97 ng/ml
[2022-11-12] MEDS ORDERED: MED REC CURRENTLY UNOBTAINABLE XX SCH (16:00)
[2022-11-12 16:25] VITALS: BP 109/43; TEMP 97.9; O2SAT 100
[2022-11-12] MEDS ORDERED: VANCOMYCIN HCL 750 MG, VIAL MATE ADAPTER 1 EACH in D5W 250 ML IV ONE ×2 (17:00→18:00)
[2022-11-12] MEDS ORDERED: MORPHINE 2 MG/ML 1ML VIAL IV PRN (17:20)
[2022-11-12] MEDS: PIPERACILLIN/TAZOBACTAM SOD 4.5 GM in D5W MINI-BAG PLUS 50 ML IV SCH (17:21)
[2022-11-12] MEDS ORDERED: HEPARIN SOD (PORCINE) 5000UNITS/ML 1ML VIAL/SYRINGE SQ SCH (18:35)
[2022-11-12] MEDS ORDERED: REMDESIVIR 200 MG in NS 250 ML IV ONE (19:00)
[2022-11-12] MEDS ORDERED: NS 1,000 ML IV ONE (20:10)
[2022-11-12] MEDS: ACETAMINOPHEN 650MG ER TAB (TYLENOL ARTHRITIS) PO SCH (21:39)
[2022-11-12 22:00] VITALS: BP 112/54; TEMP 97.7; O2SAT 100
[2022-11-13] MEDS ORDERED: MORPHINE 2 MG/ML 1ML VIAL IV ONE (00:55)
[2022-11-13] MEDS: PIPERACILLIN/TAZOBACTAM SOD 4.5 GM in D5W MINI-BAG PLUS 50 ML IV SCH ×2 (04:47→15:53)
[2022-11-13] MEDS ORDERED: HEPARIN 1,000UNITS/ML 10ML VIAL (FOR RADIOLOGY & DIALYSIS ONLY) XX SCH (05:15)
[2022-11-13] MEDS ORDERED: SODIUM CHLORIDE 0.9% 1000ML IV PRN (05:15)
[2022-11-13] MEDS ORDERED: HEPARIN 1,000UNITS/ML 10ML VIAL (FOR RADIOLOGY & DIALYSIS ONLY) IV PRN (05:15)
[2022-11-13] MEDS: ACETAMINOPHEN 650MG ER TAB (TYLENOL ARTHRITIS) PO SCH ×3 (05:54→21:47)
[2022-11-13 06:05] VITALS: BP 106/45; TEMP 97.7; O2SAT 100
[2022-11-13 06:32] LABS: VANCOMYCIN RANDOM 20.1 UG/ML
[2022-11-13 08:03] LABS: CALCIUM LEVEL 6.3 MG/DL (8.3-10.6); CREATININE FOR GFR 3.97 MG/DL (0.55-1.30); GLOMERULAR FILTRATION RATE 11.6 (>32); MAGNESIUM LEVEL 1.3 MG/DL (1.8-2.4); POTASSIUM SERUM 3.6 MMOL/L (3.5-5.1)
[2022-11-13] MEDS ORDERED: GLUCAGON INJ 1MG VIAL SC PRN (08:20)
[2022-11-13] MEDS ORDERED: GLUCOSE 4GM CHEW TABLET PO PRN (08:20)
[2022-11-13] MEDS ORDERED: DEXTROSE 50% 50ML SYRINGE IV PRN (08:20)
[2022-11-13] MEDS: INSULIN LISPRO (NovoLOG) PER UNIT SC SCH ×4 (08:35→21:00)
[2022-11-13] MEDS: HEPARIN SOD (PORCINE) 5000UNITS/ML 1ML VIAL/SYRINGE SQ SCH ×2 (08:35→21:47)
[2022-11-13] MEDS ORDERED: ENOXAPARIN 40MG/0.4ML SYRINGE (J1650 PER 10MG) SC SCH (09:00)
[2022-11-13] MEDS ORDERED: GABA-1171 PO (10:45)
[2022-11-13] MEDS ORDERED: PRAV40TA2 PO (10:45)
[2022-11-13] MEDS ORDERED: FAMO1TAB11 PO (10:45)
[2022-11-13] MEDS ORDERED: TORS20TA2 PO (10:45)
[2022-11-13] MEDS ORDERED: FOLI1TAB11 PO (10:45)
[2022-11-13] MEDS ORDERED: MAGN400T2 PO (10:45)
[2022-11-13] MEDS ORDERED: ISOS1TAB35 PO (10:45)
[2022-11-13] MEDS ORDERED: HOME MED LIST COMPLETE! XX SCH (10:50)
[2022-11-13 16:00] VITALS: BP 135/45; TEMP 97.5; O2SAT 100
[2022-11-13] MEDS ORDERED: VANCOMYCIN HCL 1,000 MG, VIAL MATE ADAPTER 1 EACH in D5W 250 ML IV SCH (16:00)
[2022-11-13] MEDS ORDERED: MAGNESIUM OXIDE 400MG TAB (MAG-OX) PO ONE (18:30)
[2022-11-13] MEDS: REMDESIVIR 100 MG in NS 250 ML IV SCH (19:00)
[2022-11-13 20:46] VITALS: BP 135/45; TEMP 97.7; O2SAT 99
[2022-11-14] MEDS: PIPERACILLIN/TAZOBACTAM SOD 4.5 GM in D5W MINI-BAG PLUS 50 ML IV SCH ×3 (04:11→18:55)
[2022-11-14 05:26] VITALS: BP 129/55; TEMP 97.9; O2SAT 100
[2022-11-14] MEDS: ACETAMINOPHEN 650MG ER TAB (TYLENOL ARTHRITIS) PO SCH ×3 (05:37→20:23)
[2022-11-14 06:10] LABS: BASO % 0.2 % (0.0-1.0); EOS # 0.2 10^3/uL (0.0-0.5); EOS % 2.5 % (0.0-3.0); HEMATOCRIT 26.3 % (36.0-47.0); HEMOGLOBIN 8.7 g/dl (12.0-15.5); LYMPH # 1.4 10^3/uL (1.5-5.0); LYMPH % 16.4 % (24.0-44.0); MEAN CORPUSCULAR HEMOGLOBIN 31.8 pg (27.0-33.0); MEAN CORPUSCULAR HGB CONC 33.1 g/dl (32.0-36.5); MONO # 0.4 10^3/uL (0.0-0.8); NEUTROPHILS # 6.4 10^3/uL (1.5-8.5); NEUTROPHILS % 75.3 % (36.0-66.0); PLATELET COUNT, AUTOMATED 137 10^3/uL (150-450); RED BLOOD COUNT 2.74 10^6/uL (4.00-5.40); WHITE BLOOD COUNT 8.5 10^3/uL (4.0-10.0)
[2022-11-14 06:17] LABS: VANCOMYCIN RANDOM 25.6 UG/ML
[2022-11-14 06:18] LABS: CALCIUM LEVEL 7.3 MG/DL (8.3-10.6); CREATININE FOR GFR 2.49 MG/DL (0.55-1.30); GLOMERULAR FILTRATION RATE 19.8 (>32); MAGNESIUM LEVEL 1.4 MG/DL (1.8-2.4); POTASSIUM SERUM 3.9 MMOL/L (3.5-5.1)
[2022-11-14] MEDS: INSULIN LISPRO (NovoLOG) PER UNIT SC SCH ×4 (08:59→20:19)
[2022-11-14] MEDS ORDERED: DARBEPOETIN 100MCG/0.5ML *DIALYSIS* SYRINGE IV SCH (09:00)
[2022-11-14] MEDS: HEPARIN SOD (PORCINE) 5000UNITS/ML 1ML VIAL/SYRINGE SQ SCH ×2 (09:00→20:24)
[2022-11-14] MEDS ORDERED: HEPARIN 1,000UNITS/ML 10ML VIAL (FOR RADIOLOGY & DIALYSIS ONLY) XX SCH (10:25)
[2022-11-14] MEDS ORDERED: HEPARIN 1,000UNITS/ML 10ML VIAL (FOR RADIOLOGY & DIALYSIS ONLY) IV PRN (10:25)
[2022-11-14] MEDS ORDERED: MAG SULF 1GM/100ML (MAG RUN) 1 GM in IV 1 EA IV ONE (13:00)
[2022-11-14] MEDS ORDERED: ALBUTEROL SULFATE 2.5MG/0.5ML INH NEB SOLN INH PRN (14:35)
[2022-11-14] MEDS ORDERED: CLINDAMYCIN 600 MG in IV 1 EA IV SCH (15:30)
[2022-11-14] MEDS: FOLIC ACID 1MG TAB PO SCH (16:59)
[2022-11-14] MEDS: ISOSORBIDE MON. (IMDUR) 30MG XR TAB PO SCH (16:59)
[2022-11-14] MEDS: PANTOPRAZOLE 40MG TAB (PROTONIX) PO SCH (16:59)
[2022-11-14] MEDS: allopurinoL 100 MG TAB PO SCH (17:00)
[2022-11-14] MEDS: METOPROLOL SUCC (TopROL XL) 50MG **XL** TAB PO SCH (17:00)
[2022-11-14] MEDS: **hydrALAZINE HCL** 25 MG TAB PO SCH ×2 (17:04→20:24)
[2022-11-14 20:05] VITALS: BP 130/51; TEMP 97.5; O2SAT 98
[2022-11-14] MEDS: REMDESIVIR 100 MG in NS 250 ML IV SCH (20:21)
[2022-11-14] MEDS: PRAVASTATIN 20 MG TAB PO SCH (20:22)
[2022-11-14] MEDS: GABAPENTIN 100 MG CAP PO SCH (20:23)
[2022-11-14] MEDS: MAGNESIUM OXIDE 400MG TAB (MAG-OX) PO SCH (20:23)
[2022-11-14] MEDS: TORSEMIDE 20 MG TAB PO SCH (20:23)
[2022-11-15] MEDS: ACETAMINOPHEN 650MG ER TAB (TYLENOL ARTHRITIS) PO SCH ×3 (05:14→21:18)
[2022-11-15] MEDS: LEVOTHYROXINE 125MCG TABLET (0.125MG) PO SCH (05:14)
[2022-11-15] MEDS: PIPERACILLIN/TAZOBACTAM SOD 4.5 GM in D5W MINI-BAG PLUS 50 ML IV SCH ×2 (05:14→16:17)
[2022-11-15 06:00] VITALS: BP 108/66; TEMP 97.7; O2SAT 94
[2022-11-15 06:12] LABS: BASO % 0.4 % (0.0-1.0); EOS # 0.2 10^3/uL (0.0-0.5); EOS % 2.5 % (0.0-3.0); HEMOGLOBIN 10.2 g/dl (12.0-15.5); LYMPH # 2.3 10^3/uL (1.5-5.0); LYMPH % 27.6 % (24.0-44.0); MEAN CORPUSCULAR HEMOGLOBIN 31.3 pg (27.0-33.0); MEAN CORPUSCULAR HGB CONC 32.9 g/dl (32.0-36.5); MEAN CORPUSCULAR VOLUME 95.1 fl (80.0-96.0); MONO # 0.5 10^3/uL (0.0-0.8); MONO % 5.7 % (2.0-8.0); NEUTROPHILS # 5.4 10^3/uL (1.5-8.5); NEUTROPHILS % 63.4 % (36.0-66.0); PLATELET COUNT, AUTOMATED 158 10^3/uL (150-450); RED BLOOD COUNT 3.26 10^6/uL (4.00-5.40); WHITE BLOOD COUNT 8.4 10^3/uL (4.0-10.0)
[2022-11-15 06:42] LABS: CALCIUM LEVEL 7.5 MG/DL (8.3-10.6); CREATININE FOR GFR 1.96 MG/DL (0.55-1.30); GLOMERULAR FILTRATION RATE 26.1 (>32); MAGNESIUM LEVEL 1.5 MG/DL (1.8-2.4); POTASSIUM SERUM 4.3 MMOL/L (3.5-5.1)
[2022-11-15] MEDS: INSULIN LISPRO (NovoLOG) PER UNIT SC SCH ×4 (07:14→21:00)
[2022-11-15] MEDS: HEPARIN SOD (PORCINE) 5000UNITS/ML 1ML VIAL/SYRINGE SQ SCH ×2 (09:07→21:19)
[2022-11-15] MEDS: ASPIRIN 81MG ENTERIC TABLET PO SCH (09:07)
[2022-11-15] MEDS: allopurinoL 100 MG TAB PO SCH (09:08)
[2022-11-15] MEDS: ISOSORBIDE MON. (IMDUR) 30MG XR TAB PO SCH (09:08)
[2022-11-15] MEDS: **hydrALAZINE HCL** 25 MG TAB PO SCH ×3 (09:08→21:00)
[2022-11-15] MEDS: TORSEMIDE 20 MG TAB PO SCH ×2 (09:09→21:00)
[2022-11-15] MEDS: METOPROLOL SUCC (TopROL XL) 50MG **XL** TAB PO SCH (09:09)
[2022-11-15] MEDS: MAGNESIUM OXIDE 400MG TAB (MAG-OX) PO SCH ×2 (09:11→21:18)
[2022-11-15] MEDS: FOLIC ACID 1MG TAB PO SCH (09:11)
[2022-11-15] MEDS: PANTOPRAZOLE 40MG TAB (PROTONIX) PO SCH (09:11)
[2022-11-15] MEDS ORDERED: PILL CUTTER 1 EACH XX PRN (10:20)
[2022-11-15] MEDS: CLOPIDOGREL 75 MG TAB PO SCH (10:27)
[2022-11-15] MEDS: traMADol 50 MG TAB PO PRN (10:28)
[2022-11-15 14:55] VITALS: BP 139/54; TEMP 98.4; O2SAT 100
[2022-11-15] MEDS: LACTOBACILLUS ACIDOPHILUS CAP (BACID) PO SCH (18:17)
[2022-11-15] MEDS: REMDESIVIR 100 MG in NS 250 ML IV SCH (18:17)
[2022-11-15 19:16] LABS: CLOSTRIDIUM DIFFICILE PCR NEGATIVE (NEGATIVE)
[2022-11-15 19:42] VITALS: BP 151/54; TEMP 97.3; O2SAT 100
[2022-11-15] MEDS ORDERED: BACTRIM 160MG/800MG DS TAB PO ONE (21:00)
[2022-11-15] MEDS ORDERED: FAMOTIDINE 20 MG TAB PO SCH ×2 (21:00)
[2022-11-15] MEDS: GABAPENTIN 100 MG CAP PO SCH (21:18)
[2022-11-15] MEDS: PRAVASTATIN 20 MG TAB PO SCH (21:18)
[2022-11-15 21:20] VITALS: BP 107/43
[2022-11-16 00:26] VITALS: BP 128/42
[2022-11-16] MEDS: traMADol 50 MG TAB PO PRN (02:56)
[2022-11-16 05:10] VITALS: BP 123/44; TEMP 97.9; O2SAT 99
[2022-11-16 05:49] LABS: BASO % 0.3 % (0.0-1.0); EOS # 0.2 10^3/uL (0.0-0.5); EOS % 3.6 % (0.0-3.0); HEMATOCRIT 25.8 % (36.0-47.0); HEMOGLOBIN 8.6 g/dl (12.0-15.5); LYMPH # 1.4 10^3/uL (1.5-5.0); LYMPH % 21.6 % (24.0-44.0); MEAN CORPUSCULAR HEMOGLOBIN 31.9 pg (27.0-33.0); MEAN CORPUSCULAR HGB CONC 33.3 g/dl (32.0-36.5); MEAN CORPUSCULAR VOLUME 95.6 fl (80.0-96.0); MONO # 0.4 10^3/uL (0.0-0.8); NEUTROPHILS # 4.3 10^3/uL (1.5-8.5); NEUTROPHILS % 67.9 % (36.0-66.0); PLATELET COUNT, AUTOMATED 133 10^3/uL (150-450); WHITE BLOOD COUNT 6.3 10^3/uL (4.0-10.0)
[2022-11-16] MEDS: ACETAMINOPHEN 650MG ER TAB (TYLENOL ARTHRITIS) PO SCH ×3 (06:01→20:41)
[2022-11-16] MEDS: LEVOTHYROXINE 125MCG TABLET (0.125MG) PO SCH (06:01)
[2022-11-16 06:14] LABS: CALCIUM LEVEL 7.2 MG/DL (8.3-10.6); CREATININE FOR GFR 2.62 MG/DL (0.55-1.30); GLOMERULAR FILTRATION RATE 18.7 (>32); MAGNESIUM LEVEL 1.4 MG/DL (1.8-2.4); POTASSIUM SERUM 4.1 MMOL/L (3.5-5.1)
[2022-11-16] MEDS ORDERED: MAG SULF 1GM/100ML (MAG RUN) 1 GM in IV 1 EA IV ONE (08:00)
[2022-11-16] MEDS: INSULIN LISPRO (NovoLOG) PER UNIT SC SCH ×4 (08:44→20:33)
[2022-11-16] MEDS: FOLIC ACID 1MG TAB PO SCH (08:45)
[2022-11-16] MEDS: allopurinoL 100 MG TAB PO SCH (08:45)
[2022-11-16] MEDS: LACTOBACILLUS ACIDOPHILUS CAP (BACID) PO SCH ×2 (08:45→18:00)
[2022-11-16] MEDS: ASPIRIN 81MG ENTERIC TABLET PO SCH (08:45)
[2022-11-16] MEDS: HEPARIN SOD (PORCINE) 5000UNITS/ML 1ML VIAL/SYRINGE SQ SCH ×2 (08:45→20:42)
[2022-11-16] MEDS: MAGNESIUM OXIDE 400MG TAB (MAG-OX) PO SCH ×2 (08:45→20:41)
[2022-11-16] MEDS: CLOPIDOGREL 75 MG TAB PO SCH (08:45)
[2022-11-16] MEDS: PANTOPRAZOLE 40MG TAB (PROTONIX) PO SCH (08:45)
[2022-11-16] MEDS: TORSEMIDE 20 MG TAB PO SCH ×2 (08:48→20:42)
[2022-11-16] MEDS: METOPROLOL SUCC (TopROL XL) 50MG **XL** TAB PO SCH (08:48)
[2022-11-16] MEDS: **hydrALAZINE HCL** 25 MG TAB PO SCH ×3 (08:49→20:43)
[2022-11-16] MEDS ORDERED: LINEZOLID 600MG TABLET (ZYVOX) PO SCH (09:00)
[2022-11-16] MEDS ORDERED: BACTRIM 80MG/400MG TAB PO SCH (09:00)
[2022-11-16] MEDS ORDERED: LevoFLOXacin 750 MG TABLET PO ONE (10:00)
[2022-11-16] MEDS ORDERED: cefTRIAXone SOD 1 GM in D5W MINI-BAG PLUS 50 ML IV SCH (12:45)
[2022-11-16 14:53] VITALS: BP 145/56; TEMP 97.5; O2SAT 100
[2022-11-16] MEDS: REMDESIVIR 100 MG in NS 250 ML IV SCH (19:02)
[2022-11-16 20:35] VITALS: BP 144/52; TEMP 98.1; O2SAT 100
[2022-11-16] MEDS: cefTRIAXone SOD 2 GM in D5W MINI-BAG PLUS 50 ML IV SCH (20:40)
[2022-11-16] MEDS: GABAPENTIN 100 MG CAP PO SCH (20:42)
[2022-11-16] MEDS ORDERED: DAPTOmycin 550 MG in NS 50 ML IV SCH (21:00)
[2022-11-17 05:38] VITALS: BP 105/45; TEMP 97.5; O2SAT 100
[2022-11-17] MEDS: ACETAMINOPHEN 650MG ER TAB (TYLENOL ARTHRITIS) PO SCH ×3 (05:41→20:50)
[2022-11-17 05:49] LABS: BASO % 0.3 % (0.0-1.0); EOS # 0.1 10^3/uL (0.0-0.5); EOS % 2.2 % (0.0-3.0); HEMATOCRIT 28.4 % (36.0-47.0); HEMOGLOBIN 9.6 g/dl (12.0-15.5); LYMPH # 1.5 10^3/uL (1.5-5.0); LYMPH % 23.6 % (24.0-44.0); MEAN CORPUSCULAR HEMOGLOBIN 31.7 pg (27.0-33.0); MEAN CORPUSCULAR HGB CONC 33.8 g/dl (32.0-36.5); MEAN CORPUSCULAR VOLUME 93.7 fl (80.0-96.0); MONO # 0.4 10^3/uL (0.0-0.8); NEUTROPHILS # 4.2 10^3/uL (1.5-8.5); NEUTROPHILS % 66.4 % (36.0-66.0); PLATELET COUNT, AUTOMATED 132 10^3/uL (150-450); RED BLOOD COUNT 3.03 10^6/uL (4.00-5.40); WHITE BLOOD COUNT 6.3 10^3/uL (4.0-10.0)
[2022-11-17] MEDS ORDERED: SODIUM CHLORIDE 0.9% 1000ML IV PRN (06:00)
[2022-11-17] MEDS ORDERED: HEPARIN 1,000UNITS/ML 10ML VIAL (FOR RADIOLOGY & DIALYSIS ONLY) XX SCH (06:00)
[2022-11-17] MEDS ORDERED: HEPARIN 1,000UNITS/ML 10ML VIAL (FOR RADIOLOGY & DIALYSIS ONLY) IV PRN (06:00)
[2022-11-17] MEDS ORDERED: LevoFLOXacin 250 MG TABLET PO SCH (06:00)
[2022-11-17 06:12] LABS: CALCIUM LEVEL 6.7 MG/DL (8.3-10.6); CREATININE FOR GFR 3.2 MG/DL (0.55-1.30); GLOMERULAR FILTRATION RATE 14.8 (>32); MAGNESIUM LEVEL 1.6 MG/DL (1.8-2.4); POTASSIUM SERUM 4.4 MMOL/L (3.5-5.1)
[2022-11-17] MEDS: INSULIN LISPRO (NovoLOG) PER UNIT SC SCH ×4 (06:45→19:38)
[2022-11-17] MEDS: HEPARIN SOD (PORCINE) 5000UNITS/ML 1ML VIAL/SYRINGE SQ SCH ×2 (06:51→19:35)
[2022-11-17] MEDS: PANTOPRAZOLE 40MG TAB (PROTONIX) PO SCH (06:51)
[2022-11-17] MEDS: TORSEMIDE 20 MG TAB PO SCH ×2 (06:52→19:33)
[2022-11-17] MEDS: METOPROLOL SUCC (TopROL XL) 50MG **XL** TAB PO SCH (06:52)
[2022-11-17] MEDS: CLOPIDOGREL 75 MG TAB PO SCH (06:53)
[2022-11-17] MEDS: ASPIRIN 81MG ENTERIC TABLET PO SCH (06:53)
[2022-11-17] MEDS: allopurinoL 100 MG TAB PO SCH (06:53)
[2022-11-17] MEDS: FOLIC ACID 1MG TAB PO SCH (06:53)
[2022-11-17] MEDS: LACTOBACILLUS ACIDOPHILUS CAP (BACID) PO SCH ×2 (06:53→19:33)
[2022-11-17] MEDS: MAGNESIUM OXIDE 400MG TAB (MAG-OX) PO SCH ×2 (06:53→19:34)
[2022-11-17] MEDS: **hydrALAZINE HCL** 25 MG TAB PO SCH ×3 (06:55→19:38)
[2022-11-17] MEDS: traMADol 50 MG TAB PO PRN (08:29)
[2022-11-17 14:00] VITALS: BP 136/57; TEMP 97.3; O2SAT 99
[2022-11-17] MEDS: GABAPENTIN 100 MG CAP PO SCH (19:33)
[2022-11-17] MEDS: cefTRIAXone SOD 2 GM in D5W MINI-BAG PLUS 50 ML IV SCH (19:34)
[2022-11-17 20:00] VITALS: BP 111/40; TEMP 97.7; O2SAT 99
[2022-11-18] MEDS ORDERED: DAPTOmycin 550 MG in NS 50 ML IV SCH ×2
[2022-11-18 05:27] VITALS: BP 109/40; TEMP 97.9; O2SAT 99
[2022-11-18] MEDS: ACETAMINOPHEN 650MG ER TAB (TYLENOL ARTHRITIS) PO SCH ×3 (05:27→22:35)
[2022-11-18 05:52] LABS: BASO % 0.3 % (0.0-1.0); EOS # 0.1 10^3/uL (0.0-0.5); EOS % 1.1 % (0.0-3.0); HEMOGLOBIN 8.5 g/dl (12.0-15.5); LYMPH # 1.7 10^3/uL (1.5-5.0); LYMPH % 24.2 % (24.0-44.0); MONO # 0.5 10^3/uL (0.0-0.8); MONO % 7.2 % (2.0-8.0); NEUTROPHILS # 4.8 10^3/uL (1.5-8.5); NEUTROPHILS % 66.5 % (36.0-66.0); PLATELET COUNT, AUTOMATED 125 10^3/uL (150-450); RED BLOOD COUNT 2.66 10^6/uL (4.00-5.40); WHITE BLOOD COUNT 7.2 10^3/uL (4.0-10.0)
[2022-11-18 06:16] LABS: CALCIUM LEVEL 6.5 MG/DL (8.3-10.6); CREATININE FOR GFR 2.36 MG/DL (0.55-1.30); GLOMERULAR FILTRATION RATE 21.1 (>32); MAGNESIUM LEVEL 1.5 MG/DL (1.8-2.4)
[2022-11-18] MEDS: HEPARIN SOD (PORCINE) 5000UNITS/ML 1ML VIAL/SYRINGE SQ SCH ×2 (10:16→19:56)
[2022-11-18] MEDS: INSULIN LISPRO (NovoLOG) PER UNIT SC SCH ×4 (10:16→21:00)
[2022-11-18] MEDS: ASPIRIN 81MG ENTERIC TABLET PO SCH (10:17)
[2022-11-18] MEDS: allopurinoL 100 MG TAB PO SCH (10:17)
[2022-11-18] MEDS: METOPROLOL SUCC (TopROL XL) 50MG **XL** TAB PO SCH (10:20)
[2022-11-18] MEDS: CLOPIDOGREL 75 MG TAB PO SCH (10:20)
[2022-11-18] MEDS: PANTOPRAZOLE 40MG TAB (PROTONIX) PO SCH (10:20)
[2022-11-18] MEDS: FOLIC ACID 1MG TAB PO SCH (10:20)
[2022-11-18] MEDS: **hydrALAZINE HCL** 25 MG TAB PO SCH ×3 (10:20→20:03)
[2022-11-18] MEDS: MAGNESIUM OXIDE 400MG TAB (MAG-OX) PO SCH ×2 (10:21→19:57)
[2022-11-18] MEDS: TORSEMIDE 20 MG TAB PO SCH ×2 (10:21→19:56)
[2022-11-18] MEDS: LACTOBACILLUS ACIDOPHILUS CAP (BACID) PO SCH ×2 (10:26→18:11)
[2022-11-18 14:00] VITALS: BP 120/61; TEMP 97.9; O2SAT 99
[2022-11-18] MEDS: cefTRIAXone SOD 2 GM in D5W MINI-BAG PLUS 50 ML IV SCH (19:56)
[2022-11-18] MEDS: GABAPENTIN 100 MG CAP PO SCH (19:57)
[2022-11-18 22:00] VITALS: BP 122/56; TEMP 98.6
[2022-11-19] MEDS: TORSEMIDE 20 MG TAB PO SCH ×2 (05:36→19:56)
[2022-11-19] MEDS: ASPIRIN 81MG ENTERIC TABLET PO SCH (05:36)
[2022-11-19] MEDS: FOLIC ACID 1MG TAB PO SCH (05:36)
[2022-11-19] MEDS: HEPARIN SOD (PORCINE) 5000UNITS/ML 1ML VIAL/SYRINGE SQ SCH ×3 (05:36→21:42)
[2022-11-19] MEDS: CLOPIDOGREL 75 MG TAB PO SCH (05:37)
[2022-11-19] MEDS: allopurinoL 100 MG TAB PO SCH (05:37)
[2022-11-19] MEDS: LACTOBACILLUS ACIDOPHILUS CAP (BACID) PO SCH ×2 (05:37→17:16)
[2022-11-19] MEDS: MAGNESIUM OXIDE 400MG TAB (MAG-OX) PO SCH ×2 (05:37→19:57)
[2022-11-19] MEDS: **hydrALAZINE HCL** 25 MG TAB PO SCH ×3 (05:39→19:55)
[2022-11-19] MEDS: PANTOPRAZOLE 40MG TAB (PROTONIX) PO SCH (05:43)
[2022-11-19] MEDS: METOPROLOL SUCC (TopROL XL) 50MG **XL** TAB PO SCH (05:44)
[2022-11-19] MEDS: ACETAMINOPHEN 650MG ER TAB (TYLENOL ARTHRITIS) PO SCH ×3 (05:45→21:42)
[2022-11-19 06:00] VITALS: BP 113/50; TEMP 97; O2SAT 100
[2022-11-19 06:06] LABS: BASO % 0.2 % (0.0-1.0); EOS # 0.1 10^3/uL (0.0-0.5); EOS % 2.3 % (0.0-3.0); HEMATOCRIT 24.4 % (36.0-47.0); HEMOGLOBIN 8.4 g/dl (12.0-15.5); LYMPH # 1.9 10^3/uL (1.5-5.0); LYMPH % 31.7 % (24.0-44.0); MEAN CORPUSCULAR HEMOGLOBIN 32.2 pg (27.0-33.0); MEAN CORPUSCULAR HGB CONC 34.4 g/dl (32.0-36.5); MEAN CORPUSCULAR VOLUME 93.5 fl (80.0-96.0); MONO # 0.5 10^3/uL (0.0-0.8); NEUTROPHILS # 3.4 10^3/uL (1.5-8.5); NEUTROPHILS % 56.3 % (36.0-66.0); PLATELET COUNT, AUTOMATED 143 10^3/uL (150-450); RED BLOOD COUNT 2.61 10^6/uL (4.00-5.40); WHITE BLOOD COUNT 6.1 10^3/uL (4.0-10.0)
[2022-11-19 06:29] LABS: CALCIUM LEVEL 6.7 MG/DL (8.3-10.6); CREATININE FOR GFR 3.11 MG/DL (0.55-1.30); GLOMERULAR FILTRATION RATE 15.3 (>32); MAGNESIUM LEVEL 1.4 MG/DL (1.8-2.4); POTASSIUM SERUM 4.1 MMOL/L (3.5-5.1)
[2022-11-19] MEDS: INSULIN LISPRO (NovoLOG) PER UNIT SC SCH ×4 (07:59→19:57)
[2022-11-19] MEDS ORDERED: CEFT2INJ IV (08:56)
[2022-11-19] MEDS ORDERED: DAPT500V8 IV ×3 (08:56→12:49)
[2022-11-19] MEDS ORDERED: SODIUM CHLORIDE 0.9% 1000ML IV PRN (11:40)
[2022-11-19] MEDS ORDERED: HEPARIN 1,000UNITS/ML 10ML VIAL (FOR RADIOLOGY & DIALYSIS ONLY) XX SCH (11:40)
[2022-11-19] MEDS ORDERED: HEPARIN 1,000UNITS/ML 10ML VIAL (FOR RADIOLOGY & DIALYSIS ONLY) IV PRN (11:40)
[2022-11-19] MEDS ORDERED: DAPTOmycin 500 MG in NS 50 ML IV SCH (16:00)
[2022-11-19 17:21] VITALS: BP 122/50; TEMP 97.3; O2SAT 92
[2022-11-19] MEDS: GABAPENTIN 100 MG CAP PO SCH (19:55)
[2022-11-19] MEDS: traMADol 50 MG TAB PO PRN (19:56)
[2022-11-19] MEDS: cefTRIAXone SOD 2 GM in D5W MINI-BAG PLUS 50 ML IV SCH (19:57)
[2022-11-20] MEDS: ACETAMINOPHEN 650MG ER TAB (TYLENOL ARTHRITIS) PO SCH (05:25)
[2022-11-20 05:27] VITALS: BP 109/43; TEMP 97.7; O2SAT 97
[2022-11-20 06:48] LABS: BASO % 0.4 % (0.0-1.0); EOS # 0.1 10^3/uL (0.0-0.5); EOS % 1.8 % (0.0-3.0); HEMOGLOBIN 8.4 g/dl (12.0-15.5); LYMPH # 1.6 10^3/uL (1.5-5.0); LYMPH % 30.8 % (24.0-44.0); MEAN CORPUSCULAR HEMOGLOBIN 32.7 pg (27.0-33.0); MEAN CORPUSCULAR VOLUME 93.4 fl (80.0-96.0); MONO # 0.4 10^3/uL (0.0-0.8); MONO % 7.5 % (2.0-8.0); NEUTROPHILS # 2.8 10^3/uL (1.5-8.5); NEUTROPHILS % 55.2 % (36.0-66.0); PLATELET COUNT, AUTOMATED 152 10^3/uL (150-450); RED BLOOD COUNT 2.57 10^6/uL (4.00-5.40); WHITE BLOOD COUNT 5.1 10^3/uL (4.0-10.0)
[2022-11-20 07:04] LABS: CALCIUM LEVEL 6.7 MG/DL (8.3-10.6); CREATININE FOR GFR 2.03 MG/DL (0.55-1.30); GLOMERULAR FILTRATION RATE 25.1 (>32); MAGNESIUM LEVEL 1.4 MG/DL (1.8-2.4); POTASSIUM SERUM 3.6 MMOL/L (3.5-5.1)
[2022-11-20] MEDS: INSULIN LISPRO (NovoLOG) PER UNIT SC SCH (07:29)
[2022-11-20 07:30] VITALS: BP 143/63
[2022-11-20] MEDS: HEPARIN SOD (PORCINE) 5000UNITS/ML 1ML VIAL/SYRINGE SQ SCH (08:08)
[2022-11-20] MEDS: TORSEMIDE 20 MG TAB PO SCH (08:09)
[2022-11-20] MEDS: ASPIRIN 81MG ENTERIC TABLET PO SCH (08:09)
[2022-11-20] MEDS: MAGNESIUM OXIDE 400MG TAB (MAG-OX) PO SCH (08:09)
[2022-11-20] MEDS: CLOPIDOGREL 75 MG TAB PO SCH (08:09)
[2022-11-20] MEDS: PANTOPRAZOLE 40MG TAB (PROTONIX) PO SCH (08:09)
[2022-11-20] MEDS: FOLIC ACID 1MG TAB PO SCH (08:10)
[2022-11-20] MEDS: METOPROLOL SUCC (TopROL XL) 50MG **XL** TAB PO SCH (08:10)
[2022-11-20] MEDS: LACTOBACILLUS ACIDOPHILUS CAP (BACID) PO SCH (08:10)
[2022-11-20 08:11] VITALS: BP 143/63
[2022-11-20] MEDS: allopurinoL 100 MG TAB PO SCH (08:11)
[2022-11-20] MEDS: **hydrALAZINE HCL** 25 MG TAB PO SCH (08:11)
== END 2022-11-20 11:55 | disposition home or self-care (01) | DRG 637 ==
LOC: M ED 10:37 → EDBD 10:37 → M ED INP 13:04 → EEVIPCON 13:04 → M MSPAV 16:25
PROVIDERS: ADMIT Student in an Organized Health Care Education/Training Program; ATTEND General Practice
PROC: XW033E5 Introduction of Remdesivir Anti-infective into Peripheral Vein, Percutaneous Approach, New Technology Group 5 (ICD-10-PCS; 2022-11-12)
PROC: 5A1D70Z Performance of Urinary Filtration, Intermittent, Less than 6 Hours Per Day (ICD-10-PCS; principal; 2022-11-13)
DX: E11.69 Type 2 diabetes mellitus with other specified complication (principal); U07.1 COVID-19; I50.32 Chronic diastolic (congestive) heart failure; L03.115 Cellulitis of right lower limb; L97.518 Non-pressure chronic ulcer of other part of right foot with other specified severity; E87.20 Acidosis, unspecified; I13.2 Hypertensive heart and chronic kidney disease with heart failure and with stage 5 chronic kidney disease, or end stage renal disease; M86.8X7 Other osteomyelitis, ankle and foot; N18.6 End stage renal disease; E78.5 Hyperlipidemia, unspecified; K21.9 Gastro-esophageal reflux disease without esophagitis; E89.0 Postprocedural hypothyroidism; E11.22 Type 2 diabetes mellitus with diabetic chronic kidney disease; D64.9 Anemia, unspecified; I25.10 Atherosclerotic heart disease of native coronary artery without angina pectoris; E11.621 Type 2 diabetes mellitus with foot ulcer; E83.42 Hypomagnesemia; F31.9 Bipolar disorder, unspecified; B95.2 Enterococcus as the cause of diseases classified elsewhere; S92.511A Displaced fracture of proximal phalanx of right lesser toe(s), initial encounter for closed fracture; X58.XXXA Exposure to other specified factors, initial encounter; Y92.9 Unspecified place or not applicable; Y93.9 Activity, unspecified; Z79.82 Long term (current) use of aspirin; Z99.2 Dependence on renal dialysis; Z90.49 Acquired absence of other specified parts of digestive tract; Z85.028 Personal history of other malignant neoplasm of stomach; Y99.9 Unspecified external cause status; Z95.1 Presence of aortocoronary bypass graft; Z85.3 Personal history of malignant neoplasm of breast; B95.62 Methicillin resistant Staphylococcus aureus infection as the cause of diseases classified elsewhere; R19.7 Diarrhea, unspecified; Z79.890 Hormone replacement therapy; Z79.899 Other long term (current) drug therapy; Z91.038 Other insect allergy status; Z88.8 Allergy status to other drugs, medicaments and biological substances; Z91.030 Bee allergy status; Z91.040 Latex allergy status

== ENCOUNTER 2022-11-21 15:35 | Outpatient (CLI) | payer MEDICARE ==
[~2022-11-21] VITALS: Ht 177.8 cm; Wt 67.5 kg
[~2022-11-21 15:35] MED LIST changes: +CEFT2INJ IV; +DAPT500V8 IV; +FAMO1TAB11 PO
[2022-11-21 16:05] VITALS: BP 141/63; O2SAT 100
[2022-11-21] MEDS ORDERED: DAPTOmycin 750 MG in NS 50 ML IV ONE (16:55)
[2022-11-21 18:35] VITALS: BP 138/64; O2SAT 100
== END 2022-11-21 18:35 ==
LOC: M INFU 15:35
PROVIDERS: ATTEND General Practice
DX: M86.171 Other acute osteomyelitis, right ankle and foot (principal); Z88.8 Allergy status to other drugs, medicaments and biological substances; Z91.040 Latex allergy status; Z91.030 Bee allergy status
CPT/HCPCS: 96365; J0878

== ENCOUNTER 2022-11-24 15:30 | Outpatient (CLI) | payer MEDICARE ==
[~2022-11-24] VITALS: Ht 152.4 cm; Wt 64.9 kg
[2022-11-24 15:40] VITALS: BP 121/59; O2SAT 100
[2022-11-24] MEDS ORDERED: DAPTOmycin 500 MG in NS 50 ML IV ONE (16:15)
[2022-11-24] MEDS ORDERED: cefTAZidime 2 GM in D5W MINI-BAG PLUS 50 ML IV ONE (16:15)
[2022-11-24] MEDS ORDERED: DAPTOmycin 550 MG in NS 50 ML IV SCH (17:15)
== END 2022-11-24 18:45 ==
LOC: M INFU 15:30
PROVIDERS: ATTEND General Practice
DX: M86.171 Other acute osteomyelitis, right ankle and foot (principal); Z88.8 Allergy status to other drugs, medicaments and biological substances; Z91.030 Bee allergy status; Z91.040 Latex allergy status
CPT/HCPCS: 96365; 96367; J0713; J0878

== ENCOUNTER 2022-12-03 16:00 | Outpatient (CLI) | payer MEDICARE ==
[~2022-12-03] VITALS: Ht 152.4 cm; Wt 65.0 kg
[2022-12-03 16:00] VITALS: BP 145/69; O2SAT 100
[2022-12-03] MEDS ORDERED: cefTAZidime 2 GM in D5W MINI-BAG PLUS 50 ML IV ONE (16:15)
[2022-12-03] MEDS ORDERED: DAPTOmycin 500 MG in NS 50 ML IV ONE (16:15)
[2022-12-03 17:43] VITALS: BP 147/64; O2SAT 100
== END 2022-12-03 17:50 ==
LOC: M INFU 16:00
PROVIDERS: ATTEND General Practice
DX: M86.171 Other acute osteomyelitis, right ankle and foot (principal); Z88.8 Allergy status to other drugs, medicaments and biological substances; Z91.040 Latex allergy status; Z91.030 Bee allergy status
CPT/HCPCS: 96365; 96367; J0713; J0878

== ENCOUNTER 2022-12-12 12:42 | Emergency (ER) | payer MEDICARE ==
[~2022-12-12] VITALS: Ht 177.8 cm; Wt 65.5 kg
[2022-12-12 14:59] LABS: BASO % 0.9 % (0.0-1.0); EOS # 0.1 10^3/uL (0.0-0.5); HEMOGLOBIN 9.2 g/dl (12.0-15.5); LYMPH # 1.4 10^3/uL (1.5-5.0); LYMPH % 30.3 % (24.0-44.0); MEAN CORPUSCULAR HGB CONC 32.9 g/dl (32.0-36.5); MEAN CORPUSCULAR VOLUME 106.5 fl (80.0-96.0); MONO # 0.3 10^3/uL (0.0-0.8); MONO % 6.8 % (2.0-8.0); NEUTROPHILS # 2.7 10^3/uL (1.5-8.5); NEUTROPHILS % 59.3 % (36.0-66.0); RED BLOOD COUNT 2.63 10^6/uL (4.00-5.40); WHITE BLOOD COUNT 4.6 10^3/uL (4.0-10.0)
[2022-12-12 15:50] LABS: RSV AMPLIFICATION NEGATIVE (NEGATIVE)
[2022-12-12 16:39] VITALS: BP 145/79; TEMP 98.2; O2SAT 98
== END 2022-12-12 17:08 | disposition home or self-care (01) ==
LOC: M ED 12:42 → EDBD 12:42 → M ED 17:08
DX: Z00.00 Encounter for general adult medical examination without abnormal findings (principal); E11.9 Type 2 diabetes mellitus without complications; N18.6 End stage renal disease; Z99.2 Dependence on renal dialysis; Z85.41 Personal history of malignant neoplasm of cervix uteri; Z85.850 Personal history of malignant neoplasm of thyroid; Z79.82 Long term (current) use of aspirin; Z79.899 Other long term (current) drug therapy; Z88.8 Allergy status to other drugs, medicaments and biological substances; Z91.040 Latex allergy status; Z91.030 Bee allergy status

== ENCOUNTER 2022-12-17 16:00 | Outpatient (CLI) | payer MEDICARE ==
[~2022-12-17] VITALS: Ht 157.5 cm; Wt 63.0 kg
[2022-12-17 16:00] VITALS: BP 146/84; O2SAT 100
[2022-12-17 16:33] LABS: BASO % 0.3 % (0.0-1.0); EOS # 0.1 10^3/uL (0.0-0.5); EOS % 1.3 % (0.0-3.0); HEMATOCRIT 29.3 % (36.0-47.0); HEMOGLOBIN 9.9 g/dl (12.0-15.5); LYMPH # 1.4 10^3/uL (1.5-5.0); LYMPH % 19.4 % (24.0-44.0); MEAN CORPUSCULAR HEMOGLOBIN 35.1 pg (27.0-33.0); MEAN CORPUSCULAR HGB CONC 33.8 g/dl (32.0-36.5); MEAN CORPUSCULAR VOLUME 103.9 fl (80.0-96.0); MONO # 0.6 10^3/uL (0.0-0.8); MONO % 7.9 % (2.0-8.0); NEUTROPHILS % 70.7 % (36.0-66.0); PLATELET COUNT, AUTOMATED 125 10^3/uL (150-450); RED BLOOD COUNT 2.82 10^6/uL (4.00-5.40); WHITE BLOOD COUNT 7.1 10^3/uL (4.0-10.0)
[2022-12-17] MEDS ORDERED: cefTAZidime 2 GM in D5W MINI-BAG PLUS 50 ML IV ONE (16:35)
[2022-12-17 16:49] LABS: ERYTHROCYTE SEDIMENTATION RATE 2 mm/hr (0-30)
[2022-12-17] MEDS ORDERED: DAPTOmycin 500 MG in NS 50 ML IV ONE (17:00)
[2022-12-17 17:59] LABS: PROCALCITONIN 0.46 ng/ml
[2022-12-17 18:05] LABS: C REACTIVE PROTEIN QUANTITATIV 0.9 MG/DL (<1.0); CALCIUM LEVEL 7.5 MG/DL (8.3-10.6); CREATININE FOR GFR 3.11 MG/DL (0.55-1.30); GLOMERULAR FILTRATION RATE 15.3 (>32); POTASSIUM SERUM 4.1 MMOL/L (3.5-5.1)
[2022-12-17 18:15] VITALS: BP 158/67; O2SAT 98
== END 2022-12-17 18:15 ==
LOC: M INFU 16:00
PROVIDERS: ATTEND General Practice
DX: M86.171 Other acute osteomyelitis, right ankle and foot (principal); Z88.8 Allergy status to other drugs, medicaments and biological substances
CPT/HCPCS: 36592; 80048; 84145; 85025; 85652; 86140; 96365; 96367; J0713; J0878

== ENCOUNTER 2022-12-19 15:15 | Outpatient (CLI) | payer MEDICARE ==
[2022-12-19 15:15] VITALS: BP 144/66; O2SAT 100
== END 2022-12-19 16:30 | disposition home or self-care (01) ==
LOC: M INFU 15:15
PROVIDERS: ATTEND General Practice
DX: M86.171 Other acute osteomyelitis, right ankle and foot (principal); Z88.8 Allergy status to other drugs, medicaments and biological substances

== ENCOUNTER 2023-01-12 16:08 | Inpatient (IN) | payer MEDICARE ==
[~2023-01-12] VITALS: Ht 177.8 cm; Wt 66.1 kg
[2023-01-12] MEDS ORDERED: METO37.5 PO (17:51)
[2023-01-12] MEDS ORDERED: ACET160S3 PO (17:51)
[2023-01-12] MEDS ORDERED: D3 H400T PO (17:51)
[2023-01-12] MEDS ORDERED: MELA3TAB70 PO (17:51)
[2023-01-12] MEDS ORDERED: TRAM50TA2 PO (17:51)
[2023-01-12 17:52] LABS: ALBUMIN 1.7 G/DL (3.2-5.2); BILIRUBIN,DIRECT 0.3 MG/DL (<0.4); BILIRUBIN,TOTAL 0.4 MG/DL (0.3-1.2); CALCIUM LEVEL 8.6 MG/DL (8.3-10.6); CREATININE FOR GFR 2.12 MG/DL (0.55-1.30); GLOMERULAR FILTRATION RATE 23.9 (>32); POTASSIUM SERUM 4.6 MMOL/L (3.5-5.1); TOTAL PROTEIN 6.2 G/DL (5.7-8.2)
[2023-01-12] MEDS ORDERED: VANCOMYCIN HCL 1,250 MG in NS 250 ML IV ONE (18:20)
[2023-01-12] MEDS ORDERED: LevoFLOXacin IV 750 MG in IV 1 EA IV ONE (18:20)
[2023-01-12 18:22] LABS: BASO % 0.3 % (0.0-1.0); EOS % 0.6 % (0.0-3.0); HEMATOCRIT 38.5 % (36.0-47.0); HEMOGLOBIN 12.3 g/dl (12.0-15.5); LYMPH # 0.7 10^3/uL (1.5-5.0); LYMPH % 10.4 % (24.0-44.0); MEAN CORPUSCULAR HEMOGLOBIN 32.9 pg (27.0-33.0); MEAN CORPUSCULAR HGB CONC 31.9 g/dl (32.0-36.5); MEAN CORPUSCULAR VOLUME 102.9 fl (80.0-96.0); MONO # 0.4 10^3/uL (0.0-0.8); MONO % 5.7 % (2.0-8.0); NEUTROPHILS # 5.5 10^3/uL (1.5-8.5); NEUTROPHILS % 82.1 % (36.0-66.0); PLATELET COUNT, AUTOMATED 179 10^3/uL (150-450); RED BLOOD COUNT 3.74 10^6/uL (4.00-5.40); WHITE BLOOD COUNT 6.7 10^3/uL (4.0-10.0)
[2023-01-12] MEDS ORDERED: VANCOMYCIN HCL 750 MG, VIAL MATE ADAPTER 1 EACH in D5W 250 ML IV ONE (18:30)
[2023-01-12] MEDS ORDERED: VANCOMYCIN HCL 500 MG in D5W MINI-BAG PLUS 100 ML IV ONE (18:30)
[2023-01-12 18:46] LABS: FREE T4 0.45 NG/DL (0.89-1.76)
[2023-01-12 19:56] LABS: VENOUS BASE EXCESS -1.2 (-2.0-2.0); VENOUS HCO3 24.1 MMOL/L (23.0-27.0); VENOUS PARTIAL PRESSURE CO2 42.4 mmHg (38.0-50.0); VENOUS PARTIAL PRESSURE O2 56.3 mmHg (30.0-50.0); VENOUS PH 7.372 UNITS (7.330-7.430); VENOUS STANDARD HCO3 23.3 MMOL/L; VENOUS TOTAL CO2 25.4 MMOL/L (24.0-28.0)
[2023-01-12] MEDS ORDERED: MOM 30ML SUSPENSION UDC PO PRN (20:25)
[2023-01-12] MEDS ORDERED: NS 1,000 ML IV SCH (20:25)
[2023-01-12] MEDS ORDERED: MAALOX 30 ML SUSP *UDC PO PRN (20:25)
[2023-01-12] MEDS ORDERED: MED REC IN PROGRESS XX SCH (20:35)
[2023-01-12] MEDS ORDERED: GLUCAGON INJ 1MG VIAL SC PRN (21:40)
[2023-01-12] MEDS ORDERED: GLUCOSE 4GM CHEW TABLET PO PRN (21:40)
[2023-01-12] MEDS ORDERED: DEXTROSE 50% 50ML SYRINGE IV PRN (21:40)
[2023-01-12 22:45] VITALS: BP 156/67; TEMP 98; O2SAT 97
[2023-01-12 23:00] VITALS: O2SAT 96
[2023-01-12 23:13] LABS: PROCALCITONIN 0.49 ng/ml
[2023-01-12] MEDS: INSULIN LISPRO (NovoLOG) PER UNIT SC SCH (23:26)
[2023-01-13] VITALS (7 sets, daily range): BP systolic 101–155; BP diastolic 50–81; TEMP 96.5–97.3; O2SAT 96–99
[2023-01-13 05:36] LABS: BASO % 0.4 % (0.0-1.0); EOS # 0.1 10^3/uL (0.0-0.5); EOS % 1.7 % (0.0-3.0); HEMATOCRIT 27.7 % (36.0-47.0); LYMPH % 20.4 % (24.0-44.0); MEAN CORPUSCULAR HEMOGLOBIN 32.4 pg (27.0-33.0); MEAN CORPUSCULAR HGB CONC 31.8 g/dl (32.0-36.5); MEAN CORPUSCULAR VOLUME 101.8 fl (80.0-96.0); MONO # 0.4 10^3/uL (0.0-0.8); MONO % 8.5 % (2.0-8.0); NEUTROPHILS # 3.3 10^3/uL (1.5-8.5); NEUTROPHILS % 68.4 % (36.0-66.0); PLATELET COUNT, AUTOMATED 143 10^3/uL (150-450); RED BLOOD COUNT 2.72 10^6/uL (4.00-5.40); WHITE BLOOD COUNT 4.8 10^3/uL (4.0-10.0)
[2023-01-13 05:53] LABS: ALBUMIN 1.1 G/DL (3.2-5.2); BILIRUBIN,TOTAL 0.2 MG/DL (0.3-1.2); CALCIUM LEVEL 7.3 MG/DL (8.3-10.6); CREATININE FOR GFR 2.59 MG/DL (0.55-1.30); GLOMERULAR FILTRATION RATE 18.9 (>32); POTASSIUM SERUM 4.5 MMOL/L (3.5-5.1); TOTAL PROTEIN 3.9 G/DL (5.7-8.2)
[2023-01-13 05:54] LABS: HEMOGLOBIN 8.8 g/dl (12.0-15.5)
[2023-01-13] MEDS: INSULIN LISPRO (NovoLOG) PER UNIT SC SCH ×4 (07:30→20:03)
[2023-01-13 08:30] LABS: C REACTIVE PROTEIN QUANTITATIV 3.5 MG/DL (<1.0)
[2023-01-13 09:55] LABS: HEMATOCRIT 29.7 % (36.0-47.0); HEMOGLOBIN 9.5 g/dl (12.0-15.5)
[2023-01-13] MEDS ORDERED: PRESCAP PO (11:42)
[2023-01-13] MEDS ORDERED: METO1TAB7 PO (11:42)
[2023-01-13] MEDS ORDERED: VITMTA PO (11:42)
[2023-01-13] MEDS ORDERED: ACET-839 PO (11:42)
[2023-01-13] MEDS ORDERED: D32000TA2 PO (11:42)
[2023-01-13] MEDS ORDERED: NYST1POW9 TOP (11:42)
[2023-01-13] MEDS ORDERED: META0.52 PO (11:42)
[2023-01-13] MEDS ORDERED: HOME MED LIST COMPLETE! XX SCH (11:45)
[2023-01-13 14:31] LABS: HEMATOCRIT 33.7 % (36.0-47.0); HEMOGLOBIN 10.8 g/dl (12.0-15.5)
[2023-01-13] MEDS: ACETAMINOPHEN TAB 650MG DOSE (2X325MG) PO PRN (16:27)
[2023-01-13] MEDS ORDERED: FIORICET TAB PO ONE (16:50)
[2023-01-14] VITALS: BP 104/52; TEMP 96.9; O2SAT 94
[2023-01-14 04:00] VITALS: BP 118/57; TEMP 96.6; O2SAT 98
[2023-01-14] MEDS ORDERED: HEPARIN 1,000UNITS/ML 10ML VIAL (FOR RADIOLOGY & DIALYSIS ONLY) XX SCH ×2 (06:00)
[2023-01-14] MEDS ORDERED: HEPARIN 1,000UNITS/ML 10ML VIAL (FOR RADIOLOGY & DIALYSIS ONLY) IV PRN ×2 (06:00)
[2023-01-14] MEDS ORDERED: SODIUM CHLORIDE 0.9% 1000ML IV PRN ×2 (06:00)
[2023-01-14] MEDS: INSULIN LISPRO (NovoLOG) PER UNIT SC SCH ×4 (07:30→21:00)
[2023-01-14 07:51] VITALS: BP 124/59; TEMP 97.1; O2SAT 94
[2023-01-14 14:44] LABS: CALCIUM LEVEL 7.2 MG/DL (8.3-10.6); CREATININE FOR GFR 1.76 MG/DL (0.55-1.30); GLOMERULAR FILTRATION RATE 29.6 (>32); POTASSIUM SERUM 3.5 MMOL/L (3.5-5.1)
[2023-01-14] MEDS ORDERED: ALBUTEROL SULFATE 2.5MG/0.5ML INH NEB SOLN INH PRN (15:30)
[2023-01-14] MEDS ORDERED: LevoFLOXacin 750 MG TABLET PO SCH (18:00)
[2023-01-14 21:24] VITALS: BP 123/53; TEMP 98.5; O2SAT 94
[2023-01-14] MEDS: MAGNESIUM OXIDE 400MG TAB (MAG-OX) PO SCH (21:40)
[2023-01-14] MEDS: METOPROLOL SUCC *XL* 25MG TAB (TopROL *XL*) PO SCH (21:40)
[2023-01-14] MEDS: GABAPENTIN 100 MG CAP PO SCH (21:40)
[2023-01-14] MEDS: FAMOTIDINE 20 MG TAB PO SCH (21:40)
[2023-01-14] MEDS: PRAVASTATIN 20 MG TAB PO SCH (21:41)
[2023-01-14 23:45] VITALS: BP 127/58; TEMP 99.2; O2SAT 94
[2023-01-15 03:16] VITALS: BP 139/61; TEMP 99.4; O2SAT 96
[2023-01-15] MEDS: LEVOTHYROXINE 125MCG TABLET (0.125MG) PO SCH (05:03)
[2023-01-15 06:26] LABS: BASO % 0.2 % (0.0-1.0); EOS # 0.1 10^3/uL (0.0-0.5); EOS % 1.8 % (0.0-3.0); HEMATOCRIT 25.2 % (36.0-47.0); LYMPH % 23.4 % (24.0-44.0); MEAN CORPUSCULAR HEMOGLOBIN 33.5 pg (27.0-33.0); MEAN CORPUSCULAR HGB CONC 32.9 g/dl (32.0-36.5); MEAN CORPUSCULAR VOLUME 101.6 fl (80.0-96.0); MONO # 0.4 10^3/uL (0.0-0.8); MONO % 8.4 % (2.0-8.0); NEUTROPHILS # 2.9 10^3/uL (1.5-8.5); NEUTROPHILS % 65.3 % (36.0-66.0); PLATELET COUNT, AUTOMATED 162 10^3/uL (150-450); RED BLOOD COUNT 2.48 10^6/uL (4.00-5.40); WHITE BLOOD COUNT 4.4 10^3/uL (4.0-10.0)
[2023-01-15 06:29] LABS: HEMOGLOBIN 8.3 g/dl (12.0-15.5)
[2023-01-15 07:05] LABS: CALCIUM LEVEL 7.3 MG/DL (8.3-10.6); CREATININE FOR GFR 2.52 MG/DL (0.55-1.30); GLOMERULAR FILTRATION RATE 19.5 (>32); MAGNESIUM LEVEL 1.5 MG/DL (1.8-2.4); POTASSIUM SERUM 3.9 MMOL/L (3.5-5.1)
[2023-01-15 07:11] LABS: PROCALCITONIN 0.44 ng/ml
[2023-01-15 07:42] VITALS: BP 140/60; TEMP 98.6; O2SAT 98
[2023-01-15] MEDS ORDERED: PANTOPRAZOLE 40MG TAB (PROTONIX) PO SCH (09:00)
[2023-01-15] MEDS ORDERED: DARBEPOETIN 100MCG/0.5ML *DIALYSIS* SYRINGE IV SCH (09:00)
[2023-01-15] MEDS: INSULIN LISPRO (NovoLOG) PER UNIT SC SCH ×4 (09:25→21:00)
[2023-01-15] MEDS: METAMUCIL (PSYLLIUM) PACKET PO SCH (09:25)
[2023-01-15] MEDS: MAGNESIUM OXIDE 400MG TAB (MAG-OX) PO SCH ×2 (10:19→21:32)
[2023-01-15] MEDS: CLOPIDOGREL 75 MG TAB PO SCH (10:19)
[2023-01-15] MEDS: METOPROLOL SUCC *XL* 25MG TAB (TopROL *XL*) PO SCH ×2 (10:19→21:34)
[2023-01-15] MEDS: FOLIC ACID 1MG TAB PO SCH (10:19)
[2023-01-15] MEDS: allopurinoL 100 MG TAB PO SCH (10:19)
[2023-01-15] MEDS: ISOSORBIDE MON. (IMDUR) 30MG XR TAB PO SCH (10:20)
[2023-01-15] MEDS: ASPIRIN 81MG ENTERIC TABLET PO SCH (10:20)
[2023-01-15 11:43] LABS: PERCENT SATURATION 46.6 % (13.2-45.0)
[2023-01-15 11:57] VITALS: BP 126/58; TEMP 97.4; O2SAT 94
[2023-01-15] MEDS: HEPARIN SOD (PORCINE) 5000UNITS/ML 1ML VIAL/SYRINGE SQ SCH ×2 (14:31→21:34)
[2023-01-15] MEDS: LINEZOLID 600MG TABLET (ZYVOX) PO SCH ×2 (15:50→21:34)
[2023-01-15 20:59] VITALS: BP 110/59; TEMP 97.8; O2SAT 95
[2023-01-15] MEDS: GABAPENTIN 100 MG CAP PO SCH (21:32)
[2023-01-15] MEDS: FAMOTIDINE 20 MG TAB PO SCH (21:33)
[2023-01-15] MEDS: PRAVASTATIN 20 MG TAB PO SCH (21:33)
[2023-01-16] VITALS (7 sets, daily range): BP systolic 82–130; BP diastolic 35–51; TEMP 97.3–98.2; O2SAT 95–98
[2023-01-16] MEDS ORDERED: HEPARIN 1,000UNITS/ML 10ML VIAL (FOR RADIOLOGY & DIALYSIS ONLY) XX SCH (06:00)
[2023-01-16] MEDS ORDERED: SODIUM CHLORIDE 0.9% 1000ML IV PRN ×2 (06:00)
[2023-01-16] MEDS ORDERED: HEPARIN 1,000UNITS/ML 10ML VIAL (FOR RADIOLOGY & DIALYSIS ONLY) IV PRN ×2 (06:00)
[2023-01-16] MEDS: LEVOTHYROXINE 125MCG TABLET (0.125MG) PO SCH (06:46)
[2023-01-16] MEDS: HEPARIN SOD (PORCINE) 5000UNITS/ML 1ML VIAL/SYRINGE SQ SCH ×3 (06:46→21:18)
[2023-01-16 06:56] LABS: BASO % 0.5 % (0.0-1.0); EOS # 0.1 10^3/uL (0.0-0.5); EOS % 2.5 % (0.0-3.0); HEMATOCRIT 24.7 % (36.0-47.0); HEMOGLOBIN 8.1 g/dl (12.0-15.5); LYMPH # 1.2 10^3/uL (1.5-5.0); LYMPH % 26.1 % (24.0-44.0); MEAN CORPUSCULAR HEMOGLOBIN 32.9 pg (27.0-33.0); MEAN CORPUSCULAR HGB CONC 32.8 g/dl (32.0-36.5); MEAN CORPUSCULAR VOLUME 100.4 fl (80.0-96.0); MONO # 0.4 10^3/uL (0.0-0.8); MONO % 9.9 % (2.0-8.0); NEUTROPHILS # 2.7 10^3/uL (1.5-8.5); NEUTROPHILS % 60.1 % (36.0-66.0); PLATELET COUNT, AUTOMATED 144 10^3/uL (150-450); RED BLOOD COUNT 2.46 10^6/uL (4.00-5.40); WHITE BLOOD COUNT 4.4 10^3/uL (4.0-10.0)
[2023-01-16] MEDS: INSULIN LISPRO (NovoLOG) PER UNIT SC SCH ×4 (07:30→19:52)
[2023-01-16] MEDS: FOLIC ACID 1MG TAB PO SCH (09:00)
[2023-01-16] MEDS: LINEZOLID 600MG TABLET (ZYVOX) PO SCH ×2 (09:00→20:10)
[2023-01-16] MEDS: MAGNESIUM OXIDE 400MG TAB (MAG-OX) PO SCH ×2 (09:00→20:09)
[2023-01-16] MEDS: METAMUCIL (PSYLLIUM) PACKET PO SCH (09:00)
[2023-01-16] MEDS: METOPROLOL SUCC *XL* 25MG TAB (TopROL *XL*) PO SCH ×2 (09:00→20:10)
[2023-01-16] MEDS: allopurinoL 100 MG TAB PO SCH (09:00)
[2023-01-16] MEDS: ASPIRIN 81MG ENTERIC TABLET PO SCH (09:00)
[2023-01-16] MEDS: ISOSORBIDE MON. (IMDUR) 30MG XR TAB PO SCH (09:00)
[2023-01-16] MEDS: CLOPIDOGREL 75 MG TAB PO SCH (09:00)
[2023-01-16] MEDS: ACETAMINOPHEN TAB 650MG DOSE (2X325MG) PO PRN (13:18)
[2023-01-16] MEDS ORDERED: LevoFLOXacin 250 MG TABLET PO SCH (16:00)
[2023-01-16] MEDS: LevoFLOXacin 500 MG TABLET PO SCH (16:24)
[2023-01-16 18:09] LABS: MYCOPLASMA PNEUMONIAE IgG 321 U/mL (0-99); MYCOPLASMA PNEUMONIAE IgM <770 U/mL (0-769)
[2023-01-16] MEDS: GABAPENTIN 100 MG CAP PO SCH (20:09)
[2023-01-16] MEDS: PRAVASTATIN 20 MG TAB PO SCH (20:09)
[2023-01-16] MEDS: PANTOPRAZOLE 40MG TAB (PROTONIX) PO SCH (20:10)
[2023-01-16] MEDS: FAMOTIDINE 20 MG TAB PO SCH (20:10)
[2023-01-17 03:50] VITALS: BP 110/40
[2023-01-17] MEDS: LEVOTHYROXINE 125MCG TABLET (0.125MG) PO SCH (05:12)
[2023-01-17] MEDS: HEPARIN SOD (PORCINE) 5000UNITS/ML 1ML VIAL/SYRINGE SQ SCH ×3 (05:13→21:08)
[2023-01-17 05:51] LABS: BASO % 0.4 % (0.0-1.0); EOS # 0.1 10^3/uL (0.0-0.5); EOS % 2.4 % (0.0-3.0); HEMATOCRIT 25.5 % (36.0-47.0); HEMOGLOBIN 8.5 g/dl (12.0-15.5); LYMPH # 1.1 10^3/uL (1.5-5.0); MEAN CORPUSCULAR HEMOGLOBIN 33.2 pg (27.0-33.0); MEAN CORPUSCULAR HGB CONC 33.3 g/dl (32.0-36.5); MEAN CORPUSCULAR VOLUME 99.6 fl (80.0-96.0); MONO # 0.5 10^3/uL (0.0-0.8); MONO % 10.6 % (2.0-8.0); NEUTROPHILS # 2.8 10^3/uL (1.5-8.5); NEUTROPHILS % 61.5 % (36.0-66.0); PLATELET COUNT, AUTOMATED 147 10^3/uL (150-450); RED BLOOD COUNT 2.56 10^6/uL (4.00-5.40); WHITE BLOOD COUNT 4.6 10^3/uL (4.0-10.0)
[2023-01-17 07:17] VITALS: BP 127/56; TEMP 97.3; O2SAT 92
[2023-01-17] MEDS ORDERED: MAGNESIUM OXIDE 400MG TAB (MAG-OX) PO ONE (07:20)
[2023-01-17] MEDS: INSULIN LISPRO (NovoLOG) PER UNIT SC SCH ×4 (07:30→21:00)
[2023-01-17] MEDS: METAMUCIL (PSYLLIUM) PACKET PO SCH (09:26)
[2023-01-17] MEDS: METOPROLOL SUCC *XL* 25MG TAB (TopROL *XL*) PO SCH ×2 (09:27→21:00)
[2023-01-17] MEDS: ISOSORBIDE MON. (IMDUR) 30MG XR TAB PO SCH (09:27)
[2023-01-17] MEDS: FOLIC ACID 1MG TAB PO SCH (09:27)
[2023-01-17] MEDS: ASPIRIN 81MG ENTERIC TABLET PO SCH (09:27)
[2023-01-17] MEDS: LINEZOLID 600MG TABLET (ZYVOX) PO SCH ×2 (09:28→20:58)
[2023-01-17] MEDS: allopurinoL 100 MG TAB PO SCH (09:28)
[2023-01-17] MEDS: CLOPIDOGREL 75 MG TAB PO SCH (09:28)
[2023-01-17] MEDS: MAGNESIUM OXIDE 400MG TAB (MAG-OX) PO SCH ×2 (09:28→21:00)
[2023-01-17 11:08] LABS: THRYOGLOBULIN ANTIBODIES (ATA) < 1.0 IU/mL (0.0-0.9)
[2023-01-17 20:25] VITALS: BP_SYST 175; BP_SYST 186; BP_DIAS 71; BP_DIAS 83; TEMP 97; O2SAT 96
[2023-01-17] MEDS: ACETAMINOPHEN TAB 650MG DOSE (2X325MG) PO PRN (20:59)
[2023-01-17] MEDS: FAMOTIDINE 20 MG TAB PO SCH (21:00)
[2023-01-17] MEDS: PRAVASTATIN 20 MG TAB PO SCH (21:00)
[2023-01-17] MEDS: GABAPENTIN 100 MG CAP PO SCH (21:00)
[2023-01-17] MEDS: PANTOPRAZOLE 40MG TAB (PROTONIX) PO SCH (21:00)
[2023-01-18] MEDS: LEVOTHYROXINE 125MCG TABLET (0.125MG) PO SCH (05:16)
[2023-01-18] MEDS: HEPARIN SOD (PORCINE) 5000UNITS/ML 1ML VIAL/SYRINGE SQ SCH ×3 (05:16→22:16)
[2023-01-18 08:15] VITALS: BP 115/53; TEMP 97.4; O2SAT 100
[2023-01-18] MEDS: METAMUCIL (PSYLLIUM) PACKET PO SCH (09:59)
[2023-01-18] MEDS: ISOSORBIDE MON. (IMDUR) 30MG XR TAB PO SCH (10:01)
[2023-01-18] MEDS: CLOPIDOGREL 75 MG TAB PO SCH (10:01)
[2023-01-18] MEDS: ASPIRIN 81MG ENTERIC TABLET PO SCH (10:02)
[2023-01-18] MEDS: MAGNESIUM OXIDE 400MG TAB (MAG-OX) PO SCH ×2 (10:02→20:24)
[2023-01-18] MEDS: METOPROLOL SUCC *XL* 25MG TAB (TopROL *XL*) PO SCH ×2 (10:02→20:24)
[2023-01-18] MEDS: allopurinoL 100 MG TAB PO SCH (10:03)
[2023-01-18] MEDS: LINEZOLID 600MG TABLET (ZYVOX) PO SCH ×2 (10:03→20:24)
[2023-01-18] MEDS: FOLIC ACID 1MG TAB PO SCH (10:03)
[2023-01-18] MEDS: INSULIN LISPRO (NovoLOG) PER UNIT SC SCH ×4 (10:04→20:31)
[2023-01-18] MEDS: LevoFLOXacin 500 MG TABLET PO SCH (15:53)
[2023-01-18 19:44] VITALS: BP 113/51; O2SAT 95
[2023-01-18] MEDS: PANTOPRAZOLE 40MG TAB (PROTONIX) PO SCH (20:22)
[2023-01-18] MEDS: PRAVASTATIN 20 MG TAB PO SCH (20:23)
[2023-01-18] MEDS: FAMOTIDINE 20 MG TAB PO SCH (20:23)
[2023-01-18] MEDS: GABAPENTIN 100 MG CAP PO SCH (20:24)
[2023-01-19] MEDS: HEPARIN SOD (PORCINE) 5000UNITS/ML 1ML VIAL/SYRINGE SQ SCH ×3 (06:00→20:26)
[2023-01-19 06:11] VITALS: BP 115/55
[2023-01-19] MEDS: LEVOTHYROXINE 125MCG TABLET (0.125MG) PO SCH (06:13)
[2023-01-19] MEDS: LINEZOLID 600MG TABLET (ZYVOX) PO SCH ×2 (06:13→12:48)
[2023-01-19] MEDS: allopurinoL 100 MG TAB PO SCH ×2 (06:13→12:49)
[2023-01-19] MEDS: ASPIRIN 81MG ENTERIC TABLET PO SCH ×2 (06:13→12:48)
[2023-01-19] MEDS: FOLIC ACID 1MG TAB PO SCH ×2 (06:14→12:48)
[2023-01-19] MEDS ORDERED: HEPARIN 1,000UNITS/ML 10ML VIAL (FOR RADIOLOGY & DIALYSIS ONLY) IV PRN (06:55)
[2023-01-19] MEDS ORDERED: HEPARIN 1,000UNITS/ML 10ML VIAL (FOR RADIOLOGY & DIALYSIS ONLY) XX SCH (06:55)
[2023-01-19] MEDS ORDERED: SODIUM CHLORIDE 0.9% 1000ML IV PRN (06:55)
[2023-01-19 07:20] LABS: HEMATOCRIT 24.6 % (36.0-47.0); HEMOGLOBIN 8.2 g/dl (12.0-15.5); MEAN CORPUSCULAR HEMOGLOBIN 32.8 pg (27.0-33.0); MEAN CORPUSCULAR HGB CONC 33.3 g/dl (32.0-36.5); MEAN CORPUSCULAR VOLUME 98.4 fl (80.0-96.0); PLATELET COUNT, AUTOMATED 154 10^3/uL (150-450); WHITE BLOOD COUNT 4.5 10^3/uL (4.0-10.0)
[2023-01-19 07:30] VITALS: BP 120/54; TEMP 97.8; O2SAT 98
[2023-01-19] MEDS: INSULIN LISPRO (NovoLOG) PER UNIT SC SCH ×4 (07:30→20:29)
[2023-01-19 07:42] LABS: ALBUMIN 1.1 G/DL (3.2-5.2); CALCIUM LEVEL 7.4 MG/DL (8.3-10.6); CREATININE FOR GFR 3.81 MG/DL (0.55-1.30); GLOMERULAR FILTRATION RATE 12.1 (>32); MAGNESIUM LEVEL 1.7 MG/DL (1.8-2.4); PHOSPHORUS LEVEL 3.3 MG/DL (2.4-5.1); POTASSIUM SERUM 4.7 MMOL/L (3.5-5.1)
[2023-01-19 12:01] VITALS: BP 125/61; TEMP 97.6; O2SAT 96
[2023-01-19] MEDS: MAGNESIUM OXIDE 400MG TAB (MAG-OX) PO SCH ×2 (12:48→20:27)
[2023-01-19] MEDS: METAMUCIL (PSYLLIUM) PACKET PO SCH (12:48)
[2023-01-19] MEDS: METOPROLOL SUCC *XL* 25MG TAB (TopROL *XL*) PO SCH ×2 (12:49→20:28)
[2023-01-19] MEDS: CLOPIDOGREL 75 MG TAB PO SCH (12:49)
[2023-01-19] MEDS: ISOSORBIDE MON. (IMDUR) 30MG XR TAB PO SCH (12:54)
[2023-01-19 14:52] VITALS: BP 106/53; TEMP 97.5; O2SAT 99
[2023-01-19] MEDS: PANTOPRAZOLE 40MG TAB (PROTONIX) PO SCH (20:26)
[2023-01-19] MEDS: FAMOTIDINE 20 MG TAB PO SCH (20:26)
[2023-01-19] MEDS: GABAPENTIN 100 MG CAP PO SCH (20:28)
[2023-01-19] MEDS: PRAVASTATIN 20 MG TAB PO SCH (20:29)
[2023-01-20] MEDS: LEVOTHYROXINE 125MCG TABLET (0.125MG) PO SCH (05:45)
[2023-01-20] MEDS: HEPARIN SOD (PORCINE) 5000UNITS/ML 1ML VIAL/SYRINGE SQ SCH ×3 (05:45→21:54)
[2023-01-20 05:57] VITALS: BP 114/51; TEMP 97.9; O2SAT 96
[2023-01-20] MEDS: INSULIN LISPRO (NovoLOG) PER UNIT SC SCH ×4 (07:30→21:00)
[2023-01-20] MEDS: FOLIC ACID 1MG TAB PO SCH (09:59)
[2023-01-20] MEDS: ASPIRIN 81MG ENTERIC TABLET PO SCH (10:00)
[2023-01-20] MEDS: allopurinoL 100 MG TAB PO SCH (10:00)
[2023-01-20] MEDS: MAGNESIUM OXIDE 400MG TAB (MAG-OX) PO SCH ×2 (10:00→21:52)
[2023-01-20] MEDS: CLOPIDOGREL 75 MG TAB PO SCH (10:00)
[2023-01-20] MEDS: METAMUCIL (PSYLLIUM) PACKET PO SCH (10:01)
[2023-01-20] MEDS: ISOSORBIDE MON. (IMDUR) 30MG XR TAB PO SCH (10:08)
[2023-01-20] MEDS: METOPROLOL SUCC *XL* 25MG TAB (TopROL *XL*) PO SCH ×2 (10:08→21:00)
[2023-01-20] MEDS: LevoFLOXacin 500 MG TABLET PO SCH (16:28)
[2023-01-20 18:00] VITALS: BP 122/52; TEMP 98.4; O2SAT 99
[2023-01-20] MEDS: PRAVASTATIN 20 MG TAB PO SCH (21:51)
[2023-01-20] MEDS: GABAPENTIN 100 MG CAP PO SCH (21:51)
[2023-01-20] MEDS: PANTOPRAZOLE 40MG TAB (PROTONIX) PO SCH (21:52)
[2023-01-20] MEDS: FAMOTIDINE 20 MG TAB PO SCH (21:54)
[2023-01-21] MEDS ORDERED: SODIUM CHLORIDE 0.9% 1000ML IV PRN (06:15)
[2023-01-21] MEDS ORDERED: HEPARIN 1,000UNITS/ML 10ML VIAL (FOR RADIOLOGY & DIALYSIS ONLY) IV PRN (06:15)
[2023-01-21] MEDS ORDERED: HEPARIN 1,000UNITS/ML 10ML VIAL (FOR RADIOLOGY & DIALYSIS ONLY) XX SCH (06:15)
[2023-01-21] MEDS: FOLIC ACID 1MG TAB PO SCH (06:29)
[2023-01-21] MEDS: HEPARIN SOD (PORCINE) 5000UNITS/ML 1ML VIAL/SYRINGE SQ SCH ×3 (06:29→21:44)
[2023-01-21] MEDS: ISOSORBIDE MON. (IMDUR) 30MG XR TAB PO SCH (06:29)
[2023-01-21] MEDS: LEVOTHYROXINE 125MCG TABLET (0.125MG) PO SCH (06:30)
[2023-01-21] MEDS: allopurinoL 100 MG TAB PO SCH (06:30)
[2023-01-21] MEDS: ASPIRIN 81MG ENTERIC TABLET PO SCH (06:30)
[2023-01-21] MEDS: CLOPIDOGREL 75 MG TAB PO SCH (06:31)
[2023-01-21] MEDS: METAMUCIL (PSYLLIUM) PACKET PO SCH (06:31)
[2023-01-21 06:40] LABS: HEMATOCRIT 25.7 % (36.0-47.0); HEMOGLOBIN 8.5 g/dl (12.0-15.5); MEAN CORPUSCULAR HEMOGLOBIN 32.9 pg (27.0-33.0); MEAN CORPUSCULAR HGB CONC 33.1 g/dl (32.0-36.5); MEAN CORPUSCULAR VOLUME 99.6 fl (80.0-96.0); PLATELET COUNT, AUTOMATED 159 10^3/uL (150-450); RED BLOOD COUNT 2.58 10^6/uL (4.00-5.40); WHITE BLOOD COUNT 3.9 10^3/uL (4.0-10.0)
[2023-01-21 07:09] LABS: ALBUMIN 1.2 G/DL (3.2-5.2); CALCIUM LEVEL 7.6 MG/DL (8.3-10.6); CREATININE FOR GFR 3.76 MG/DL (0.55-1.30); GLOMERULAR FILTRATION RATE 12.3 (>32); PHOSPHORUS LEVEL 3.2 MG/DL (2.4-5.1); POTASSIUM SERUM 4.5 MMOL/L (3.5-5.1)
[2023-01-21] MEDS: INSULIN LISPRO (NovoLOG) PER UNIT SC SCH ×4 (07:30→21:00)
[2023-01-21] MEDS: METOPROLOL SUCC *XL* 25MG TAB (TopROL *XL*) PO SCH ×2 (09:00→21:00)
[2023-01-21] MEDS: MAGNESIUM OXIDE 400MG TAB (MAG-OX) PO SCH ×2 (09:16→21:44)
[2023-01-21 14:00] VITALS: BP 116/55; TEMP 97.6; O2SAT 100
[2023-01-21] MEDS: GABAPENTIN 100 MG CAP PO SCH (21:44)
[2023-01-21] MEDS: PRAVASTATIN 20 MG TAB PO SCH (21:44)
[2023-01-21] MEDS: FAMOTIDINE 20 MG TAB PO SCH (21:44)
[2023-01-21] MEDS: PANTOPRAZOLE 40MG TAB (PROTONIX) PO SCH (21:44)
[2023-01-21] MEDS: NYSTATIN 100,000 UNITS/GM TOPICAL PWD 15GM TOP SCH (21:45)
[2023-01-22] MEDS: LEVOTHYROXINE 125MCG TABLET (0.125MG) PO SCH (05:31)
[2023-01-22] MEDS: HEPARIN SOD (PORCINE) 5000UNITS/ML 1ML VIAL/SYRINGE SQ SCH ×3 (05:31→21:00)
[2023-01-22 05:55] VITALS: BP 117/53; TEMP 98.2; O2SAT 98
[2023-01-22] MEDS: INSULIN LISPRO (NovoLOG) PER UNIT SC SCH ×4 (08:25→21:00)
[2023-01-22] MEDS: ASPIRIN 81MG ENTERIC TABLET PO SCH (08:25)
[2023-01-22] MEDS: MAGNESIUM OXIDE 400MG TAB (MAG-OX) PO SCH ×2 (08:25→21:00)
[2023-01-22] MEDS: CLOPIDOGREL 75 MG TAB PO SCH (08:25)
[2023-01-22] MEDS: FOLIC ACID 1MG TAB PO SCH (08:25)
[2023-01-22] MEDS: ISOSORBIDE MON. (IMDUR) 30MG XR TAB PO SCH (08:26)
[2023-01-22] MEDS: METOPROLOL SUCC *XL* 25MG TAB (TopROL *XL*) PO SCH ×2 (08:26→21:00)
[2023-01-22] MEDS: allopurinoL 100 MG TAB PO SCH (08:27)
[2023-01-22] MEDS: NYSTATIN 100,000 UNITS/GM TOPICAL PWD 15GM TOP SCH ×2 (08:28→21:01)
[2023-01-22] MEDS: METAMUCIL (PSYLLIUM) PACKET PO SCH (08:38)
[2023-01-22 13:00] LABS: FREE T4 0.46 NG/DL (0.89-1.76)
[2023-01-22 13:33] LABS: BASO % 0.4 % (0.0-1.0); EOS # 0.1 10^3/uL (0.0-0.5); EOS % 2.8 % (0.0-3.0); HEMATOCRIT 24.6 % (36.0-47.0); LYMPH # 1.2 10^3/uL (1.5-5.0); LYMPH % 24.9 % (24.0-44.0); MEAN CORPUSCULAR HEMOGLOBIN 32.9 pg (27.0-33.0); MEAN CORPUSCULAR HGB CONC 32.5 g/dl (32.0-36.5); MEAN CORPUSCULAR VOLUME 101.2 fl (80.0-96.0); MONO # 0.4 10^3/uL (0.0-0.8); MONO % 7.9 % (2.0-8.0); NEUTROPHILS % 63.6 % (36.0-66.0); PLATELET COUNT, AUTOMATED 137 10^3/uL (150-450); RED BLOOD COUNT 2.43 10^6/uL (4.00-5.40); WHITE BLOOD COUNT 4.7 10^3/uL (4.0-10.0)
[2023-01-22 13:59] LABS: CALCIUM LEVEL 8.3 MG/DL (8.3-10.6); CREATININE FOR GFR 3.13 MG/DL (0.55-1.30); GLOMERULAR FILTRATION RATE 15.2 (>32); MAGNESIUM LEVEL 1.9 MG/DL (1.8-2.4); POTASSIUM SERUM 4.7 MMOL/L (3.5-5.1)
[2023-01-22] MEDS: PRAVASTATIN 20 MG TAB PO SCH (20:59)
[2023-01-22] MEDS: PANTOPRAZOLE 40MG TAB (PROTONIX) PO SCH (20:59)
[2023-01-22 21:00] VITALS: BP 104/45
[2023-01-22] MEDS: FAMOTIDINE 20 MG TAB PO SCH (21:00)
[2023-01-22] MEDS: GABAPENTIN 100 MG CAP PO SCH (21:00)
[2023-01-23 05:20] VITALS: BP 165/70; TEMP 97.7; O2SAT 98
[2023-01-23] MEDS: CLOPIDOGREL 75 MG TAB PO SCH (05:23)
[2023-01-23] MEDS: LEVOTHYROXINE 125MCG TABLET (0.125MG) PO SCH (05:23)
[2023-01-23] MEDS: HEPARIN SOD (PORCINE) 5000UNITS/ML 1ML VIAL/SYRINGE SQ SCH ×3 (05:23→22:35)
[2023-01-23] MEDS: MAGNESIUM OXIDE 400MG TAB (MAG-OX) PO SCH ×2 (05:23→22:35)
[2023-01-23] MEDS: FOLIC ACID 1MG TAB PO SCH (05:23)
[2023-01-23] MEDS: ASPIRIN 81MG ENTERIC TABLET PO SCH (05:23)
[2023-01-23] MEDS: METAMUCIL (PSYLLIUM) PACKET PO SCH (05:24)
[2023-01-23] MEDS: allopurinoL 100 MG TAB PO SCH (05:24)
[2023-01-23] MEDS: NYSTATIN 100,000 UNITS/GM TOPICAL PWD 15GM TOP SCH ×2 (05:24→22:39)
[2023-01-23 06:24] LABS: BASO % 0.5 % (0.0-1.0); EOS # 0.1 10^3/uL (0.0-0.5); EOS % 3.6 % (0.0-3.0); HEMATOCRIT 24.8 % (36.0-47.0); HEMOGLOBIN 8.1 g/dl (12.0-15.5); LYMPH # 1.2 10^3/uL (1.5-5.0); LYMPH % 30.1 % (24.0-44.0); MEAN CORPUSCULAR HEMOGLOBIN 33.5 pg (27.0-33.0); MEAN CORPUSCULAR HGB CONC 32.7 g/dl (32.0-36.5); MEAN CORPUSCULAR VOLUME 102.5 fl (80.0-96.0); MONO # 0.3 10^3/uL (0.0-0.8); MONO % 8.8 % (2.0-8.0); NEUTROPHILS # 2.2 10^3/uL (1.5-8.5); NEUTROPHILS % 56.2 % (36.0-66.0); PLATELET COUNT, AUTOMATED 146 10^3/uL (150-450); RED BLOOD COUNT 2.42 10^6/uL (4.00-5.40); WHITE BLOOD COUNT 3.9 10^3/uL (4.0-10.0)
[2023-01-23] MEDS ORDERED: SODIUM CHLORIDE 0.9% 1000ML IV PRN (06:25)
[2023-01-23] MEDS ORDERED: HEPARIN 1,000UNITS/ML 10ML VIAL (FOR RADIOLOGY & DIALYSIS ONLY) XX SCH (06:25)
[2023-01-23] MEDS ORDERED: HEPARIN 1,000UNITS/ML 10ML VIAL (FOR RADIOLOGY & DIALYSIS ONLY) IV PRN (06:25)
[2023-01-23 06:54] LABS: CALCIUM LEVEL 8.5 MG/DL (8.3-10.6); CREATININE FOR GFR 3.96 MG/DL (0.55-1.30); GLOMERULAR FILTRATION RATE 11.6 (>32); POTASSIUM SERUM 4.9 MMOL/L (3.5-5.1)
[2023-01-23] MEDS: INSULIN LISPRO (NovoLOG) PER UNIT SC SCH ×4 (07:30→21:00)
[2023-01-23 09:00] VITALS: BP 108/40; TEMP 97.9
[2023-01-23] MEDS: METOPROLOL SUCC *XL* 25MG TAB (TopROL *XL*) PO SCH ×2 (09:00→21:00)
[2023-01-23] MEDS: ISOSORBIDE MON. (IMDUR) 30MG XR TAB PO SCH (09:00)
[2023-01-23 09:05] VITALS: BP 108/40; TEMP 97.9; O2SAT 98
[2023-01-23] MEDS: DARBEPOETIN 200MCG/0.4ML *DIALYSIS* SYRINGE IV SCH (14:31)
[2023-01-23] MEDS: PRAVASTATIN 20 MG TAB PO SCH (22:35)
[2023-01-23] MEDS: PANTOPRAZOLE 40MG TAB (PROTONIX) PO SCH (22:36)
[2023-01-23] MEDS: FAMOTIDINE 20 MG TAB PO SCH (22:38)
[2023-01-23] MEDS: GABAPENTIN 100 MG CAP PO SCH (22:38)
[2023-01-24] MEDS: HEPARIN SOD (PORCINE) 5000UNITS/ML 1ML VIAL/SYRINGE SQ SCH ×3 (05:40→22:00)
[2023-01-24] MEDS: LEVOTHYROXINE 150MCG TABLET (0.15MG) PO SCH (05:40)
[2023-01-24 06:00] VITALS: BP 134/59; TEMP 97.7; O2SAT 94
[2023-01-24] MEDS: INSULIN LISPRO (NovoLOG) PER UNIT SC SCH ×4 (07:30→20:26)
[2023-01-24] MEDS: METAMUCIL (PSYLLIUM) PACKET PO SCH (08:20)
[2023-01-24] MEDS: ASPIRIN 81MG ENTERIC TABLET PO SCH (08:21)
[2023-01-24] MEDS: CLOPIDOGREL 75 MG TAB PO SCH (08:21)
[2023-01-24] MEDS: ISOSORBIDE MON. (IMDUR) 30MG XR TAB PO SCH (08:21)
[2023-01-24] MEDS: MAGNESIUM OXIDE 400MG TAB (MAG-OX) PO SCH ×2 (08:21→21:54)
[2023-01-24] MEDS: METOPROLOL SUCC *XL* 25MG TAB (TopROL *XL*) PO SCH ×2 (08:21→21:55)
[2023-01-24] MEDS: FOLIC ACID 1MG TAB PO SCH (08:21)
[2023-01-24] MEDS: allopurinoL 100 MG TAB PO SCH (08:21)
[2023-01-24] MEDS: NYSTATIN 100,000 UNITS/GM TOPICAL PWD 15GM TOP SCH ×2 (08:22→21:55)
[2023-01-24] MEDS: PANTOPRAZOLE 40MG TAB (PROTONIX) PO SCH (21:54)
[2023-01-24] MEDS: PRAVASTATIN 20 MG TAB PO SCH (21:54)
[2023-01-24] MEDS: GABAPENTIN 100 MG CAP PO SCH (21:55)
[2023-01-25] MEDS: HEPARIN SOD (PORCINE) 5000UNITS/ML 1ML VIAL/SYRINGE SQ SCH ×3 (05:59→21:27)
[2023-01-25] MEDS: LEVOTHYROXINE 150MCG TABLET (0.15MG) PO SCH (05:59)
[2023-01-25 06:00] VITALS: BP 128/54; TEMP 97.5; O2SAT 98
[2023-01-25] MEDS: INSULIN LISPRO (NovoLOG) PER UNIT SC SCH ×4 (07:30→21:00)
[2023-01-25] MEDS: METAMUCIL (PSYLLIUM) PACKET PO SCH (09:03)
[2023-01-25] MEDS: allopurinoL 100 MG TAB PO SCH (09:03)
[2023-01-25] MEDS: ASPIRIN 81MG ENTERIC TABLET PO SCH (09:03)
[2023-01-25] MEDS: CLOPIDOGREL 75 MG TAB PO SCH (09:03)
[2023-01-25] MEDS: FOLIC ACID 1MG TAB PO SCH (09:03)
[2023-01-25] MEDS: METOPROLOL SUCC *XL* 25MG TAB (TopROL *XL*) PO SCH ×2 (09:04→21:00)
[2023-01-25] MEDS: NYSTATIN 100,000 UNITS/GM TOPICAL PWD 15GM TOP SCH ×2 (09:04→21:26)
[2023-01-25] MEDS: MAGNESIUM OXIDE 400MG TAB (MAG-OX) PO SCH ×2 (09:04→21:26)
[2023-01-25] MEDS: ISOSORBIDE MON. (IMDUR) 30MG XR TAB PO SCH (09:04)
[2023-01-25] MEDS: ACETAMINOPHEN TAB 650MG DOSE (2X325MG) PO PRN (18:44)
[2023-01-25] MEDS: PRAVASTATIN 20 MG TAB PO SCH (21:26)
[2023-01-25] MEDS: PANTOPRAZOLE 40MG TAB (PROTONIX) PO SCH (21:26)
[2023-01-25] MEDS: GABAPENTIN 100 MG CAP PO SCH (21:26)
[2023-01-26 06:00] VITALS: BP 125/63; TEMP 97.9; O2SAT 95
[2023-01-26] MEDS ORDERED: HEPARIN 1,000UNITS/ML 10ML VIAL (FOR RADIOLOGY & DIALYSIS ONLY) IV PRN (06:00)
[2023-01-26] MEDS ORDERED: SODIUM CHLORIDE 0.9% 1000ML IV PRN (06:00)
[2023-01-26] MEDS ORDERED: HEPARIN 1,000UNITS/ML 10ML VIAL (FOR RADIOLOGY & DIALYSIS ONLY) XX SCH (06:00)
[2023-01-26] MEDS: MAGNESIUM OXIDE 400MG TAB (MAG-OX) PO SCH ×2 (06:22→22:53)
[2023-01-26] MEDS: METOPROLOL SUCC *XL* 25MG TAB (TopROL *XL*) PO SCH ×2 (06:23→21:00)
[2023-01-26] MEDS: LEVOTHYROXINE 150MCG TABLET (0.15MG) PO SCH (06:23)
[2023-01-26] MEDS: ISOSORBIDE MON. (IMDUR) 30MG XR TAB PO SCH (06:23)
[2023-01-26] MEDS: allopurinoL 100 MG TAB PO SCH (06:23)
[2023-01-26] MEDS: ASPIRIN 81MG ENTERIC TABLET PO SCH (06:24)
[2023-01-26] MEDS: FOLIC ACID 1MG TAB PO SCH (06:24)
[2023-01-26] MEDS: HEPARIN SOD (PORCINE) 5000UNITS/ML 1ML VIAL/SYRINGE SQ SCH ×3 (06:24→22:55)
[2023-01-26] MEDS: CLOPIDOGREL 75 MG TAB PO SCH (06:24)
[2023-01-26] MEDS: INSULIN LISPRO (NovoLOG) PER UNIT SC SCH ×4 (07:30→21:00)
[2023-01-26] MEDS: METAMUCIL (PSYLLIUM) PACKET PO SCH (09:14)
[2023-01-26] MEDS: NYSTATIN 100,000 UNITS/GM TOPICAL PWD 15GM TOP SCH ×2 (09:15→22:55)
[2023-01-26] MEDS: ACETAMINOPHEN TAB 650MG DOSE (2X325MG) PO PRN (15:51)
[2023-01-26] MEDS: PANTOPRAZOLE 40MG TAB (PROTONIX) PO SCH (22:53)
[2023-01-26] MEDS: GABAPENTIN 100 MG CAP PO SCH (22:53)
[2023-01-26] MEDS: PRAVASTATIN 20 MG TAB PO SCH (22:54)
[2023-01-27] MEDS: HEPARIN SOD (PORCINE) 5000UNITS/ML 1ML VIAL/SYRINGE SQ SCH ×3 (05:34→21:20)
[2023-01-27] MEDS: LEVOTHYROXINE 150MCG TABLET (0.15MG) PO SCH (05:34)
[2023-01-27 05:35] VITALS: BP 105/42; TEMP 96.8; O2SAT 96
[2023-01-27] MEDS: CLOPIDOGREL 75 MG TAB PO SCH (08:58)
[2023-01-27] MEDS: INSULIN LISPRO (NovoLOG) PER UNIT SC SCH ×4 (08:58→21:00)
[2023-01-27] MEDS: allopurinoL 100 MG TAB PO SCH (08:58)
[2023-01-27] MEDS: ASPIRIN 81MG ENTERIC TABLET PO SCH (08:58)
[2023-01-27] MEDS: MAGNESIUM OXIDE 400MG TAB (MAG-OX) PO SCH ×2 (08:58→21:19)
[2023-01-27] MEDS: FOLIC ACID 1MG TAB PO SCH (08:58)
[2023-01-27] MEDS: NYSTATIN 100,000 UNITS/GM TOPICAL PWD 15GM TOP SCH ×2 (08:59→21:20)
[2023-01-27] MEDS: ISOSORBIDE MON. (IMDUR) 30MG XR TAB PO SCH (09:00)
[2023-01-27] MEDS: METOPROLOL SUCC *XL* 25MG TAB (TopROL *XL*) PO SCH ×2 (09:00→21:19)
[2023-01-27] MEDS: METAMUCIL (PSYLLIUM) PACKET PO SCH (09:00)
[2023-01-27 20:01] VITALS: BP 111/52; TEMP 97.9; O2SAT 96
[2023-01-27] MEDS: PRAVASTATIN 20 MG TAB PO SCH (21:18)
[2023-01-27] MEDS: GABAPENTIN 100 MG CAP PO SCH (21:19)
[2023-01-27] MEDS: PANTOPRAZOLE 40MG TAB (PROTONIX) PO SCH (21:19)
[2023-01-28] MEDS: LEVOTHYROXINE 150MCG TABLET (0.15MG) PO SCH (05:39)
[2023-01-28] MEDS: HEPARIN SOD (PORCINE) 5000UNITS/ML 1ML VIAL/SYRINGE SQ SCH ×3 (05:40→22:00)
[2023-01-28] MEDS ORDERED: SODIUM CHLORIDE 0.9% 1000ML IV PRN (06:00)
[2023-01-28] MEDS ORDERED: HEPARIN 1,000UNITS/ML 10ML VIAL (FOR RADIOLOGY & DIALYSIS ONLY) XX SCH (06:00)
[2023-01-28] MEDS ORDERED: HEPARIN 1,000UNITS/ML 10ML VIAL (FOR RADIOLOGY & DIALYSIS ONLY) IV PRN (06:00)
[2023-01-28 06:07] VITALS: BP 112/50; TEMP 98; O2SAT 97
[2023-01-28] MEDS: ASPIRIN 81MG ENTERIC TABLET PO SCH (06:28)
[2023-01-28] MEDS: FOLIC ACID 1MG TAB PO SCH (06:28)
[2023-01-28] MEDS: MAGNESIUM OXIDE 400MG TAB (MAG-OX) PO SCH ×2 (06:29→22:14)
[2023-01-28] MEDS: CLOPIDOGREL 75 MG TAB PO SCH (06:29)
[2023-01-28] MEDS: allopurinoL 100 MG TAB PO SCH (06:29)
[2023-01-28] MEDS: METAMUCIL (PSYLLIUM) PACKET PO SCH (06:30)
[2023-01-28] MEDS: METOPROLOL SUCC *XL* 25MG TAB (TopROL *XL*) PO SCH ×2 (06:31→22:15)
[2023-01-28] MEDS: ISOSORBIDE MON. (IMDUR) 30MG XR TAB PO SCH (06:31)
[2023-01-28] MEDS: NYSTATIN 100,000 UNITS/GM TOPICAL PWD 15GM TOP SCH ×2 (06:32→21:00)
[2023-01-28] MEDS: INSULIN LISPRO (NovoLOG) PER UNIT SC SCH ×4 (07:30→21:00)
[2023-01-28] MEDS: PANTOPRAZOLE 40MG TAB (PROTONIX) PO SCH (21:00)
[2023-01-28] MEDS: PRAVASTATIN 20 MG TAB PO SCH (22:14)
[2023-01-28] MEDS: GABAPENTIN 100 MG CAP PO SCH (22:15)
[2023-01-29] MEDS: HEPARIN SOD (PORCINE) 5000UNITS/ML 1ML VIAL/SYRINGE SQ SCH ×3 (06:00→22:00)
[2023-01-29] MEDS: LEVOTHYROXINE 150MCG TABLET (0.15MG) PO SCH (06:09)
[2023-01-29 06:11] VITALS: BP 114/52; TEMP 97.8; O2SAT 96
[2023-01-29] MEDS: FOLIC ACID 1MG TAB PO SCH (08:48)
[2023-01-29] MEDS: ASPIRIN 81MG ENTERIC TABLET PO SCH (08:48)
[2023-01-29] MEDS: allopurinoL 100 MG TAB PO SCH (08:49)
[2023-01-29] MEDS: ISOSORBIDE MON. (IMDUR) 30MG XR TAB PO SCH (08:49)
[2023-01-29] MEDS: MAGNESIUM OXIDE 400MG TAB (MAG-OX) PO SCH ×2 (08:49→22:14)
[2023-01-29] MEDS: CLOPIDOGREL 75 MG TAB PO SCH (08:49)
[2023-01-29] MEDS: METAMUCIL (PSYLLIUM) PACKET PO SCH (08:49)
[2023-01-29] MEDS: NYSTATIN 100,000 UNITS/GM TOPICAL PWD 15GM TOP SCH ×2 (08:50→22:16)
[2023-01-29] MEDS: METOPROLOL SUCC *XL* 25MG TAB (TopROL *XL*) PO SCH ×2 (08:51→22:14)
[2023-01-29] MEDS: INSULIN LISPRO (NovoLOG) PER UNIT SC SCH ×4 (08:52→21:00)
[2023-01-29] MEDS: PANTOPRAZOLE 40MG TAB (PROTONIX) PO SCH (22:14)
[2023-01-29] MEDS: PRAVASTATIN 20 MG TAB PO SCH (22:14)
[2023-01-29] MEDS: GABAPENTIN 100 MG CAP PO SCH (22:15)
[2023-01-30] MEDS: METAMUCIL (PSYLLIUM) PACKET PO SCH (05:59)
[2023-01-30] MEDS: HEPARIN SOD (PORCINE) 5000UNITS/ML 1ML VIAL/SYRINGE SQ SCH ×3 (06:00→21:43)
[2023-01-30] MEDS: MAGNESIUM OXIDE 400MG TAB (MAG-OX) PO SCH ×2 (06:00→21:26)
[2023-01-30] MEDS: ISOSORBIDE MON. (IMDUR) 30MG XR TAB PO SCH (06:00)
[2023-01-30] MEDS: METOPROLOL SUCC *XL* 25MG TAB (TopROL *XL*) PO SCH ×2 (06:00→21:27)
[2023-01-30] MEDS ORDERED: SODIUM CHLORIDE 0.9% 1000ML IV PRN (06:00)
[2023-01-30] MEDS ORDERED: HEPARIN 1,000UNITS/ML 10ML VIAL (FOR RADIOLOGY & DIALYSIS ONLY) IV PRN (06:00)
[2023-01-30] MEDS: allopurinoL 100 MG TAB PO SCH (06:00)
[2023-01-30] MEDS ORDERED: HEPARIN 1,000UNITS/ML 10ML VIAL (FOR RADIOLOGY & DIALYSIS ONLY) XX SCH (06:00)
[2023-01-30] MEDS: NYSTATIN 100,000 UNITS/GM TOPICAL PWD 15GM TOP SCH ×2 (06:01→21:00)
[2023-01-30] MEDS: ASPIRIN 81MG ENTERIC TABLET PO SCH (06:01)
[2023-01-30] MEDS: FOLIC ACID 1MG TAB PO SCH (06:01)
[2023-01-30] MEDS: CLOPIDOGREL 75 MG TAB PO SCH (06:01)
[2023-01-30] MEDS: LEVOTHYROXINE 150MCG TABLET (0.15MG) PO SCH (06:03)
[2023-01-30 06:31] VITALS: BP 117/55; TEMP 98.1; O2SAT 96
[2023-01-30] MEDS: INSULIN LISPRO (NovoLOG) PER UNIT SC SCH ×4 (07:30→21:00)
[2023-01-30] MEDS: DARBEPOETIN 200MCG/0.4ML *DIALYSIS* SYRINGE IV SCH (11:56)
[2023-01-30] MEDS: PRAVASTATIN 20 MG TAB PO SCH (21:26)
[2023-01-30] MEDS: GABAPENTIN 100 MG CAP PO SCH (21:26)
[2023-01-30] MEDS: PANTOPRAZOLE 40MG TAB (PROTONIX) PO SCH (21:26)
[2023-01-31] MEDS: LEVOTHYROXINE 150MCG TABLET (0.15MG) PO SCH (06:03)
[2023-01-31] MEDS: HEPARIN SOD (PORCINE) 5000UNITS/ML 1ML VIAL/SYRINGE SQ SCH ×3 (06:03→21:08)
[2023-01-31 06:42] VITALS: BP 109/57; TEMP 98.4; O2SAT 96
[2023-01-31] MEDS: INSULIN LISPRO (NovoLOG) PER UNIT SC SCH ×4 (07:30→21:00)
[2023-01-31] MEDS: ASPIRIN 81MG ENTERIC TABLET PO SCH (10:01)
[2023-01-31] MEDS: allopurinoL 100 MG TAB PO SCH (10:01)
[2023-01-31] MEDS: MAGNESIUM OXIDE 400MG TAB (MAG-OX) PO SCH ×2 (10:02→21:07)
[2023-01-31] MEDS: FOLIC ACID 1MG TAB PO SCH (10:02)
[2023-01-31] MEDS: ISOSORBIDE MON. (IMDUR) 30MG XR TAB PO SCH (10:02)
[2023-01-31] MEDS: METOPROLOL SUCC *XL* 25MG TAB (TopROL *XL*) PO SCH ×2 (10:02→21:08)
[2023-01-31] MEDS: CLOPIDOGREL 75 MG TAB PO SCH (10:03)
[2023-01-31] MEDS: METAMUCIL (PSYLLIUM) PACKET PO SCH (10:04)
[2023-01-31] MEDS: NYSTATIN 100,000 UNITS/GM TOPICAL PWD 15GM TOP SCH ×2 (10:04→21:09)
[2023-01-31] MEDS: PRAVASTATIN 20 MG TAB PO SCH (21:07)
[2023-01-31] MEDS: PANTOPRAZOLE 40MG TAB (PROTONIX) PO SCH (21:07)
[2023-01-31] MEDS: GABAPENTIN 100 MG CAP PO SCH (21:08)
[2023-02-01] MEDS: LEVOTHYROXINE 150MCG TABLET (0.15MG) PO SCH (05:34)
[2023-02-01] MEDS: HEPARIN SOD (PORCINE) 5000UNITS/ML 1ML VIAL/SYRINGE SQ SCH ×3 (05:34→21:10)
[2023-02-01] MEDS: allopurinoL 100 MG TAB PO SCH (05:35)
[2023-02-01] MEDS: MAGNESIUM OXIDE 400MG TAB (MAG-OX) PO SCH ×2 (05:35→21:08)
[2023-02-01] MEDS: ISOSORBIDE MON. (IMDUR) 30MG XR TAB PO SCH (05:38)
[2023-02-01] MEDS: ASPIRIN 81MG ENTERIC TABLET PO SCH (05:39)
[2023-02-01] MEDS: CLOPIDOGREL 75 MG TAB PO SCH (05:39)
[2023-02-01] MEDS: METAMUCIL (PSYLLIUM) PACKET PO SCH (05:39)
[2023-02-01] MEDS: METOPROLOL SUCC *XL* 25MG TAB (TopROL *XL*) PO SCH ×2 (05:39→21:09)
[2023-02-01] MEDS: FOLIC ACID 1MG TAB PO SCH (05:39)
[2023-02-01 05:45] VITALS: BP 139/64; TEMP 97.8; O2SAT 96
[2023-02-01] MEDS ORDERED: HEPARIN 1,000UNITS/ML 10ML VIAL (FOR RADIOLOGY & DIALYSIS ONLY) XX SCH (06:45)
[2023-02-01] MEDS ORDERED: HEPARIN 1,000UNITS/ML 10ML VIAL (FOR RADIOLOGY & DIALYSIS ONLY) IV PRN (06:45)
[2023-02-01] MEDS ORDERED: SODIUM CHLORIDE 0.9% 1000ML IV PRN (06:45)
[2023-02-01 07:04] LABS: HEMATOCRIT 27.4 % (36.0-47.0); HEMOGLOBIN 8.8 g/dl (12.0-15.5); MEAN CORPUSCULAR HEMOGLOBIN 33.8 pg (27.0-33.0); MEAN CORPUSCULAR HGB CONC 32.1 g/dl (32.0-36.5); MEAN CORPUSCULAR VOLUME 105.4 fl (80.0-96.0); PLATELET COUNT, AUTOMATED 199 10^3/uL (150-450); WHITE BLOOD COUNT 7.6 10^3/uL (4.0-10.0)
[2023-02-01 07:36] LABS: ALBUMIN 1.4 G/DL (3.2-5.2); CALCIUM LEVEL 7.1 MG/DL (8.3-10.6); CREATININE FOR GFR 3.44 MG/DL (0.55-1.30); GLOMERULAR FILTRATION RATE 13.6 (>32); PHOSPHORUS LEVEL 2.7 MG/DL (2.4-5.1); POTASSIUM SERUM 4.4 MMOL/L (3.5-5.1)
[2023-02-01] MEDS: INSULIN LISPRO (NovoLOG) PER UNIT SC SCH ×5 (07:52→21:00)
[2023-02-01] MEDS: NYSTATIN 100,000 UNITS/GM TOPICAL PWD 15GM TOP SCH ×2 (07:53→21:09)
[2023-02-01] MEDS: PRAVASTATIN 20 MG TAB PO SCH (21:08)
[2023-02-01] MEDS: GABAPENTIN 100 MG CAP PO SCH (21:08)
[2023-02-01] MEDS: PANTOPRAZOLE 40MG TAB (PROTONIX) PO SCH (21:08)
[2023-02-02] MEDS: HEPARIN SOD (PORCINE) 5000UNITS/ML 1ML VIAL/SYRINGE SQ SCH ×3 (05:28→20:41)
[2023-02-02] MEDS: LEVOTHYROXINE 150MCG TABLET (0.15MG) PO SCH (05:28)
[2023-02-02 05:49] VITALS: BP 127/53; TEMP 98.1; O2SAT 67; O2SAT 97
[2023-02-02] MEDS: NYSTATIN 100,000 UNITS/GM TOPICAL PWD 15GM TOP SCH ×2 (09:00→20:19)
[2023-02-02] MEDS: CLOPIDOGREL 75 MG TAB PO SCH (09:13)
[2023-02-02] MEDS: ASPIRIN 81MG ENTERIC TABLET PO SCH (09:13)
[2023-02-02] MEDS: allopurinoL 100 MG TAB PO SCH (09:13)
[2023-02-02] MEDS: MAGNESIUM OXIDE 400MG TAB (MAG-OX) PO SCH ×2 (09:13→20:18)
[2023-02-02] MEDS: METAMUCIL (PSYLLIUM) PACKET PO SCH (09:13)
[2023-02-02] MEDS: FOLIC ACID 1MG TAB PO SCH (09:14)
[2023-02-02] MEDS: ISOSORBIDE MON. (IMDUR) 30MG XR TAB PO SCH (09:15)
[2023-02-02] MEDS: INSULIN LISPRO (NovoLOG) PER UNIT SC SCH ×4 (09:15→20:41)
[2023-02-02] MEDS: METOPROLOL SUCC *XL* 25MG TAB (TopROL *XL*) PO SCH ×2 (09:16→20:18)
[2023-02-02] MEDS: PRAVASTATIN 20 MG TAB PO SCH (20:18)
[2023-02-02] MEDS: GABAPENTIN 100 MG CAP PO SCH (20:18)
[2023-02-02] MEDS: PANTOPRAZOLE 40MG TAB (PROTONIX) PO SCH (20:19)
[2023-02-03] MEDS: LEVOTHYROXINE 150MCG TABLET (0.15MG) PO SCH (05:25)
[2023-02-03] MEDS: HEPARIN SOD (PORCINE) 5000UNITS/ML 1ML VIAL/SYRINGE SQ SCH ×2 (05:26→14:00)
[2023-02-03 05:27] VITALS: BP 132/46; TEMP 97.7; O2SAT 94
[2023-02-03 06:30] LABS: FREE T4 0.67 NG/DL (0.89-1.76)
[2023-02-03] MEDS ORDERED: SODIUM CHLORIDE 0.9% 1000ML IV PRN (06:45)
[2023-02-03] MEDS ORDERED: HEPARIN 1,000UNITS/ML 10ML VIAL (FOR RADIOLOGY & DIALYSIS ONLY) IV PRN (06:45)
[2023-02-03] MEDS ORDERED: HEPARIN 1,000UNITS/ML 10ML VIAL (FOR RADIOLOGY & DIALYSIS ONLY) XX SCH (06:45)
[2023-02-03 07:11] LABS: ALBUMIN 1.3 G/DL (3.2-5.2); CALCIUM LEVEL 7.2 MG/DL (8.3-10.6); CREATININE FOR GFR 3.24 MG/DL (0.55-1.30); GLOMERULAR FILTRATION RATE 14.6 (>32); PHOSPHORUS LEVEL 2.8 MG/DL (2.4-5.1); POTASSIUM SERUM 4.5 MMOL/L (3.5-5.1)
[2023-02-03] MEDS: INSULIN LISPRO (NovoLOG) PER UNIT SC SCH ×2 (07:30→12:00)
[2023-02-03 08:04] VITALS: BP 131/45
[2023-02-03] MEDS: MAGNESIUM OXIDE 400MG TAB (MAG-OX) PO SCH (08:04)
[2023-02-03] MEDS: METOPROLOL SUCC *XL* 25MG TAB (TopROL *XL*) PO SCH (08:04)
[2023-02-03] MEDS: allopurinoL 100 MG TAB PO SCH (08:04)
[2023-02-03] MEDS: ISOSORBIDE MON. (IMDUR) 30MG XR TAB PO SCH (08:05)
[2023-02-03] MEDS: FOLIC ACID 1MG TAB PO SCH (08:05)
[2023-02-03] MEDS: METAMUCIL (PSYLLIUM) PACKET PO SCH (08:05)
[2023-02-03] MEDS: ASPIRIN 81MG ENTERIC TABLET PO SCH (08:05)
[2023-02-03] MEDS: CLOPIDOGREL 75 MG TAB PO SCH (08:05)
[2023-02-03] MEDS: NYSTATIN 100,000 UNITS/GM TOPICAL PWD 15GM TOP SCH (09:00)
[2023-02-03] MEDS ORDERED: LEVO150T7 PO (11:12)
== END 2023-02-03 16:40 | DRG 177 ==
LOC: M ED 16:08 → M ED INP 21:00 → M PCU 22:58 → M MS5PR 01-19 14:45
PROVIDERS: ADMIT Internal Medicine; ATTEND Internal Medicine
PROC: 5A1D70Z Performance of Urinary Filtration, Intermittent, Less than 6 Hours Per Day (ICD-10-PCS; principal; 2023-01-16)
DX: J15.212 Pneumonia due to Methicillin resistant Staphylococcus aureus (principal); N18.6 End stage renal disease; G93.41 Metabolic encephalopathy; I13.2 Hypertensive heart and chronic kidney disease with heart failure and with stage 5 chronic kidney disease, or end stage renal disease; J98.11 Atelectasis; N39.0 Urinary tract infection, site not specified; I12.0 Hypertensive chronic kidney disease with stage 5 chronic kidney disease or end stage renal disease; E87.1 Hypo-osmolality and hyponatremia; E78.5 Hyperlipidemia, unspecified; K21.9 Gastro-esophageal reflux disease without esophagitis; E89.0 Postprocedural hypothyroidism; E11.22 Type 2 diabetes mellitus with diabetic chronic kidney disease; F03.90 Unspecified dementia, unspecified severity, without behavioral disturbance, psychotic disturbance, mood disturbance, and anxiety; I25.10 Atherosclerotic heart disease of native coronary artery without angina pectoris; I27.20 Pulmonary hypertension, unspecified; D46.9 Myelodysplastic syndrome, unspecified; E83.42 Hypomagnesemia; R91.8 Other nonspecific abnormal finding of lung field; D53.9 Nutritional anemia, unspecified; Z66 Do not resuscitate; M10.9 Gout, unspecified; D63.1 Anemia in chronic kidney disease; I27.21 Secondary pulmonary arterial hypertension; T38.1X6A Underdosing of thyroid hormones and substitutes, initial encounter; R53.81 Other malaise; Z85.43 Personal history of malignant neoplasm of ovary; Z90.49 Acquired absence of other specified parts of digestive tract; Z90.710 Acquired absence of both cervix and uterus; R74.01 Elevation of levels of liver transaminase levels; E86.0 Dehydration; R10.819 Abdominal tenderness, unspecified site; Z79.01 Long term (current) use of anticoagulants; Z79.82 Long term (current) use of aspirin; Z79.02 Long term (current) use of antithrombotics/antiplatelets; Z79.890 Hormone replacement therapy; Z88.8 Allergy status to other drugs, medicaments and biological substances; Z91.040 Latex allergy status; Z91.030 Bee allergy status; Z91.038 Other insect allergy status; Z85.850 Personal history of malignant neoplasm of thyroid; K76.0 Fatty (change of) liver, not elsewhere classified; Z95.1 Presence of aortocoronary bypass graft; Z91.128 Patient's intentional underdosing of medication regimen for other reason; Z99.2 Dependence on renal dialysis